=== PATIENT | male | born 1960 | race Two or more races ===

== ENCOUNTER 2020-12-11 10:00 | Inpatient (IN) | payer OTHER, SELFPAY ==
[2020-12-11] VITALS (7 sets, daily range): BP systolic 109–153; BP diastolic 61–98; PULSE 96–130; RESP 13–22; TEMP 37.1–38.3; O2SAT 95–98; BMI 22.9
--- NOTE | ~2020-12-11 | XR_ITS ---
EXAMINATION: XR CHEST CLINICAL INFORMATION: Fever, high risk aspiration. COMPARISON: 01/18/2018 portable chest. TECHNIQUE: 2 views of the chest were obtained. FINDINGS: The lungs are clear. No pleural effusions. The heart and mediastinal structures are unremarkable. XR/XR chest 2V IMPRESSION: No acute cardiopulmonary process.
--- NOTE | ~2020-12-11 | US_ITS ---
EXAMINATION: US RETROPERITONEAL LIMITED (RENAL ONLY) CLINICAL INFORMATION: Renal stone. COMPARISON: Most recent CT abdomen/pelvis dated 01/02/2019. TECHNIQUE: Ultrasound images of the right and left kidney were obtained. FINDINGS: RIGHT KIDNEY: 11.4 x 5.6 x 3.8 cm (SAG x AP x TRV). The kidney is normal in size, contour, and echogenicity. Renal cortical thickness is normal. No focal parenchymal lesion. Multiple right-sided renal stones measuring up to 1.3 cm within the midpole. No hydronephrosis. LEFT KIDNEY: 10.8 x 4.8 x 4.8 cm (SAG x AP x TRV). The kidney is normal in size, contour, and echogenicity. Renal cortical thickness is normal. No focal parenchymal lesion. Echogenic foci, likely representing stones measuring up to 0.3 cm within the lower pole. No hydronephrosis. US/US renal BI IMPRESSION: Bilateral renal stones measuring up to 1.3 cm on the right and 0.3 cm on the left. No hydronephrosis.
--- NOTE | ~2020-12-11 | CT_ITS ---
EXAMINATION: CT chest wo con. CLINICAL INFORMATION: Cough fever COMPARISON: Prior CT 12/22/2016 TECHNIQUE: Multidetector volumetric CT imaging of the chest was done. Axial MIP volume rendering provided. Sagittal and coronal reformatted images were obtained. This CT examination was performed using dose optimization techniques as appropriate, variously including the following: *Automated exposure control *Adjustment of mA and/or kV according to patient size (this includes techniques or standardized protocols for targeted exams where dose is matched to indication/reason for exam; i.e. extremities or head) *Use of iterative reconstruction technique CONTRAST: Noncontrasted study. DLP: 360 mGy-cm FINDINGS: LEAF BLENDER: LINES/TUBES: Fine Grader reviewed, no lines. LUNGS: Lung parenchyma: No evidence of significant interstitial disease. Lung nodules/masses: There are no significant lung nodules. AIRWAYS: Trachea and bronchi are normal. PLEURA: No pleural effusion or pneumothorax. MEDIASTINUM AND AIDE: No mediastinal, hilar or axillary lymphadenopathy. No mediastinal mass. VESSELS: HEART AND PERICARDIUM: Thoracic aorta is normal in size. Heart is normal in size. No pericardial effusion. Pulmonary arteries are normal in size. LOWER NECK, AXILLA: The visualized thyroid gland is unremarkable. No axillary mass or adenopathy. VISUALIZED ABDOMEN: There are bilateral kidney stones, there is IVC filter in place, otherwise unremarkable. CHEST WALL AND BONES: No chest wall mass. The visualized bony thorax is within normal limits. CT/CT chest wo con IMPRESSION: Study limited by motion artifact. 1. No CT evidence of pulmonary infiltrate pneumonia. Lungs are clear. 2. No adenopathy. 3. There are bilateral kidney stones, right IVC filter in place.
--- NOTE | 2020-12-11 10:20 | ECG_ITS ---
Test Reason : FEVER Blood Pressure : / mmHG Vent. Rate : 114 BPM Atrial Rate : 114 BPM P-R Int : 124 ms QRS Dur : 076 ms QT Int : 312 ms P-R-T Axes : 054 036 035 degrees QTc Int : 430 ms Sinus tachycardia Otherwise normal ECG When compared with ECG of 18-JAN-2018 18:36, Nonspecific T wave abnormality, improved in Inferior leads Referred By: Marynan Jenkins Electronically Signed By:RAINE JANSEN
--- NOTE | 2020-12-11 10:25 | ED.GENADULT ---
HPI - General Adult General Chief complaint: Fever Stated complaint: hyperglycemia, nausea/vomiting Time Seen by Provider: 12/11/20 10:15 Source: family (patients sister ) Mode of arrival: EMS Limitations: physical limitation (patient non verbal at baseline. ) History of Present Illness HPI narrative: History obtained from patients siter due to patient being nonverbal at baseline. Per patient's sister he has been having fevers, chills, cough, nausea/vomiting and high sugars at home X3 days. Fevers have been as high as 102 degrees F, last night. He was given Tylenol for his fever, which brought the temperature down. Family also reports he has been having a cough that is productive of white sputum, however they state he has not been short of breath. He has been vomiting just bile, periodically throughout the day. They report sugars at home have been anywhere between 300, to high (meter unable to give quantitative value). He has been eating and drinking per usual. Past medical history significant for hypertension, asthma and HIV. Patient is taking Trumeq. Onset (ago): day(s) (3) Related Data Home Medications Medication Instructions Recorded Confirmed abacavir 600 mg-dolutegravir 50 1 tab PO DAILY 12/11/20 12/11/20 mg-lamivudine 300 mg tablet (Triumeq) insulin degludec 100 unit/mL (3 24 unit SUBCUT DAILY 12/11/20 12/11/20 mL) subcutaneous pen (Tresiba FlexTouch U-100 insulin) insulin lispro 100 unit/mL 0 sliding scale dose SUBCUT TID 12/11/20 12/11/20 subcutaneous pen (Humalog KwikPen (U-100) Insulin) losartan 100 mg tablet 1 tab PO DAILY 12/11/20 12/11/20 Allergies Allergy/AdvReac Type Severity Reaction Status Date / Time aspirin [Aspirin] Allergy Unknown HIVES, Unverified 11/26/19 15:16 ITCHING ibuprofen [From Motrin] Allergy Unknown UNKNOWN Unverified 11/26/19 15:16 Sulfa (Sulfonamide Allergy Unknown HIVES Unverified 11/26/19 15:16 Antibiotics) [SULFA (SULFONAMIDE ANTIBIOTICS)] Aspirin Allergy Unknown Uncoded 08/07/11 00:00 Seafood Allergy Unknown RASH, Uncoded 11/26/19 15:16 ITCHING, HIVES Sulfa Allergy Unknown Uncoded 08/07/11 00:00 Review of Systems Review of Systems: Yes all other systems are reviewed and are negative Constitutional: Constitutional: Reports no additional constitutional complaints, Denies body ache(s), Reports chills, Reports fever(s), Denies headache(s), Reports malaise and Denies weakness Eyes: Eyes: Reports no additional eye complaints and Denies change in vision ENT: Reports system reviewed and no additional complaints, except as documented, Denies dizziness, Denies headache(s), Denies nasal congestion, Denies nasal discharge and Denies neck pain Cardiovascular: Cardiovascular: Reports no additional cardiovascular complaints, Denies chest pain, Denies leg edema and Denies dyspnea Respiratory: Respiratory: Reports no additional respiratory complaints, Reports cough and Denies dyspnea Gastrointestinal: Gastrointestinal: Reports no additional gastrointestinal complaints, Denies abdominal pain, Denies diarrhea, Reports nausea and Reports vomiting Genitourinary: Genitourinary: Denies urinary incontinence Musculoskeletal: Musculoskeletal: Reports no additional musculoskeletal complaints, Denies back pain, Denies arthralgias, Denies joint swelling, Denies neck pain, Denies numbness and Denies tingling Integumentary/Breasts: Skin/Breast: Reports system reviewed and no additional complaints, except as docu and Denies rash Neurologic: Reports system reviewed and no additional complaints, except as documented, Denies dizziness, Denies headache(s), Denies numbness, Denies tingling and Denies weakness PMFSH Past Medical History Medical History (Updated 12/11/20 @ 14:48 by Nena Knight NP) Brain injury Diabetes mellitus Hepatitis C HIV (human immunodeficiency virus infection) Hypertension Renal calculi Family History Family History (Updated 12/11/20 @ 14:48 by Nena Knight NP) Other Diabetes mellitus Social History Social History (Updated 12/11/20 @ 14:49 by Nena Knight NP) Household Members: Caregiver Household Members Other:: Lives with mother Advance Directives: Yes Advance Directives Information Provided: No Advance Directives on File: No Physical Exam Vital Signs: Vital Signs: Last Vital Signs Temp 99.3 F 12/11/20 12:29 Pulse 104 H 12/11/20 14:01 Resp 22 H 12/11/20 14:01 BP 136/98 H 12/11/20 13:10 Pulse Ox 98 12/11/20 14:01 Body Mass Index 22.9 Const: General: cooperative, healthy appearing, comfortable and no acute distress Orientation/consciousness: oriented to person and oriented to place Limitations: no limitations HENMT: Head: Yes normal to inspection Ears: hearing grossly normal bilaterally General nose exam: Normal external nose present Face and sinus: Yes normal facial exam Mouth: Normal oral and palatal mucosa present Throat: Yes posterior oropharynx normal Eyes: General: appearance normal, both eyes and all related structures Pupils: Equal, round and reactive pupils present Neck: Neck: Yes normal visual inspection Chest: Chest palpation & inspection: normal inspection of the chest Resp: Effort & Inspection: normal respiratory effort Auscultation: clear to auscultation bilaterally Cardio: Rate: regular rate Rhythm: regular rhythm Peripheral pulses: Peripheral pulses 2+ throughout GI: Inspection: Yes normal to inspection Palpation (GI): Soft to palpation and nontender Auscultation: normal bowel sounds Back/Spine/Pelvis: Thoracic/Lumbar Spine: thoracic and lumbar spine normal to inspection Skin: General skin exam: no rashes or lesions noted Neuro: General: oriented to person, oriented to place, No moves all extremities (right sided deficit at baseline ), No no focal motor deficits (Patient has baseline right sided weakness/deficit from previous stroke), normal sensation to monofilament and other (Patient alert and awake, nonverbal at baseline) Cranial nerves: Yes Equal, round and reactive pupils present Cognition (Neuro): normal cognition Speech: Other speech findings present (Neuro) (patient nonverbal at baseline ) Gait exam (Neuro): gait abnormal Motor exam (neuro): strength not 5/5 throughout (baseline generalized weakness with right sided deficit. ) Extrem: General: Yes normal to inspection Course Course Course Narrative: 1020- Fever and hyperglycemia unkown source at this time antibiotics (ceftriaxone 1g IV) will be ordered and given and infection protocol will be followed. 60-year-old nonverbal male pmhx of asthma, HTN, and HIV on Trumeq brought in by EMS from home. Sister provided history who states he has been having fevers,chills, cough, nausea/vomiting, and high sugars at home X3 days. T max 102F last night was given Tylenol. Sugars have been anywhere between 300-high at home despite med compliance with Humalog and Tresiba. He is in good spirits per family and eating and drinking well. 1109- Leukocytosis with an elevated lactic acid is noted. Glucose of 472. VBG shows no acidosis. Acetone is negative. Potassium is normal. At this time another liter of fluids has been ordered and 5 units of regular insulin have been orderd. 1200- chest xray shows no consolidations and no signs of pna . However still concerned about PNA (PCP vs aspiration) due to patient symptoms (fever, cough, immunocompromised state )a CT non contrast of the chest will be ordered to further evaluate 1323- lactic acid 2.8 (first) second 1.7 1514- CT of the chest does not show any evidence of pneumonia. He will be admitted to the hospital for urinary tract infection, sepsis, and for glycemic control. Reevaluation(s) Reevaluation #1: Discussed with Dr. Tomlin who will be admitting patient to the medical service. Time: 15:20 Medical Decision Making MDM Narrative Medical decision making narrative: Based off patient history and physical exam findings will look for source of patients high temperature. A urine, basic labs, acetone, VBG, EKG, trop, cultures and lactic will be ordered. Will rule out DKA and try to identify source. Fluids will be given and empiric rocephen will be started at this time. +UTI . CXR/CT chest no evidence of PNA No CONTRERAS, neck stiffness or meningeal signs. No AP (soft/nontender) to suggest underlying abdominal pathology. Lab Data Result diagrams: 12/11/20 10:36 12/11/20 10:36 Labs: Lab Results 12/11/20 12/11/20 12/11/20 Range/Units 10:36 10:36 10:36 WBC 18.5 H (4.8-10.8) X10*3/uL RBC 4.41 L (4.60-5.80) X10*6/uL Hgb 14.9 (14.0-18.0) g/dl Hct 42.6 (42-52) % MCV 96.6 (80-98) fL MCH 33.8 H (27.0-33.0) pg MCHC 35.0 (31.0-36.0) g/dl RDW 11.9 (11.0-16.0) % Plt Count 140 L (160-400) X10*3/uL MPV 12.8 H (9.4-12.4) fL Immature Gran % (Auto) 0.9 H (0.0-0.4) % Neut % (Auto) 86.2 H (45-73) % Lymph % (Auto) 3.5 L (20-40) % [place] % (Auto) 9.2 (2-11) % Eos % (Auto) 0.0 (0-4) % Baso % (Auto) 0.2 (0-2) % Lymph # (Auto) 0.6 L (1.2-4.9) X10*3/uL [place] # (Auto) 1.7 H (0.1-1.2) X10*3/uL Eos # (Auto) 0.0 (0.0-0.4) X10*3/uL Baso # (Auto) 0.0 (0.0-0.2) X10*3/uL Abs Immat Gran (auto) 0.17 H (0.00-0.03) X10*3/uL Absolute Neuts (auto) 15.9 H (2.0-8.3) X10*3/uL Absolute Nucleated RBC 0.000 (0.0-0.012) X10*3/uL Nucleated RBC % (auto) 0.0 (0.0-0.2) /100WBC Smear Tech's Comments VERIFIED VBG pH (7.32-7.43) VBG pCO2 mmHg VBG pO2 mmHg VBG HCO3 (22-26) mmol/L VBG O2 Saturation % VBG Base Excess mmol/L Sodium 139 (135-145) mmol/L Potassium 4.0 (3.3-5.1) mmol/L Chloride 102 (96-108) mmol/L Carbon Dioxide 21 L (22-29) mmol/L Anion Gap 20 (12-20) BUN 18 H (9-16) mg/dL Creatinine 1.30 (0.5-1.4) mg/dL Estim Creat Clear Calc TNP Estimated GFR 56 POC Glucose (60-115) mg/dL Random Glucose 472 H* (60-115) mg/dL Lactic Acid 2.8 H* (0.5-2.0) mmol/L Lactic Acid Fup @ 2Hr (0.5-2.0) mmol/L Calcium 9.7 (8.4-10.2) mg/dL Magnesium 1.6 (1.6-2.6) mg/dL Total Bilirubin 0.9 (0.0-1.0) mg/dL Direct Bilirubin 0.3 (0.0-0.5) mg/dL AST 30 (5-37) U/L ALT 12 (0-40) U/L Alkaline Phosphatase 116 (39-117) U/L Lactate Dehydrogenase 270 (118-273) U/L Troponin I High Sens (<3.5-35.0) ng/L Total Protein 7.8 (6.5-8.0) g/dL Albumin 3.9 (3.5-5.0) g/dL Lipase 4 L (8-78) U/L Urine Color Urine Appearance Urine pH (5.0-8.0) Ur Specific [place] (1.005-1.025) Urine Protein (NEG-TRACE) MG/DL Urine Glucose (UA) (NEG) MG/DL Urine Ketones (NEG) MG/DL Urine Blood (NEG) Urine Nitrite (NEG) Ur Leukocyte Esterase (NEG) Urine RBC (0) /HPF Urine WBC (0-4) /HPF Ur Squamous Epith Cells /LPF Urine Bacteria /LPF Acetone, Qual (Negative) COVID-19 (ASHVIN) (Negative) COVID-19 Clin Com 12/11/20 12/11/20 12/11/20 Range/Units 10:36 10:36 10:36 WBC (4.8-10.8) X10*3/uL RBC (4.60-5.80) X10*6/uL Hgb (14.0-18.0) g/dl Hct (42-52) % MCV (80-98) fL MCH (27.0-33.0) pg MCHC (31.0-36.0) g/dl RDW (11.0-16.0) % Plt Count (160-400) X10*3/uL MPV (9.4-12.4) fL Immature Gran % (Auto) (0.0-0.4) % Neut % (Auto) (45-73) % Lymph % (Auto) (20-40) % [place] % (Auto) (2-11) % Eos % (Auto) (0-4) % Baso % (Auto) (0-2) % Lymph # (Auto) (1.2-4.9) X10*3/uL [place] # (Auto) (0.1-1.2) X10*3/uL Eos # (Auto) (0.0-0.4) X10*3/uL Baso # (Auto) (0.0-0.2) X10*3/uL Abs Immat Gran (auto) (0.00-0.03) X10*3/uL Absolute Neuts (auto) (2.0-8.3) X10*3/uL Absolute Nucleated RBC (0.0-0.012) X10*3/uL Nucleated RBC % (auto) (0.0-0.2) /100WBC Smear Tech's Comments VBG pH (7.32-7.43) VBG pCO2 mmHg VBG pO2 mmHg VBG HCO3 (22-26) mmol/L VBG O2 Saturation % VBG Base Excess mmol/L Sodium (135-145) mmol/L Potassium (3.3-5.1) mmol/L Chloride (96-108) mmol/L Carbon Dioxide (22-29) mmol/L Anion Gap (12-20) BUN (9-16) mg/dL Creatinine (0.5-1.4) mg/dL Estim Creat Clear Calc Estimated GFR POC Glucose (60-115) mg/dL Random Glucose (60-115) mg/dL Lactic Acid (0.5-2.0) mmol/L Lactic Acid Fup @ 2Hr (0.5-2.0) mmol/L Calcium (8.4-10.2) mg/dL Magnesium (1.6-2.6) mg/dL Total Bilirubin (0.0-1.0) mg/dL Direct Bilirubin (0.0-0.5) mg/dL AST (5-37) U/L ALT (0-40) U/L Alkaline Phosphatase (39-117) U/L Lactate Dehydrogenase (118-273) U/L Troponin I High Sens 16.3 (<3.5-35.0) ng/L Total Protein (6.5-8.0) g/dL Albumin (3.5-5.0) g/dL Lipase (8-78) U/L Urine Color Urine Appearance Urine pH (5.0-8.0) Ur Specific [place] (1.005-1.025) Urine Protein (NEG-TRACE) MG/DL Urine Glucose (UA) (NEG) MG/DL Urine Ketones (NEG) MG/DL Urine Blood (NEG) Urine Nitrite (NEG) Ur Leukocyte Esterase (NEG) Urine RBC (0) /HPF Urine WBC (0-4) /HPF Ur Squamous Epith Cells /LPF Urine Bacteria /LPF Acetone, Qual Negative (Negative) COVID-19 (ASHVIN) Negative (Negative) COVID-19 Clin Com See Note 12/11/20 12/11/20 12/11/20 Range/Units 10:43 10:47 11:01 WBC (4.8-10.8) X10*3/uL RBC (4.60-5.80) X10*6/uL Hgb (14.0-18.0) g/dl Hct (42-52) % MCV (80-98) fL MCH (27.0-33.0) pg MCHC (31.0-36.0) g/dl RDW (11.0-16.0) % Plt Count (160-400) X10*3/uL MPV (9.4-12.4) fL Immature Gran % (Auto) (0.0-0.4) % Neut % (Auto) (45-73) % Lymph % (Auto) (20-40) % [place] % (Auto) (2-11) % Eos % (Auto) (0-4) % Baso % (Auto) (0-2) % Lymph # (Auto) (1.2-4.9) X10*3/uL [place] # (Auto) (0.1-1.2) X10*3/uL Eos # (Auto) (0.0-0.4) X10*3/uL Baso # (Auto) (0.0-0.2) X10*3/uL Abs Immat Gran (auto) (0.00-0.03) X10*3/uL Absolute Neuts (auto) (2.0-8.3) X10*3/uL Absolute Nucleated RBC (0.0-0.012) X10*3/uL Nucleated RBC % (auto) (0.0-0.2) /100WBC Smear Tech's Comments VBG pH 7.40 (7.32-7.43) VBG pCO2 37 mmHg VBG pO2 60 mmHg VBG HCO3 23 (22-26) mmol/L VBG O2 Saturation 88.0 % VBG Base Excess -0.4 mmol/L Sodium (135-145) mmol/L Potassium (3.3-5.1) mmol/L Chloride (96-108) mmol/L Carbon Dioxide (22-29) mmol/L Anion Gap (12-20) BUN (9-16) mg/dL Creatinine (0.5-1.4) mg/dL Estim Creat Clear Calc Estimated GFR POC Glucose 416 H* (60-115) mg/dL Random Glucose (60-115) mg/dL Lactic Acid (0.5-2.0) mmol/L Lactic Acid Fup @ 2Hr (0.5-2.0) mmol/L Calcium (8.4-10.2) mg/dL Magnesium (1.6-2.6) mg/dL Total Bilirubin (0.0-1.0) mg/dL Direct Bilirubin (0.0-0.5) mg/dL AST (5-37) U/L ALT (0-40) U/L Alkaline Phosphatase (39-117) U/L Lactate Dehydrogenase (118-273) U/L Troponin I High Sens (<3.5-35.0) ng/L Total Protein (6.5-8.0) g/dL Albumin (3.5-5.0) g/dL Lipase (8-78) U/L Urine Color YELLOW Urine Appearance CLOUDY Urine pH 5.5 (5.0-8.0) Ur Specific [place] 1.020 (1.005-1.025) Urine Protein 2+ H (NEG-TRACE) MG/DL Urine Glucose (UA) >=1000 H (NEG) MG/DL Urine Ketones 15 (NEG) MG/DL Urine Blood 3+ H (NEG) Urine Nitrite POS H (NEG) Ur Leukocyte Esterase NEG (NEG) Urine RBC 15-29 H (0) /HPF Urine WBC 50-75 H (0-4) /HPF Ur Squamous Epith Cells 1+ /LPF Urine Bacteria 1+ /LPF Acetone, Qual (Negative) COVID-19 (ASHVIN) (Negative) COVID-19 Clin Com 12/11/20 12/11/20 Range/Units 12:30 12:46 WBC (4.8-10.8) X10*3/uL RBC (4.60-5.80) X10*6/uL Hgb (14.0-18.0) g/dl Hct (42-52) % MCV (80-98) fL MCH (27.0-33.0) pg MCHC (31.0-36.0) g/dl RDW (11.0-16.0) % Plt Count (160-400) X10*3/uL MPV (9.4-12.4) fL Immature Gran % (Auto) (0.0-0.4) % Neut % (Auto) (45-73) % Lymph % (Auto) (20-40) % [place] % (Auto) (2-11) % Eos % (Auto) (0-4) % Baso % (Auto) (0-2) % Lymph # (Auto) (1.2-4.9) X10*3/uL [place] # (Auto) (0.1-1.2) X10*3/uL Eos # (Auto) (0.0-0.4) X10*3/uL Baso # (Auto) (0.0-0.2) X10*3/uL Abs Immat Gran (auto) (0.00-0.03) X10*3/uL Absolute Neuts (auto) (2.0-8.3) X10*3/uL Absolute Nucleated RBC (0.0-0.012) X10*3/uL Nucleated RBC % (auto) (0.0-0.2) /100WBC Smear Tech's Comments VBG pH (7.32-7.43) VBG pCO2 mmHg VBG pO2 mmHg VBG HCO3 (22-26) mmol/L VBG O2 Saturation % VBG Base Excess mmol/L Sodium (135-145) mmol/L Potassium (3.3-5.1) mmol/L Chloride (96-108) mmol/L Carbon Dioxide (22-29) mmol/L Anion Gap (12-20) BUN (9-16) mg/dL Creatinine (0.5-1.4) mg/dL Estim Creat Clear Calc Estimated GFR POC Glucose 335 H (60-115) mg/dL Random Glucose (60-115) mg/dL Lactic Acid (0.5-2.0) mmol/L Lactic Acid Fup @ 2Hr 1.7 (0.5-2.0) mmol/L Calcium (8.4-10.2) mg/dL Magnesium (1.6-2.6) mg/dL Total Bilirubin (0.0-1.0) mg/dL Direct Bilirubin (0.0-0.5) mg/dL AST (5-37) U/L ALT (0-40) U/L Alkaline Phosphatase (39-117) U/L Lactate Dehydrogenase (118-273) U/L Troponin I High Sens (<3.5-35.0) ng/L Total Protein (6.5-8.0) g/dL Albumin (3.5-5.0) g/dL Lipase (8-78) U/L Urine Color Urine Appearance Urine pH (5.0-8.0) Ur Specific [place] (1.005-1.025) Urine Protein (NEG-TRACE) MG/DL Urine Glucose (UA) (NEG) MG/DL Urine Ketones (NEG) MG/DL Urine Blood (NEG) Urine Nitrite (NEG) Ur Leukocyte Esterase (NEG) Urine RBC (0) /HPF Urine WBC (0-4) /HPF Ur Squamous Epith Cells /LPF Urine Bacteria /LPF Acetone, Qual (Negative) COVID-19 ([facility]VIN) (Negative) COVID-19 Clin Com Imaging Data Chest x-ray: Attestation: I personally reviewed and interpreted this imaging study as follows: Radiologist's impression: FINDINGS: The lungs are clear. No pleural effusions. The heart and mediastinal structures are unremarkable. XR/XR chest 2V IMPRESSION: No acute cardiopulmonary process. CT scan - chest: Attestation: I personally reviewed and interpreted this imaging study as follows: Radiologist's impression: FINDINGS: BACK TUFTER: LINES/TUBES: Corporate Associate Attorney reviewed, no lines. LUNGS: Lung parenchyma: No evidence of significant interstitial disease. Lung nodules/masses: There are no significant lung nodules. AIRWAYS: Trachea and bronchi are normal. PLEURA: No pleural effusion or pneumothorax. MEDIASTINUM AND AIDE: No mediastinal, hilar or axillary lymphadenopathy. ? No mediastinal mass. VESSELS: HEART AND PERICARDIUM: Thoracic aorta is normal in size. Heart is normal in size.? No pericardial effusion. Pulmonary arteries are normal in size. LOWER NECK, AXILLA:? The visualized thyroid gland is unremarkable. No axillary mass or adenopathy. VISUALIZED ABDOMEN: There are bilateral kidney stones, there is IVC filter in place, otherwise unremarkable. CHEST WALL AND BONES: No chest wall mass. The visualized bony thorax is within normal limits. CT/CT chest wo con IMPRESSION: Study limited by motion artifact. ? 1. No CT evidence of pulmonary infiltrate pneumonia. Lungs are clear. 2. No adenopathy. 3. There are bilateral kidney stones, right IVC filter in place. ECG Data Attestation: I personally reviewed and interpreted this ECG as follows: Prior ECG tracings: available for review Interpretation: Ventricular rate 114, OR interval normal, QRS normal QT/QTC normal. EKG shows sinus tachycardia. No ST elevations, no T-wave inversions. No acute ischemia No acute changes when compared to EKG from 01/18/2018. Discharge Plan Discharge Clinical Impression: Elevated lactic acid level, Hyperglycemia UTI (urinary tract infection) Qualifiers: Urinary tract infection type: site unspecified Hematuria presence: without hematuria Qualified Code(s): N39.0 - Urinary tract infection, site not specified Leukocytosis Qualifiers: Leukocytosis type: unspecified Qualified Code(s): D72.829 - Elevated white blood cell count, unspecified Patient Disposition: Admitted As Inpatient
[2020-12-11 10:43] LABS: Basophils Percent Auto 0.2 % (0-2); Hematocrit 42.6 % (42-52); Hemoglobin 14.9 g/dl (14.0-18.0); Imm Gran Abs Auto 0.17 X10*3/uL (0.00-0.03); Imm Gran Pct Auto 0.9 % (0.0-0.4); Lymphocytes Absolute Auto 0.6 X10*3/uL (1.2-4.9); Lymphocytes Percent Auto 3.5 % (20-40); MANUAL DIFF FLAG SCAN; Mean Corpuscular Hemoglobin 33.8 pg (27.0-33.0); Mean Corpuscular Volume 96.6 fL (80-98); Mean Platelet Volume 12.8 fL (9.4-12.4); Monocytes Absolute Auto 1.7 X10*3/uL (0.1-1.2); Monocytes Percent Auto 9.2 % (2-11); Neutrophils Absolute Auto 15.9 X10*3/uL (2.0-8.3); Neutrophils Percent Auto 86.2 % (45-73); Platelet Count 140 X10*3/uL (160-400); Red Blood Count 4.41 X10*6/uL (4.60-5.80); Red Cell Distribution Width 11.9 % (11.0-16.0); SCAN SMEAR FLAG 1; White Blood Count 18.5 X10*3/uL (4.8-10.8)
[2020-12-11 10:49] LABS: VBG Base Excess -0.4 mmol/L; VBG HCO3 23 mmol/L (22-26); VBG pCO2 37 mmHg; VBG pO2 60 mmHg
[2020-12-11 10:51] LABS: Acetone, serum QL Negative (Negative)
[2020-12-11 10:51] LABS: Venous Blood Gas Refer to POC result
[2020-12-11] MEDS: Acetaminophen Supp 650 MG SUPP.RECT PR (10:55)
[2020-12-11] MEDS: cefTRIAXone sodium 1 GM in 0.9 % Sodium Chloride 50 ML IV (10:55)
[2020-12-11] MEDS: 0.9 % Sodium Chloride 1,000 ML 999 ML IV ×2 (10:55→11:34)
[2020-12-11 10:59] LABS: Lactic Acid 2.8 mmol/L (0.5-2.0)
[2020-12-11 11:02] LABS: Alanine Aminotransferase 12 U/L (0-40); Albumin Level 3.9 g/dL (3.5-5.0); Alkaline Phosphatase 116 U/L (39-117); Anion Gap 20 (12-20); Aspartate Amino Transferase 30 U/L (5-37); Bilirubin Direct 0.3 mg/dL (0.0-0.5); Bilirubin Total 0.9 mg/dL (0.0-1.0); Blood Urea Nitrogen 18 mg/dL (9-16); Calcium 9.7 mg/dL (8.4-10.2); Carbon Dioxide 21 mmol/L (22-29); Chloride 102 mmol/L (96-108); Estimated Glomerular Filt Rate 56; Glucose Random 472 mg/dL (60-115); Lipase 4 U/L (8-78); Magnesium 1.6 mg/dL (1.6-2.6); Sodium 139 mmol/L (135-145); Total Protein 7.8 g/dL (6.5-8.0)
[2020-12-11 11:03] LABS: Troponin-I High Sensitivity 16.3 ng/L (<3.5-35.0)
[2020-12-11 11:06] LABS: SLIDE REVIEW VERIFIED
[2020-12-11 11:06] LABS: Glucose, Whole Blood 416 mg/dL (60-115)
[2020-12-11 11:07] LABS: Appearance Urine CLOUDY; Color Urine YELLOW; Glucose Urine UA >=1000 MG/DL (NEG); Leukocyte Esterase Urine NEG (NEG); Nitrite Urine POS (NEG); PH 5.5 (5.0-8.0); UACC Culture Trigger YES; Urine Blood 3+ (NEG); Urine Ketones 15 MG/DL (NEG); Urine Protein 2+ MG/DL (NEG-TRACE)
[2020-12-11 11:16] LABS: Bacteria Urine 1+ /LPF; Squamous Epithelial Cell Urine 1+ /LPF; WBC Urine 50-75 /HPF (0-4)
[2020-12-11 11:20] LABS: COVID-19 Test Negative (Negative)
[2020-12-11] MEDS: Insulin Regular, Human 100 UNIT/ML 3 ML VIAL IVPUSH (11:30)
[2020-12-11 12:35] LABS: Glucose, Whole Blood 335 mg/dL (60-115)
[2020-12-11 12:39] LABS: Reflex Lactate? Lactic Acid Added
[2020-12-11 13:13] LABS: ~Lactic Acid-LAB USE ONLY 1.7 mmol/L (0.5-2.0)
--- NOTE | 2020-12-11 14:13 | PM.IMHP ---
History of Present Illness Date of Service: 12/11/20 <Nena Knight NP - Last Filed: 12/11/20 15:02> Attending physician on admission: Pedro Luis Tomlin <Nena Knight NP - Last Filed: 12/11/20 15:02> Chief Complaint: Fever <Nena Knight NP - Last Filed: 12/11/20 15:02> 60 year old man presenting to the ED with fever, urinary frequency, dysuria, chills, elevated blood sugars. He has a hx of TBI and is mostly dependant on his caretakers, due to this his sister was present and gave the history. Because he is mostly nonverbal He was noted to have fever, tachycardia, tachypnea, lactic acidosis, leukocytosis. Chest CT did not show any consolidation or effusion. UA was positive. . In the ED, He was given Rocephin, IV insulin and a liter of fluid. He will be admitted for severe sepsis secondary to UTI. <Nena Knight NP - Last Filed: 12/11/20 15:02> 60 year old man presenting to the ED with fever, urinary frequency, dysuria, chills, elevated blood sugars. He has a hx of TBI and is mostly dependant on his caretakers, due to this his sister was present and gave the history. Because he is mostly nonverbal He was noted to have fever, tachycardia, tachypnea, lactic acidosis, leukocytosis. Chest CT did not show any consolidation or effusion. UA was positive. . In the ED, He was given Rocephin, IV insulin and a liter of fluid. He will be admitted for severe sepsis secondary to UTI. <Pedro Luis Tomlin MD - Last Filed: 12/11/20 16:54> Review of Systems Review of Systems: difficult to assess as patient is nonverbal He was able to respond by shaking his head He denied chest pain, shortness of breath, nausea, vomiting He has had frequency and dysuria <Nena Knight NP - Last Filed: 12/11/20 15:02> REPLACED BY [facility] Medical History: Medical History (Updated 12/11/20 @ 14:48 by Nena Knight NP) Brain injury Diabetes mellitus Hepatitis C HIV (human immunodeficiency virus infection) Hypertension Renal calculi <Nena Knight NP - Last Filed: 12/11/20 15:02> Family History: Family History (Updated 12/11/20 @ 14:48 by Nena Knight NP) Other Diabetes mellitus <Nena Knight NP - Last Filed: 12/11/20 15:02> Pertinent family history: . <Nena Knight NP - Last Filed: 12/11/20 15:02> Social History: Social History (Updated 12/11/20 @ 14:49 by Nena Knight NP) Household Members: Caregiver Household Members Other:: Lives with mother Advance Directives: Yes Advance Directives Information Provided: No Advance Directives on File: No <Nena Knihgt NP - Last Filed: 12/11/20 15:02> Meds Allergies/Adverse reactions: Allergies Allergy/AdvReac Type Severity Reaction Status Date / Time aspirin [Aspirin] Allergy Unknown HIVES, Unverified 11/26/19 15:16 ITCHING ibuprofen [From Motrin] Allergy Unknown UNKNOWN Unverified 11/26/19 15:16 Sulfa (Sulfonamide Allergy Unknown HIVES Unverified 11/26/19 15:16 Antibiotics) [SULFA (SULFONAMIDE ANTIBIOTICS)] Aspirin Allergy Unknown Uncoded 08/07/11 00:00 Seafood Allergy Unknown RASH, Uncoded 11/26/19 15:16 ITCHING, HIVES Sulfa Allergy Unknown Uncoded 08/07/11 00:00 <Nena Knight NP - Last Filed: 12/11/20 15:02> Active Medications: Current Medications Pharmacy Consult (Consult Rx Perform Med Rec) 1 each MISCELLANE ONCE PRN PRN Reason: Consult order <Nena Knight NP - Last Filed: 12/11/20 15:02> Home medications: Home Medications Medication Instructions Recorded Confirmed Last Taken Type abacavir 600 mg-dolutegravir 50 1 tab PO DAILY 12/11/20 12/11/20 12/10/20 History mg-lamivudine 300 mg tablet (Triumeq) insulin degludec 100 unit/mL (3 24 unit SUBCUT DAILY 12/11/20 12/11/20 12/10/20 History mL) subcutaneous pen (Tresiba FlexTouch U-100 insulin) insulin lispro 100 unit/mL 0 sliding scale dose SUBCUT TID 12/11/20 12/11/20 Unknown History subcutaneous pen (Humalog KwikPen (U-100) Insulin) losartan 100 mg tablet 1 tab PO DAILY 12/11/20 12/11/20 12/10/20 History <Nena Knight NP - Last Filed: 12/11/20 15:02> Physical Exam Vital Signs and Narrative: Vital Signs: Last Vital Signs Temp 99.3 F 12/11/20 12:29 Pulse 104 H 12/11/20 14:01 Resp 22 H 12/11/20 14:01 BP 136/98 H 12/11/20 13:10 Pulse Ox 98 12/11/20 14:01 Body Mass Index 22.9 <Nena Knight NP - Last Filed: 12/11/20 15:02> Appearing in no acute distress head is normocephalic atraumatic eyes pupils are PERRLA sclera is anicteric mouth throat mucous membranes are intact and moist neck is supple no lymphadenopathy, no JVD noted lung sounds are clear to auscultation heart regular rate rhythm, clear S1, S2 positive bowel sounds, abdomen is soft, nontender neuro patient is alert, mostly non verbal <Nena Knight NP - Last Filed: 12/11/20 15:02> Results Labs CBC and Chem 7: : 12/11/20 10:36 12/11/20 10:36 <Nena Knight NP - Last Filed: 12/11/20 15:02> Labs: Laboratory Results - last 24 hr 12/11/20 12/11/20 12/11/20 10:36 10:36 10:36 MCV 96.6 MCH 33.8 H MCHC 35.0 RDW 11.9 Plt Count 140 L MPV 12.8 H Immature Gran % (Auto) 0.9 H Neut % (Auto) 86.2 H Lymph % (Auto) 3.5 L Stephens % (Auto) 9.2 Eos % (Auto) 0.0 Baso % (Auto) 0.2 Lymph # (Auto) 0.6 L Stephens # (Auto) 1.7 H Eos # (Auto) 0.0 Baso # (Auto) 0.0 Abs Immat Gran (auto) 0.17 H Absolute Neuts (auto) 15.9 H Absolute Nucleated RBC 0.000 Nucleated RBC % (auto) 0.0 Smear Tech's Comments VERIFIED VBG pH VBG pCO2 VBG pO2 VBG HCO3 VBG O2 Saturation VBG Base Excess Anion Gap 20 Estim Creat Clear Calc TNP Estimated GFR 56 POC Glucose Random Glucose 472 H* Lactic Acid 2.8 H* Lactic Acid Fup @ 2Hr Calcium 9.7 Magnesium 1.6 Total Bilirubin 0.9 Direct Bilirubin 0.3 AST 30 ALT 12 Alkaline Phosphatase 116 Troponin I High Sens Total Protein 7.8 Albumin 3.9 Lipase 4 L Urine Color Urine Appearance Urine pH Ur Specific [place] Urine Protein Urine Glucose (UA) Urine Ketones Urine Blood Urine Nitrite Ur Leukocyte Esterase Urine RBC Urine WBC Ur Squamous Epith Cells Urine Bacteria Acetone, Qual COVID-19 ([facility]IN) COVID-19 Clin Com 12/11/20 12/11/20 12/11/20 10:36 10:36 10:36 MCV MCH MCHC RDW Plt Count MPV Immature Gran % (Auto) Neut % (Auto) Lymph % (Auto) [place] % (Auto) Eos % (Auto) Baso % (Auto) Lymph # (Auto) [place] # (Auto) Eos # (Auto) Baso # (Auto) Abs Immat Gran (auto) Absolute Neuts (auto) Absolute Nucleated RBC Nucleated RBC % (auto) Smear Tech's Comments VBG pH VBG pCO2 VBG pO2 VBG HCO3 VBG O2 Saturation VBG Base Excess Anion Gap Estim Creat Clear Calc Estimated GFR POC Glucose Random Glucose Lactic Acid Lactic Acid Fup @ 2Hr Calcium Magnesium Total Bilirubin Direct Bilirubin AST ALT Alkaline Phosphatase Troponin I High Sens 16.3 Total Protein Albumin Lipase Urine Color Urine Appearance Urine pH Ur Specific [place] Urine Protein Urine Glucose (UA) Urine Ketones Urine Blood Urine Nitrite Ur Leukocyte Esterase Urine RBC Urine WBC Ur Squamous Epith Cells Urine Bacteria Acetone, Qual Negative COVID-19 ([facility]IN) Negative COVID-19 Clin Com See Note 12/11/20 12/11/20 12/11/20 10:43 10:47 11:01 MCV MCH MCHC RDW Plt Count MPV Immature Gran % (Auto) Neut % (Auto) Lymph % (Auto) [place] % (Auto) Eos % (Auto) Baso % (Auto) Lymph # (Auto) [place] # (Auto) Eos # (Auto) Baso # (Auto) Abs Immat Gran (auto) Absolute Neuts (auto) Absolute Nucleated RBC Nucleated RBC % (auto) Smear Tech's Comments VBG pH 7.40 VBG pCO2 37 VBG pO2 60 VBG HCO3 23 VBG O2 Saturation 88.0 VBG Base Excess -0.4 Anion Gap Estim Creat Clear Calc Estimated GFR POC Glucose 416 H* Random Glucose Lactic Acid Lactic Acid Fup @ 2Hr Calcium Magnesium Total Bilirubin Direct Bilirubin AST ALT Alkaline Phosphatase Troponin I High Sens Total Protein Albumin Lipase Urine Color YELLOW Urine Appearance CLOUDY Urine pH 5.5 Ur Specific [place] 1.020 Urine Protein 2+ H Urine Glucose (UA) >=1000 H Urine Ketones 15 Urine Blood 3+ H Urine Nitrite POS H Ur Leukocyte Esterase NEG Urine RBC 15-29 H Urine WBC 50-75 H Ur Squamous Epith Cells 1+ Urine Bacteria 1+ Acetone, Qual COVID-19 ([facility]) COVID-19 Clin Com 12/11/20 12/11/20 12:30 12:46 MCV MCH MCHC RDW Plt Count MPV Immature Gran % (Auto) Neut % (Auto) Lymph % (Auto) Stephens % (Auto) Eos % (Auto) Baso % (Auto) Lymph # (Auto) [place] # (Auto) Eos # (Auto) Baso # (Auto) Abs Immat Gran (auto) Absolute Neuts (auto) Absolute Nucleated RBC Nucleated RBC % (auto) Smear Tech's Comments VBG pH VBG pCO2 VBG pO2 VBG HCO3 VBG O2 Saturation VBG Base Excess Anion Gap Estim Creat Clear Calc Estimated GFR POC Glucose 335 H Random Glucose Lactic Acid Lactic Acid Fup @ 2Hr 1.7 Calcium Magnesium Total Bilirubin Direct Bilirubin AST ALT Alkaline Phosphatase Troponin I High Sens Total Protein Albumin Lipase Urine Color Urine Appearance Urine pH Ur Specific [place] Urine Protein Urine Glucose (UA) Urine Ketones Urine Blood Urine Nitrite Ur Leukocyte Esterase Urine RBC Urine WBC Ur Squamous Epith Cells Urine Bacteria Acetone, Qual COVID-19 ([facility]) COVID-19 Clin Com <Nena Knight NP - Last Filed: 12/11/20 15:02> Imaging Radiologist's Impressions: Impressions Chest X-Ray 12/11/20 10:20 IMPRESSION: No acute cardiopulmonary process. Chest CT 12/11/20 12:09 IMPRESSION: Study limited by motion artifact. 1. No CT evidence of pulmonary infiltrate pneumonia. Lungs are clear. 2. No adenopathy. 3. There are bilateral kidney stones, right IVC filter in place. <Nena Knight NP - Last Filed: 12/11/20 15:02> Assessment and Plan (1) Severe sepsis: Status: Acute <Nena Knight NP - Last Filed: 12/11/20 15:02> (2) UTI (urinary tract infection): Status: Acute <Nena Knight NP - Last Filed: 12/11/20 15:02> 60 year old man admitted with sepsis secondary to UTI. He has a hx of TBI and was unable to engage in the interview, inofrmation was obained through his medical record and family. Severe sepsis secondary to UTI Leukocytosis, fever, tachycardia, lactic acidosis Treat with IV rocephin follow cultures hx of renal calculi will obtain renal u/s Diabetes. uncontrolled treat with sliding scale, ADA diet check A1C HIV On Triumeq last cd4 count 10/28 740 ([facility]), viral load 12 neg ([facility]) Hypertension. stable BP continue losartan DVT prophylaxis with heparin Attending Dr. Tomlin <Nena Knight NP - Last Filed: 12/11/20 15:02> 60 year old man admitted with sepsis secondary to UTI. He has a hx of TBI and was unable to engage in the interview, inofrmation was obained through his medical record and family. Severe sepsis secondary to UTI Leukocytosis, fever, tachycardia, lactic acidosis Treat with IV rocephin follow cultures hx of renal calculi will obtain renal u/s Diabetes. uncontrolled treat with sliding scale, ADA diet check A1C HIV On Triumeq last cd4 count 10/28 740 ([facility]), viral load 02/27 neg ([facility]) Hypertension. stable BP continue losartan DVT prophylaxis with heparin Attending Dr. Tomlin Addendum to history and physical by mid-level provider Jesenia Knight NP I interviewed and examined the patient. I discussed their presentation and management with the mid-level provider. I reviewed the history and physical and agree with the documentation, with the following additions and corrections: 60yo M with TBI, well controlled HIV on Triumeq [CD4 740 10/29/19, pVL undetectable 02/28/20], DM2 presenting with fever, tachycardia, tachypnea, leukocytosis, lactic acidosis, pyuria. On exam in NAD, disoriented, impaired insight, lungs clear, CV RRR, abd soft Plan admit to [facility] for severe sepsis due to likely UTI, treat with IV ceftriaxone and follow UCX. Renal US to t/o hydronephrosis/stone/abscess. <Pedro Luis Tomlin MD - Last Filed: 12/11/20 16:54> Quality Stroke Does the patient have a stroke diagnosis?: No <Nena Knight NP - Last Filed: 12/11/20 15:02> VTE Prior VTE?: No <Nena Knight NP - Last Filed: 12/11/20 15:02> VTE Risk Level:: Medical - moderate - high <Nena Knight NP - Last Filed: 12/11/20 15:02> VTE Device Contraindication: Treatment Not Indicated <Nena Knight NP - Last Filed: 12/11/20 15:02> VTE Drug Contraindication: N/A - Med Ordered <Nena Knight NP - Last Filed: 12/11/20 15:02>
[2020-12-11 15:25] LABS: Lactate Dehydrogenase 270 U/L (118-273)
[2020-12-11 17:26] LABS: Glucose, Whole Blood 308 mg/dL (60-115)
[2020-12-11] MEDS: Insulin Lispro 100 UNIT/ML 3 ML VIAL SUBCUT ×2 (17:30→23:22)
[2020-12-11] MEDS: Acetaminophen 325 MG TABLET 650 MG PO (17:30)
[2020-12-11] MEDS: Heparin Sodium,Porcine 5,000 UNIT/ML VIAL 5000 UNIT SUBCUT (17:30)
[2020-12-11] MEDS: 0.9 % Sodium Chloride Flush 3 ML SYRINGE IVFLUSH (18:41)
[2020-12-11 22:08] LABS: Glucose, Whole Blood 314 mg/dL (60-115)
[2020-12-12 03:39] LABS: Estimated Average Glucose 203 mg/dL; Hemoglobin A1c % 8.7 %
[2020-12-12 06:54] LABS: Basophils Percent Auto 0.2 % (0-2); Eosinophils Percent Auto 0.3 % (0-4); Hematocrit 40.6 % (42-52); Hemoglobin 13.9 g/dl (14.0-18.0); Imm Gran Abs Auto 0.08 X10*3/uL (0.00-0.03); Imm Gran Pct Auto 0.5 % (0.0-0.4); Lymphocytes Absolute Auto 1.1 X10*3/uL (1.2-4.9); Lymphocytes Percent Auto 7.6 % (20-40); MANUAL DIFF FLAG SCAN; Mean Corpuscular HGB Conc 34.2 g/dl (31.0-36.0); Mean Corpuscular Hemoglobin 33.7 pg (27.0-33.0); Mean Corpuscular Volume 98.5 fL (80-98); Mean Platelet Volume 12.5 fL (9.4-12.4); Monocytes Absolute Auto 1.8 X10*3/uL (0.1-1.2); Monocytes Percent Auto 12.3 % (2-11); Neutrophils Absolute Auto 11.7 X10*3/uL (2.0-8.3); Neutrophils Percent Auto 79.1 % (45-73); Platelet Count 122 X10*3/uL (160-400); Red Blood Count 4.12 X10*6/uL (4.60-5.80); Red Cell Distribution Width 12.2 % (11.0-16.0); SCAN SMEAR FLAG 1; White Blood Count 14.8 X10*3/uL (4.8-10.8)
[2020-12-12 07:28] LABS: SLIDE REVIEW VERIFIED
[2020-12-12 07:31] VITALS: BP 150/93; PULSE 100; RESP 17; TEMP 37.2; O2SAT 94
[2020-12-12 07:57] LABS: Glucose, Whole Blood 315 mg/dL (60-115)
[2020-12-12] MEDS: Insulin Lispro 100 UNIT/ML 3 ML VIAL SUBCUT ×4 (08:03→20:22)
[2020-12-12] MEDS: Heparin Sodium,Porcine 5,000 UNIT/ML VIAL 5000 UNIT SUBCUT ×2 (08:04→18:05)
[2020-12-12 09:50] VITALS: BP 144/90; PULSE 104; RESP 18; TEMP 36.4; O2SAT 96
[2020-12-12] MEDS: cefTRIAXone sodium 1 GM in 0.9 % Sodium Chloride 50 ML IV (10:40)
[2020-12-12] MEDS: 0.9 % Sodium Chloride Flush 3 ML SYRINGE IVFLUSH ×3 (10:40→23:21)
[2020-12-12 10:42] VITALS: BP 144/90; PULSE 104
[2020-12-12] MEDS: Losartan Potassium 50 MG TABLET 100 MG PO (10:42)
[2020-12-12] MEDS: Insulin Glargine,Hum.rec.anlog 100 UNIT/ML 10 ML VIAL 19 UNIT SUBCUT (10:42)
[2020-12-12 10:57] LABS: Glucose, Whole Blood 343 mg/dL (60-115)
--- NOTE | 2020-12-12 11:07 | P.PNIM_ITS ---
Progress Note: A&P (1) Severe sepsis: Status: Acute (2) UTI (urinary tract infection): Status: Acute (3) Tachycardia: Status: Acute Assessment and Plan: 60 year old man admitted with sepsis secondary to UTI. He has a hx of TBI and was unable to engage in the interview, inofrmation was obained through his medical record and family. Severe sepsis secondary to UTI. Initially presenting with Leukocytosis, fever, tachycardia, lactic acidosis Treat with IV rocephin follow cultures renal u/s showing Bilateral renal stones measuring up to 1.3 cm on the right and 0.3 cm on the left. No hydronephrosis. Tachycardia. Likely secondary to infection Will add IV fluids Diabetes. uncontrolled treat with sliding scale, ADA diet A1C 8.7 HIV On Triumeq last cd4 count 10/28 740 ([facility] [place] [place]), viral load 02/27 neg ([facility] [place] [place]) Hypertension. stable BP continue losartan DISPO likely home tomorrow after 48hr cx DVT prophylaxis with heparin Attending Dr. Mcgregor Subjective Subjective Date of Service: 12/12/20 Review of Systems Follow up severe sepsis, UTI nonverbal unable to obtain ROS Physical Exam Vital Signs: Vital Signs: Last Vital Signs Temp 97.6 F 12/12/20 09:50 Pulse 104 H 12/12/20 10:42 Resp 18 12/12/20 09:50 BP 144/90 H 12/12/20 10:42 Pulse Ox 96 12/12/20 09:50 Body Mass Index 22.9 Appearing in no acute distress lung sounds are clear to auscultation heart regular rate rhythm, clear S1, S2 positive bowel sounds, abdomen is soft, nontender neuro patient is alert, nonverbal Objective Data Current Medications Acetaminophen (Acetaminophen 325 Mg Tablet) 650 mg PO Q6H PRN PRN Reason: Pain, Mild (Pain Scale 1-3) Last Admin: 12/11/20 17:30 Dose: 650 mg Documented by: Dextrose (Dextrose 50 % 25 Gm/50 Ml Vial) 25 gm IVPUSH Q15M PRN; Protocol PRN Reason: per Hypoglycemia Standing Ord. Glucose (Glucose Gel 15 Gm Gel..Gram.) 15 gm PO Q15M PRN; Protocol PRN Reason: per Hypoglycemia Standing Ord. Heparin Sodium (Porcine) (Heparin Sodium,Porcine 5,000 Unit/Ml Vial) 5,000 unit SUBCUT Q12H ALEJA Last Admin: 12/12/20 08:04 Dose: 5,000 unit Documented by: Ceftriaxone Sodium 1 gm/ (Sodium Chloride) 50 mls @ 100 mls/hr IV Q24H [facility] Last Admin: 12/12/20 10:40 Dose: 100 mls/hr Documented by: Insulin Glargine (Insulin Glargine,Hum.Rec.Anlog 100 Unit/Ml 10 Ml Vial) 19 unit SUBCUT DAILY [facility] Last Admin: 12/12/20 10:42 Dose: 19 unit Documented by: Insulin Human Lispro (Insulin Lispro 100 Unit/Ml 3 Ml Vial) 0 unit SUBCUT QIDACHS [facility]; Protocol Last Admin: 12/12/20 08:03 Dose: 8 unit Documented by: Losartan Potassium (Losartan Potassium 50 Mg Tablet) 100 mg PO DAILY [facility]; Protocol Last Admin: 12/12/20 10:42 Dose: 100 mg Documented by: Non-Formulary Medication ([id number] [Triumeq]) 1 tab PO DAILY [facility] Ondansetron HCl (Ondansetron Hcl 4 Mg/2 Ml Vial) 4 mg IVPUSH Q8H PRN PRN Reason: Nausea and Vomiting Pharmacy Consult (Consult Rx Perform Med Rec) 1 each MISCELLANE ONCE PRN PRN Reason: Consult order Sodium Chloride (0.9 % Sodium Chloride Flush 3 Ml Syringe) 3 ml IVFLUSH QSHIFT [facility] Last Admin: 12/12/20 10:40 Dose: 3 ml Documented by: Labs CBC & Chem 7: 12/12/20 06:17 12/11/20 10:36 Labs: Laboratory Results - last 24 hr 12/11/20 12/11/20 12/11/20 10:36 10:36 10:36 MCV MCH MCHC RDW Plt Count MPV Immature Gran % (Auto) Neut % (Auto) Lymph % (Auto) [place] % (Auto) Eos % (Auto) Baso % (Auto) Lymph # (Auto) [place] # (Auto) Eos # (Auto) Baso # (Auto) Abs Immat Gran (auto) Absolute Neuts (auto) Absolute Nucleated RBC Nucleated RBC % (auto) Smear Tech's Comments POC Glucose Estimat Average Glucose 203 Hemoglobin A1c % 8.7 Lactic Acid Fup @ 2Hr Lactate Dehydrogenase 270 Urine Color Urine Appearance Urine pH Ur Specific [place] Urine Protein Urine Glucose (UA) Urine Ketones Urine Blood Urine Nitrite Ur Leukocyte Esterase Urine RBC Urine WBC Ur Squamous Epith Cells Urine Bacteria COVID-19 ([facility]) Negative COVID-19 Clin Com See Note 12/11/20 12/11/20 12/11/20 10:47 11:01 12:30 MCV MCH MCHC RDW Plt Count MPV Immature Gran % (Auto) Neut % (Auto) Lymph % (Auto) [place] % (Auto) Eos % (Auto) Baso % (Auto) Lymph # (Auto) [place] # (Auto) Eos # (Auto) Baso # (Auto) Abs Immat Gran (auto) Absolute Neuts (auto) Absolute Nucleated RBC Nucleated RBC % (auto) Smear Tech's Comments POC Glucose 416 H* 335 H Estimat Average Glucose Hemoglobin A1c % Lactic Acid Fup @ 2Hr Lactate Dehydrogenase Urine Color YELLOW Urine Appearance CLOUDY Urine pH 5.5 Ur Specific [place] 1.020 Urine Protein 2+ H Urine Glucose (UA) >=1000 H Urine Ketones 15 Urine Blood 3+ H Urine Nitrite POS H Ur Leukocyte Esterase NEG Urine RBC 15-29 H Urine WBC 50-75 H Ur Squamous Epith Cells 1+ Urine Bacteria 1+ COVID-19 ([facility]) COVID-19 Clin Com 12/11/20 12/11/20 12/11/20 12:46 17:23 22:00 MCV MCH MCHC RDW Plt Count MPV Immature Gran % (Auto) Neut % (Auto) Lymph % (Auto) [place] % (Auto) Eos % (Auto) Baso % (Auto) Lymph # (Auto) [place] # (Auto) Eos # (Auto) Baso # (Auto) Abs Immat Gran (auto) Absolute Neuts (auto) Absolute Nucleated RBC Nucleated RBC % (auto) Smear Tech's Comments POC Glucose 308 H 314 H Estimat Average Glucose Hemoglobin A1c % Lactic Acid Fup @ 2Hr 1.7 Lactate Dehydrogenase Urine Color Urine Appearance Urine pH Ur Specific [place] Urine Protein Urine Glucose (UA) Urine Ketones Urine Blood Urine Nitrite Ur Leukocyte Esterase Urine RBC Urine WBC Ur Squamous Epith Cells Urine Bacteria COVID-19 ([facility]) COVID-19 Clin Com 12/12/20 12/12/20 12/12/20 06:17 07:29 10:52 MCV 98.5 H MCH 33.7 H MCHC 34.2 RDW 12.2 Plt Count 122 L MPV 12.5 H Immature Gran % (Auto) 0.5 H Neut % (Auto) 79.1 H Lymph % (Auto) 7.6 L [place] % (Auto) 12.3 H Eos % (Auto) 0.3 Baso % (Auto) 0.2 Lymph # (Auto) 1.1 L [place] # (Auto) 1.8 H Eos # (Auto) 0.0 Baso # (Auto) 0.0 Abs Immat Gran (auto) 0.08 H Absolute Neuts (auto) 11.7 H Absolute Nucleated RBC 0.000 Nucleated RBC % (auto) 0.0 Smear Tech's Comments VERIFIED POC Glucose 315 H 343 H Estimat Average Glucose Hemoglobin A1c % Lactic Acid Fup @ 2Hr Lactate Dehydrogenase Urine Color Urine Appearance Urine pH Ur Specific [place] Urine Protein Urine Glucose (UA) Urine Ketones Urine Blood Urine Nitrite Ur Leukocyte Esterase Urine RBC Urine WBC Ur Squamous Epith Cells Urine Bacteria COVID-19 ([facility]) COVID-19 Clin Com Microbiology Microbiology Results: Microbiology 12/11/20 Unknown Urine clean catch - Urine kramer top Urine Culture - Final Quality Stroke Does the patient have a stroke diagnosis?: No VTE Prior VTE?: No VTE Risk Level:: Medical - moderate - high VTE Device Contraindication: Treatment Not Indicated VTE Drug Contraindication: N/A - Med Ordered
--- NOTE | 2020-12-12 12:00 | MHC.CM.PN ---
Male 60 DX UTI Sepsis Patient is non verbal, PMH TBI. Info was obtain thru phone interview , with his sister Selena. DP resume [facility] services already in place. Selena will provide transportation home. CM will follow to assess for changes needed to the DP.
[2020-12-12 15:22] VITALS: BP 162/90; PULSE 90; RESP 20; TEMP 36.1; O2SAT 96
[2020-12-12 16:23] LABS: Glucose, Whole Blood 229 mg/dL (60-115)
[2020-12-12 19:15] VITALS: BP 130/75; PULSE 91
[2020-12-12 20:09] LABS: Glucose, Whole Blood 173 mg/dL (60-115)
[2020-12-12 23:27] VITALS: BP 138/81; PULSE 93; RESP 18; TEMP 36.5; O2SAT 96
[2020-12-13 07:30] VITALS: BP 142/85; PULSE 85; RESP 18; TEMP 36.6; O2SAT 95
[2020-12-13 07:31] LABS: Glucose, Whole Blood 267 mg/dL (60-115)
[2020-12-13] MEDS: Insulin Lispro 100 UNIT/ML 3 ML VIAL SUBCUT ×2 (08:08→12:25)
--- NOTE | 2020-12-13 09:00 | PM.DS ---
DS: Providers Provider Date of Service: 12/13/20 Date of admission: 12/11/20 14:24 Primary care physician: Cristina Dias MD Attending physician on discharge: Pedro Luis Tomlin Discharging clinician: Nena Knight DS: Diagnosis Discharge Diagnosis (1) Severe sepsis: Status: Acute (2) UTI (urinary tract infection): Status: Acute DS: Summary Hospital Course Hospital Course: 60 year old man presenting to the ED with fever, urinary frequency, dysuria, chills, elevated blood sugars. He has a hx of TBI and is mostly dependant on his caretakers, due to this his sister was present and gave the history. Because he is mostly nonverbal? He was noted to have fever, tachycardia, tachypnea, lactic acidosis,? leukocytosis. Chest CT did not show any consolidation or effusion. UA was positive. . In the ED, He was given Rocephin, IV insulin and a liter of fluid. He will be admitted for severe sepsis secondary to UTI. Severe sepsis secondary to urinary tract infection. Sepsis resolved with antibiotics and IV fluids. He was treated with IV Rocephin. His vital signs have remained stable, his white blood cell count has trended down nicely. His blood sugars are little bit better controlled and will likely higher because of infection patient is mostly nonverbal and discussion was had with his sister. He will be sent home with 6 more days of antibiotics for urinary tract infection and he can follow-up with his primary care provider as needed. Time Spent with Patient Time attestation: Total time spent providing and/or coordinating discharge services: Discharge coordination time: Greater than 30 minutes Quality: Stroke Does the patient have a stroke diagnosis?: No Physical Exam Vital Signs: Vital Signs: Last Vital Signs Temp 97.9 F 12/13/20 07:30 Pulse 85 12/13/20 07:30 Resp 18 12/13/20 07:30 BP 142/85 H 12/13/20 07:30 Pulse Ox 95 12/13/20 07:30 Body Mass Index 22.9 Appearing in no acute distress head is normocephalic atraumatic eyes pupils are PERRLA sclera is anicteric mouth throat mucous membranes are intact and moist neck is supple no lymphadenopathy, no JVD noted lung sounds are clear to auscultation heart regular rate rhythm, clear S1, S2 positive bowel sounds, abdomen is soft, nontender neuro patient is alert, nonverbal DS: Data Data Completed and Pending Labs on day of discharge: Laboratory Results - last 24 hr 12/12/20 12/12/20 12/12/20 10:52 16:13 20:00 POC Glucose 343 H 229 H 173 H 12/13/20 07:14 POC Glucose 267 H Preliminary micro results at discharge 12/11/20 10:40 Blood Culture - Preliminary Blood - Venous No growth after 24 hours. 12/11/20 10:40 Blood Culture - Preliminary Blood - Venous No growth after 24 hours. Discharge Plan Discharge Anticipated Discharge Date/Time: 12/13/20 08:56 Patient Disposition: Home, Self-Care Discharge Diagnosis: Severe sepsis secondary to urinary tract infection Referrals: Cristina Dias MD [Primary Care Provider] - 1 Week Discharge Medications: New cefuroxime axetil 250 mg tablet 250 mg PO BID Qty: 12 RF: 0 Continued losartan 100 mg tablet 1 tab PO DAILY RF: 0 insulin lispro [Humalog KwikPen Insulin] 100 unit/mL insulin pen 0 sliding scale dose subcut TID RF: 0 Tresiba FlexTouch U-100 100 unit/mL (3 mL) insulin pen 24 unit subcut DAILY RF: 0 Triumeq 600-50-300 mg tablet 1 tab PO DAILY RF: 0 Discharge Orders: Discharge Order (Routine); Ordered 12/13/20 Ordered By: Nena Knight Diet: advance to usual diet Activity on Discharge: As tolerated Stand Alone Forms: Patient Portal Discharge page Care Plan Goals: complete resolution of symptoms Health Concerns: severe sepsis secondary to urinary tract infection Plan of Treatment: continue antibiotics as prescribed Assessment: see discharge summary
[2020-12-13 09:22] VITALS: BP 142/83; PULSE 84
[2020-12-13] MEDS: Losartan Potassium 50 MG TABLET 100 MG PO (09:22)
[2020-12-13] MEDS: Insulin Glargine,Hum.rec.anlog 100 UNIT/ML 10 ML VIAL 19 UNIT SUBCUT (09:26)
[2020-12-13] MEDS: 0.9 % Sodium Chloride Flush 3 ML SYRINGE IVFLUSH (09:28)
--- NOTE | 2020-12-13 09:38 | MHC.CM.PN ---
MALE 60 DX SEPSIS UTI He is discharged to home today. Resumption of [employer] services. family will transport to home.
[2020-12-13] MEDS: cefTRIAXone sodium 1 GM in 0.9 % Sodium Chloride 50 ML IV (09:49)
[2020-12-13 11:15] LABS: Glucose, Whole Blood 390 mg/dL (60-115)
[2020-12-13 11:31] VITALS: BP 153/83; PULSE 90; RESP 16; TEMP 36.7; O2SAT 96
[2020-12-13 15:06] VITALS: BP 134/78; PULSE 89; RESP 16; TEMP 36.8; O2SAT 96
== END 2020-12-13 16:09 | disposition home or self-care (01) | DRG 720 ==
LOC: HO.ED 14:22 → HO.EDOVER 14:53 → HO.IMC 12-12 07:00
PROVIDERS: Family Medicine; Nurse Practitioner Family; Admitting Provider Nurse Practitioner Acute Care; Emergency Provider Internal Medicine; PCP Internal Medicine; Visit Provider Nurse Practitioner Acute Care
DX: A41.9 Sepsis, unspecified organism (principal); D72.829 Elevated white blood cell count, unspecified; R65.20 Severe sepsis without septic shock; Z21 Asymptomatic human immunodeficiency virus [HIV] infection status; N39.0 Urinary tract infection, site not specified; Z87.820 Personal history of traumatic brain injury; Z20.822 Contact with and (suspected) exposure to COVID-19; Z88.5 Allergy status to narcotic agent; Z88.6 Allergy status to analgesic agent; Z88.2 Allergy status to sulfonamides; Z79.899 Other long term (current) drug therapy
CPT/HCPCS: 36415; 71046; 71250; 76775; 80048; 80076; 81001; 82009; 82803; 82947; 83036; 83605; 83615; 83690; 83735; 84484; 85025; 87040; 87086; 87635; 93005; 99285; J0696

== ENCOUNTER 2021-01-02 15:15 | Inpatient (IN) | payer OTHER, SELFPAY ==
--- NOTE | ~2021-01-02 | CT_ITS ---
EXAMINATION: CT HEAD WITHOUT CONTRAST (STROKE PROTOCOL) CLINICAL INFORMATION: Stroke protocol. Headache and confusion. Listing to the right. COMPARISON: Previous head CT CT July 2011 TECHNIQUE: Contiguous axial imaging was performed from the skull base to vertex without intravenous administration of contrast. This CT examination was performed using dose optimization techniques as appropriate, variously including the following: *Automated exposure control *Adjustment of mA and/or kV according to patient size (this includes techniques or standardized protocols for targeted exams where dose is matched to indication/reason for exam; i.e. extremities or head) *Use of iterative reconstruction technique DLP: 636mGy-cm FINDINGS: There is no evidence of an extra-axial collection. There is no evidence of intra-axial or extra-axial hemorrhage. The ventricles and extra-axial CSF spaces are prominent suggestive of mild generalized atrophy. There is nonspecific periventricular white matter disease. There are old bilateral basal ganglia and right thalamic lacunar infarcts. There is low-attenuation seen in the right occipital lobe probably representing an infarct. This is new in the interval from 2012 exam. No other infarct is seen. Review of bone windows is normal. Visualized paranasal sinuses, mastoid air cells and middle ears are clear. CT/CT head for stroke IMPRESSION: Mild generalized atrophy and nonspecific periventricular white matter disease. 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 Probable right occipital lobe infarct new in the interval from 2011. This critical result was discussed with Dr. Goddard at 1536hours on 01/02/2021 It was ascertained that the content and urgency of the report was understood at the time of direct communication.
--- NOTE | ~2021-01-02 | XR_ITS ---
EXAMINATION: XR CHEST CLINICAL INFORMATION: Weakness COMPARISON: Previous chest x-rays most recent 12/11/2020 TECHNIQUE: Frontal view of the chest was obtained. FINDINGS: The cardiac and mediastinal contours are stable. The lung volumes are low. The lungs are clear. There is no pleural effusion or pneumothorax. Bony structures are unremarkable. XR/XR chest 1V IMPRESSION: No evidence for acute disease in the chest.
--- NOTE | 2021-01-02 15:22 | ED_ITS ---
HPI - Altered Mental Status General Chief Complaint: Neuro Symptoms/Deficit Stated Complaint: ?stroke Time Seen by Provider: 01/02/21 15:19 Source: EMS and old records reviewed Mode of arrival: EMS Limitations: altered mental status History of Present Illness MD complaint: other (?EMS notes family stated more altered and leaning to the right) Onset (ago): unknown (last known well early this AM picked up from day program at 2am with deficits) Timing confirmed by: family member Severity: mild Consistency of symptoms: unknown Context: other (hx of TBI, nonverbal, baseline R sided weakness) Associated symptoms: denies other symptoms Related Data Home Medications Medication Instructions Recorded Confirmed abacavir 600 mg-dolutegravir 50 1 tab PO DAILY 12/11/20 01/02/21 mg-lamivudine 300 mg tablet (Triumeq) insulin degludec 100 unit/mL (3 24 unit SUBCUT DAILY 12/11/20 01/02/21 mL) subcutaneous pen (Tresiba FlexTouch U-100 insulin) insulin lispro 100 unit/mL 0 sliding scale dose SUBCUT TID 12/11/20 01/02/21 subcutaneous pen (Humalog KwikPen (U-100) Insulin) losartan 100 mg tablet 100 mg PO DAILY 12/11/20 01/02/21 acetaminophen 325 mg tablet 650 mg PO Q6H PRN 01/02/21 01/02/21 Allergies Allergy/AdvReac Type Severity Reaction Status Date / Time aspirin [Aspirin] Allergy Unknown HIVES, Unverified 11/26/19 15:16 ITCHING ibuprofen [From Motrin] Allergy Unknown UNKNOWN Unverified 11/26/19 15:16 Sulfa (Sulfonamide Allergy Unknown HIVES Unverified 11/26/19 15:16 Antibiotics) [SULFA (SULFONAMIDE ANTIBIOTICS)] Aspirin Allergy Unknown Uncoded 08/07/11 00:00 Seafood Allergy Unknown RASH, Uncoded 11/26/19 15:16 ITCHING, HIVES Sulfa Allergy Unknown Uncoded 08/07/11 00:00 Review of Systems Review of Systems: ROS unable to be obtained due to cognitive impairment PMFSH Past Medical History Attestation statement: The following information was validated with the patient. Medical History Brain injury Diabetes mellitus Hepatitis C HIV (human immunodeficiency virus infection) Hypertension Renal calculi Family History Family History (Updated 12/11/20 @ 14:48 by Nena Knight NP) Other Diabetes mellitus Social History Social History Household Members: Unknown / Unable to assess Household Members Other:: Lives with mother Housing: Unknown / Unable to assess Unable to assess alcohol history related to: Unknown Alcohol intake: never Patient Tobacco Use Status: Tobacco use Unknown Smoked in Last 30 Days: No Use of substances other than those prescribed or required for medical reasons: No Advance Directives: No Advance Directives Information Provided: Yes service: No Current occupational status: disabled Physical Exam Vital Signs: Vital Signs: Last Vital Signs Temp 99.3 F 01/02/21 17:35 Pulse 97 01/02/21 17:35 Resp 18 01/02/21 17:35 BP 111/83 01/02/21 17:35 Pulse Ox 97 01/02/21 17:35 Body Mass Index 25.9 Appearance: Alert. Follows commands, smiles No acute distress. Eyes: Pupils equal, round and reactive to light. ENT: Pharynx normal. Neck: Normal inspection. Neck supple. CVS: Normal heart rate and rhythm. Pulses normal. Respiratory: No respiratory distress. Breath sounds normal. Abdomen: Soft and nontender. Skin: Skin warm and dry. Normal skin color. Normal skin turgor. Extremities: No lower extremity edema. contracted RUE Neuro: nonverbal follows all commands, smiles, tracks with eyes, R sided weakness (baseline per last notes 2017) no new deficits noted NIH Stroke Scale Internal: Initial- Upon Arrival Level of Consciousness: Alert Level of Consciousness Questions: Answers neither question correctly (nonverbal) Level of Consciousness Commands: Performs both tasks correctly Best Gaze: Normal Visual: No visual loss Facial Palsy: Normal Motor Arm (Right): Some effort against gravity Motor Arm (Left): No drift Motor Leg (Right): Some effort against gravity Motor Leg (Left): No drift Limb Ataxia: Absent Sensory: Normal Best Language: Mute, global aphasia Dysarthia: Severe dysarthria (nonverbal ) Extinction and Inattention: No abnormality Score: 11 Course Course Course Narrative: NIH score limited due to patient's chronic conditions call from Radiology 337pm ? R occipital infarct - new from 2011 plan to admit for further workup at this time given UTI and fevers, appears at his baseline now neurologically MDM - Altered Mental Status MDM Narrative Medical decision making narrative: 60 yo male with hx of TBI nonverbal R sided weakness, UTI, HIV hep C, DM, HTN reportedly per EMS picked up at 2pm today from day program - was dropped off sometime early this AM and was normal family called 911 due to patient appearing more confused and leaning to the right. His exam to me appears at his baseline from his most recent visit - CT head for stroke ordered though since his last known well is not clear and his deficits do not appear new he is not a candidate for tPa. Labs, CXR, UA ordered. Dispo per results and findings. Lab Data Result diagrams: 01/02/21 15:51 01/02/21 15:51 Labs: Lab Results 01/02/21 01/02/21 01/02/21 Range/Units 15:51 15:51 15:51 WBC 11.1 H (4.8-10.8) X10*3/uL RBC 4.27 L (4.60-5.80) X10*6/uL Hgb 14.3 (14.0-18.0) g/dl Hct 41.3 L (42-52) % MCV 96.7 (80-98) fL MCH 33.5 H (27.0-33.0) pg MCHC 34.6 (31.0-36.0) g/dl RDW 12.0 (11.0-16.0) % Plt Count 194 D (160-400) X10*3/uL MPV 12.3 (9.4-12.4) fL Immature Gran % (Auto) 0.3 (0.0-0.4) % Neut % (Auto) 80.4 H (45-73) % Lymph % (Auto) 8.8 L (20-40) % Mineral % (Auto) 9.7 (2-11) % Eos % (Auto) 0.5 (0-4) % Baso % (Auto) 0.3 (0-2) % Lymph # (Auto) 1.0 L (1.2-4.9) X10*3/uL Mineral # (Auto) 1.1 (0.1-1.2) X10*3/uL Eos # (Auto) 0.1 (0.0-0.4) X10*3/uL Baso # (Auto) 0.0 (0.0-0.2) X10*3/uL Abs Immat Gran (auto) 0.03 (0.00-0.03) X10*3/uL Absolute Neuts (auto) 8.9 H (2.0-8.3) X10*3/uL Absolute Nucleated RBC 0.000 (0.0-0.012) X10*3/uL Nucleated RBC % (auto) 0.0 (0.0-0.2) /100WBC PT 12.4 (9.9-13.0) SEC INR 1.1 (0.9-1.1) APTT 32.0 (24.1-38.0) SEC Sodium 135 (135-145) mmol/L Potassium 4.0 (3.3-5.1) mmol/L Chloride 99 (96-108) mmol/L Carbon Dioxide 28 (22-29) mmol/L Anion Gap 12 (12-20) BUN 12 (9-16) mg/dL Creatinine 1.13 (0.5-1.4) mg/dL Estim Creat Clear Calc 64.9 Estimated GFR > 60 Random Glucose 372 H* (60-115) mg/dL Lactic Acid (0.5-2.0) mmol/L Calcium 9.4 (8.4-10.2) mg/dL Magnesium 1.5 L (1.6-2.6) mg/dL Total Bilirubin 0.9 (0.0-1.0) mg/dL Direct Bilirubin 0.3 (0.0-0.5) mg/dL AST 14 D (5-37) U/L ALT 9 (0-40) U/L Alkaline Phosphatase 110 (39-117) U/L Troponin I High Sens (<3.5-35.0) ng/L Total Protein 7.4 (6.5-8.0) g/dL Albumin 3.7 (3.5-5.0) g/dL Lipase 28 (8-78) U/L Urine Color Urine Appearance Urine pH (5.0-8.0) Ur Specific [place] (1.005-1.025) Urine Protein (NEG-TRACE) MG/DL Urine Glucose (UA) (NEG) MG/DL Urine Ketones (NEG) MG/DL Urine Blood (NEG) Urine Nitrite (NEG) Ur Leukocyte Esterase (NEG) Urine RBC (0) /HPF Urine WBC (0-4) /HPF Ur Squamous Epith Cells /LPF Urine Bacteria /LPF COVID-19 ([facility]) (Negative) COVID-19 Clin Com 01/02/21 01/02/21 01/02/21 Range/Units 15:51 15:51 15:51 WBC (4.8-10.8) X10*3/uL RBC (4.60-5.80) X10*6/uL Hgb (14.0-18.0) g/dl Hct (42-52) % MCV (80-98) fL MCH (27.0-33.0) pg MCHC (31.0-36.0) g/dl RDW (11.0-16.0) % Plt Count (160-400) X10*3/uL MPV (9.4-12.4) fL Immature Gran % (Auto) (0.0-0.4) % Neut % (Auto) (45-73) % Lymph % (Auto) (20-40) % Mineral % (Auto) (2-11) % Eos % (Auto) (0-4) % Baso % (Auto) (0-2) % Lymph # (Auto) (1.2-4.9) X10*3/uL Mineral # (Auto) (0.1-1.2) X10*3/uL Eos # (Auto) (0.0-0.4) X10*3/uL Baso # (Auto) (0.0-0.2) X10*3/uL Abs Immat Gran (auto) (0.00-0.03) X10*3/uL Absolute Neuts (auto) (2.0-8.3) X10*3/uL Absolute Nucleated RBC (0.0-0.012) X10*3/uL Nucleated RBC % (auto) (0.0-0.2) /100WBC PT (9.9-13.0) SEC INR (0.9-1.1) APTT (24.1-38.0) SEC Sodium (135-145) mmol/L Potassium (3.3-5.1) mmol/L Chloride (96-108) mmol/L Carbon Dioxide (22-29) mmol/L Anion Gap (12-20) BUN (9-16) mg/dL Creatinine (0.5-1.4) mg/dL Estim Creat Clear Calc Estimated GFR Random Glucose (60-115) mg/dL Lactic Acid 2.1 H* (0.5-2.0) mmol/L Calcium (8.4-10.2) mg/dL Magnesium (1.6-2.6) mg/dL Total Bilirubin (0.0-1.0) mg/dL Direct Bilirubin (0.0-0.5) mg/dL AST (5-37) U/L ALT (0-40) U/L Alkaline Phosphatase (39-117) U/L Troponin I High Sens 7.3 D (<3.5-35.0) ng/L Total Protein (6.5-8.0) g/dL Albumin (3.5-5.0) g/dL Lipase (8-78) U/L Urine Color Urine Appearance Urine pH (5.0-8.0) Ur Specific [place] (1.005-1.025) Urine Protein (NEG-TRACE) MG/DL Urine Glucose (UA) (NEG) MG/DL Urine Ketones (NEG) MG/DL Urine Blood (NEG) Urine Nitrite (NEG) Ur Leukocyte Esterase (NEG) Urine RBC (0) /HPF Urine WBC (0-4) /HPF Ur Squamous Epith Cells /LPF Urine Bacteria /LPF COVID-19 ([facility]) Negative (Negative) COVID-19 Clin Com See Note 01/02/21 Range/Units 16:33 WBC (4.8-10.8) X10*3/uL RBC (4.60-5.80) X10*6/uL Hgb (14.0-18.0) g/dl Hct (42-52) % MCV (80-98) fL MCH (27.0-33.0) pg MCHC (31.0-36.0) g/dl RDW (11.0-16.0) % Plt Count (160-400) X10*3/uL MPV (9.4-12.4) fL Immature Gran % (Auto) (0.0-0.4) % Neut % (Auto) (45-73) % Lymph % (Auto) (20-40) % Mineral % (Auto) (2-11) % Eos % (Auto) (0-4) % Baso % (Auto) (0-2) % Lymph # (Auto) (1.2-4.9) X10*3/uL Mineral # (Auto) (0.1-1.2) X10*3/uL Eos # (Auto) (0.0-0.4) X10*3/uL Baso # (Auto) (0.0-0.2) X10*3/uL Abs Immat Gran (auto) (0.00-0.03) X10*3/uL Absolute Neuts (auto) (2.0-8.3) X10*3/uL Absolute Nucleated RBC (0.0-0.012) X10*3/uL Nucleated RBC % (auto) (0.0-0.2) /100WBC PT (9.9-13.0) SEC INR (0.9-1.1) APTT (24.1-38.0) SEC Sodium (135-145) mmol/L Potassium (3.3-5.1) mmol/L Chloride (96-108) mmol/L Carbon Dioxide (22-29) mmol/L Anion Gap (12-20) BUN (9-16) mg/dL Creatinine (0.5-1.4) mg/dL Estim Creat Clear Calc Estimated GFR Random Glucose (60-115) mg/dL Lactic Acid (0.5-2.0) mmol/L Calcium (8.4-10.2) mg/dL Magnesium (1.6-2.6) mg/dL Total Bilirubin (0.0-1.0) mg/dL Direct Bilirubin (0.0-0.5) mg/dL AST (5-37) U/L ALT (0-40) U/L Alkaline Phosphatase (39-117) U/L Troponin I High Sens (<3.5-35.0) ng/L Total Protein (6.5-8.0) g/dL Albumin (3.5-5.0) g/dL Lipase (8-78) U/L Urine Color YELLOW Urine Appearance CLOUDY Urine pH 5.5 (5.0-8.0) Ur Specific [place] 1.025 (1.005-1.025) Urine Protein 3+ H (NEG-TRACE) MG/DL Urine Glucose (UA) >=1000 H (NEG) MG/DL Urine Ketones 5 (NEG) MG/DL Urine Blood 3+ H (NEG) Urine Nitrite POS H (NEG) Ur Leukocyte Esterase 1+ H (NEG) Urine RBC 15-29 H (0) /HPF Urine WBC 1-4 (0-4) /HPF Ur Squamous Epith Cells 1+ /LPF Urine Bacteria 2+ /LPF COVID-19 ([facility]) (Negative) COVID-19 Clin Com ECG Data ECG #1: Attestation: I personally reviewed and interpreted this ECG as follows: ECG interpretation date: 01/02/21 ECG interpretation time: 18:18 Interpretation: Rate: 94 Rhythm: NSR [place]: normal Normal P waves. Normal FAIZA. Normal QRS complex. ST T wave : normal no DEBBIE qTC: normal prior studies: no acute ischemia The study has been interpreted contemporaneously by me. . Discharge Plan Discharge Clinical Impression: Acidosis, lactic, Acute UTI, Hypomagnesemia Leukocytosis Qualifiers: Leukocytosis type: unspecified Qualified Code(s): D72.829 - Elevated white blood cell count, unspecified Fever Qualifiers: Fever type: unspecified Qualified Code(s): R50.9 - Fever, unspecified Patient Disposition: Admitted As Inpatient
[2021-01-02 15:24] VITALS: BP 151/108; O2SAT 96
--- NOTE | 2021-01-02 15:31 | ECG_ITS ---
Test Reason : CHEST PAIN Blood Pressure : / mmHG Vent. Rate : 094 BPM Atrial Rate : 094 BPM P-R Int : 148 ms QRS Dur : 082 ms QT Int : 326 ms P-R-T Axes : 058 041 034 degrees QTc Int : 407 ms Normal sinus rhythm Normal ECG Heart rate has decreased Referred By: Diane Goddard Electronically Signed By:JUANI JEROME MD
[2021-01-02 15:33] VITALS: BP 157/93; PULSE 117; RESP 30; TEMP 37.9; O2SAT 95; BMI 25.9
[2021-01-02 15:58] LABS: MANUAL DIFF FLAG NO
[2021-01-02 16:02] LABS: Basophils Percent Auto 0.3 % (0-2); Eosinophils Absolute Auto 0.1 X10*3/uL (0.0-0.4); Eosinophils Percent Auto 0.5 % (0-4); Hematocrit 41.3 % (42-52); Hemoglobin 14.3 g/dl (14.0-18.0); Imm Gran Abs Auto 0.03 X10*3/uL (0.00-0.03); Imm Gran Pct Auto 0.3 % (0.0-0.4); Lymphocytes Percent Auto 8.8 % (20-40); Mean Corpuscular HGB Conc 34.6 g/dl (31.0-36.0); Mean Corpuscular Hemoglobin 33.5 pg (27.0-33.0); Mean Corpuscular Volume 96.7 fL (80-98); Mean Platelet Volume 12.3 fL (9.4-12.4); Monocytes Absolute Auto 1.1 X10*3/uL (0.1-1.2); Monocytes Percent Auto 9.7 % (2-11); Neutrophils Absolute Auto 8.9 X10*3/uL (2.0-8.3); Neutrophils Percent Auto 80.4 % (45-73); Platelet Count 194 X10*3/uL (160-400); Red Blood Count 4.27 X10*6/uL (4.60-5.80); White Blood Count 11.1 X10*3/uL (4.8-10.8)
[2021-01-02 16:09] LABS: INTERNATIONAL NORM RATIO 1.1 (0.9-1.1); Prothrombin Time 12.4 SEC (9.9-13.0)
[2021-01-02 16:17] LABS: Lactic Acid 2.1 mmol/L (0.5-2.0)
[2021-01-02] MEDS: 0.9 % Sodium Chloride 500 ML IV (16:17)
[2021-01-02] MEDS: Acetaminophen Oral Liquid 650 MG/20.3 ML SOLUTION PO (16:17)
[2021-01-02 16:18] LABS: COVID-19 Test Negative (Negative); IDNOW Serial# 9DD0AD1C
[2021-01-02] MEDS: cefTRIAXone sodium 1 GM in 0.9 % Sodium Chloride 50 ML IV (16:19)
[2021-01-02 16:22] LABS: Troponin-I High Sensitivity 7.3 ng/L (<3.5-35.0)
[2021-01-02 16:25] LABS: Alanine Aminotransferase 9 U/L (0-40); Albumin Level 3.7 g/dL (3.5-5.0); Alkaline Phosphatase 110 U/L (39-117); Anion Gap 12 (12-20); Aspartate Amino Transferase 14 U/L (5-37); Bilirubin Direct 0.3 mg/dL (0.0-0.5); Bilirubin Total 0.9 mg/dL (0.0-1.0); Blood Urea Nitrogen 12 mg/dL (9-16); Calcium 9.4 mg/dL (8.4-10.2); Carbon Dioxide 28 mmol/L (22-29); Chloride 99 mmol/L (96-108); Creatinine Clr Calc Pharmacy 64.9; Estimated Glomerular Filt Rate > 60; Glucose Random 372 mg/dL (60-115); Lipase 28 U/L (8-78); Magnesium 1.5 mg/dL (1.6-2.6); Sodium 135 mmol/L (135-145); Total Protein 7.4 g/dL (6.5-8.0)
[2021-01-02 16:43] LABS: Appearance Urine CLOUDY; Color Urine YELLOW; Glucose Urine UA >=1000 MG/DL (NEG); Leukocyte Esterase Urine 1+ (NEG); Nitrite Urine POS (NEG); PH 5.5 (5.0-8.0); Specific Gravity - Urine 1.025 (1.005-1.025); UACC Culture Trigger YES; Urine Blood 3+ (NEG); Urine Ketones 5 MG/DL (NEG); Urine Protein 3+ MG/DL (NEG-TRACE)
[2021-01-02 16:48] LABS: Bacteria Urine 2+ /LPF; Squamous Epithelial Cell Urine 1+ /LPF
--- NOTE | 2021-01-02 17:00 | PHA.MEDREC ---
Pharmacy Consult ? Medication Reconciliation Pharmacy has completed the medication reconciliation. There are no remarkable issues. Verify medication with patient's sister who is the legal guardian. Rebecca Dunaway, [employer]
--- NOTE | 2021-01-02 17:32 | PM.IMHP ---
History of Present Illness Date of Service: 01/02/21 <Nena Knight NP - Last Filed: 01/02/21 17:41> Attending physician on admission: Fan Arenas <Nena Knight NP - Last Filed: 01/02/21 17:41> Chief Complaint: Altered mental status <Nena Knight NP - Last Filed: 01/02/21 17:41> 60 old male mostly nonverbal brought to the ER due to altered mental status and leaning towards the right. Apparently he had went to his day program and at 02:00 he was noted to the deficits. He is mostly nonverbal therefore unable to obtain any accurate history from him. Head CT did showed new infarction since 2011 but patient seems to be at baseline as he was recently discharged on 12/13/2020. Urinalysis did appear to be positive again, his last discharge he was treated for urinary tract infection. He was noted to have tachycardia, tachypnea and lactic acidosis as well as hyperglycemia. His back was 1.5 and was repleted in the ER. He was given a dose of Rocephin, 500 mL of IV fluids and Tylenol. He will be admitted for further management and treatment of recurrent urinary tract infection. <Nena Knight NP - Last Filed: 01/02/21 17:41> Review of Systems Review of Systems: Yes Unobtainable due to mental status <Nena Knight NP - Last Filed: 01/02/21 17:41> [facility] Medical History: Medical History Brain injury Diabetes mellitus Hepatitis C HIV (human immunodeficiency virus infection) Hypertension Renal calculi <Nena Knight NP - Last Filed: 01/02/21 17:41> Family History: Family History (Updated 12/11/20 @ 14:48 by Nena Knight NP) Other Diabetes mellitus <Nena Knight NP - Last Filed: 01/02/21 17:41> Pertinent family history: . <Nena Knight NP - Last Filed: 01/02/21 17:41> Social History: Social History Household Members: Family Household Members Other:: Lives with mother Housing: Apartment Do you presently have visiting nurse or other home services: No Unable to assess alcohol history related to: Unknown Alcohol intake: never Patient Tobacco Use Status: Never used Tobacco Advance Directives Date on File: 01/03/21 service: No Current occupational status: disabled <Nena Knight NP - Last Filed: 01/02/21 17:41> Meds Allergies/Adverse reactions: Allergies Allergy/AdvReac Type Severity Reaction Status Date / Time aspirin [Aspirin] Allergy Unknown HIVES, Verified 01/02/21 19:12 ITCHING ibuprofen [From Motrin] Allergy Unknown UNKNOWN Verified 01/02/21 19:12 Sulfa (Sulfonamide Allergy Unknown HIVES Verified 01/02/21 19:12 Antibiotics) [SULFA (SULFONAMIDE ANTIBIOTICS)] Aspirin Allergy Unknown Rash Uncoded 01/02/21 19:12 Seafood Allergy Unknown RASH, Uncoded 11/26/19 15:16 ITCHING, HIVES Sulfa Allergy Unknown Rash Uncoded 01/02/21 19:12 <Nena Knight NP - Last Filed: 01/02/21 17:41> Active Medications: Current Medications Acetaminophen (Acetaminophen 325 Mg Tablet) 650 mg PO Q6H PRN PRN Reason: Pain, Mild (Pain Scale 1-3) Magnesium Sulfate (Magnesium Sulfate/H2o) 2 gm in 50 mls @ 25 mls/hr IV ONCE ONE Stop: 01/02/21 18:29 Losartan Potassium (Losartan Potassium 50 Mg Tablet) 100 mg PO DAILY [facility]LEJA; Protocol Non-Formulary Medication (Mwvtzvad-Ahndsncqhmyp-Fsnwtak [Triumeq]) 1 tab PO DAILY [facility]JA Non-Formulary Medication (Insulin Degludec [Tresiba Flextouch U-100]) 24 unit SUBCUT DAILY [facility] Ondansetron HCl (Ondansetron Hcl 4 Mg/2 Ml Vial) 4 mg IVPUSH Q8H PRN PRN Reason: Nausea and Vomiting Pharmacy Consult (Consult Rx Perform Med Rec) 1 each MISCELLANE ONCE PRN PRN Reason: Consult order Sodium Chloride (0.9 % Sodium Chloride Flush 3 Ml Syringe) 3 ml IVFLUSH QSHIFT ALEJA <Nena Knight NP - Last Filed: 01/02/21 17:41> Home medications: Home Medications Medication Instructions Recorded Confirmed Last Taken Type abacavir 600 mg-dolutegravir 50 1 tab PO DAILY 12/11/20 01/02/21 01/02/21 History mg-lamivudine 300 mg tablet (Triumeq) insulin degludec 100 unit/mL (3 24 unit SUBCUT DAILY 12/11/20 01/02/21 01/02/21 History mL) subcutaneous pen (Tresiba FlexTouch U-100 insulin) insulin lispro 100 unit/mL 0 sliding scale dose SUBCUT TID 12/11/20 01/02/21 01/02/21 History subcutaneous pen (Humalog KwikPen (U-100) Insulin) losartan 100 mg tablet 100 mg PO DAILY 12/11/20 01/02/21 01/02/21 History acetaminophen 325 mg tablet 650 mg PO Q6H PRN 01/02/21 01/02/21 Unknown History <Nena Knight NP - Last Filed: 01/02/21 17:41> Physical Exam Vital Signs and Narrative: Vital Signs: Last Vital Signs Temp 100.3 F 01/02/21 15:33 Pulse 117 H 01/02/21 15:33 Resp 30 H 01/02/21 15:33 BP 157/93 H 01/02/21 15:33 Pulse Ox 95 01/02/21 15:33 Body Mass Index 25.9 <Nena Knight NP - Last Filed: 01/02/21 17:41> Appearing in no acute distress head is normocephalic atraumatic eyes pupils are PERRLA sclera is anicteric mouth throat mucous membranes are intact and moist neck is supple no lymphadenopathy, no JVD noted lung sounds are clear to auscultation heart regular rate rhythm, clear S1, S2 positive bowel sounds, abdomen is soft, nontender neuro patient nonverbal <Nena Knight NP - Last Filed: 01/02/21 17:41> Results Labs CBC and Chem 7: : 01/05/21 05:12 01/05/21 05:12 <Nena Knight NP - Last Filed: 01/02/21 17:41> Labs: Laboratory Results - last 24 hr 01/02/21 01/02/21 01/02/21 15:51 15:51 15:51 MCV 96.7 MCH 33.5 H MCHC 34.6 RDW 12.0 Plt Count 194 D MPV 12.3 Immature Gran % (Auto) 0.3 Neut % (Auto) 80.4 H Lymph % (Auto) 8.8 L [place] % (Auto) 9.7 Eos % (Auto) 0.5 Baso % (Auto) 0.3 Lymph # (Auto) 1.0 L [place] # (Auto) 1.1 Eos # (Auto) 0.1 Baso # (Auto) 0.0 Abs Immat Gran (auto) 0.03 Absolute Neuts (auto) 8.9 H Absolute Nucleated RBC 0.000 Nucleated RBC % (auto) 0.0 PT 12.4 INR 1.1 APTT 32.0 Anion Gap 12 Estim Creat Clear Calc 64.9 Estimated GFR > 60 Random Glucose 372 H* Lactic Acid Calcium 9.4 Magnesium 1.5 L Total Bilirubin 0.9 Direct Bilirubin 0.3 AST 14 D ALT 9 Alkaline Phosphatase 110 Troponin I High Sens Total Protein 7.4 Albumin 3.7 Lipase 28 Urine Color Urine Appearance Urine pH Ur Specific [place] Urine Protein Urine Glucose (UA) Urine Ketones Urine Blood Urine Nitrite Ur Leukocyte Esterase Urine RBC Urine WBC Ur Squamous Epith Cells Urine Bacteria COVID-19 ([facility]) COVID-19 Clin Com 01/02/21 01/02/21 01/02/21 15:51 15:51 15:51 MCV MCH MCHC RDW Plt Count MPV Immature Gran % (Auto) Neut % (Auto) Lymph % (Auto) [place] % (Auto) Eos % (Auto) Baso % (Auto) Lymph # (Auto) [place] # (Auto) Eos # (Auto) Baso # (Auto) Abs Immat Gran (auto) Absolute Neuts (auto) Absolute Nucleated RBC Nucleated RBC % (auto) PT INR APTT Anion Gap Estim Creat Clear Calc Estimated GFR Random Glucose Lactic Acid 2.1 H* Calcium Magnesium Total Bilirubin Direct Bilirubin AST ALT Alkaline Phosphatase Troponin I High Sens 7.3 D Total Protein Albumin Lipase Urine Color Urine Appearance Urine pH Ur Specific [place] Urine Protein Urine Glucose (UA) Urine Ketones Urine Blood Urine Nitrite Ur Leukocyte Esterase Urine RBC Urine WBC Ur Squamous Epith Cells Urine Bacteria COVID-19 ([facility]IN) Negative COVID-19 [employer] Com See Note 01/02/21 16:33 MCV MCH MCHC RDW Plt Count MPV Immature Gran % (Auto) Neut % (Auto) Lymph % (Auto) [place] % (Auto) Eos % (Auto) Baso % (Auto) Lymph # (Auto) [place] # (Auto) Eos # (Auto) Baso # (Auto) Abs Immat Gran (auto) Absolute Neuts (auto) Absolute Nucleated RBC Nucleated RBC % (auto) PT INR APTT Anion Gap Estim Creat Clear Calc Estimated GFR Random Glucose Lactic Acid Calcium Magnesium Total Bilirubin Direct Bilirubin AST ALT Alkaline Phosphatase Troponin I High Sens Total Protein Albumin Lipase Urine Color YELLOW Urine Appearance CLOUDY Urine pH 5.5 Ur Specific [place] 1.025 Urine Protein 3+ H Urine Glucose (UA) >=1000 H Urine Ketones 5 Urine Blood 3+ H Urine Nitrite POS H Ur Leukocyte Esterase 1+ H Urine RBC 15-29 H Urine WBC 1-4 Ur Squamous Epith Cells 1+ Urine Bacteria 2+ COVID-19 ([facility]) COVID-19 Clin Com <Nena Knight NP - Last Filed: 01/02/21 17:41> Imaging Radiologist's Impressions: Impressions Head CT 01/02/21 15:19 IMPRESSION: Mild generalized atrophy and nonspecific periventricular white matter disease. 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 Probable right occipital lobe infarct new in the interval from 2011. This critical result was discussed with Dr. Goddard at 1536hours on 01/02/2021 It was ascertained that the content and urgency of the report was understood at the time of direct communication. <Nena Knight NP - Last Filed: 01/02/21 17:41> Assessment and Plan (1) Severe sepsis: Status: Resolved <Nena Knight NP - Last Filed: 01/02/21 17:41> (2) Acute UTI: Status: Acute <Nena Knight NP - Last Filed: 01/02/21 17:41> (3) Hypomagnesemia: Status: Resolved <Nena Knight NP - Last Filed: 01/02/21 17:41> (4) Diabetes mellitus: Status: Acute <Nena Knight NP - Last Filed: 01/02/21 17:41> 60-year-old man admitted with severe sepsis secondary to UTI. Seems to be at baseline neurologically. Severe sepsis. Tachycardia, tachypnea, lactic acidosis Follow cultures, continue antibiotics Urinary tract infection. Recurrent infection Start Zosyn, follow urine cultures Consider urology consultation Hypomagnesemia Repleted in the ER Trend Diabetes mellitus with hyperglycemia Sliding scale, ADA diet Hypertension Continue losartan HIV Continue Triumeq DVT prophylaxis heparin Attending Dr. Arenas Full code <Nena Knight NP - Last Filed: 01/02/21 17:41> 60-year-old man admitted with severe sepsis secondary to UTI. Seems to be at baseline neurologically. Severe sepsis. Tachycardia, tachypnea, lactic acidosis Follow cultures, continue antibiotics Urinary tract infection. Recurrent infection Start Zosyn, follow urine cultures Consider urology consultation Hypomagnesemia Repleted in the ER Trend Diabetes mellitus with hyperglycemia Sliding scale, ADA diet Hypertension Continue losartan HIV Continue Triumeq DVT prophylaxis heparin Attending Dr. Arenas Full code I personally examined pt and reviewed chart. I agree with history and physical and plan of care as outlined by Ms. Eugene FLOYD <Fan Arenas, DO - Last Filed: 02/21/21 12:48> Quality Stroke Does the patient have a stroke diagnosis?: No <Nena Knight NP - Last Filed: 01/02/21 17:41> VTE Prior VTE?: No <Nena Knight NP - Last Filed: 01/02/21 17:41> VTE Risk Level:: Medical - moderate - high <Nena Knight NP - Last Filed: 01/02/21 17:41> VTE Device Contraindication: Treatment Not Indicated <Nena Knight NP - Last Filed: 01/02/21 17:41> VTE Drug Contraindication: N/A - Med Ordered <Nena Knight NP - Last Filed: 01/02/21 17:41>
[2021-01-02 17:35] VITALS: BP 111/83; PULSE 97; RESP 18; TEMP 37.4; O2SAT 97
[2021-01-02] MEDS: Magnesium Sulfate/H2O 2 GM/50 ML PIGGYBACK IV (17:38)
[2021-01-02 17:56] LABS: Reflex Lactate? Lactic Acid Added
[2021-01-02 18:22] LABS: ~Lactic Acid-LAB USE ONLY 1.1 mmol/L (0.5-2.0)
[2021-01-02] MEDS: Piperacillin Sodium/Tazobactam 3.375 GM in 0.9 % Sodium Chloride 50 ML IV ×2 (18:30→22:57)
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
[2021-01-02 22:53] LABS: Glucose, Whole Blood 381 mg/dL (60-115)
[2021-01-02] MEDS: Insulin Lispro 100 UNIT/ML 3 ML VIAL SUBCUT (22:56)
[2021-01-03] VITALS: BP 157/90; PULSE 94; RESP 16; TEMP 36.2; O2SAT 98
[2021-01-03] MEDS: 0.9 % Sodium Chloride Flush 3 ML SYRINGE IVFLUSH ×4 (00:08→20:22)
[2021-01-03 03:33] VITALS: BP 137/80; PULSE 88; RESP 17; TEMP 36.1; O2SAT 97
[2021-01-03] MEDS: Piperacillin Sodium/Tazobactam 3.375 GM in 0.9 % Sodium Chloride 50 ML IV ×3 (05:33→17:27)
[2021-01-03 06:27] LABS: MANUAL DIFF FLAG NO
[2021-01-03 06:55] LABS: Basophils Percent Auto 0.3 % (0-2); Eosinophils Absolute Auto 0.2 X10*3/uL (0.0-0.4); Hematocrit 41.9 % (42-52); Hemoglobin 14.1 g/dl (14.0-18.0); Imm Gran Abs Auto 0.03 X10*3/uL (0.00-0.03); Imm Gran Pct Auto 0.3 % (0.0-0.4); Lymphocytes Absolute Auto 1.4 X10*3/uL (1.2-4.9); Mean Corpuscular HGB Conc 33.7 g/dl (31.0-36.0); Mean Corpuscular Hemoglobin 32.9 pg (27.0-33.0); Mean Corpuscular Volume 97.7 fL (80-98); Mean Platelet Volume 12.4 fL (9.4-12.4); Monocytes Absolute Auto 1.3 X10*3/uL (0.1-1.2); Monocytes Percent Auto 12.9 % (2-11); Neutrophils Absolute Auto 6.9 X10*3/uL (2.0-8.3); Neutrophils Percent Auto 70.5 % (45-73); Platelet Count 160 X10*3/uL (160-400); Red Blood Count 4.29 X10*6/uL (4.60-5.80); Red Cell Distribution Width 11.9 % (11.0-16.0); White Blood Count 9.7 X10*3/uL (4.8-10.8)
[2021-01-03 07:03] LABS: Anion Gap 16 (12-20); Blood Urea Nitrogen 9 mg/dL (9-16); Calcium 8.8 mg/dL (8.4-10.2); Carbon Dioxide 24 mmol/L (22-29); Chloride 102 mmol/L (96-108); Creatinine Clr Calc Pharmacy 90.6; Estimated Glomerular Filt Rate > 60; Glucose Random 172 mg/dL (60-115); Potassium 4.1 mmol/L (3.3-5.1); Sodium 138 mmol/L (135-145)
[2021-01-03 07:07] LABS: Magnesium 1.9 mg/dL (1.6-2.6)
[2021-01-03 07:13] VITALS: BP 143/83; PULSE 95; RESP 16; TEMP 36.6; O2SAT 95
[2021-01-03 07:37] LABS: Glucose, Whole Blood 219 mg/dL (60-115)
[2021-01-03] MEDS: Insulin Glargine,Hum.rec.anlog 100 UNIT/ML 10 ML VIAL 17 UNIT SUBCUT (08:22)
[2021-01-03] MEDS: Insulin Lispro 100 UNIT/ML 3 ML VIAL SUBCUT ×4 (08:22→20:21)
[2021-01-03] MEDS: Losartan Potassium 50 MG TABLET 100 MG PO (08:23)
[2021-01-03] MEDS: lamiVUDine 150 MG TABLET 300 MG PO (08:23)
[2021-01-03] MEDS: Dolutegravir Sodium 50 MG TABLET PO (08:23)
--- NOTE | 2021-01-03 10:48 | PM.IMPN ---
Progress Note: A&P (1) Acute UTI: Status: Acute (2) Severe sepsis: Status: Acute (3) Hypomagnesemia: Status: Acute Assessment and Plan: 60-year-old man admitted with severe sepsis secondary to UTI.? Seems to be at baseline neurologically. Urinary tract infection.? Recurrent infection Start Zosyn, follow urine cultures Consider urology consultation Severe sepsis.?Resolved. Tachycardia, tachypnea, lactic acidosis Follow cultures, continue antibiotics Hypomagnesemia. Resolved Repleted in the ER Trend Diabetes mellitus with hyperglycemia Sliding scale, ADA diet Hypertension Continue losartan HIV Continue Triumeq DVT prophylaxis heparin Attending Dr. Mcgregor Full code Subjective Subjective Date of Service: 01/03/21 Review of Systems Follow up severe sepsis, UTI non verbal Physical Exam Vital Signs: Vital Signs: Last Vital Signs Temp 98 F 01/03/21 07:13 Pulse 95 01/03/21 07:13 Resp 16 01/03/21 07:13 BP 143/83 H 01/03/21 07:13 Pulse Ox 95 01/03/21 07:13 Body Mass Index 25.9 Appearing in no acute distress lung sounds are clear to auscultation heart regular rate rhythm, clear S1, S2 positive bowel sounds, abdomen is soft, nontender neuro patient is alert, mostly non verbal Objective Data Current Medications Abacavir Sulfate (Abacavir Sulfate 300 Mg Tablet) 600 mg PO DAILY [facility] Acetaminophen (Acetaminophen 325 Mg Tablet) 650 mg PO Q6H PRN PRN Reason: Pain, Mild (Pain Scale 1-3) Dextrose (Dextrose 50 % 25 Gm/50 Ml Vial) 25 gm IVPUSH Q15M PRN; Protocol PRN Reason: per Hypoglycemia Standing Ord. Dolutegravir Sodium (Dolutegravir Sodium 50 Mg Tablet) 50 mg PO DAILY [facility] Last Admin: 01/03/21 08:23 Dose: 50 mg Documented by: Glucose (Glucose Gel 15 Gm Gel..Gram.) 15 gm PO Q15M PRN; Protocol PRN Reason: per Hypoglycemia Standing Ord. Piperacillin Sod/Tazobactam (Sod 3.375 gm/ Sodium Chloride) 50 mls @ 100 mls/hr IV Q6H [facility] Last Infusion: 01/03/21 06:07 Dose: Infused Documented by: Insulin Glargine (Insulin Glargine,Hum.Rec.Anlog 100 Unit/Ml 10 Ml Vial) 17 unit SUBCUT DAILY [facility] Last Admin: 01/03/21 08:22 Dose: 17 unit Documented by: Insulin Human Lispro (Insulin Lispro 100 Unit/Ml 3 Ml Vial) 0 unit SUBCUT QIDACHS [facility]; Protocol Last Admin: 01/03/21 08:22 Dose: 4 unit Documented by: Lamivudine (Lamivudine 150 Mg Tablet) 300 mg PO DAILY [facility] Last Admin: 01/03/21 08:23 Dose: 300 mg Documented by: Losartan Potassium (Losartan Potassium 50 Mg Tablet) 100 mg PO DAILY [facility]; Protocol Last Admin: 01/03/21 08:23 Dose: 100 mg Documented by: Ondansetron HCl (Ondansetron Hcl 4 Mg/2 Ml Vial) 4 mg IVPUSH Q8H PRN PRN Reason: Nausea and Vomiting Pharmacy Consult (Consult Rx Perform Med Rec) 1 each MISCELLANE ONCE PRN PRN Reason: Consult order Sodium Chloride (0.9 % Sodium Chloride Flush 3 Ml Syringe) 3 ml IVFLUSH QSHIFT [facility] Last Admin: 01/03/21 08:23 Dose: 3 ml Documented by: Labs CBC & Chem 7: 01/03/21 05:45 01/03/21 05:45 Labs: Laboratory Results - last 24 hr 01/02/21 01/02/21 01/02/21 15:51 15:51 15:51 MCV 96.7 MCH 33.5 H MCHC 34.6 RDW 12.0 Plt Count 194 D MPV 12.3 Immature Gran % (Auto) 0.3 Neut % (Auto) 80.4 H Lymph % (Auto) 8.8 L [place] % (Auto) 9.7 Eos % (Auto) 0.5 Baso % (Auto) 0.3 Lymph # (Auto) 1.0 L [place] # (Auto) 1.1 Eos # (Auto) 0.1 Baso # (Auto) 0.0 Abs Immat Gran (auto) 0.03 Absolute Neuts (auto) 8.9 H Absolute Nucleated RBC 0.000 Nucleated RBC % (auto) 0.0 PT 12.4 INR 1.1 APTT 32.0 Anion Gap 12 Estim Creat Clear Calc 64.9 Estimated GFR > 60 POC Glucose Random Glucose 372 H* Lactic Acid Lactic Acid Fup @ 2Hr Calcium 9.4 Magnesium 1.5 L Total Bilirubin 0.9 Direct Bilirubin 0.3 AST 14 D ALT 9 Alkaline Phosphatase 110 Troponin I High Sens Total Protein 7.4 Albumin 3.7 Lipase 28 Urine Color Urine Appearance Urine pH Ur Specific [place] Urine Protein Urine Glucose (UA) Urine Ketones Urine Blood Urine Nitrite Ur Leukocyte Esterase Urine RBC Urine WBC Ur Squamous Epith Cells Urine Bacteria COVID-19 ([facility]) COVID-19 Clin Com 01/02/21 01/02/21 01/02/21 15:51 15:51 15:51 MCV MCH MCHC RDW Plt Count MPV Immature Gran % (Auto) Neut % (Auto) Lymph % (Auto) [place] % (Auto) Eos % (Auto) Baso % (Auto) Lymph # (Auto) [place] # (Auto) Eos # (Auto) Baso # (Auto) Abs Immat Gran (auto) Absolute Neuts (auto) Absolute Nucleated RBC Nucleated RBC % (auto) PT INR APTT Anion Gap Estim Creat Clear Calc Estimated GFR POC Glucose Random Glucose Lactic Acid 2.1 H* Lactic Acid Fup @ 2Hr Calcium Magnesium Total Bilirubin Direct Bilirubin AST ALT Alkaline Phosphatase Troponin I High Sens 7.3 D Total Protein Albumin Lipase Urine Color Urine Appearance Urine pH Ur Specific [place] Urine Protein Urine Glucose (UA) Urine Ketones Urine Blood Urine Nitrite Ur Leukocyte Esterase Urine RBC Urine WBC Ur Squamous Epith Cells Urine Bacteria COVID-19 ([facility]) Negative COVID-19 Clin Com See Note 01/02/21 01/02/21 01/02/21 16:33 18:04 22:49 MCV MCH MCHC RDW Plt Count MPV Immature Gran % (Auto) Neut % (Auto) Lymph % (Auto) [place] % (Auto) Eos % (Auto) Baso % (Auto) Lymph # (Auto) [place] # (Auto) Eos # (Auto) Baso # (Auto) Abs Immat Gran (auto) Absolute Neuts (auto) Absolute Nucleated RBC Nucleated RBC % (auto) PT INR APTT Anion Gap Estim Creat Clear Calc Estimated GFR POC Glucose 381 H* Random Glucose Lactic Acid Lactic Acid Fup @ 2Hr 1.1 Calcium Magnesium Total Bilirubin Direct Bilirubin AST ALT Alkaline Phosphatase Troponin I High Sens Total Protein Albumin Lipase Urine Color YELLOW Urine Appearance CLOUDY Urine pH 5.5 Ur Specific [place] 1.025 Urine Protein 3+ H Urine Glucose (UA) >=1000 H Urine Ketones 5 Urine Blood 3+ H Urine Nitrite POS H Ur Leukocyte Esterase 1+ H Urine RBC 15-29 H Urine WBC 1-4 Ur Squamous Epith Cells 1+ Urine Bacteria 2+ COVID-19 ([facility]) COVID-19 Clin Com 01/03/21 01/03/21 01/03/21 05:45 05:45 05:45 MCV 97.7 MCH 32.9 MCHC 33.7 RDW 11.9 Plt Count 160 MPV 12.4 Immature Gran % (Auto) 0.3 Neut % (Auto) 70.5 Lymph % (Auto) 14.0 L [place] % (Auto) 12.9 H Eos % (Auto) 2.0 Baso % (Auto) 0.3 Lymph # (Auto) 1.4 [place] # (Auto) 1.3 H Eos # (Auto) 0.2 Baso # (Auto) 0.0 Abs Immat Gran (auto) 0.03 Absolute Neuts (auto) 6.9 Absolute Nucleated RBC 0.000 Nucleated RBC % (auto) 0.0 PT INR APTT Anion Gap 16 Estim Creat Clear Calc 90.6 Estimated GFR > 60 POC Glucose Random Glucose 172 H D Lactic Acid Lactic Acid Fup @ 2Hr Calcium 8.8 D Magnesium 1.9 Total Bilirubin Direct Bilirubin AST ALT Alkaline Phosphatase Troponin I High Sens Total Protein Albumin Lipase Urine Color Urine Appearance Urine pH Ur Specific [place] Urine Protein Urine Glucose (UA) Urine Ketones Urine Blood Urine Nitrite Ur Leukocyte Esterase Urine RBC Urine WBC Ur Squamous Epith Cells Urine Bacteria COVID-19 ([facility]) COVID-19 SigFig Com 01/03/21 07:12 MCV MCH MCHC RDW Plt Count MPV Immature Gran % (Auto) Neut % (Auto) Lymph % (Auto) [place] % (Auto) Eos % (Auto) Baso % (Auto) Lymph # (Auto) [place] # (Auto) Eos # (Auto) Baso # (Auto) Abs Immat Gran (auto) Absolute Neuts (auto) Absolute Nucleated RBC Nucleated RBC % (auto) PT INR APTT Anion Gap Estim Creat Clear Calc Estimated GFR POC Glucose 219 H Random Glucose Lactic Acid Lactic Acid Fup @ 2Hr Calcium Magnesium Total Bilirubin Direct Bilirubin AST ALT Alkaline Phosphatase Troponin I High Sens Total Protein Albumin Lipase Urine Color Urine Appearance Urine pH Ur Specific [place] Urine Protein Urine Glucose (UA) Urine Ketones Urine Blood Urine Nitrite Ur Leukocyte Esterase Urine RBC Urine WBC Ur Squamous Epith Cells Urine Bacteria COVID-19 ([facility]) COVID-19 Clin Com Quality Stroke Does the patient have a stroke diagnosis?: No VTE Prior VTE?: No VTE Risk Level:: Medical - moderate - high VTE Device Contraindication: Treatment Not Indicated VTE Drug Contraindication: N/A - Med Ordered
[2021-01-03 11:17] VITALS: BP 129/73; PULSE 90; RESP 18; TEMP 36.6; O2SAT 98
[2021-01-03 11:45] LABS: Glucose, Whole Blood 338 mg/dL (60-115)
[2021-01-03 15:37] VITALS: BP 128/73; PULSE 94; RESP 17; TEMP 36.3; O2SAT 96
[2021-01-03 16:16] LABS: Glucose, Whole Blood 446 mg/dL (60-115)
[2021-01-03 18:20] LABS: Glucose, Whole Blood 370 mg/dL (60-115)
[2021-01-03 19:32] VITALS: BP 133/73; PULSE 97; RESP 17; TEMP 36.2; O2SAT 95
[2021-01-03 20:12] LABS: Glucose, Whole Blood 358 mg/dL (60-115)
[2021-01-04] VITALS (7 sets, daily range): BP systolic 122–147; BP diastolic 71–86; PULSE 80–90; RESP 16–18; TEMP 36.1–36.3; O2SAT 95–98
[2021-01-04] MEDS: Piperacillin Sodium/Tazobactam 3.375 GM in 0.9 % Sodium Chloride 50 ML IV ×4 (00:09→17:20)
[2021-01-04 07:24] LABS: Glucose, Whole Blood 257 mg/dL (60-115)
[2021-01-04] MEDS: Insulin Lispro 100 UNIT/ML 3 ML VIAL SUBCUT ×4 (07:41→20:59)
[2021-01-04] MEDS: Insulin Glargine,Hum.rec.anlog 100 UNIT/ML 10 ML VIAL 17 UNIT SUBCUT (07:41)
[2021-01-04] MEDS: lamiVUDine 150 MG TABLET 300 MG PO (07:42)
[2021-01-04] MEDS: Dolutegravir Sodium 50 MG TABLET PO (07:43)
[2021-01-04] MEDS: Losartan Potassium 50 MG TABLET 100 MG PO (07:43)
[2021-01-04] MEDS: 0.9 % Sodium Chloride Flush 3 ML SYRINGE IVFLUSH ×2 (07:44→17:20)
--- NOTE | 2021-01-04 08:46 | P.PNIM_ITS ---
Progress Note: A&P (1) Sepsis due to gram-negative UTI: Status: Acute <Nena Knight NP - Last Filed: 01/04/21 11:22> (2) Diabetes mellitus: Status: Acute <Nena Knight NP - Last Filed: 01/04/21 11:22> Assessment and Plan: 60-year-old man admitted with severe sepsis secondary to UTI.? Seems to be at baseline neurologically. GNR Urinary tract infection.? Continue Zosyn, follow urine cultures for final species Severe sepsis.?Resolved.? Tachycardia, tachypnea, lactic acidosis Follow cultures, continue antibiotics Hypomagnesemia. Resolved Repleted in the ER Trend Diabetes mellitus with hyperglycemia Sliding scale, ADA diet add mealtime insulin Hypertension Continue losartan HIV Continue Triumeq DVT prophylaxis heparin Attending Dr. Mcgregor Full code <Nena Knight NP - Last Filed: 01/04/21 11:22> 60-year-old man admitted with severe sepsis secondary to UTI.? Seems to be at baseline neurologically. GNR Urinary tract infection.? Continue Zosyn, follow urine cultures for final species Severe sepsis.?Resolved.? Tachycardia, tachypnea, lactic acidosis Follow cultures, continue antibiotics Hypomagnesemia. Resolved Repleted in the ER Trend Diabetes mellitus with hyperglycemia Sliding scale, ADA diet add mealtime insulin Hypertension Continue losartan HIV Continue Triumeq DVT prophylaxis heparin Attending Dr. Mcgregor Full code Attending Attestation: DOS: 01/04/2021 Patient seen and examined. Case discussed with the mid-level provider. Agree with the assessment and plan as documented above. <Hector Mcgregor MD - Last Filed: 01/05/21 16:07> Subjective Subjective Date of Service: 01/04/21 <Nena Knight NP - Last Filed: 01/04/21 11:22> 01/05/21 <Hector Mcgregor MD - Last Filed: 01/05/21 16:07> Review of Systems Follow up UTI Non verbal <Nena Knight NP - Last Filed: 01/04/21 11:22> Physical Exam Vital Signs: Vital Signs: Last Vital Signs Temp 97.2 F 01/04/21 07:44 Pulse 84 01/04/21 07:44 Resp 18 01/04/21 07:44 BP 147/86 H 01/04/21 07:44 Pulse Ox 96 01/04/21 07:44 Body Mass Index 25.9 <Nena Knight NP - Last Filed: 01/04/21 11:22> Appearing in no acute distress lung sounds are clear to auscultation heart regular rate rhythm, clear S1, S2 positive bowel sounds, abdomen is soft, nontender neuro patient is alert , nonverbal <Nena Knight NP - Last Filed: 11:22> Objective Data Current Medications Abacavir Sulfate (Abacavir Sulfate 300 Mg Tablet) 600 mg PO DAILY [facility] Last Admin: 01/04/21 07:42 Dose: 600 mg Documented by: Acetaminophen (Acetaminophen 325 Mg Tablet) 650 mg PO Q6H PRN PRN Reason: Pain, Mild (Pain Scale 1-3) Dextrose (Dextrose 50 % 25 Gm/50 Ml Vial) 25 gm IVPUSH Q15M PRN; Protocol PRN Reason: per Hypoglycemia Standing Ord. Dolutegravir Sodium (Dolutegravir Sodium 50 Mg Tablet) 50 mg PO DAILY [facility] Last Admin: 01/04/21 07:43 Dose: 50 mg Documented by: Glucose (Glucose Gel 15 Gm Gel..Gram.) 15 gm PO Q15M PRN; Protocol PRN Reason: per Hypoglycemia Standing Ord. Piperacillin Sod/Tazobactam (Sod 3.375 gm/ Sodium Chloride) 50 mls @ 100 mls/hr IV Q6H [facility] Last Infusion: 01/04/21 06:02 Dose: Infused Documented by: Insulin Glargine (Insulin Glargine,Hum.Rec.Anlog 100 Unit/Ml 10 Ml Vial) 17 unit SUBCUT DAILY [facility] Last Admin: 01/04/21 07:41 Dose: 17 unit Documented by: Insulin Human Lispro (Insulin Lispro 100 Unit/Ml 3 Ml Vial) 0 unit SUBCUT QIDACHS [facility]; Protocol Last Admin: 01/04/21 07:41 Dose: 6 unit Documented by: Lamivudine (Lamivudine 150 Mg Tablet) 300 mg PO DAILY [facility] Last Admin: 01/04/21 07:42 Dose: 300 mg Documented by: Losartan Potassium (Losartan Potassium 50 Mg Tablet) 100 mg PO DAILY [facility]; Protocol Last Admin: 01/04/21 07:43 Dose: 100 mg Documented by: Ondansetron HCl (Ondansetron Hcl 4 Mg/2 Ml Vial) 4 mg IVPUSH Q8H PRN PRN Reason: Nausea and Vomiting Pharmacy Consult (Consult Rx Perform Med Rec) 1 each MISCELLANE ONCE PRN PRN Reason: Consult order Sodium Chloride (0.9 % Sodium Chloride Flush 3 Ml Syringe) 3 ml IVFLUSH QSHIFT [facility] Last Admin: 01/04/21 07:44 Dose: 3 ml Documented by: <Nena Knight NP - Last Filed: 01/04/21 11:22> Labs CBC & Chem 7: : 01/05/21 05:12 01/05/21 05:12 <Nena Knight NP - Last Filed: 01/04/21 11:22> Labs: Laboratory Results - last 24 hr 01/03/21 01/03/21 01/03/21 11:14 16:09 18:14 POC Glucose 338 H 446 H* 370 H* 01/03/21 01/04/21 20:05 07:08 POC Glucose 358 H* 257 H <Nena Knight NP - Last Filed: 01/04/21 11:22> Microbiology Microbiology Results: Microbiology 01/02/21 16:13 Blood - Venous Blood Culture - Preliminary No growth after 24 hours. 01/02/21 16:13 Blood - Venous Blood Culture - Preliminary No growth after 24 hours. 01/02/21 16:45 Urine clean catch - Urine kramer top Urine Culture - Preliminary Gram negative cm <Nena Knight NP - Last Filed: 01/04/21 11:22> Quality Stroke Does the patient have a stroke diagnosis?: No <Nena Knight NP - Last Filed: 01/04/21 11:22> VTE Prior VTE?: No <Nena Knight NP - Last Filed: 01/04/21 11:22> VTE Risk Level:: Medical - moderate - high <Nena Knight NP - Last Filed: 01/04/21 11:22> VTE Device Contraindication: Treatment Not Indicated <Nena Knight NP - Last Filed: 01/04/21 11:22> VTE Drug Contraindication: N/A - Med Ordered <Nena Knight NP - Last Filed: 01/04/21 11:22>
--- NOTE | 2021-01-04 11:13 | MHC.PIE ---
P BLOOD SUGAR 577 I TIGERTEXTED AJAY SINGH, WILL RECHECK BLOOD SUGAR AT 11:20 E AWAITING RESPONSE
[2021-01-04 11:36] LABS: Glucose, Whole Blood 577 mg/dL (60-115)
[2021-01-04 11:36] LABS: Glucose, Whole Blood 541 mg/dL (60-115)
--- NOTE | 2021-01-04 15:56 | MHC.CM.PN ---
PER MULTIDISCIPLINARY ROUNDS ANTIC PT WILL D/C TOMORROW 01/05/21, PLAN REMAINS HOME W/FAMILY AND [facility] HRS/GLO, FAMILY HAS W/C VAN AND WILL TRANSPORT PT.
[2021-01-04 16:20] LABS: Glucose, Whole Blood 274 mg/dL (60-115)
[2021-01-04 20:34] LABS: Glucose, Whole Blood 237 mg/dL (60-115)
[2021-01-05] MEDS: Piperacillin Sodium/Tazobactam 3.375 GM in 0.9 % Sodium Chloride 50 ML IV ×3 (00:27→12:28)
[2021-01-05] MEDS: 0.9 % Sodium Chloride Flush 3 ML SYRINGE IVFLUSH ×2 (00:27→08:12)
[2021-01-05 03:46] VITALS: BP 137/79; PULSE 82; RESP 18; TEMP 36.3; O2SAT 98
[2021-01-05 05:23] LABS: Hemoglobin 14.3 g/dl (14.0-18.0); Mean Corpuscular Hemoglobin 33.4 pg (27.0-33.0); Mean Corpuscular Volume 98.1 fL (80-98); Platelet Count 182 X10*3/uL (160-400); Red Blood Count 4.28 X10*6/uL (4.60-5.80); White Blood Count 7.9 X10*3/uL (4.8-10.8)
[2021-01-05 05:41] LABS: Anion Gap 12 (12-20); Blood Urea Nitrogen 10 mg/dL (9-16); Carbon Dioxide 32 mmol/L (22-29); Chloride 100 mmol/L (96-108); Creatinine Clr Calc Pharmacy 79.8; Estimated Glomerular Filt Rate > 60; Glucose Random 248 mg/dL (60-115); Potassium 4.5 mmol/L (3.3-5.1); Sodium 139 mmol/L (135-145)
[2021-01-05 07:13] VITALS: BP 144/88; PULSE 82; RESP 18; TEMP 36.4; O2SAT 97
[2021-01-05 07:49] LABS: Glucose, Whole Blood 290 mg/dL (60-115)
[2021-01-05] MEDS: Insulin Glargine,Hum.rec.anlog 100 UNIT/ML 10 ML VIAL 17 UNIT SUBCUT (08:10)
[2021-01-05] MEDS: Insulin Lispro 100 UNIT/ML 3 ML VIAL SUBCUT ×2 (08:11→12:29)
[2021-01-05] MEDS: lamiVUDine 150 MG TABLET 300 MG PO (08:12)
[2021-01-05] MEDS: Losartan Potassium 50 MG TABLET 100 MG PO (08:12)
[2021-01-05] MEDS: Dolutegravir Sodium 50 MG TABLET PO (08:13)
--- NOTE | 2021-01-05 10:35 | PM.DS ---
DS: Providers Provider Date of Service: 01/05/21 <PANDA Best - Last Filed: 01/05/21 10:47> Date of admission: 01/02/21 17:28 <PANDA Best - Last Filed: 01/05/21 10:47> Date of discharge: 01/05/21 <PANDA Best - Last Filed: 01/05/21 10:47> Primary care physician: Cristina Dias MD <PANDA Best - Last Filed: 01/05/21 10:47> Attending physician on discharge: Hector Mcgregor <PANDA Best - Last Filed: 01/05/21 10:47> Discharging clinician: Meena Barnett <PANDA Best - Last Filed: 01/05/21 10:47> DS: Diagnosis Discharge Diagnosis (1) Sepsis due to gram-negative UTI: Status: Acute <PANDA Best - Last Filed: 01/05/21 10:47> (2) Diabetes mellitus: Status: Acute <PANDA Best - Last Filed: 01/05/21 10:47> DS: Summary Hospital Course Hospital Course: From H&P on day of admission 60 old male mostly nonverbal brought to the ER due to altered mental status and leaning towards the right.? Apparently he had went to his day program and at 02:00 he was noted to the deficits.? He is mostly nonverbal therefore unable to obtain any accurate history from him.? 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 Urinalysis did appear to be positive again, his last discharge he was treated for urinary tract infection.? He was noted to have tachycardia, tachypnea and lactic acidosis as well as hyperglycemia.? His back was 1.5 and was repleted in the ER.? He was given a dose of Rocephin, 500 mL of IV fluids and Tylenol.? He will be admitted for further management and treatment of recurrent urinary tract infection. Patient was admitted to the hospital for sepsis secondary to UTI. He was started on IV antibiotics. His tachycardia and tachypnea improved. Urine culture grew pansensitive E coli. Patient appears to be back at his baseline mental status and is now stable for discharge home. Blood cultures have remained negative times 48 hours. He will be discharged home to complete 7 days of oral antibiotics. His magnesium levels were noted to be low, this was replaced and levels improved. Attending Attestation: Date of service is: 01/05/2021 Patient seen and examined on the day of discharge. Case has been discussed with the mid-level provider. I agree with the discharge summary and plan as documented above by the mid-level provider. <PANDA Best - Last Filed: 01/05/21 10:47> Time Spent with Patient Time attestation: Total time spent providing and/or coordinating discharge services: <PANDA Best Last Filed: 01/05/21 10:47> Discharge coordination time: Greater than 30 minutes <PANDA Best Last Filed: 01/05/21 10:47> Quality: Stroke Does the patient have a stroke diagnosis?: No <PANDA Best Last Filed: 01/05/21 10:47> Physical Exam Vital Signs: Vital Signs: Last Vital Signs Temp 97.6 F 01/05/21 07:13 Pulse 82 01/05/21 07:13 Resp 18 01/05/21 07:13 BP 144/88 H 01/05/21 07:13 Pulse Ox 97 01/05/21 07:13 Body Mass Index 25.9 <PANDA Best Last Filed: 01/05/21 10:47> Const: Nutritional Appearance: well nourished <PANDA Best Last Filed: 01/05/21 10:47> HENMT: Head: Yes normocephalic and Yes atraumatic <PANDA Best Last Filed: 01/05/21 10:47> Eyes: Sclerae: sclerae normal <PANDA Best Last Filed: 01/05/21 10:47> Resp: Effort & Inspection: normal respiratory effort and no respiratory distress <PANDA Best Last Filed: 01/05/21 10:47> Cardio: Rate: regular rate <PANDA Best Last Filed: 01/05/21 10:47> Rhythm: regular rhythm <PANDA Best Last Filed: 01/05/21 10:47> GI: Palpation (GI): Soft to palpation and nontender <PANDA Best - Last Filed: 01/05/21 10:47> Neuro: Cranial nerves: Yes CN's II-XII intact bilaterally and Yes Bilaterally intact EOM present <PANDA Best - Last Filed: 01/05/21 10:47> DS: Data Data Completed and Pending Labs on day of discharge: Laboratory Results - last 24 hr 01/04/21 01/04/21 01/04/21 11:06 11:30 16:15 WBC RBC Hgb Hct MCV MCH MCHC RDW Plt Count MPV Absolute Nucleated RBC Nucleated RBC % (auto) Sodium Potassium Chloride Carbon Dioxide Anion Gap BUN Creatinine Estim Creat Clear Calc Estimated GFR POC Glucose 577 H* 541 H* 274 H Random Glucose Calcium 01/04/21 01/05/21 01/05/21 20:30 05:12 05:12 WBC 7.9 RBC 4.28 L Hgb 14.3 Hct 42.0 MCV 98.1 H MCH 33.4 H MCHC 34.0 RDW 12.0 Plt Count 182 MPV 12.0 Absolute Nucleated RBC 0.000 Nucleated RBC % (auto) 0.0 Sodium 139 Potassium 4.5 Chloride 100 Carbon Dioxide 32 H Anion Gap 12 BUN 10 Creatinine 0.92 Estim Creat Clear Calc 79.8 Estimated GFR > 60 POC Glucose 237 H Random Glucose 248 H D Calcium 9.0 01/05/21 07:12 WBC RBC Hgb Hct MCV MCH MCHC RDW Plt Count MPV Absolute Nucleated RBC Nucleated RBC % (auto) Sodium Potassium Chloride Carbon Dioxide Anion Gap BUN Creatinine Estim Creat Clear Calc Estimated GFR POC Glucose 290 H Random Glucose Calcium Preliminary micro results at discharge 01/02/21 16:13 Blood Culture - Preliminary Blood - Venous No growth after 48 hours. 01/02/21 16:13 Blood Culture - Preliminary Blood - Venous No growth after 48 hours. <PANDA Best Last Filed: 01/05/21 10:47> Discharge Plan Discharge Patient Disposition: Home, Self-Care <PANDA Best Last Filed: 01/05/21 10:47> Discharge Diagnosis: Sepsis secondary to UTI <PANDA Best - Last Filed: 01/05/21 10:47> Sepsis secondary to UTI <Hector Mcgregor MD - Last Filed: 01/05/21 16:18> Referrals: Cristina Dias MD [Primary Care Provider] - 1 Week <PANDA Best - Last Filed: 01/05/21 10:47> Discharge Medications: New cefuroxime axetil 500 mg tablet 500 mg PO Q12H 7 Days Qty: 14 RF: 0 Continued losartan 100 mg tablet 100 mg PO DAILY RF: 0 insulin lispro [Humalog KwikPen Insulin] 100 unit/mL insulin pen 0 sliding scale dose subcut TID RF: 0 Tresiba FlexTouch U-100 100 unit/mL (3 mL) insulin pen 24 unit subcut DAILY RF: 0 Triumeq 600-50-300 mg tablet 1 tab PO DAILY RF: 0 acetaminophen 325 mg Tablet 650 mg PO Q6H PRN (Reason: Pain) RF: 0 <PANDA Best - Last Filed: 01/05/21 10:47> Discharge Orders: Discharge Order (Routine); Ordered 01/05/21 Ordered By: Meena Barnett <PANDA Best - Last Filed: 01/05/21 10:47> Activity on Discharge: As tolerated <PANDA Best - Last Filed: 01/05/21 10:47> As tolerated <Hector Mcgregor MD - Last Filed: 01/05/21 16:18> Stand Alone Forms: Patient Portal Discharge page <PANDA Best - Last Filed: 01/05/21 10:47> Care Plan Goals: stay healthy and out of the hospital <PANDA Best Last Filed: 01/05/21 10:47> Health Concerns: UTI low magnesium <PANDA Best - Last Filed: 01/05/21 10:47> Plan of Treatment: UTI - complete course of antibiotics <PANDA Best Last Filed: 01/05/21 10:47> Assessment: 60 year old male admitted with sepsis secondary to UTI now stable for discharge <PANDA Best - Last Filed: 01/05/21 10:47>
--- NOTE | 2021-01-05 11:37 | MHC.CM.PN ---
CM CONTACTED PT'S HCP/GUARDIAN YOLANDA AT 11:35AM TO FIND OUT WHAT PHARMACY PT USES AND ARRANGE A TIME FOR HER TO PICK PT UP, YOLANDA REPORTS SHE IS CURRENTLY AT WORK AND WILL BE HERRE BY 5PM W/PT'S W/C AND W/C VAN TO TRANSPORT PT HOME. D/C PLAN: HOME W/FAMILY AND [employer], FAMILY FOR TRANSPORT
[2021-01-05 11:58] VITALS: BP 145/86; PULSE 83; RESP 18; TEMP 36.3; O2SAT 95
[2021-01-05 11:58] LABS: Glucose, Whole Blood 258 mg/dL (60-115)
[2021-01-05 16:00] VITALS: BP 146/83; PULSE 80; RESP 18; TEMP 36.3; O2SAT 95
[2021-01-05 16:47] LABS: Glucose, Whole Blood 278 mg/dL (60-115)
== END 2021-01-05 17:48 | disposition home or self-care (01) | DRG 720 ==
LOC: HO.ED 17:16 → HO.EDOVER 17:58 → HO.S3 22:25
PROVIDERS: Admitting Provider Nurse Practitioner Acute Care; Emergency Provider Emergency Medicine; PCP Internal Medicine; Visit Provider Physician Assistant Medical
DX: A41.9 Sepsis, unspecified organism (principal); E11.65 Type 2 diabetes mellitus with hyperglycemia; E83.42 Hypomagnesemia; R65.20 Severe sepsis without septic shock; D72.829 Elevated white blood cell count, unspecified; Z21 Asymptomatic human immunodeficiency virus [HIV] infection status; N39.0 Urinary tract infection, site not specified; B96.20 Unspecified Escherichia coli [E. coli] as the cause of diseases classified elsewhere; Z87.440 Personal history of urinary (tract) infections; Z20.822 Contact with and (suspected) exposure to COVID-19; Z88.2 Allergy status to sulfonamides; Z88.6 Allergy status to analgesic agent; Z23 Encounter for immunization; Z79.4 Long term (current) use of insulin; Z79.899 Other long term (current) drug therapy
CPT/HCPCS: 36415; 70450; 71045; 80048; 80076; 81001; 82947; 83605; 83690; 83735; 84484; 85025; 85027; 85610; 85730; 87040; 87086; 87088; 87186; 87635; 90686; 93005; 96361; 96365; 96375; 99285; J0696; J2543; J3475

== ENCOUNTER 2023-09-11 17:23 | Inpatient (IN) | payer OTHER, SELFPAY ==
--- NOTE | ~2023-09-11 | CT_ITS ---
EXAMINATION: CT HEAD WITHOUT CONTRAST CT CERVICAL SPINE WITHOUT CONTRAST CLINICAL INFORMATION: Altered mental status. Head strike. COMPARISON: CT head from 01/02/2021. TECHNIQUE: Contiguous axial imaging was performed from the skull base to vertex without intravenous administration of contrast. Contiguous axial imaging was performed from the upper chest through the skull base without intravenous administration of contrast. Coronal and sagittal reformats were obtained at the acquisition workstation. This CT examination was performed using dose optimization techniques as appropriate, variously including the following: *Automated exposure control. *Adjustment of mA and/or kV according to patient size (this includes techniques or standardized protocols for targeted exams where dose is matched to indication/reason for exam; i.e. extremities or head). *Use of iterative reconstruction technique. DLP: 997 mGy-cm FINDINGS: Head: There are chronic regions of encephalomalacia within the left frontal lobe, lateral left temporal lobe, and right occipital lobe with associated volume loss. Chronic lacunar infarcts of the left blackburn radiata/lentiform nucleus and marycruz. No additional loss of kramer-white matter differentiation. No evidence of acute intracranial hemorrhage. Scattered and partially confluent hypoattenuation in the periventricular and deep white matter are consistent with moderate microangiopathy. Proportional prominence of the ventricles and sulcal spaces without evidence of obstructive hydrocephalus. No abnormal mass effect or midline shift. No extra-axial fluid collections. Calcific atherosclerotic disease of the intracranial internal carotid and vertebral arteries. No hyperdense vessel sign. Small subgaleal hematoma along the right posterior skull, measuring up to 0.3 cm in depth. No associated acute osseous abnormalities. Mild mucosal thickening of the paranasal sinuses. Mild leftward nasal septal deviation. The mastoid air cells and middle ear cavities are clear. Cervical Spine: The atlantooccipital and atlantoaxial articulations remain well aligned. Moderate degenerative arthropathy of the atlantodental articulation. Mild right convex curvature of the cervical spine. Straightening of the normal cervical lordosis. Otherwise, there is anatomic alignment of the vertebral bodies and posterior elements. No evidence of acute fracture or subluxation. The vertebral body heights are maintained. Moderate degenerative disc disease from C3-C7. Facet and uncovertebral joint arthropathy leads to osseous encroachment on the neural foramina from C3-C6. There is no prevertebral soft tissue swelling. The thyroid gland is atrophic/absent. The remaining cervical soft tissues are within normal limits. The lung apices demonstrate no abnormalities. CT/CT cervical spine wo IV con IMPRESSION: 1. No evidence of acute intracranial hemorrhage or edematous territorial infarction. Chronic regions of encephalomalacia within the left frontal lobe, lateral left temporal lobe, and right occipital lobe. Chronic lacunar infarcts of the left blackburn radiata/lentiform nucleus and marycruz. Moderate underlying microangiopathy and generalized cerebral volume loss. 2. No evidence of acute fracture or traumatic subluxation of the cervical spine. Moderate multilevel degenerative spondyloarthropathy of the cervical spine. 3. Small right posterior scalp hematoma. No associated osseous abnormalities.
--- NOTE | ~2023-09-11 | XR_ITS ---
EXAMINATION: XR CHEST CLINICAL INFORMATION: Altered mental status COMPARISON: 01/02/2021 TECHNIQUE: Frontal view of the chest was obtained. FINDINGS: No significant abnormality is noted involving the heart, lungs, mediastinum, bony thorax or soft tissues. XR/XR chest 1V IMPRESSION: Unremarkable examination.
--- NOTE | ~2023-09-11 | CT_ITS ---
EXAMINATION: CT ABDOMEN AND PELVIS WITH CONTRAST CLINICAL INFORMATION: Epigastric pain COMPARISON: February kidneys 12/11/2020, CT abdomen pelvis 01/02/2019 TECHNIQUE: Multidetector volumetric images were obtained from the superior aspect of the liver through the pubic symphysis following administration 85 mL of Omnipaque 350 intravenous contrast. Sagittal and coronal reformatted images were obtained on the technologist's workstation. Oral contrast: No This CT examination was performed using dose optimization techniques as appropriate, variously including the following: *Automated exposure control *Adjustment of mA and/or kV according to patient size (this includes techniques or standardized protocols for targeted exams where dose is matched to indication/reason for exam; i.e. extremities or head) *Use of iterative reconstruction technique DLP: 835 mGy-cm FINDINGS: LUNG BASES: The visualized lung bases are unremarkable. LIVER, GALLBLADDER, AND BILIARY TREE: The liver is normal in size, shape, and attenuation. No focal hepatic lesion or biliary ductal dilatation is present. The gallbladder is unremarkable with no evidence of radiopaque gallstones, gallbladder wall thickening, or obvious pericholecystic inflammatory changes. PANCREAS: Unremarkable. SPLEEN: Unremarkable. ADRENAL GLANDS: Unremarkable. KIDNEYS AND URETERS: The kidneys are normal in size, shape, and attenuation. There is bilateral nephrolithiasis with the largest stone on the left measuring 6 mm with a few other punctate calcifications and the largest stone on the right measuring 7 mm. No hydronephrosis, hydroureter, or ureteral calculi seen. No perinephric stranding. BLADDER: Unremarkable. GASTROINTESTINAL TRACT: The small and large bowel are unremarkable. The appendix is not seen but there is no evidence of appendicitis evidence of appendicitis. ABDOMINAL WALL: No significant hernia is appreciated. Tiny right inguinal hernia seen containing only fat. LYMPH NODES: Normal. VASCULAR: Calcific atherosclerotic changes are present in the aorta and iliofemoral vessels. There is no evidence of an abdominal aortic aneurysm. A TrapEase nonretrievable IVC filter is present. PELVIC VISCERA: There is mild BPH. Seminal vesicles appear normal. OSSEOUS STRUCTURES: Unremarkable. CT/CT abdomen pelvis w IV con IMPRESSION: 1. A cause for the patient's epigastric pain has not been found. 2. Incidental note made of bilateral nonobstructing renal calculi, mild BPH and IVC filter. Fleischner guidelines were followed.
[2023-09-11 17:34] VITALS: BP 159/80; BP 167/98; PULSE 130; PULSE 131; RESP 18; TEMP 36.6; O2SAT 95; BMI 25.8
[2023-09-11 17:38] LABS: Glucose, Whole Blood 102 mg/dL (60-115)
--- NOTE | 2023-09-11 17:41 | ED_ITS ---
HPI - Altered Mental Status General Chief Complaint: General Medical Stated Complaint: TBI, AMS, minor fall, BGL 59, now 92 Time Seen by Provider: 09/11/23 17:40 Source: patient and RN notes reviewed Mode of arrival: ambulatory Limitations: no limitations History of Present Illness ED Provider: Gaby Fischer PA-C HPI narrative: This is a 63-year-old male, with a history of anoxic brain injury with chronic right-sided hemiparesis, nonverbal, and diabetes, who presents emergency department accompanied by healthcare proxy with concerns for unwitnessed fall which occurred this afternoon. Sister reports that patient was found, leaning forward in his wheelchair with his head against the fence, but was responsive. They state that he was not acting his normal self at that time, family reported he seemed disoriented. They are unable to report how long this lasted for however state that he is at his baseline now. They state that his point of care was 75, and he did not eat lunch and the family gave insulin not realizing that this was a low sugar for him. On arrival, point of care was 59, he was given oral glucose. Point of care was 59. They state that his mentation is at baseline on arrival to the ED. He follows commands and is nonverbal and this is chronic for him. They also state that he has right-sided weakness which is also chronic. Patient reports that he is feeling well, no current complaints. MD complaint: altered mental status (Resolved) Onset (ago): hour(s) Timing confirmed by: family member Severity: mild Consistency of symptoms: waxing and waning Associated symptoms: denies other symptoms Related Data Home Medications ?Medication ?Instructions ?Recorded ?Confirmed abacavir 600 mg-dolutegravir 50 1 tab PO DAILY 12/11/20 01/02/21 mg-lamivudine 300 mg tablet (Triumeq) insulin degludec 100 unit/mL (3 24 unit subcut DAILY 12/11/20 01/02/21 mL) subcutaneous pen (Tresiba FlexTouch U-100 insulin) insulin lispro 100 unit/mL 0 sliding scale dose subcut TID 12/11/20 01/02/21 subcutaneous pen (Humalog KwikPen (U-100) Insulin) losartan 100 mg tablet 100 mg PO DAILY 12/11/20 01/02/21 acetaminophen 325 mg tablet 650 mg PO Q6H PRN Pain 01/02/21 01/02/21 Previous Rx's ?Medication ?Instructions ?Recorded cefuroxime axetil 500 mg tablet 500 mg PO Q12H 7 days #14 tabs 01/05/21 Allergies Allergy/AdvReac Type Severity Reaction Status Date / Time aspirin [Aspirin] Allergy Unknown HIVES, Verified 09/11/23 17:35 ITCHING ibuprofen [From Motrin] Allergy Unknown UNKNOWN Verified 09/11/23 17:35 Sulfa (Sulfonamide Allergy Unknown HIVES Verified 09/11/23 17:35 Antibiotics) [SULFA (SULFONAMIDE ANTIBIOTICS)] Aspirin Allergy Unknown Rash Uncoded 09/11/23 17:35 Seafood Allergy Unknown RASH, Uncoded 09/11/23 17:35 ITCHING, HIVES Sulfa Allergy Unknown Rash Uncoded 09/11/23 17:35 Review of Systems 2 Review of Systems: Yes all other systems are reviewed and are negative Constitutional: Constitutional: Reports as per [facility] Past Medical History Medical History Renal calculi Hypertension Diabetes mellitus Brain injury Hepatitis C HIV (human immunodeficiency virus infection) Family History Family History Other Diabetes mellitus Social History Social History Household Members: Family Household Members Other:: Lives with mother Housing: Apartment Do you presently have visiting nurse or other home services: No Unable to assess alcohol history related to: Unable to respond Alcohol intake: never Patient Tobacco Use Status: Never used Tobacco Smoked in Last 30 Days: No Use of substances other than those prescribed or required for medical reasons: No Have you been hit, kicked, punched, or otherwise hurt by someone within the past year? If so, by whom?: No Do you feel safe in your current relationship?: No Current Relationship Is there a partner from a previous relationship who is making you feel unsafe now?: No Advance Directives: Yes Advance Directives on File: Yes Advance Directives Date on File: 01/03/21 Do you have a plan to hurt others: No Plan Recently lost weight without trying: No Nutrition Risks: Dental problems Poor oral hygiene: No service: No Current occupational status: disabled Physical Exam ED Vital Signs: Vital Signs - 24 hr 09/11/23 17:34 09/11/23 19:20 09/11/23 20:31 Temperature 97.9 F 98.8 F 98.1 F Pulse Rate 131 H 99 102 H Respiratory Rate 18 24 H 23 H Blood Pressure 167/98 H 152/94 H 139/77 Pulse Oximetry 95 95 95 Oxygen Delivery Method Room Air Room Air Room Air 09/11/23 22:22 Temperature 98.4 F Pulse Rate 95 Respiratory Rate 25 H Blood Pressure 118/77 Pulse Oximetry 96 Oxygen Delivery Method Room Air BMI result Body Mass Index 25.8 Const Other: Nonverbal General: cooperative, comfortable and no acute distress Orientation/consciousness: oriented to person Limitations: no limitations HENMT Head: Yes normal to inspection, Yes normocephalic and Yes atraumatic Ears: hearing grossly normal bilaterally General nose exam: Normal external nose present Face and sinus: Yes normal facial exam Mouth: Normal oral and palatal mucosa present, oropharynx normal and moist mucous membranes Throat: Yes posterior oropharynx normal Eyes General: appearance normal, both eyes and all related structures Eyelids: Yes eyelids normal Conjunctivae: conjunctivae normal Sclerae: sclerae normal Pupils: Equal, round and reactive pupils present EOM: EOMs intact bilaterally Neck Neck: Yes normal visual inspection, Yes full ROM and Yes no lymphadenopathy Lymphatic: no lymphadenopathy noted Chest Chest palpation & inspection: normal inspection of the chest Resp Effort & Inspection: normal respiratory effort and able to speak in complete sentences Auscultation: clear to auscultation bilaterally, no crackles, no rales, no rhonchi and no wheezes Cardio Rate: regular rate Rhythm: regular rhythm Heart sounds: S1 normal heart sound present and S2 normal heart sound present GI Other: Abdomen is soft Tenderness palpation in the epigastrium Inspection: Yes normal to inspection Skin Other: Superficial abrasion noted to the posterior scalp, with mild hematoma noted. General skin exam: no rashes or lesions noted Trauma: no lacerations or abrasions Wounds: no wounds Neuro Other: Contractures noted to the right upper and left lower extremity. Otherwise moving all extremities. General: oriented to person and moves all extremities Cranial nerves: Yes Equal, round and reactive pupils present Extrem General: Yes normal to inspection Right upper extremity: normal to inspection Left upper extremity: normal to inspection Right lower extremity: normal to inspection Left lower extremity: normal to inspection Course Reevaluation(s) Reevaluation #1: Patient is borderline tachycardic at 103 however afebrile. He does not appear to be toxic appearing however he is nonverbal, given the symptoms as well as positive UTI, will obtain cultures, lactic. Will also hydrate with fluids. Time: 21:15 Reevaluation #2: Lactic normal. Creatinine around his baseline. Point of care 169, repeat troponin with positive delta change to 44.5. He is nonverbal. He appears to be comfortable, vital signs stable. Will obtain repeat EKG. Time: 22:34 Reevaluation #3: Repeat EKG, normal sinus rhythm at a ventricular rate of 93 beats per minute, QT QTC 330/410. Given UTI with bumped troponins, will admit to medicine. Upon my reassessment he is now complaining of some epigastric pain given this, will administer GI cocktail. Also add of CT abdomen with IV contrast, hospitalist team will follow. Discussed with Dr. Steven, who recommends cardiology input however bumped troponins likely demand. Time: 22:51 Additional Reevaluation(s): Spoke to Dr. Ventura who reports nothing to do in regards to the elevated troponin at this time. Will admit to medicine Medications Administered Generic Name Dose Route Start Last Admin Trade Name Freq PRN Reason Stop Dose Admin Sodium Chloride 3 ml 09/12/23 00:00 09/12/23 00:48 0.9 % Sodium Chloride Flush 3 Ml Syringe IVFLUSH Not Given QSHIFT ALEJA Discontinued Medications Generic Name Dose Route Start Last Admin Trade Name Freq PRN Reason Stop Dose Admin Al Hydroxide/Mg Hydroxide 30 ml 09/11/23 23:06 09/11/23 23:32 Magnesium Hydrox/Alum Hydrox 30 Ml Oral.Susp PO 09/11/23 23:07 30 ml ONCE ONE Administration Ceftriaxone Sodium 1 gm/ 50 mls @ 100 mls/hr 09/11/23 21:09 09/11/23 22:38 Sodium Chloride IV 09/11/23 21:38 Infused ONCE ONE Infusion Sodium Chloride 1,000 mls @ 999 mls/hr 09/12/23 00:45 09/12/23 02:10 Ns IV 09/12/23 01:45 Infused .Q1H1M ALEJA Infusion Iohexol 85 ml 09/12/23 00:10 09/12/23 00:11 Iohexol 350 Mg/Ml 100 Ml Infus..Btl IV 09/12/23 00:11 85 ml ONCE ONE Administration Lidocaine HCl 15 ml 09/11/23 23:06 09/11/23 23:32 Lidocaine Hcl Viscous 2 % 15 Ml Solution MUCOUS MEM 09/11/23 23:07 15 ml ONCE ONE Administration Medical Decision Making Medical Decision Making [facility] Narrative: This is a 63-year-old male, with a history of anoxic brain injury with chronic right-sided hemiparesis, nonverbal, who presents emergency department accompanied by healthcare proxy with concerns for unwitnessed fall which occurred this afternoon. On arrival, patient alert. He is nonverbal at baseline. Family reports that he is at his baseline. He does have a superficial abrasion noted to the top of his head. He is able to shake his head yes and no. Denies any current pain. Given unwitnessed fall, will obtain CT head, neck, chest x-ray, labs, UA. Differential diagnoses include ICH, SDH, ACS, electrolyte derangement. Differential Diagnosis Differential Diagnoses: The differential diagnosis associated with the presentation includes See above Admission/Observation Consideration of admission/observation: Escalation of care including admission/observation considered Consult Healthcare Provider Management of the patient was discussed with: Hospitalist and [employer] Plate Grainer Dr. Ventura Lab Data [facility] Lab Attestation statement: I reviewed the patient's lab results. Patient with slight leukocytosis at 15.3 with left shift, creatinine slightly elevated from his baseline at around 0.9. BUN elevated at 18. Lactic acid 1.4, 1st troponin 17.4, repeat 44.5. Urine appears to be grossly infected positive nitrites, blood. 09/11/23 18:28 09/11/23 18:28 Labs: Lab Results 09/11/23 09/11/23 09/11/23 Range/Units 17:35 18:28 19:23 WBC 15.3 H (4.8-10.8) X10*3/uL RBC 4.62 (4.60-5.80) X10*6/uL Hgb 15.6 (14.0-18.0) g/dl Hct 44.6 (42.0-52.0) % MCV 96.5 (80.0-98.0) fL MCH 33.8 H (27.0-33.0) pg MCHC 35.0 (31.0-36.0) g/dl RDW 12.2 (11.0-16.0) % Plt Count 176 (160-400) X10*3/uL MPV 11.9 (9.4-12.4) fL Immature Gran % (Auto) 0.3 (0.0-0.4) % Neut % (Auto) 83.6 H (45-73) % Lymph % (Auto) 7.5 L (20-40) % [place] % (Auto) 7.6 (2-11) % Eos % (Auto) 0.6 (0-4) % Baso % (Auto) 0.4 (0-2) % Lymph # (Auto) 1.2 (1.2-4.9) X10*3/uL [place] # (Auto) 1.2 (0.1-1.2) X10*3/uL Eos # (Auto) 0.1 (0.0-0.4) X10*3/uL Baso # (Auto) 0.1 (0.0-0.2) X10*3/uL Abs Immat Gran (auto) 0.05 H (0.00-0.03) X10*3/uL Absolute Neuts (auto) 12.8 H (2.0-8.3) x10*3/uL Absolute Nucleated RBC 0.000 (0.0-0.012) X10*3/uL Nucleated RBC % (auto) 0.0 (0.0-0.2) /100WBC PT 11.7 (11.1-13.3) SEC INR 1.0 (0.9-1.1) APTT 28.2 (26.0-36.8) SEC Sodium 141 (135-145) mmol/L Potassium 3.7 (3.3-5.1) mmol/L Chloride 106 (96-108) mmol/L Carbon Dioxide 29 (22-29) mmol/L Anion Gap 10 L (12-20) BUN 18 H (9-16) mg/dL Creatinine 1.07 (0.5-1.4) mg/dL Estim Creat Clear Calc 66.0 Estimated GFR > 60 POC Glucose 102 61 (60-115) mg/dL Random Glucose 85 (60-115) mg/dL Lactic Acid (0.5-2.0) mmol/L Calcium 9.8 D (8.4-10.2) mg/dL Magnesium 1.7 (1.6-2.6) mg/dL Total Bilirubin 0.4 (0.0-1.0) mg/dL Direct Bilirubin 0.2 (0.0-0.5) mg/dL AST 26 (5-37) U/L ALT 11 (0-40) U/L Alkaline Phosphatase 97 (39-117) U/L Troponin I High Sens 17.5 (<3.5-35.0) ng/L Total Protein 8.0 (6.5-8.0) g/dL Albumin 4.0 (3.5-5.0) g/dL Lipase 11 (8-78) U/L Urine Color Urine Appearance Urine pH (5.0-9.0) Ur Specific [place] (1.005-1.025) Urine Protein (Neg-Trace) mg/dL Urine Glucose (UA) (Negative) mg/dL Urine Ketones (Negative) mg/dL Urine Blood (Negative) Urine Nitrite (Negative) Ur Leukocyte Esterase (Negative) Urine RBC (0-2) /HPF Urine WBC (0-5) /HPF Ur Squamous Epith Cells (0-2) /HPF Urine Bacteria (None Seen) Hyaline Casts (0-2) /LPF Ethyl Alcohol < 10 mg/dL Influenza Type A (PCR) NEGATIVE (Negative) Influenza Type B (PCR) NEGATIVE (Negative) RSV RNA Qual (PCR) NEGATIVE (Negative) SARS-CoV-2 RNA (RT-PCR) NEGATIVE (Negative) 09/11/23 09/11/23 09/11/23 Range/Units 19:28 20:33 21:29 WBC (4.8-10.8) X10*3/uL RBC (4.60-5.80) X10*6/uL Hgb (14.0-18.0) g/dl Hct (42.0-52.0) % MCV (80.0-98.0) fL MCH (27.0-33.0) pg MCHC (31.0-36.0) g/dl RDW (11.0-16.0) % Plt Count (160-400) X10*3/uL MPV (9.4-12.4) fL Immature Gran % (Auto) (0.0-0.4) % Neut % (Auto) (45-73) % Lymph % (Auto) (20-40) % [place] % (Auto) (2-11) % Eos % (Auto) (0-4) % Baso % (Auto) (0-2) % Lymph # (Auto) (1.2-4.9) X10*3/uL [place] # (Auto) (0.1-1.2) X10*3/uL Eos # (Auto) (0.0-0.4) X10*3/uL Baso # (Auto) (0.0-0.2) X10*3/uL Abs Immat Gran (auto) (0.00-0.03) X10*3/uL Absolute Neuts (auto) (2.0-8.3) x10*3/uL Absolute Nucleated RBC (0.0-0.012) X10*3/uL Nucleated RBC % (auto) (0.0-0.2) /100WBC PT (11.1-13.3) SEC INR (0.9-1.1) APTT (26.0-36.8) SEC Sodium (135-145) mmol/L Potassium (3.3-5.1) mmol/L Chloride (96-108) mmol/L Carbon Dioxide (22-29) mmol/L Anion Gap (12-20) BUN (9-16) mg/dL Creatinine (0.5-1.4) mg/dL Estim Creat Clear Calc Estimated GFR POC Glucose 169 H (60-115) mg/dL Random Glucose (60-115) mg/dL Lactic Acid 1.4 (0.5-2.0) mmol/L Calcium (8.4-10.2) mg/dL Magnesium (1.6-2.6) mg/dL Total Bilirubin (0.0-1.0) mg/dL Direct Bilirubin (0.0-0.5) mg/dL AST (5-37) U/L ALT (0-40) U/L Alkaline Phosphatase (39-117) U/L Troponin I High Sens 44.5 H D (<3.5-35.0) ng/L Total Protein (6.5-8.0) g/dL Albumin (3.5-5.0) g/dL Lipase (8-78) U/L Urine Color Yellow Urine Appearance Clear Urine pH 5.5 (5.0-9.0) Ur Specific [place] 1.025 (1.005-1.025) Urine Protein 300 (3+) H (Neg-Trace) mg/dL Urine Glucose (UA) Negative (Negative) mg/dL Urine Ketones Trace (Negative) mg/dL Urine Blood Large (3+) H (Negative) Urine Nitrite Positive H (Negative) Ur Leukocyte Esterase Moderate (2+) H (Negative) Urine RBC >20 H (0-2) /HPF Urine WBC >50 H (0-5) /HPF Ur Squamous Epith Cells 3-5 (0-2) /HPF Urine Bacteria 1+ (None Seen) Hyaline Casts 0-2 (0-2) /LPF Ethyl Alcohol mg/dL Influenza Type A (PCR) (Negative) Influenza Type B (PCR) (Negative) RSV RNA Qual (PCR) (Negative) SARS-CoV-2 RNA (RT-PCR) (Negative) Radiology Impression Discussion of test interpretation with radiology: I have reviewed the radiologist's reading. Radiologist Impression: EXAMINATION: XR CHEST CLINICAL INFORMATION: Altered mental status COMPARISON: 01/02/2021 TECHNIQUE: Frontal view of the chest was obtained. FINDINGS: No significant abnormality is noted involving the heart, lungs, mediastinum, bony thorax or soft tissues. XR/XR chest 1V IMPRESSION: Unremarkable examination. Dictated By: Mitchell Jurado MD CT/CT head/brain wo IV con IMPRESSION: 1. No evidence of acute intracranial hemorrhage or edematous territorial infarction. Chronic regions of encephalomalacia within the left frontal lobe, lateral left temporal lobe, and right occipital lobe. Chronic lacunar infarcts of the left blackburn radiata/lentiform nucleus and marycruz. Moderate underlying microangiopathy and generalized cerebral volume loss. 2. No evidence of acute fracture or traumatic subluxation of the cervical spine. Moderate multilevel degenerative spondyloarthropathy of the cervical spine. 3. Small right posterior scalp hematoma. No associated osseous abnormalities. Dictated By: Agustin Fitzgerald DO Independent Historian Clinical information obtained from an independent historian. History obtained from or confirmed by: Other (Healthcare proxy) Chronic Conditions Patient?s care impacted by: Diabetes Discharge Plan Discharge Clinical Impression: Elevated troponin, Acute UTI Patient Disposition: Admitted As Inpatient Interventions: Admission Worksheet (ED) Last Done: 09/12/23 01:21 Discharge Date/Time: 09/12/23 02:23
--- NOTE | 2023-09-11 17:42 | ECG_ITS ---
Test Reason : DIZZINESS Blood Pressure : / mmHG Vent. Rate : 109 BPM Atrial Rate : 109 BPM P-R Int : 140 ms QRS Dur : 086 ms QT Int : 318 ms P-R-T Axes : 056 025 034 degrees QTc Int : 428 ms Sinus tachycardia Otherwise normal ECG When compared with ECG of 02-JAN-2021 18:14, No significant change was found Referred By: Gaby Fischer Electronically Signed By:SHANTA DALE
[2023-09-11 18:36] LABS: MANUAL DIFF FLAG NO
[2023-09-11 18:38] LABS: Basophils Absolute Auto 0.1 X10*3/uL (0.0-0.2); Basophils Percent Auto 0.4 % (0-2); Eosinophils Absolute Auto 0.1 X10*3/uL (0.0-0.4); Eosinophils Percent Auto 0.6 % (0-4); Hematocrit 44.6 % (42.0-52.0); Hemoglobin 15.6 g/dl (14.0-18.0); Imm Gran Abs Auto 0.05 X10*3/uL (0.00-0.03); Imm Gran Pct Auto 0.3 % (0.0-0.4); Lymphocytes Absolute Auto 1.2 X10*3/uL (1.2-4.9); Lymphocytes Percent Auto 7.5 % (20-40); Mean Corpuscular Hemoglobin 33.8 pg (27.0-33.0); Mean Corpuscular Volume 96.5 fL (80.0-98.0); Mean Platelet Volume 11.9 fL (9.4-12.4); Monocytes Absolute Auto 1.2 X10*3/uL (0.1-1.2); Monocytes Percent Auto 7.6 % (2-11); Neutrophils Absolute Auto 12.8 x10*3/uL (2.0-8.3); Neutrophils Percent Auto 83.6 % (45-73); Platelet Count 176 X10*3/uL (160-400); Red Blood Count 4.62 X10*6/uL (4.60-5.80); Red Cell Distribution Width 12.2 % (11.0-16.0); White Blood Count 15.3 X10*3/uL (4.8-10.8)
[2023-09-11 18:45] LABS: Prothrombin Time 11.7 SEC (11.1-13.3)
[2023-09-11 18:48] LABS: Partial Thromboplastin Time 28.2 SEC (26.0-36.8)
[2023-09-11 18:59] LABS: Troponin-I High Sensitivity 17.5 ng/L (<3.5-35.0)
[2023-09-11 19:00] LABS: Alanine Aminotransferase 11 U/L (0-40); Alkaline Phosphatase 97 U/L (39-117); Anion Gap 10 (12-20); Aspartate Amino Transferase 26 U/L (5-37); Bilirubin Direct 0.2 mg/dL (0.0-0.5); Bilirubin Total 0.4 mg/dL (0.0-1.0); Blood Urea Nitrogen 18 mg/dL (9-16); Calcium 9.8 mg/dL (8.4-10.2); Carbon Dioxide 29 mmol/L (22-29); Chloride 106 mmol/L (96-108); Estimated Glomerular Filt Rate > 60; Ethanol < 10 mg/dL; Glucose Random 85 mg/dL (60-115); Lipase 11 U/L (8-78); Magnesium 1.7 mg/dL (1.6-2.6); Potassium 3.7 mmol/L (3.3-5.1); Sodium 141 mmol/L (135-145)
[2023-09-11 19:20] VITALS: BP 152/94; PULSE 99; RESP 24; TEMP 37.1; O2SAT 95
[2023-09-11 19:27] LABS: Glucose, Whole Blood 61 mg/dL (60-115)
[2023-09-11 19:51] LABS: Appearance Urine Clear; Color Urine Yellow; Glucose Urine UA Negative (Negative); Leukocyte Esterase Urine Moderate (2+) (Negative); Nitrite Urine Positive (Negative); PH 5.5 (5.0-9.0); Specific Gravity - Urine 1.025 (1.005-1.025); UMIC TRIGGER UACC YES; Urine Blood Large (3+) (Negative); Urine Ketones Trace mg/dL (Negative); Urine Protein 300 (3+) mg/dL (Neg-Trace)
--- NOTE | 2023-09-11 19:51 | PC.NURSE ---
Assumed care of pt. Pt long starkser, no acute distress at this time. Glucose obtained and pt found to be mildly hypoglycemic, MD Fischer notified. Pt provided with PO juice and PB sandwich.
[2023-09-11 19:52] LABS: Influenza A PCR NEGATIVE (Negative); Influenza B PCR NEGATIVE (Negative); Resp Syncy Virus RNA Qual PCR NEGATIVE (Negative); SARS COV2 PCR INHOUSE NEGATIVE (Negative)
[2023-09-11 19:58] LABS: Bacteria Urine 1+ (None Seen); Hyaline Casts Urine 0-2 /LPF (0-2); RBC Urine >20 /HPF (0-2); UACC Culture Trigger YES; WBC Urine >50 /HPF (0-5)
[2023-09-11 20:31] VITALS: BP 139/77; PULSE 102; RESP 23; TEMP 36.7; O2SAT 95
[2023-09-11 20:37] LABS: Glucose, Whole Blood 169 mg/dL (60-115)
[2023-09-11] MEDS: cefTRIAXone sodium 1 GM in 0.9 % Sodium Chloride 50 ML IV (21:43)
[2023-09-11 21:48] LABS: Lactic Acid 1.4 mmol/L (0.5-2.0)
[2023-09-11 22:00] LABS: Troponin-I High Sensitivity 44.5 ng/L (<3.5-35.0)
[2023-09-11 22:22] VITALS: BP 118/77; PULSE 95; RESP 25; TEMP 36.9; O2SAT 96
--- NOTE | 2023-09-11 22:34 | ECG_ITS ---
Test Reason : AMS Blood Pressure : / mmHG Vent. Rate : 093 BPM Atrial Rate : 093 BPM P-R Int : 140 ms QRS Dur : 084 ms QT Int : 330 ms P-R-T Axes : 060 030 022 degrees QTc Int : 410 ms Normal sinus rhythm Normal ECG When compared with ECG of 11-SEP-2023 17:53, No significant change was found Referred By: Gaby Fischer Electronically Signed By:SHANTA DALE
--- NOTE | 2023-09-11 23:30 | P.HPHOSP_ITS ---
History of Present Illness Date of Service: 09/12/23 Chief Complaint: AMS This is a 63-year-old male with pertinent history of anoxic brain injury with right-sided hemiparesis, nonverbal and nonambulatory at baseline, hypertension, insulin-dependent diabetes mellitus, HIV who was brought to the emergency department for evaluation of altered mentation. Patient is nonverbal at baseline and history obtained with the help of patient's sister was also healthcare proxy at bedside. As per the sister, patient was found near trash can using his electric wheelchair on the day of presentation. This never happens. Patient was found confused and altered as per the family. The sister stated that she thought that patient was hypoglycemic as he usually gets confused finish blood sugar falls. His POC was 75 at that time. Patient follows commands and responds by nodding his head. He denies pain at the time of my evaluation. Unable to obtain review of systems Review of Systems 2 Review of Systems: Yes Unobtainable due to mental condition [facility] Medical History Renal calculi Hypertension Diabetes mellitus Brain injury Hepatitis C HIV (human immunodeficiency virus infection) Family History Other Diabetes mellitus Social History Household Members: Family Household Members Other:: Lives with mother Housing: Apartment Do you presently have visiting nurse or other home services: No Unable to assess alcohol history related to: Unable to respond Alcohol intake: never Patient Tobacco Use Status: Never used Tobacco Smoked in Last 30 Days: No Use of substances other than those prescribed or required for medical reasons: No Have you been hit, kicked, punched, or otherwise hurt by someone within the past year? If so, by whom?: No Do you feel safe in your current relationship?: No Current Relationship Is there a partner from a previous relationship who is making you feel unsafe now?: No Advance Directives: Yes Advance Directives on File: Yes Advance Directives Date on File: 01/03/21 Do you have a plan to hurt others: No Plan Recently lost weight without trying: No Nutrition Risks: Dental problems Poor oral hygiene: No service: No Current occupational status: disabled Meds Allergies Allergy/AdvReac Type Severity Reaction Status Date / Time aspirin [Aspirin] Allergy Unknown HIVES, Verified 09/11/23 17:35 ITCHING ibuprofen [From Motrin] Allergy Unknown UNKNOWN Verified 09/11/23 17:35 Sulfa (Sulfonamide Allergy Unknown HIVES Verified 09/11/23 17:35 Antibiotics) [SULFA (SULFONAMIDE ANTIBIOTICS)] Aspirin Allergy Unknown Rash Uncoded 09/11/23 17:35 Seafood Allergy Unknown RASH, Uncoded 09/11/23 17:35 ITCHING, HIVES Sulfa Allergy Unknown Rash Uncoded 09/11/23 17:35 Home Medications ?Medication ?Instructions ?Recorded ?Confirmed ?Last Taken ?Type abacavir 600 mg-dolutegravir 50 1 tab PO DAILY 12/11/20 01/02/21 01/02/21 History mg-lamivudine 300 mg tablet (Triumeq) insulin degludec 100 unit/mL (3 24 unit subcut DAILY 12/11/20 01/02/21 01/02/21 History mL) subcutaneous pen (Tresiba FlexTouch U-100 insulin) insulin lispro 100 unit/mL 0 sliding scale dose subcut TID 12/11/20 01/02/21 01/02/21 History subcutaneous pen (Humalog KwikPen (U-100) Insulin) losartan 100 mg tablet 100 mg PO DAILY 12/11/20 01/02/21 01/02/21 History acetaminophen 325 mg tablet 650 mg PO Q6H PRN Pain 01/02/21 01/02/21 Unknown History Physical Exam 2 Vital Signs and Narrative: Vital Signs: Last Vital Signs Temp 98.4 F 09/11/23 22:22 Pulse 95 09/11/23 22:22 Resp 25 H 09/11/23 22:22 BP 118/77 09/11/23 22:22 Pulse Ox 96 09/11/23 22:22 O2 Del Method Room Air 09/11/23 22:22 BMI result Body Mass Index 25.8 Middle-aged male lying in bed in no distress Neck supple, no JVD Regular rate and rhythm, S1-S2 heard Regular breath sounds bilaterally, no wheezing or crackles appreciated Abdomen soft nontender, no guarding, no rigidity Patient is awake, alert and nods head appropriately in response to questions, unable to assess orientation, right hemiparesis present, left lower and upper extremity strength equal, nonverbal and nonambulatory at baseline Psych: Normal mood No pedal edema Results Labs 09/11/23 18:28 09/11/23 18:28 Labs: Laboratory Results - last 24 hr 09/11/23 09/11/23 09/11/23 17:35 18:28 19:23 MCV 96.5 MCH 33.8 H MCHC 35.0 RDW 12.2 Plt Count 176 MPV 11.9 Immature Gran % (Auto) 0.3 Neut % (Auto) 83.6 H Lymph % (Auto) 7.5 L [place] % (Auto) 7.6 Eos % (Auto) 0.6 Baso % (Auto) 0.4 Lymph # (Auto) 1.2 [place] # (Auto) 1.2 Eos # (Auto) 0.1 Baso # (Auto) 0.1 Abs Immat Gran (auto) 0.05 H Absolute Neuts (auto) 12.8 H Absolute Nucleated RBC 0.000 Nucleated RBC % (auto) 0.0 PT 11.7 INR 1.0 APTT 28.2 Anion Gap 10 L Estim Creat Clear Calc 66.0 Estimated GFR > 60 POC Glucose 102 61 Random Glucose 85 Lactic Acid Calcium 9.8 D Magnesium 1.7 Total Bilirubin 0.4 Direct Bilirubin 0.2 AST 26 ALT 11 Alkaline Phosphatase 97 Troponin I High Sens 17.5 Total Protein 8.0 Albumin 4.0 Lipase 11 Urine Color Urine Appearance Urine pH Ur Specific Butler Urine Protein Urine Glucose (UA) Urine Ketones Urine Blood Urine Nitrite Ur Leukocyte Esterase Urine RBC Urine WBC Ur Squamous Epith Cells Urine Bacteria Hyaline Casts Ethyl Alcohol < 10 Influenza Type A (PCR) NEGATIVE Influenza Type B (PCR) NEGATIVE RSV RNA Qual (PCR) NEGATIVE SARS-CoV-2 RNA (RT-PCR) NEGATIVE 09/11/23 09/11/23 09/11/23 19:28 20:33 21:29 MCV MCH MCHC RDW Plt Count MPV Immature Gran % (Auto) Neut % (Auto) Lymph % (Auto) [place] % (Auto) Eos % (Auto) Baso % (Auto) Lymph # (Auto) [place] # (Auto) Eos # (Auto) Baso # (Auto) Abs Immat Gran (auto) Absolute Neuts (auto) Absolute Nucleated RBC Nucleated RBC % (auto) PT INR APTT Anion Gap Estim Creat Clear Calc Estimated GFR POC Glucose 169 H Random Glucose Lactic Acid 1.4 Calcium Magnesium Total Bilirubin Direct Bilirubin AST ALT Alkaline Phosphatase Troponin I High Sens 44.5 H D Total Protein Albumin Lipase Urine Color Yellow Urine Appearance Clear Urine pH 5.5 Ur Specific Butler 1.025 Urine Protein 300 (3+) H Urine Glucose (UA) Negative Urine Ketones Trace Urine Blood Large (3+) H Urine Nitrite Positive H Ur Leukocyte Esterase Moderate (2+) H Urine RBC >20 H Urine WBC >50 H Ur Squamous Epith Cells 3-5 Urine Bacteria 1+ Hyaline Casts 0-2 Ethyl Alcohol Influenza Type A (PCR) Influenza Type B (PCR) RSV RNA Qual (PCR) SARS-CoV-2 RNA (RT-PCR) Imaging Radiologist's Impressions: Impressions Cervical Spine CT 09/11/23 18:11 IMPRESSION: 1. No evidence of acute intracranial hemorrhage or edematous territorial infarction. Chronic regions of encephalomalacia within the left frontal lobe, lateral left temporal lobe, and right occipital lobe. Chronic lacunar infarcts of the left blackburn radiata/lentiform nucleus and marycruz. Moderate underlying microangiopathy and generalized cerebral volume loss. 2. No evidence of acute fracture or traumatic subluxation of the cervical spine. Moderate multilevel degenerative spondyloarthropathy of the cervical spine. 3. Small right posterior scalp hematoma. No associated osseous abnormalities. Head CT 09/11/23 18:11 IMPRESSION: 1. No evidence of acute intracranial hemorrhage or edematous territorial infarction. Chronic regions of encephalomalacia within the left frontal lobe, lateral left temporal lobe, and right occipital lobe. Chronic lacunar infarcts of the left blackburn radiata/lentiform nucleus and marycruz. Moderate underlying microangiopathy and generalized cerebral volume loss. 2. No evidence of acute fracture or traumatic subluxation of the cervical spine. Moderate multilevel degenerative spondyloarthropathy of the cervical spine. 3. Small right posterior scalp hematoma. No associated osseous abnormalities. Chest X-Ray 09/11/23 21:20 IMPRESSION: Unremarkable examination. Assessment and Plan (1) UTI (urinary tract infection): Qualifiers: Hematuria presence: without hematuria Urinary tract infection type: s ite unspecified Qualified Code(s): N39.0 - Urinary tract infection, site not specified Status: Acute (2) Elevated troponin: Status: Acute (3) Acute metabolic encephalopathy: Status: Acute (4) Sepsis: Status: Acute Plan This is a 63-year-old male with pertinent history of anoxic brain injury with right-sided hemiparesis, nonverbal and nonambulatory at baseline, hypertension, insulin-dependent diabetes mellitus, HIV who was brought to the emergency department for evaluation of altered mentation. #. Sepsis due to acute UTI: Resuscitated with IV crystalloids. Initiating empiric IV Rocephin. Lactic acid and blood culture obtained #. Acute metabolic encephalopathy in the setting of above #. Elevated troponin, likely type 2 in the setting of increased demand #. Insulin-dependent diabetes mellitus: Initiating Accu-Cheks with sliding scale insulin #. HIV: On Triumeq #. Hypertension: On losartan Med rec pending DVT prophylaxis: Lovenox DNR/DNI. Discussed with healthcare proxy at bedside Admit as inpatient and will require two night minimum hospital stay for IV antibiotics (as above), which is not possible in a lesser acute setting. Quality Stroke Does the patient have a stroke diagnosis?: No VTE Prior VTE?: No VTE Risk Level:: Medical - moderate - high VTE Device Contraindication: Treatment Not Indicated VTE Drug Contraindication: N/A - Med Ordered
[2023-09-11] MEDS: Magnesium Hydrox/Alum Hydrox 30 ML ORAL.SUSP PO (23:32)
[2023-09-11] MEDS: Lidocaine HCl Viscous 2 % 15 ML SOLUTION MUCOUS MEM (23:32)
--- OUTSIDE RECORDS SUMMARY | 2023-09-11 23:36 | XMS_ITS | Continuity of Care Document ---
Author Organization [facility] Address [address] [place] [id number] Care Team Providers Care Diamond Finishing Supervisor Name Role Phone Larissa SANTOS, Cristina Primary Care Physician Encounter [facility] Date(s): 02/12/20 - 03/18/20 [facility] [address] [place] [id number] Attending Physician: Angeline Patino MD Admitting Physician: Angeline Patino MD Referring Physician: Cristina Dias MD Allergies, Adverse Reactions, Alerts Substance Reaction Severity Status amoxicillin rash Active aspirin Allergy to penicilli n Allergy to seafood Active Motrin hives, rash Active sulfa drugs Active Immunizations Given and Recorded Vaccine Date Status Refusal Reason Meningococcal Conjugate Vaccine 1 03/09/20 Given influenza virus vaccine, inactivated 03/09/20 Give n influenza virus vaccine, inactivated 01/04/19 Give n influenza virus vaccine, inactivated 2 01/09/18 Gi joon influenza virus vaccine, inactivated 01/06/17 Give n influenza virus vaccine, inactivated 01/10/16 Give n pneumococcal 23-valent vaccine 10/26/19 Given pneumococcal 23-valent vaccine 12/06/08 Given Fluzone (oldterm) 3 12/28/13 Given Boostrix (Tdap) (oldterm) 08/12/13 Given Prevnar (oldterm) 12/10/12 Given Fluarix (oldterm) 12/10/12 Given FluLaval (oldterm) 12/13/10 Given FluLaval (oldterm) 12/01/08 Given 1Result Comment: First dose 2Admin Note: Per pt and provider note 3Admin Note: primary care Medications Admelog SoloStar 100 units/mL injectable solution See Instructions, T2DM E11.9 Subcutaneous Infusion given 3x daily before meals max daily dose 42 units, # 15 mL, 5 Refills, Maintenance, 10/30/19 15:31:00 EDT, [facility] #[id number], 170, cm, 10/26/19 16:39:00 EDT, Height, 77.2, kg, 01/03/19 15:... Start Date: 10/30/19 Status: Ordered FREE STYLE YUNIOR 2 SENSORS FREE STYLE YUNIOR 2 SENSORS, See Instructions, # 2 each, Refills 3, Tot. Refills 3, Maintenance, E 10.9, 02/22/20 15:36:00 EST, Supply, 170, cm, 10/26/19 16:39:00 EDT, Height, 77.2, kg, 01/03/19 15:11:00 EDT, Dry Weight Start Date: 02/22/20 Status: Ordered FREESTYLE YUNIOR 2 MONITOR FREESTYLE YNUIOR 2 MONITOR, See Instructions, # 1 each, Refills 0, Tot. Refills 0, Maintenance, E 10.9, 02/22/20 15:26:00 EST, Supply, 170, cm, 10/26/19 16:39:00 EDT, Height, 77.2, kg, 01/03/19 15:11:00 EDT, Dry Weight Start Date: 02/22/20 Status: Ordered Freestyle Lite Test Strips See Instructions, # 120 each, Refills 11, Tot. Refills 11, Maintenance, Use to check blood glucose levels up to 4 times a day, E11.9, 10/21/19 13:07:00 EDT, Compound, 170, cm, 05/14/19 14:06:00 EST, Height, 77.2, kg, 01/03/19 15:11:00 EDT, Dry Weight Start Date: 10/21/19 Status: Ordered Glucagon Emergency Kit for Low Blood Sugar 1 mg injection = 1 mg, Intramuscular, Once, for emergency , IM injection, # 1 each, 1 Refills, Soft Stop, 06/22/2012:49:00 EDT, [facility] #[id number], 170, cm, 05/14/19 14:06:00 EST, Height, 77.2, kg, 01/03/19 15:11:00 EDT, Dry Weight Start Date: 06/23/19 Status: Ordered Humalog Kwik Pen 100 units/mL subcutaneous injection See Instructions, TIS with meals sliding scale as - 5 units for BGM of 70 , increase by 2 units foreach 30 mg/dl increase in bgm, # 30 mL, 0 Refills, Maintenance, 01/08/19 14:39:33 EDT Start Date: 01/08/19 Status: Ordered Loratadine By Mouth, Daily, Refills 0, Maintenance, 01/03/19 15:02:47 EDT Start Date: 01/03/19 Status: Ordered Losartan = 75 mg, By Mouth, Daily, 0 Refills, Maintenance, 01/03/19 15:04:09 EDT Start Date: 01/03/19 Status: Ordered Pen [place], 31 G x 5 mm BD Ultra Fine III See Instructions, # 120 each, Refills 6, Tot. Refills 6, Maintenance, for use 4 x daily as directedwith humalog and tresiba insulin pen E11.65, 01/14/19 13:33:00 EST, Compound Start Date: 01/14/19 Status: Ordered Tresiba FlexTouch 100 units/mL subcutaneous solution = 24 units, Subcutaneous Infusion, Daily, E11.9, # 15 mL, 6 Refills, Maintenance, 05/08/19 14:39:00EST, [facility] #[id number], 170, cm, 01/07/19 23:33:00 EDT, Height, 77.2, kg, 01/03/19 15:11:00 EDT, Dry Weight Start Date: 05/08/19 Stop Date: 12/04/19 Status: Ordered Triumeq oral tablet 1 tablet, By Mouth, Daily, # 30 tablet, 11 Refills, Maintenance, 02/16/20 12:37:00 EST, Tablet, [facility] #[id number], 1 tablet By Mouth Daily,x30 days, 170, cm, 10/26/19 16:39:00 EDT, Height, 77.2, kg, 01/03/19 15:11:00 EDT, Dry Weight Start Date: 02/16/20 Stop Date: 02/10/21 Status: Ordered Problem List Condition Effective Dates Status Health Status Inform ant AIDS(Confirmed) Active Anoxic brain damage(Confirmed) Active APHONIA(Confirmed) Active Diabetes mellitus type 1(Confirmed) 03/1999 Active Hemiplegia(Confirmed) Active Hepatitis C(Confirmed) Active Hypertension(Confirmed) Active Social History Social History Type Response Smoking Status Never smoker; Tobacc o user in household: No entered on: 01/11/14 Sex
--- OUTSIDE RECORDS SUMMARY | 2023-09-11 23:36 | XMS_ITS | Continuity of Care Document ---
Author Organization [facility] Address [address] [place] [address]- Care Team Providers Care Locket Maker Name Role Phone Not on Staff, PCP Primary Care Physician Unavail able Encounter [facility] Date(s): 12/26/22 - 01/25/23 [facility] [address] [place] [id number] Allergies, Adverse Reactions, Alerts Substance Reaction Severity Status amoxicillin rash Active aspirin Allergy to penicilli n Allergy to seafood Active Motrin hives, rash Active sulfa drugs Active Immunizations Given and Recorded Vaccine Date Status Refusal Reason influenza virus vaccine, inactivated 03/02/22 Give n influenza virus vaccine, inactivated 12/16/20 Give n influenza virus vaccine, inactivated 03/09/20 Give n influenza virus vaccine, inactivated 01/04/19 Give n influenza virus vaccine, inactivated 1 01/09/18 Gi joon influenza virus vaccine, inactivated 01/06/17 Give n influenza virus vaccine, inactivated 01/10/16 Give n SARS-CoV-2 (COVID-19) Ad26 vaccine 08/09/20 Record ed Meningococcal Conjugate Vaccine 2 05/04/20 Given Meningococcal Conjugate Vaccine 3 03/09/20 Given pneumococcal 23-valent vaccine 10/26/19 Given pneumococcal 23-valent vaccine 12/06/08 Given pneumococcal 23-valent vaccine 03/11/05 Recorded tetanus/diphtheria/pertussis, acel(Tdap) 10/05/14 Recorded Fluzone (oldterm) 4 12/28/13 Given Boostrix (Tdap) (oldterm) 08/12/13 Given Prevnar (oldterm) 12/10/12 Given Fluarix (oldterm) 12/10/12 Given FluLaval (oldterm) 12/13/10 Given FluLaval (oldterm) 12/01/08 Given tetanus-diphtheria toxoids (Td) 09/02/96 Recorded 1Admin Note: Per pt and provider note 2Result Comment: Menveo #2 3Result Comment: First dose 4Admin Note: primary care Medications Baqsimi Two Pack 3 mg nasal powder = 3 mg, Naris, Right, Once, may repeat in 15 minutes. please use for low blood sugar emergency, # 2each, 3 Refills, Soft Stop, 05/24/20 15:43:00 EDT, [facility]/pharmacy #[id number], Partial fill upon patient request if the prescription is for a schedule II opioi... Start Date: 05/24/20 Status: Ordered FREE STYLE YUNIOR 2 SENSORS FREE STYLE YUNIOR 2 SENSORS, See Instructions, # 2 each, Refills 11, Tot. Refills 11, Maintenance, E10.9, 02/23/22 16:57:00 EST, Supply, 170, cm, 11/24/21 13:04:00 EDT, Height Start Date: 02/23/22 Status: Ordered FREESTYLE YUNIOR 2 MONITOR FREESTYLE YUNIOR 2 MONITOR, See Instructions, # 1 each, Refills 0, Tot. Refills 0, Maintenance, E 10.9, 06/25/22 11:46:00 EDT, Supply, 170, cm, 03/02/22 13:45:00 EST, Height Start Date: 06/25/22 Status: Ordered FREESTYLE YUNIOR 2 SENSOR FREESTYLE YUNIOR 2 SENSOR, See Instructions, # 2 kit, 2 Refills, Maintenance, APPLY DIRECTED, 170, cm, 10/26/19 16:39:00 EDT, Height, 77.2, kg, 01/03/19 15:11:00 EDT, Dry Weight Start Date: 08/23/20 Status: Ordered Freestyle Lite Test Strips See Instructions, # 120 each, Refills 11, Tot. Refills 11, Maintenance, Use to check blood glucose levels up to 4 times a day, E11.9, 02/15/22 11:10:00 EST, Compound, 170, cm, 11/24/21 13:04:00 EDT, Height Start Date: 02/15/22 Status: Ordered Glucagon Emergency Kit for Low Blood Sugar 1 mg injection = 1 mg, Intramuscular, Once, for emergency , IM injection, # 1 each, 1 Refills, Soft Stop, 06/22/2012:49:00 EDT, [facility] #[id number], 170, cm, 05/14/19 14:06:00 EST, Height, 77.2, kg, 01/03/19 15:11:00 EDT, Dry Weight Start Date: 06/23/19 Status: Ordered Insulin Lispro KwikPen 100 units/mL injectable solution See Instructions, e10.9 use following sliding scale, max daily dose is 54 units lispro per insurance preference, # 30 mL, 1 Refills, Maintenance, 12/31/22 8:51:00 EDT, [facility]/pharmacy #[id number], Partial fill upon patient request if the prescription is for... Start Date: 12/31/22 Status: Ordered Loratadine By Mouth, Daily, Refills 0, Maintenance, 01/03/19 15:02:47 EDT Start Date: 01/03/19 Status: Ordered Losartan = 75 mg, By Mouth, Daily, 0 Refills, Maintenance, 01/03/19 15:04:09 EDT Start Date: 01/03/19 Status: Ordered Pen Secor, 31 G x 5 mm BD Ultra Fine III See Instructions, # 120 each, Refills 6, Tot. Refills 6, Maintenance, for use 4 x daily as directedwith humalog and tresiba insulin pen E11.65, 01/14/19 13:33:00 EST, Compound Start Date: 01/14/19 Status: Ordered Tresiba FlexTouch 100 units/mL subcutaneous solution See Instructions, take up to 24 units daily e 10.9, # 30 mL, 11 Refills, Maintenance, 11/24/21 17:40:00 EDT, [facility] #[id number], 170, cm, 11/24/21 13:04:00 EDT, Height Start Date: 11/24/21 Status: Ordered Tresiba FlexTouch 100 units/mL subcutaneous solution = 20 units, Subcutaneous Injection, Daily, DX: E10.9, # 15 mL, 11 Refills, Maintenance, 07/02/22 15:02:00 EDT, [facility]/pharmacy #[id number], 170, cm, 07/07/21 10:57:00 EDT, Height Start Date: 07/02/22 Stop Date: 06/27/23 Status: Ordered Triumeq oral tablet 1 tablet, By Mouth, Daily, # 30 tablet, 2 Refills, Maintenance, 12/26/22 8:58:00 EDT, [id number], 30, TAKE 1 TABLET BY MOUTH EVERY DAY, 170, cm, 09/21/22 13:37:00 EDT, Height Start Date: 12/26/22 Status: Ordered Vitamin D3 2000 intl units oral capsule 1 capsule, By Mouth, Daily, # 30 capsule, 11 Refills, Maintenance, 12/26/22 8:58:00 EDT, [id number], 170, cm, 09/21/22 13:37:00 EDT, Height Start Date: 12/26/22 Status: Ordered Problem List Condition Confirmation Course Effective Dates Status Health St atus Informant AIDS Confirmed Active Anoxic brain damage Confirmed Active APHONIA Confirmed Active Diabetes mellitus type 1 Confirmed 03/1999 Active Hemiplegia Confirmed Active Hepatitis C Confirmed Active Hypertension Confirmed Active Social History Social History Type Response Smoking Status Never smoker; Tobacc o user in household: No entered on: 01/11/14 Sex Patient Care team information Care Team Personnel Name: Abida SANDS, Yevgeniy Giordano Position: [facility] RN Member Role: Primary Care Nurse Name: Not on Staff, PCP Position: [facility] Physician (General Medicine) Member Role: PCP Care Team Related Persons Name: YOLANDA GIBBS Address: [address] [place] [address] Name: ELIZABETH GIBBS Address: [address] [place] [address]
--- OUTSIDE RECORDS SUMMARY | 2023-09-11 23:36 | XMS_ITS | Continuity of Care Document ---
Author Organization [facility] Infectious Disease Address [address] [place] [address]- Care Team Providers Care Internist Name Role Phone Cristina Dias MD Primary Care Physician [facility]counter [facility] Date(s): 08/18/21 - 09/17/21 [facility] Infectious Disease [address] [place] [id number] Attending Physician: Admtr, Ar8 Allergies, Adverse Reactions, Alerts Substance Reaction Severity Status amoxicillin rash Active aspirin Allergy to penicilli n Allergy to seafood Active Motrin hives, rash Active sulfa drugs Active Immunizations Given and Recorded Vaccine Date Status Refusal Reason influenza virus vaccine, inactivated 12/16/20 Give n [...] 3 Refills, Soft Stop, 05/24/20 15:43:00 EDT, [facility]/pharmacy #[id number], Partial fill upon patient request if the prescription is for a schedule II opioi... Start Date: 05/24/20 Status: Ordered FREE STYLE YUNIOR 2 SENSORS FREE STYLE YUNIOR 2 SENSORS, See Instructions, # 2 each, Refills 11, Tot. Refills 11, Maintenance, E10.9, 01/26/21 8:09:00 EST, Supply, 170, cm, 12/16/20 16:28:00 EDT, Height Start Date: 01/26/21 Status: Ordered FREESTYLE YUNIOR 2 MONITOR FREESTYLE YUNIOR 2 MONITOR, See Instructions, # 1 each, Refills 0, Tot. Refills 0, Maintenance, E 10.9, 02/22/20 15:26:00 EST, Supply, 170, cm, 10/26/19 16:39:00 EDT, Height, 77.2, kg, 01/03/19 15:11:00 EDT, Dry Weight Start Date: 02/22/20 Status: Ordered FREESTYLE YUNIOR 2 SENSOR FREESTYLE [...] up to 4 times a day, E11.9, 01/11/21 11:07:00 EDT, Compound, 170, cm, 12/16/20 16:28:00 EDT, Height Start Date: 01/11/21 Status: Ordered Glucagon Emergency Kit for Low Blood Sugar 1 mg injection = 1 mg, Intramuscular, Once, for emergency , IM injection, # 1 each, 1 Refills, Soft Stop, 06/22/2012:49:00 EDT, [facility] #[id number], 170, cm, 05/14/19 14:06:00 EST, Height, 77.2, kg, 01/03/19 15:11:00 EDT, Dry Weight Start Date: 06/23/19 Status: Ordered Humalog Kwik Pen 100 units/mL subcutaneous injection See Instructions, Please follow sliding scale, max daily dose: 42 units, # 30 mL, 6 Refills, Maintenance, 07/20/20 11:46:00 EDT, [facility]/pharmacy #[id number], 170, cm, 10/26/19 16:39:00 EDT, Height, 77.2, kg, 01/03/19 15:11:00 EDT, Dry Weight Start Date: 07/20/20 Status: Ordered Loratadine By Mouth, Daily, Refills 0, Maintenance, 01/03/19 15:02:47 EDT Start Date: 01/03/19 Status: Ordered Losartan = 75 mg, By Mouth, Daily, 0 Refills, Maintenance, 01/03/19 15:04:09 EDT Start Date: 01/03/19 Status: Ordered Pen [place], 31 G x 5 mm BD Ultra Fine III See Instructions, # 120 each, Refills 6, Tot. Refills 6, Maintenance, for use 4 x daily as directedwith humalog and tresiba insulin pen E11.65, 01/14/19 13:33:00 EST, Compound Start Date: 01/14/19 Status: Ordered Tresiba FlexTouch 100 units/mL subcutaneous solution = 20 units, Subcutaneous Infusion, Daily, for 30 days, DX: E10.9, # 15 mL, 11 Refills, Hard Stop 07/02/22 15:02:00 EDT, 07/07/21 15:02:00 EDT, [facility]/pharmacy #[id number], 170, cm, 07/07/21 10:57:00 EDT, Height Start Date: 07/07/21 Stop Date: 07/02/22 Status: Ordered Tresiba FlexTouch 100 units/mL subcutaneous solution = 20 units, Subcutaneous Injection, Daily, DX: E10.9, # 15 mL, 11 Refills, Maintenance, 07/02/22 15:02:00 EDT, [id number], 170, cm, 07/07/21 10:57:00 EDT, Height Start Date: 07/02/22 Stop Date: 06/27/23 Status: Ordered Triumeq oral tablet 1 tablet, By Mouth, Daily, # 30 tablet, 11 Refills, Maintenance, 02/20/21 9:00:00 EST, Tablet, [id number], 1 tablet By Mouth Daily,x30 days, 170, cm, 02/10/21 10:05:00 EST, Height Start Date: 02/20/21 Stop Date: 02/15/22 Status: Ordered Vitamin D3 2000 intl units oral capsule 1 capsule = 50 mcg, By Mouth, Daily, # 90 capsule, 3 Refills, Maintenance, 08/19/21 7:07:00 EDT, Capsule, [id number], Partial fill upon patient request if the prescription is for a schedule II opioid drug., 170, cm, 08/18/21 13:05:00 EDT, Height Start Date: 08/19/21 Stop Date: 08/14/22 Status: Ordered Problem List Condition Effective Dates Status Health Status Inform ant AIDS(Confirmed) Active Anoxic brain damage(Confirmed) Active APHONIA(Confirmed) Active Diabetes mellitus type 1(Confirmed) 03/1999 Active Hemiplegia(Confirmed) Active Hepatitis C(Confirmed) Active Hypertension(Confirmed) Active Social History Social History Type Response Smoking Status Never smoker; Tobacc o user in household: No entered on: 01/11/14 Sex
--- OUTSIDE RECORDS SUMMARY | 2023-09-11 23:36 | XMS_ITS | Continuity of Care Document ---
Author Organization [facility] Endocrinolo gy and Diabetes Address [address] [place] [address]- Care Team Providers Care Front Desk Manager Name Role Phone Larissa SANTOS, Cristina Primary Care Physician [place] [facility] 07/[place]/22 [facility]ocr[facility]ology and Diabetes [address] [place] [phone]- Allergies, Adverse Reactions, Alerts Substance Reaction Severity Status amoxicillin rash Active aspirin Allergy to penicilli n Allergy to seafood Active sulfa drugs Active Motrin hives, rash Active Immunizations Given and Recorded Vaccine Date [...] 3 Refills, Soft Stop, 05/24/20 15:43:00 EDT, [facility]/pharmacy #[id number], Partial fill upon patient request if the [...] each, 1 Refills, Soft Stop, 06/22/2012:49:00 EDT, [facility] #[id number], 170, cm, 05/14/19 14:06:00 EST, Height, 77.2, kg, 01/03/19 15:11:00 EDT, Dry Weight Start Date: 06/23/19 Status: Ordered Humalog Kwik Pen 100 units/mL subcutaneous injection See Instructions, Please follow sliding scale, max daily dose: 48 units DX E10.9, # 30 mL, 6 Refills, Maintenance, 09/28/21 10:03:00 EDT, [id number], 170, cm, 08/18/21 13:05:00 EDT, Height Start Date: 09/28/21 Status: Ordered Loratadine By Mouth, Daily, Refills 0, Maintenance, 01/03/19 15:02:47 EDT Start Date: 01/03/19 Status: Ordered Losartan = 75 mg, By Mouth, Daily, 0 Refills, Maintenance, 01/03/19 15:04:09 EDT Start Date: 01/03/19 Status: Ordered Pen [place], 31 G x 5 mm BD Ultra [...] Daily, # 30 tablet, 2 Refills, Maintenance, 07/23/22 12:48:00 EDT, [facility], 30, TAKE 1 TABLET BY MOUTH EVERY DAY, 170, cm, 03/02/22 13:45:00 EST, Height Start Date: 07/23/22 Status: Ordered Vitamin D3 2000 intl units oral capsule 1 capsule = 50 mcg, By Mouth, Daily, # 90 capsule, 3 Refills, Maintenance, 08/19/21 7:07:00 EDT, Capsule, [facility]/pharmacy #[id number], Partial fill upon patient request if the prescription is for a schedule II opioid drug., 170, cm, 08/18/21 13:05:00 EDT, Height Start Date: 08/19/21 Stop Date: 08/14/22 Status: Ordered Problem List Condition Confirmation Course [...] Personnel Name: Abida SANDS, Yevgeniy Giordano Position: [facility] RN Member Role: Primary Care Nurse Name: Cristina Dias MD Position: [facility] Primary Care Physician Member Role: PCP Address: Address: [address] [place] [address]- Care Team Related Persons Name: YOLANDA GIBBS Address: [address] [place] [address] Name: ELIZABETH GIBBS Address: home [address] [place] [address]
--- OUTSIDE RECORDS SUMMARY | 2023-09-11 23:36 | XMS_ITS | Continuity of Care Document ---
Author Organization [facility] Infectious Disease Address [address] [place] [address]- Care Team Providers Care Embossing Machine Tender Name Role Phone Not on Staff, PCP Primary Care Physician Unavail able [facility]counter [facility] Date(s): 03/27/23 - 04/26/23 [facility] Infectious Disease [address] [place] [id number] Allergies, Adverse Reactions, Alerts Substance Reaction [...] 3 Refills, Soft Stop, 05/24/20 15:43:00 EDT, [facility]/pharmacy #[id number], Partial fill upon patient request if the [...] each, 1 Refills, Soft Stop, 06/22/2012:49:00 EDT, [facility] #[id number], 170, cm, 05/14/19 14:06:00 EST, Height, 77.2, kg, 01/03/19 15:11:00 EDT, Dry Weight Start Date: 06/23/19 Status: Ordered Insulin Lispro KwikPen 100 units/mL injectable solution See Instructions, USE FOLLOWING SLIDING SCALE, MAX DAILY DOSE IS 54 UNITS LISPRO PER INSURANCE PREFERENCE, # 30 Unknown, 1 Refills, Maintenance, 02/04/23 12:31:00 EST, [facility], 170, cm, 09/21/22 13:37:00 EDT, Height Start Date: 02/04/23 Status: Ordered Loratadine By Mouth, Daily, Refills 0, Maintenance, 01/03/19 15:02:47 EDT Start Date: 01/03/19 Status: Ordered Losartan = 75 mg, By Mouth, Daily, 0 Refills, Maintenance, 01/03/19 15:04:09 EDT Start Date: 01/03/19 Status: Ordered Pen [place], 31 G x 5 mm BD Ultra [...] tablet, By Mouth, Daily, # 30 tablet, 5 Refills, Maintenance, 03/27/23 10:57:00 EST, [id number], 1 tablet By Mouth Daily,x30 days, 170, cm, 09/21/22 13:37:00 EDT, Height Start Date: 03/27/23 Stop Date: 09/23/23 Status: Ordered Vitamin D3 2000 intl units oral capsule 1 capsule, By Mouth, Daily, # 30 capsule, 11 Refills, Maintenance, 12/26/22 8:58:00 EDT, [facility], 170, cm, 09/21/22 13:37:00 EDT, Height Start [...] Personnel Name: Abida SANDS, Yevgeniy Giordano Position: [facility] RN Member Role: Primary Care Nurse Name: Not on Staff, PCP Position: [facility] Physician (General Medicine) Member Role: PCP Care Team Related Persons Name: YOLANDA GIBBS Address: home [address] [place] [address] Name: ELIZABETH GIBBS Address: home [address] [place] [address]
--- OUTSIDE RECORDS SUMMARY | 2023-09-11 23:36 | XMS_ITS | Continuity of Care Document ---
Author Organization [facility] Endocrinolo gy and Diabetes Address [address] [place] [address]- Care Team Providers Care Gun Tester Name Role Phone Not on Staff, PCP Primary Care Physician Unavail able [facility]counter [facility] Date(s): 12/28/22 - 01/27/23 [facility] Endocrinology and Diabetes [address] [place] [id number] Allergies, Adverse Reactions, Alerts Substance Reaction [...] Refills, Soft Stop, 05/24/20 15:43:00 EDT, [facility]/pharmacy #[id number], Partial fill upon patient request if the [...] each, 1 Refills, Soft Stop, 06/22/2012:49:00 EDT, [email or web address] #[id number], 170, cm, 05/14/19 14:06:00 EST, Height, 77.2, kg, 01/03/19 15:11:00 EDT, Dry Weight Start Date: 06/23/19 Status: Ordered Insulin Lispro KwikPen 100 units/mL injectable solution See Instructions, e10.9 use following sliding scale, max daily dose is 54 units lispro per insurance preference, # 30 mL, 1 Refills, Maintenance, 12/31/22 8:51:00 EDT, [facility]/pharmacy #[id number], Partial fill upon patient request if the prescription is for... Start Date: 12/31/22 Status: Ordered Loratadine By Mouth, Daily, Refills 0, Maintenance, 01/03/19 15:02:47 EDT Start Date: 01/03/19 Status: Ordered Losartan = 75 mg, By Mouth, Daily, 0 Refills, Maintenance, 01/03/19 15:04:09 EDT Start Date: 01/03/19 Status: Ordered Pen [place], 31 G x 5 mm BD Ultra [...] Refills, Maintenance, 12/26/22 8:58:00 EDT, [facility], 30, TAKE 1 TABLET BY MOUTH EVERY DAY, 170, cm, 09/21/22 13:37:00 EDT, Height Start Date: 12/26/22 Status: Ordered Vitamin D3 2000 intl units oral capsule 1 capsule, By Mouth, Daily, # 30 capsule, 11 Refills, Maintenance, 12/26/22 8:58:00 EDT, [facility], 170, cm, 09/21/22 13:37:00 EDT, Height Start [...] Personnel Name: Abida SANDS, Yevgeniy Giordano Position: [facility] RN Member Role: Primary Care Nurse Name: Not on Staff, PCP Position: [facility] Physician (General Medicine) Member Role: PCP Care Team Related Persons Name: YOLANDA GIBBS Address: [address] [place] [address] Name: ELIZABETH GIBBS Address: [address] [place] [address]
--- OUTSIDE RECORDS SUMMARY | 2023-09-11 23:36 | XMS_ITS | Continuity of Care Document ---
Author Organization [facility] Endocrinolo gy and Diabetes Address [address] [place] [address]- Care Team Providers Care Scientific Technical Writer Name Role Phone Cristina Dias MD Primary Care Physician Encounter [facility] Date(s): 04/04/21 - 05/04/21 [facility] Endocrinology and Diabetes [address] [place] [phone]- Allergies, Adverse Reactions, Alerts Substance Reaction Severity [...] 10/26/19 Given pneumococcal 23-valent vaccine 12/06/08 Given tetanus/diphtheria/pertussis, acel(Tdap) 10/05/14 Recorded Fluzone (oldterm) 4 12/28/13 Given Boostrix (Tdap) (oldterm) 08/12/13 Given Prevnar (oldterm) 12/10/12 Given Fluarix (oldterm) 12/10/12 Given FluLaval (oldterm) 12/13/10 Given FluLaval (oldterm) 12/01/08 Given 1Admin Note: Per pt and provider note 2Result Comment: Pattio #2 3Result Comment: First dose 4Admin Note: primary care Medications Baqsimi Two Pack 3 mg nasal powder = 3 mg, Naris, Right, Once, may repeat in 15 minutes. please use for low blood sugar emergency, # 2each, 3 Refills, Soft Stop, 05/24/20 15:43:00 EDT, [facility]/pharmacy #[id number], Partial fill upon patient request if the [...] each, 1 Refills, Soft Stop, 06/22/2012:49:00 EDT, [facility] #[id number], 170, cm, 05/14/19 14:06:00 EST, Height, 77.2, kg, 01/03/19 15:11:00 EDT, Dry Weight Start Date: 06/23/19 Status: Ordered Humalog Kwik Pen 100 units/mL subcutaneous injection See Instructions, Please follow sliding scale, max daily dose: 42 units, # 30 mL, 6 Refills, Maintenance, 07/20/20 11:46:00 EDT, [facility]/pharmacy #[id number], 170, cm, 10/26/19 16:39:00 EDT, Height, 77.2, kg, 01/03/19 15:11:00 EDT, Dry Weight Start Date: 07/20/20 Status: Ordered Loratadine By Mouth, Daily, Refills 0, Maintenance, 01/03/19 15:02:47 EDT Start Date: 01/03/19 Status: Ordered Losartan = 75 mg, By Mouth, Daily, 0 Refills, Maintenance, 01/03/19 15:04:09 EDT Start Date: 01/03/19 Status: Ordered Pen [place], 31 G x 5 mm BD Ultra Fine III See Instructions, # 120 each, Refills 6, Tot. Refills 6, Maintenance, for use 4 x daily as directedwith humalog and tresiba insulin pen E11.65, 01/14/19 13:33:00 EST, Compound Start Date: 01/14/19 Status: Ordered Tresiba FlexTouch 100 units/mL subcutaneous solution = 24 units, Subcutaneous Infusion, Daily, DX: E10.9, # 15 mL, 11 Refills, Maintenance, 02/10/21 11:26:00 EST, [id number], 170, cm, 02/10/21 10:05:00 EST, Height Start Date: 02/10/21 Stop Date: 02/05/22 Status: Ordered Triumeq oral tablet 1 tablet, By Mouth, Daily, # 30 tablet, 11 Refills, Maintenance, 02/20/21 9:00:00 EST, Tablet, [id number], 1 tablet By Mouth Daily,x30 days, 170, cm, 02/10/21 10:05:00 EST, Height Start Date: 02/20/21 Stop Date: 02/15/22 Status: Ordered Problem List Condition Effective Dates Status Health Status Inform ant AIDS(Confirmed) Active Anoxic brain damage(Confirmed) Active APHONIA(Confirmed) Active Diabetes mellitus type 1(Confirmed) 03/1999 Active Hemiplegia(Confirmed) Active Hepatitis C(Confirmed) Active Hypertension(Confirmed) Active Social History Social History Type Response Smoking Status Never smoker; Tobacc o user in household: No entered on: 01/11/14 Sex
--- OUTSIDE RECORDS SUMMARY | 2023-09-11 23:36 | XMS_ITS | Continuity of Care Document ---
Author Organization [facility] Infectious Disease Address [address] [place] [id number]- Care Team Providers Care Site Controller Name Role Phone Cristina Dias MD Primary Care Physician [facility] Date(s): 09/21/22 - 10/21/22 [facility] Disease [address] [place] [id number] Attending Physician: Admtr, Ar8 Allergies, Adverse Reactions, [...] 3 Refills, Soft Stop, 05/24/20 15:43:00 EDT, [facility]/pharmacy #[id number], Partial fill upon patient request if the [...] each, 1 Refills, Soft Stop, 06/22/2012:49:00 EDT, [facility] #[id number], 170, cm, 05/14/19 14:06:00 EST, Height, 77.2, [...] EDT Start Date: 01/03/19 Status: Ordered Pen [place], 31 G x 5 mm BD Ultra [...] Refills, Maintenance, 07/23/22 12:48:00 EDT, [facility], 30, TAKE 1 TABLET BY MOUTH EVERY DAY, 170, cm, 03/02/22 13:45:00 EST, Height Start Date: 07/23/22 Status: Ordered Vitamin D3 2000 intl units oral capsule 1 capsule = 50 mcg, By Mouth, Daily, # 90 capsule, 3 Refills, Maintenance, 08/19/21 7:07:00 EDT, Capsule, [facility]/pharmacy #[id number], Partial fill upon patient request [...] in household: No entered on: 01/11/14 Sex Consult note * Anahy Poole MD: PERFORM Event Display: Consultation Note Authored Date: [id number] I am writing to appeal the decision to deny Mr. Yolanda Martin + Ribavirin for the treatmentof Hep C genotype 1a. 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 Based on the IDSA/AASLD guidelines which I use in my practice this patient meets critieria for treatment (Class 1, level B recommendation). I have attached a part fo the guidelines for your perusal. When and in Whom to Initiate HCV Therapy Table 1. Settings of Liver-Related Complications and Extrahepatic Disease in Which HCV Treatment is Most Likely to Provide the Most Immediate and Impactful Benefits Highest Priority for Treatment Owing to Highest Risk for Severe Complications Advanced fibrosis (Metavir F3) or compensated cirrhosis (Metavir F4) Rating: Class I, Level A Organ transplant Rating: Class I, Level B Type 2 or 3 essential mixed cryoglobulinemia with end-organ manifestations (eg, vasculitis) Rating: Class I, Level B Proteinuria, nephrotic syndrome, or membranoproliferative glomerulonephritis Rating: Class IIa, Level B High Priority for Treatment Owing to High Risk for Complications Fibrosis (Metavir F2) Rating: Class I, level B HIV-1 coinfection Rating: Class I, Level B Hepatitis B virus (HBV) coinfection Rating: Class IIa, Level C Other coexistent liver disease (eg, [KEATING]) Rating: Class IIa, Level C Debilitating fatigue Rating: Class IIa, Level B Type 2 Diabetes mellitus (insulin resistant) Rating: Class IIa, Level B Porphyria cutanea tarda Rating: Class IIb, Level C I hope you reconsider you decision after reviewing the full document available at [email or web address] Warm regards Anahy Poole MD Infectious Disease Physician Patient Care team information Care Team Personnel Name: Yevgeniy Tai RN Position: [facility] RN Member Role: Primary Care Nurse Name: Cristina Dias MD Position: [facility] Physician - Primary Care Member Role: PCP Address: Address: [address] [place] [id number] Care Team Related Persons Name: YOLANDA GIBBS Address: [address] [place] [address] Name: ELIZABETH GIBBS Address: [address] [place] [address]
--- OUTSIDE RECORDS SUMMARY | 2023-09-11 23:36 | XMS_ITS | Continuity of Care Document ---
Author Organization [facility] Endocrinolo gy and Diabetes Address [address] [place] [address]- Care Team Providers Care Retail Marketing Coordinator Name Role Phone Larissa SANTOS, Jess-Kelechi Primary Care Physician Encounter [facility] [place] Date(s): 10/21/19 - 11/20/19 [facility] Endocrinology and Diabetes [address] [place] [address] [facility] Allergies, Adverse Reactions, Alerts Substance Reaction Severity Status amoxicillin rash Active aspirin Allergy to penicilli n Allergy to seafood Active sulfa drugs Active Motrin hives, rash Active Immunizations Given and Recorded Vaccine Date Status Refusal Reason pneumococcal 23-valent vaccine 10/26/19 Given pneumococcal 23-valent vaccine 12/06/08 Given influenza virus vaccine, inactivated 01/04/19 Give n influenza virus vaccine, inactivated 1 01/09/18 Gi joon influenza virus vaccine, inactivated 01/06/17 Give n influenza virus vaccine, inactivated 01/10/16 Give n Fluzone (oldterm) 2 12/28/13 Given Boostrix (Tdap) (oldterm) 08/12/13 Given Prevnar (oldterm) 12/10/12 Given Fluarix (oldterm) 12/10/12 Given FluLaval (oldterm) 12/13/10 Given FluLaval (oldterm) 12/01/08 Given 1Admin Note: Per pt and provider note 2Admin Note: primary care Medications Admelog SoloStar 100 units/mL injectable solution See Instructions, T2DM E11.9 Subcutaneous Infusion given 3x daily before meals max daily dose 42 units, # 15 mL, 5 Refills, Maintenance, 10/30/19 15:31:00 EDT, [facility] #[id number], 170, cm, 10/26/19 16:39:00 EDT, Height, 77.2, kg, 01/03/19 15:... Start Date: 10/30/19 Status: Ordered Freestyle Lite Test Strips See [...] each, 1 Refills, Soft Stop, 06/22/2012:49:00 EDT, [facility] #[id number], 170, cm, 05/14/19 14:06:00 EST, Height, 77.2, [...] EDT Start Date: 01/03/19 Status: Ordered Pen [place], 31 G x 5 mm BD Ultra Fine III See Instructions, # 120 each, Refills 6, Tot. Refills 6, Maintenance, for use 4 x daily as directedwith humalog and tresiba insulin pen E11.65, 01/14/19 13:33:00 EST, Compound Start Date: 01/14/19 Status: Ordered Tresiba FlexTouch 100 units/mL subcutaneous solution = 24 units, Subcutaneous Infusion, Daily, E11.9, # 15 mL, 6 Refills, Maintenance, 05/08/19 14:39:00EST, [facility] #[id number], 170, cm, 01/07/19 23:33:00 EDT, Height, 77.2, kg, 01/03/19 15:11:00 EDT, Dry Weight Start Date: 05/08/19 Stop Date: 12/04/19 Status: Ordered Triumeq oral tablet 1 tablet, By Mouth, Daily, # 30 tablet, 11 Refills, Maintenance, 02/24/19 15:50:00 EST, Tablet, [facility] #38440, 1 tablet By Mouth Daily, 170, cm, 01/07/19 23:33:47 EDT, Height, 77.2, kg,01/03/19 15:11:58 EDT, Dry Weight Start Date: 02/24/19 Status: Ordered Problem List Condition Effective Dates Status Health Status Inform ant AIDS(Confirmed) Active Anoxic brain damage(Confirmed) Active APHONIA(Confirmed) Active Diabetes mellitus type 1(Confirmed) 03/1999 Active Hemiplegia(Confirmed) Active Hepatitis C(Confirmed) Active Hypertension(Confirmed) Active Social History Social History Type Response Smoking Status Never smoker; Tobacc o user in household: No entered on: 01/11/14 Sex
--- OUTSIDE RECORDS SUMMARY | 2023-09-11 23:36 | XMS_ITS | Continuity of Care Document ---
Author Organization [facility] Address [address] [place] [address]- Care Team Providers Care Zanjero Name Role Phone Cristina Dias MD Primary Care Physician [facility]counter [facility] Date(s): 12/16/20 - 01/15/21 [facility] [address] [place] [address] Attending Physician: Admtr, Ar8 Allergies, Adverse [...] Per pt and provider note 2Result Comment: Sarah #2 3Result Comment: First dose 4Admin Note: primary care Medications Baqsimi Two Pack 3 mg nasal powder = 3 mg, Naris, Right, Once, may repeat in 15 minutes. please use for low blood sugar emergency, # 2each, 3 Refills, Soft Stop, 05/24/20 15:43:00 EDT, [facility]/pharmacy #[id number], Partial fill upon patient request if the prescription is for a schedule II opioi... Start Date: 05/24/20 Status: Ordered FREE STYLE YUNIOR 2 SENSORS FREE STYLE YUNIOR 2 SENSORS, See Instructions, # 2 each, Refills 11, Tot. Refills 11, Maintenance, E10.9, 12/01/20 10:58:00 EDT, Supply, 170, cm, 10/26/19 16:39:00 EDT, Height, 77.2, kg, 01/03/19 15:11:00 EDT, Dry Weight Start Date: 12/01/20 Status: Ordered FREESTYLE YUNIOR 2 MONITOR FREESTYLE [...] each, 1 Refills, Soft Stop, 06/22/2012:49:00 EDT, [facility] #[id number], 170, cm, 05/14/19 14:06:00 EST, Height, 77.2, kg, 01/03/19 15:11:00 EDT, Dry Weight Start Date: 06/23/19 Status: Ordered Humalog Kwik Pen 100 units/mL subcutaneous injection See Instructions, Please follow sliding scale, max daily dose: 42 units, # 30 mL, 6 Refills, Maintenance, 07/20/20 11:46:00 EDT, [facility]/pharmacy #[id number], 170, cm, 10/26/19 16:39:00 EDT, Height, 77.2, kg, 01/03/19 15:11:00 EDT, Dry Weight Start Date: 07/20/20 Status: Ordered Loratadine By Mouth, Daily, Refills 0, Maintenance, 01/03/19 15:02:47 EDT Start Date: 01/03/19 Status: Ordered Losartan = 75 mg, By Mouth, Daily, 0 Refills, Maintenance, 01/03/19 15:04:09 EDT Start Date: 01/03/19 Status: Ordered Pen [place], 31 G x 5 mm BD Ultra Fine III See Instructions, # 120 each, Refills 6, Tot. Refills 6, Maintenance, for use 4 x daily as directedwith humalog and tresiba insulin pen E11.65, 01/14/19 13:33:00 EST, Compound Start Date: 01/14/19 Status: Ordered Tresiba FlexTouch 100 units/mL subcutaneous solution = 20 units, Subcutaneous Infusion, Daily, DX: E10.9, # 12 mL, 6 Refills, Maintenance, 03/22/20 12:08:00 EST, [id number], 170, cm, 10/26/19 16:39:00 EDT, Height, 77.2, kg, 01/03/19 15:11:00 EDT, Dry Weight Start Date: 03/22/20 Stop Date: 10/18/20 Status: Ordered Triumeq oral tablet 1 tablet, By Mouth, Daily, # 30 tablet, 11 Refills, Maintenance, 02/16/20 12:37:00 EST, Tablet, [facility] #[id number], 1 tablet By Mouth Daily,x30 days, 170, [...]
--- OUTSIDE RECORDS SUMMARY | 2023-09-11 23:36 | XMS_ITS | Continuity of Care Document ---
Author Organization [facility] Infect[facility] Disease Address [address] [place] [address]- Care Team Providers Care Stock Controller Name Role Phone Cristina Dias MD Primary Care Physician Encounter [facility] [place] Date(s): 05/04/20 - 06/03/20 [facility] [address] [place] [id number] Attending Physician: Admtr, Ramo Allergies, Adverse Reactions, Alerts Substance Reaction Severity Status amoxicillin rash Active aspirin Allergy to penicilli n Allergy to seafood Active Motrin hives, rash Active sulfa drugs Active Immunizations Given and Recorded Vaccine Date Status Refusal Reason Meningococcal Conjugate Vaccine 1 05/04/20 Given Meningococcal Conjugate Vaccine 2 03/09/20 Given influenza virus vaccine, inactivated 03/09/20 Give n influenza virus vaccine, inactivated 01/04/19 Give n influenza virus vaccine, inactivated 3 01/09/18 Gi joon influenza virus vaccine, inactivated 01/06/17 Give n influenza virus vaccine, inactivated 01/10/16 Give n pneumococcal 23-valent vaccine 10/26/19 Given pneumococcal 23-valent vaccine 12/06/08 Given Fluzone (oldterm) 4 12/28/13 Given Boostrix (Tdap) (oldterm) 08/12/13 Given Prevnar (oldterm) 12/10/12 Given Fluarix (oldterm) 12/10/12 Given FluLaval (oldterm) 12/13/10 Given FluLaval (oldterm) 12/01/08 Given 1Result Comment: Menveo #2 2Result Comment: First dose 3Admin Note: Per pt and provider note 4Admin Note: primary care Medications Admelog SoloStar 100 units/mL injectable solution See Instructions, T2DM E11.9 Subcutaneous Infusion given 3x daily before meals max daily dose 42 units, # 15 mL, 6 Refills, Maintenance, 05/24/20 15:42:00 EDT, [facility]/pharmacy #[id number], 170, cm, 10/26/19 16:39:00 EDT, Height, 77.2, kg, 01/03/19 15:11:00 EDT... Start Date: 05/24/20 Status: Ordered Baqsimi Two Pack 3 mg nasal powder = 3 mg, Naris, Right, Once, may repeat in 15 minutes. please use for low blood sugar emergency, # 2each, 3 Refills, Soft Stop, 05/24/20 15:43:00 EDT, [facility]/pharmacy #[id number], Partial fill upon patient request if [...] each, 1 Refills, Soft Stop, 06/22/2012:49:00 EDT, [facility] #[id number], 170, cm, 05/14/19 14:06:00 EST, Height, 77.2, [...] EDT Start Date: 01/03/19 Status: Ordered Pen [place], 31 G x 5 mm BD Ultra [...] mL, 6 Refills, Maintenance, 03/22/20 12:08:00 EST, [facility]/pharmacy #[id number], 170, cm, 10/26/19 16:39:00 EDT, Height, 77.2, kg, 01/03/19 15:11:00 EDT, Dry Weight Start Date: 03/22/20 Stop Date: 10/18/20 Status: Ordered Triumeq oral tablet 1 tablet, By Mouth, Daily, # 30 tablet, 11 Refills, Maintenance, 02/16/20 12:37:00 EST, Tablet, [facility] #[id number], 1 tablet By Mouth Daily,x30 days, 170, [...]
--- OUTSIDE RECORDS SUMMARY | 2023-09-11 23:36 | XMS_ITS | Continuity of Care Document ---
Author Organization [facility] Address [address] [place] [address]- Care Team Providers Care Hotel Housekeeper Name Role Phone Not on Staff, PCP Primary Care Physician Unavail able Encounter [facility] Date(s): 04/08/23 - 05/08/23 [facility] [address] [place] [address]- Attending Physician: Ramo Hernandez Admitting Physician: AdmtrRamo Referring Physician: [id number] Allergies, Adverse Reactions, Alerts Substance Reaction Severity [...] 3 Refills, Soft Stop, 05/24/20 15:43:00 EDT, [facility]/pharmacy #[id number], Partial fill upon patient request [...] each, 1 Refills, Soft Stop, 06/22/2012:49:00 EDT, [facility] #[id number], 170, cm, 05/14/19 14:06:00 EST, Height, 77.2, kg, 01/03/19 15:11:00 EDT, Dry Weight Start Date: 06/23/19 Status: Ordered Insulin [place]pro KwikPen 100 units/mL injectable solution See Instructions, USE FOLLOWING SLIDING SCALE, MAX DAILY DOSE IS 54 UNITS LISPRO PER INSURANCE PREFERENCE, # 30 Unknown, 1 Refills, Maintenance, 02/04/23 12:31:00 EST, [id number], 170, cm, 09/21/22 13:37:00 EDT, Height Start Date: 02/04/23 Status: Ordered Loratadine By Mouth, Daily, Refills 0, Maintenance, 01/03/19 15:02:47 EDT Start Date: 01/03/19 Status: Ordered Losartan = 75 mg, By Mouth, Daily, 0 Refills, Maintenance, 01/03/19 15:04:09 EDT Start Date: 01/03/19 Status: Ordered Pen [place], 31 G x 5 mm BD Ultra [...] Refills, Maintenance, 12/26/22 8:58:00 EDT, [id number], 170, cm, 09/21/22 13:37:00 EDT, Height Start [...] Personnel Name: Abida SANDS, Yevgeniy Giordano Position: [facility] RN Member Role: Primary Care Nurse Name: Not on Staff, PCP Position: [facility] Physician (General Medicine) Member Role: PCP Care Team Related Persons Name: YOLANDA GIBBS Address: [address] [place] [address] Name: ELIZABETH GIBBS Address: home [address] [place] [address]
--- OUTSIDE RECORDS SUMMARY | 2023-09-11 23:36 | XMS_ITS | Continuity of Care Document ---
Author Organization [facility] Address [address] [place] [address]- Care Team Providers Care Payroll Accounting Clerk Name Role Phone Cristina Dias MD Primary Care Physician [place] [facility] [place]07[place] - 08/06/21 [facility] Diabetes [address] [place] [id number] Attending Physician: AdmRamo daswon Admitting Physician: Admtr, Ar8 Referring Physician: Admtr, Ar8 Allergies, Adverse Reactions, Alerts [...] Refills, Soft Stop, 05/24/20 15:43:00 EDT, [facility]/pharmacy #[id number], Partial fill upon patient request if the [...] each, 1 Refills, Soft Stop, 06/22/2012:49:00 EDT, [facility] #[id number], 170, cm, 05/14/19 14:06:00 EST, Height, 77.2, kg, 01/03/19 15:11:00 EDT, Dry Weight Start Date: 06/23/19 Status: Ordered Humalog Kwik Pen 100 units/mL subcutaneous injection See Instructions, Please follow sliding scale, max daily dose: 42 units, # 30 mL, 6 Refills, Maintenance, 07/20/20 11:46:00 EDT, [facility]/pharmacy #[id number], 170, cm, 10/26/19 16:39:00 EDT, Height, 77.2, kg, 01/03/19 15:11:00 EDT, Dry Weight Start Date: 07/20/20 Status: Ordered Loratadine By Mouth, Daily, Refills 0, Maintenance, 01/03/19 15:02:47 EDT Start Date: 01/03/19 Status: Ordered Losartan = 75 mg, By Mouth, Daily, 0 Refills, Maintenance, 01/03/19 15:04:09 EDT Start Date: 01/03/19 Status: Ordered Pen [place], 31 G x 5 mm BD Ultra [...] Stop 07/02/22 15:02:00 EDT, 07/07/21 15:02:00 EDT, [id number], 170, cm, 07/07/21 [...] 11 Refills, Maintenance, 02/20/21 9:00:00 EST, Tablet, [facility]/pharmacy #[id number], 1 tablet By Mouth Daily,x30 days, 170, cm, 02/10/21 10:05:00 EST, Height Start Date: 02/20/21 Stop Date: 02/15/22 Status: Ordered Problem List Condition Effective Dates Status Health Status Inform ant AIDS(Confirmed) Active Anoxic brain damage(Confirmed) Active APHONIA(Confirmed) Active Diabetes mellitus type 1(Confirmed) 03/1999 Active Hemiplegia(Confirmed) Active Hepatitis C(Confirmed) Active Hypertension(Confirmed) Active Vital Signs Most recent to oldest [Reference Range]: 1 Height 167.64 cm (04/19/11 1:18 PM) Weight 70.900 kg (04/19/11 1:18 PM) Pulse Rate [55-90 bpm] 80 bpm (04/19/11 1:18 PM) Body Mass Index [18.50-24.99] 25.23 *H* (04/19/11 1:18 PM) Blood Pressure [90-138/55-84 mm Hg] 110/ 82mm Hg (04/19/11 1:18 PM) Blood pressure sites Arm, left (04/19/11 1:18 PM) Weight Obtained Via Patient/family state d (04/19/11 1:18 PM) Social History Social History Type Response Smoking Status Never smoker; Tobacc o user in household: No entered on: 01/11/14 Sex
--- OUTSIDE RECORDS SUMMARY | 2023-09-11 23:36 | XMS_ITS | Continuity of Care Document ---
Author Organization [facility] Address [address] [place] [address]- Care Team Providers Care Skip Pitman Name Role Phone Larissa SANTOS, Jess-Kelechi Primary Care Physician Encounter [facility] [place] Date(s): 08/24/19 - 11/21/19 [facility] Diabetes [address] [place] [address] [facility] Attending Physician: Ana Robles MD Admitting Physician: Ana Robles MD Allergies, Adverse Reactions, Alerts Substance Reaction [...] mL, 5 Refills, Maintenance, 10/30/19 15:31:00 EDT, [facility] #[id number], 170, cm, 10/26/19 16:39:00 EDT, Height, 77.2, [...] each, 1 Refills, Soft Stop, 06/22/2012:49:00 EDT, [facility] #[id number], 170, cm, 05/14/19 14:06:00 EST, Height, 77.2, [...] EDT Start Date: 01/03/19 Status: Ordered Pen [place], 31 G x 5 mm BD Ultra Fine III See Instructions, # 120 each, Refills 6, Tot. Refills 6, Maintenance, for use 4 x daily as directedwith humalog and tresiba insulin pen E11.65, 01/14/19 13:33:00 EST, Compound Start Date: 01/14/19 Status: Ordered Tresiba FlexTouch 100 units/mL subcutaneous solution = 24 units, Subcutaneous Infusion, Daily, E11.9, # 15 mL, 6 Refills, Maintenance, 05/08/19 14:39:00EST, [facility] #[id number], 170, cm, 01/07/19 23:33:00 EDT, Height, 77.2, kg, 01/03/19 15:11:00 EDT, Dry Weight Start Date: 05/08/19 Stop Date: 12/04/19 Status: Ordered Triumeq oral tablet 1 tablet, By Mouth, Daily, # 30 tablet, 11 Refills, Maintenance, 02/24/19 15:50:00 EST, Tablet, [facility] #[id number], 1 tablet By Mouth Daily, 170, cm, [...]
--- OUTSIDE RECORDS SUMMARY | 2023-09-11 23:36 | XMS_ITS | Continuity of Care Document ---
Author Organization [facility] Address [address] [place] [address]- Care Team Providers Care Appointment Scheduler Name Role Phone Cristina Dias MD Primary Care Physician Encounter [facility] Date(s): 03/17/19 - 03/27/19 [facility] [address] [place] [address]- [facility] Attending Physician: Admtr, Ar8 Allergies, Adverse Reactions, Alerts Substance Reaction Severity Status amoxicillin rash Active aspirin Allergy to penicilli n Allergy to seafood Active sulfa drugs Active Motrin hives, rash Active Immunizations Given and Recorded Vaccine Date Status Refusal Reason influenza virus vaccine, inactivated 01/04/19 Give n influenza virus vaccine, inactivated 1 01/09/18 Gi joon influenza virus vaccine, inactivated 01/06/17 Give n influenza virus vaccine, inactivated 01/10/16 Give n Fluzone (oldterm) 2 12/28/13 Given Boostrix (Tdap) (oldterm) 08/12/13 Given Prevnar (oldterm) 12/10/12 Given Fluarix (oldterm) 12/10/12 Given FluLaval (oldterm) 12/13/10 Given FluLaval (oldterm) 12/01/08 Given pneumococcal 23-valent vaccine 12/06/08 Given 1Admin Note: Per pt and provider note 2Admin Note: primary care Medications Admelog SoloStar 100 units/mL injectable solution See Instructions, T2DM E11.9 Subcutaneous Infusion given 3x daily before meals max daily dose 42 units, # 15 mL, 3 Refills, Maintenance, 03/12/19 13:05:00 EST, [facility] #[id number], 170, cm, 01/07/19 23:33:00 EDT, Height, 77.2, kg, 01/03/19 15:... Start Date: 03/12/19 Status: Ordered Humalog Kwik Pen 100 units/mL [...] EDT Start Date: 01/03/19 Status: Ordered Pen [place], 31 G x 5 mm BD Ultra Fine III See Instructions, # 120 each, Refills 6, Tot. Refills 6, Maintenance, for use 4 x daily as directedwith humalog and tresiba insulin pen E11.65, 01/14/19 13:33:00 EST, Compound Start Date: 01/14/19 Status: Ordered Tresiba FlexTouch 100 units/mL subcutaneous solution = 30 units, Subcutaneous Infusion, Daily, # 15 mL, 3 Refills, Maintenance, 01/08/19 14:39:02 EDT Start Date: 01/08/19 Stop Date: 05/08/19 Status: Ordered Triumeq oral tablet 1 tablet, By Mouth, Daily, # 30 tablet, 11 Refills, Maintenance, 02/24/19 15:50:00 EST, Tablet, [facility] #[id number], 1 tablet By Mouth Daily, 170, cm, [...]
--- OUTSIDE RECORDS SUMMARY | 2023-09-11 23:36 | XMS_ITS | Continuity of Care Document ---
Author Organization [facility] Address [address] [place] [address]- Care Team Providers Care Roving Department Supervisor Name Role Phone Cristina Dias MD Primary Care Physician [facility] Date(s): 02/10/21 - 03/12/21 [facility] [address] [place] [id number] Attending Physician: AdmRamo dawson Admitting Physician: Admtr, Ar8 Referring Physician: Admtr, [...] 3 Refills, Soft Stop, 05/24/20 15:43:00 EDT, [facility]/pharmacy #[id number], Partial fill upon patient request if the [...] each, 1 Refills, Soft Stop, 06/22/2012:49:00 EDT, [facility] #[id number], 170, cm, 05/14/19 14:06:00 EST, Height, 77.2, kg, 01/03/19 15:11:00 EDT, Dry Weight Start Date: 06/23/19 Status: Ordered Humalog Kwik Pen 100 units/mL subcutaneous injection See Instructions, Please follow sliding scale, max daily dose: 42 units, # 30 mL, 6 Refills, Maintenance, 07/20/20 11:46:00 EDT, [facility]/pharmacy #[id number], 170, cm, 10/26/19 16:39:00 EDT, Height, 77.2, kg, 01/03/19 15:11:00 EDT, Dry Weight Start Date: 07/20/20 Status: Ordered Loratadine By Mouth, Daily, Refills 0, Maintenance, 01/03/19 15:02:47 EDT Start Date: 01/03/19 Status: Ordered Losartan = 75 mg, By Mouth, Daily, 0 Refills, Maintenance, 01/03/19 15:04:09 EDT Start Date: 01/03/19 Status: Ordered Pen [place], 31 G x 5 mm BD Ultra [...] 11 Refills, Maintenance, 02/20/21 9:00:00 EST, Tablet, [facility]/pharmacy #[id number], 1 tablet By Mouth Daily,x30 days, [...]
--- OUTSIDE RECORDS SUMMARY | 2023-09-11 23:37 | XMS_ITS | Continuity of Care Document ---
Author Organization [facility] Address [address] [place] [address]- Care Team Providers Care Hospitalist Physician Name Role Phone Larissa SANTOS, Cristina Primary Care Physician [place] [facility] [place](s): 06/25/22 - 07/25/22 [facility] Diabetes [address] [place] [address]- Allergies, Adverse Reactions, Alerts Substance Reaction Severity [...] 3 Refills, Soft Stop, 05/24/20 15:43:00 EDT, [facility]/pharmacy #[id number], Partial fill upon patient request if the [...] each, 1 Refills, Soft Stop, 06/22/2012:49:00 EDT, [facility] #[id number], 170, cm, 05/14/19 14:06:00 EST, Height, 77.2, [...] EDT Start Date: 01/03/19 Status: Ordered Pen [place], 31 G x 5 mm BD Ultra [...] Refills, Maintenance, 07/23/22 12:48:00 EDT, [facility], 30, TAKE 1 TABLET BY MOUTH EVERY DAY, 170, cm, 03/02/22 13:45:00 EST, Height Start Date: 07/23/22 Status: Ordered Vitamin D3 2000 intl units oral capsule 1 capsule = 50 mcg, By Mouth, Daily, # 90 capsule, 3 Refills, Maintenance, 08/19/21 7:07:00 EDT, Capsule, [facility]/pharmacy #[id number], Partial fill upon patient [...] Personnel Name: Abida SANDS, Yevgeniy Giordano Position: [facility] RN Member Role: Primary Care Nurse Name: Cristina Dias MD Position: [facility] Primary Care Physician Member Role: PCP Address: Address: [address] [place] [address]- Care Team Related Persons Name: YOLANDA GIBBS Address: [address] [place] [address] Name: ELIZABETH GIBBS Address: home [address] [place] [address]
--- OUTSIDE RECORDS SUMMARY | 2023-09-11 23:37 | XMS_ITS | Continuity of Care Document ---
Author Organization [facility] Address [address] [place] [address]- Care Team Providers Care Grinding Machine Tender Name Role Phone Cristina Dias MD Primary Care Physician Encounter [facility] Date(s): 05/27/19 - 09/24/19 [facility] [address] [place] [address]- [facility] Attending Physician: Ana Robles MD Admitting Physician: Ana Robles MD Referring Physician: Cristina Dias MD Allergies, [...] daily dose 42 units, # 15 mL, 1 Refills, Maintenance, 09/01/19 10:27:00 EDT, [facility] #[id number], 170, cm, 05/14/19 14:06:00 EST, Height, 77.2, kg, 01/03/19 15:... Start Date: 09/01/19 Status: Ordered Freestyle Lite Test Strips See Instructions, # 120 each, Refills 6, Tot. Refills 6, Maintenance, Use to check blood glucose levels up to 4 times a day, E11.9, 05/07/19 16:35:00 EST, [facility], 170, cm, 01/07/19 23:33:00 EDT, Height, 77.2, kg, 01/03/19 15:11:00 EDT, Dry Weight Start Date: 05/07/19 Status: Ordered Glucagon Emergency Kit for Low Blood Sugar 1 mg injection = 1 mg, Intramuscular, Once, for emergency , IM injection, # 1 each, 1 Refills, Soft Stop, 06/22/2012:49:00 EDT, [facility] #[id number], 170, cm, 05/14/19 14:06:00 EST, Height, 77.2, [...] EDT Start Date: 01/03/19 Status: Ordered Pen [place], 31 G x 5 mm BD Ultra Fine III See Instructions, # 120 each, Refills 6, Tot. Refills 6, Maintenance, for use 4 x daily as directedwith humalog and tresiba insulin pen E11.65, 01/14/19 13:33:00 EST, Compound Start Date: 01/14/19 Status: Ordered Tresiba FlexTouch 100 units/mL subcutaneous solution = 24 units, Subcutaneous Infusion, Daily, E11.9, # 15 mL, 6 Refills, Maintenance, 05/08/19 14:39:00EST, [facility] #31389, 170, cm, 01/07/19 23:33:00 EDT, Height, 77.2, kg, 01/03/19 15:11:00 EDT, Dry Weight Start Date: 05/08/19 Stop Date: 12/04/19 Status: Ordered Triumeq oral tablet 1 tablet, By Mouth, Daily, # 30 tablet, 11 Refills, Maintenance, 02/24/19 15:50:00 EST, Tablet, [facility] #00944, 1 tablet By Mouth Daily, 170, cm, [...]
--- OUTSIDE RECORDS SUMMARY | 2023-09-11 23:37 | XMS_ITS | Continuity of Care Document ---
Author Organization [facility] Address [address] [place] [address]- Care Team Providers Care Tallow Refiner Name Role Phone Jess Dias MD-Kelechi Primary Care Physician En[place] [facility] [place] Date(s): 10/07/19 - 12/04/19 [facility] [address] [place] [address]- [facility] Attending Physician: Richi Vera MD Admitting Physician: Richi Vera MD Allergies, Adverse Reactions, Alerts Substance Reaction [...] mL, 5 Refills, Maintenance, 10/30/19 15:31:00 EDT, [facility] #[id number], 170, cm, 10/26/19 16:39:00 EDT, Height, 77.2, [...] each, 1 Refills, Soft Stop, 06/22/2012:49:00 EDT, [facility] #02691, 170, cm, 05/14/19 14:06:00 EST, Height, 77.2, [...] EDT Start Date: 01/03/19 Status: Ordered Pen [place], 31 G x 5 mm BD Ultra Fine III See Instructions, # 120 each, Refills 6, Tot. Refills 6, Maintenance, for use 4 x daily as directedwith humalog and tresiba insulin pen E11.65, 01/14/19 13:33:00 EST, Compound Start Date: 01/14/19 Status: Ordered Tresiba FlexTouch 100 units/mL subcutaneous solution = 24 units, Subcutaneous Infusion, Daily, E11.9, # 15 mL, 6 Refills, Maintenance, 05/08/19 14:39:00EST, [facility] #01006, 170, cm, 01/07/19 23:33:00 EDT, Height, 77.2, kg, 01/03/19 15:11:00 EDT, Dry Weight Start Date: 05/08/19 Stop Date: 12/04/19 Status: Ordered Triumeq oral tablet 1 tablet, By Mouth, Daily, # 30 tablet, 11 Refills, Maintenance, 02/24/19 15:50:00 EST, Tablet, [facility] #22857, 1 tablet By Mouth Daily, 170, cm, [...]
--- OUTSIDE RECORDS SUMMARY | 2023-09-11 23:37 | XMS_ITS | Continuity of Care Document ---
Author Organization [facility] Address [address] [place] [address]- Care Team Providers Care Resizer Operator Name Role Phone Larissa SANTOS, Cristina Primary Care Physician [place] [facility] [place](s): 02/17/20 - 04/08/20 [facility] [address] [place] [id number] Attending Physician: Not on Staff, Attending MD Referring Physician: Cristina Dias MD Allergies, [...] mL, 5 Refills, Maintenance, 10/30/19 15:31:00 EDT, [facility] #81308, 170, cm, 10/26/19 16:39:00 EDT, Height, 77.2, [...] each, 1 Refills, Soft Stop, 06/22/2012:49:00 EDT, [facility] #88311, 170, cm, 05/14/19 14:06:00 EST, Height, 77.2, [...] EDT Start Date: 01/03/19 Status: Ordered Pen [place], 31 G x 5 mm BD Ultra Fine III See Instructions, # 120 each, Refills 6, Tot. Refills 6, Maintenance, for use 4 x daily as directedwith humalog and tresiba insulin pen E11.65, 01/14/19 13:33:00 EST, Compound Start Date: 01/14/19 Status: Ordered Tresiba FlexTouch 100 units/mL subcutaneous solution = 24 units, Subcutaneous Infusion, Daily, DX: E10.9, # 15 mL, 6 Refills, Maintenance, 03/22/20 12:08:00 EST, [facility]/pharmacy #[id number], 170, cm, 10/26/19 16:39:00 EDT, Height, 77.2, kg, 01/03/19 15:11:00 EDT, Dry Weight Start Date: 03/22/20 Stop Date: 10/18/20 Status: Ordered Triumeq oral tablet 1 tablet, By Mouth, Daily, # 30 tablet, 11 Refills, Maintenance, 02/16/20 12:37:00 EST, Tablet, [facility] #41588, 1 tablet By Mouth Daily,x30 days, 170, [...]
--- OUTSIDE RECORDS SUMMARY | 2023-09-11 23:37 | XMS_ITS | Continuity of Care Document ---
Author Organization [facility] Address [address] [place] [address]- Care Team Providers Care Bed Laster Name Role Phone Larissa SANTOS, rCistina Primary Care Physician En[place] [facility] [place](s): 03/21/20 - 04/20/20 [facility] [address] [place] [id number] Allergies, Adverse Reactions, Alerts Substance Reaction Severity [...] mL, 5 Refills, Maintenance, 10/30/19 15:31:00 EDT, [facility] #[id number], 170, cm, 10/26/19 16:39:00 EDT, Height, 77.2, [...] each, 1 Refills, Soft Stop, 06/22/2012:49:00 EDT, [facility] #[id number], 170, cm, 05/14/19 14:06:00 EST, Height, 77.2, [...] EDT Start Date: 01/03/19 Status: Ordered Pen [place], 31 G x 5 mm BD [...] mL, 6 Refills, Maintenance, 03/22/20 12:08:00 EST, [facility]/pharmacy #[id number], 170, cm, 10/26/19 16:39:00 EDT, Height, 77.2, kg, 01/03/19 15:11:00 EDT, Dry Weight Start Date: 03/22/20 Stop Date: 10/18/20 Status: Ordered Triumeq oral tablet 1 tablet, By Mouth, Daily, # 30 tablet, 11 Refills, Maintenance, 02/16/20 12:37:00 EST, Tablet, [email or web address] #[id number], 1 tablet By Mouth Daily,x30 days, 170, [...]
--- OUTSIDE RECORDS SUMMARY | 2023-09-11 23:37 | XMS_ITS | Continuity of Care Document ---
Author Organization [facility] Address [address] [place] [address]- Care Team Providers Care Aerodynamics Professor Name Role Phone Not on Staff, PCP Primary Care Physician Unavail able [facility]counter [facility] Date(s): 12/21/22 - 01/20/23 [facility] [address] [place] [id number] Allergies, Adverse Reactions, Alerts Substance [...] Soft Stop, 05/24/20 15:43:00 EDT, [facility]/pharmacy #[id number], Partial fill upon patient request if the [...] each, 1 Refills, Soft Stop, 06/22/2012:49:00 EDT, [facility] #[id number], 170, cm, 05/14/19 14:06:00 EST, Height, 77.2, kg, 01/03/19 15:11:00 EDT, Dry Weight Start Date: 06/23/19 Status: Ordered Insulin Lispro KwikPen 100 units/mL injectable solution See Instructions, e10.9 use following sliding scale, max daily dose is 54 units lispro per insurance preference, # 30 mL, 1 Refills, Maintenance, 12/31/22 8:51:00 EDT, [facility]/pharmacy #[id number], Partial fill upon patient request if the prescription is for... Start Date: 12/31/22 Status: Ordered Loratadine By Mouth, Daily, Refills 0, Maintenance, 01/03/19 15:02:47 EDT Start Date: 01/03/19 Status: Ordered Losartan = 75 mg, By Mouth, Daily, 0 Refills, Maintenance, 01/03/19 15:04:09 EDT Start Date: 01/03/19 Status: Ordered Pen [place], 31 G x 5 mm BD Ultra [...] Refills, Maintenance, 12/26/22 8:58:00 EDT, [facility], 30, TAKE 1 TABLET BY MOUTH EVERY DAY, 170, cm, 09/21/22 13:37:00 EDT, Height Start Date: 12/26/22 Status: Ordered Vitamin D3 2000 intl units oral capsule 1 capsule, By Mouth, Daily, # 30 capsule, 11 Refills, Maintenance, 12/26/22 8:58:00 EDT, [facility], 170, cm, 09/21/22 13:37:00 EDT, Height Start [...] Nurse Name: Not on Staff, PCP Position: [facility] Physician (General Medicine) Member Role: PCP Care Team Related Persons Name: YOLANDA GIBBS Address: [address] [place] [address] Name: ELIZABETH GIBBS Address: home [address] [place] [address]
--- OUTSIDE RECORDS SUMMARY | 2023-09-11 23:37 | XMS_ITS | Continuity of Care Document ---
Author Organization [facility] Address [address] [place] [phone]- Care Team Providers Care Arch Support Technician Name Role Phone Larissa SANTOS, Cristina Primary Care Physician Encounter [facility] [place] Date(s): 02/15/22 - 03/17/22 [facility] [address] [place] [phone]- Allergies, Adverse Reactions, Alerts Substance Reaction Severity [...] 3 Refills, Soft Stop, 05/24/20 15:43:00 EDT, [facility]/pharmacy #[id number], Partial fill upon patient request if the [...] each, 1 Refills, Soft Stop, 06/22/2012:49:00 EDT, [facility] #[id number], 170, cm, 05/14/19 14:06:00 EST, Height, 77.2, [...] EDT Start Date: 01/03/19 Status: Ordered Pen [place], 31 G x 5 mm BD Ultra [...] Daily, # 30 tablet, 2 Refills, Maintenance, 01/25/22 10:38:00 EST, Tablet, [id number], 1 tablet By Mouth Daily, 170, cm, 11/24/21 13:04:00 EDT, Height Start Date: 01/25/22 Status: Ordered Vitamin D3 2000 intl units [...] Personnel Name: Abida SANDS, Yevgeniy Giordano Position: S RN Member Role: Primary Care Nurse Name: Larissa SANTOS, Cristina Position: [facility] Primary Care Physician Member Role: PCP Address: Address: [address] [place] [address]- Care Team Related Persons Name: YOLANDA GIBBS Address: [address] [place] [address] Name: ELIZABETH GIBBS Address: [address] [place] [address]
--- OUTSIDE RECORDS SUMMARY | 2023-09-11 23:37 | XMS_ITS | Continuity of Care Document ---
Author Organization [facility] Address [address] [place] [address]- Care Team Providers Care Head Filter Tank Tender Helper Name Role Phone Larissa SANTOS, Cristina Primary Care Physician Encounter [facility] [place] [place] Date(s): 08/16/22 - 09/15/22 [facility] [address] [place] [phone]- Allergies, Adverse Reactions, Alerts Substance Reaction Severity [...] Soft Stop, 05/24/20 15:43:00 EDT, [facility]/pharmacy #[id number], Partial fill upon patient request if the [...] each, 1 Refills, Soft Stop, 06/22/2012:49:00 EDT, [facility] #[id number], 170, cm, 05/14/19 14:06:00 EST, Height, 77.2, [...] EDT Start Date: 01/03/19 Status: Ordered Pen [place], 31 G x 5 mm BD Ultra [...] Refills, Maintenance, 07/23/22 12:48:00 EDT, [facility], 30, TAKE 1 TABLET BY MOUTH EVERY DAY, 170, cm, 03/02/22 13:45:00 EST, Height Start Date: 07/23/22 Status: Ordered Vitamin D3 2000 intl units oral capsule 1 capsule = 50 mcg, By Mouth, Daily, # 90 capsule, 3 Refills, Maintenance, 08/19/21 7:07:00 EDT, Capsule, [facility]/pharmacy #[id number], Partial fill upon patient request if [...] Personnel Name: Abida SANDS, Yevgeniy Giordano Position: [facility] RN Member Role: Primary Care Nurse Name: Cristina Dias MD Position: [facility] Physician - Primary Care Member Role: PCP Address: Address: [address] [place] [address]- Care Team Related Persons Name: YOLANDA GIBBS Address: [address] [place] [address] Name: ELIZABETH GIBBS Address: home [address] [place] [address]
--- OUTSIDE RECORDS SUMMARY | 2023-09-11 23:37 | XMS_ITS | Continuity of Care Document ---
Author Organization [facility] Address [address] [place] [address]- Care Team Providers Care Marketing Rep Name Role Phone Larissa SANTOS, Cristina Primary Care Physician [place] [facility] [place](s): 05/24/20 - 06/23/20 [facility] [address] [place] [id number] Attending Physician: AdmRamo dawson Admitting Physician: Admtr, ArSalena Referring Physician: Admtr, Ar8 Allergies, Adverse Reactions, [...] mL, 6 Refills, Maintenance, 05/24/20 15:42:00 EDT, [facility]/pharmacy #[id number], 170, cm, 10/26/19 16:39:00 EDT, Height, 77.2, kg, 01/03/19 15:11:00 EDT... Start Date: 05/24/20 Status: Ordered Baqsimi Two Pack 3 mg nasal powder = 3 mg, Naris, Right, Once, may repeat in 15 minutes. please use for low blood sugar emergency, # 2each, 3 Refills, Soft Stop, 05/24/20 15:43:00 EDT, [facility]/pharmacy #[id number], Partial fill upon patient request [...] 01/03/19 15:11:00 EDT, Dry Weight Start Date: 8/12/20 Status: Ordered Glucagon Emergency Kit for Low Blood Sugar 1 mg injection = 1 mg, Intramuscular, Once, for emergency , IM injection, # 1 each, 1 Refills, Soft Stop, 06/22/2012:49:00 EDT, [facility] #[id number], 170, cm, 05/14/19 14:06:00 EST, Height, 77.2, [...] EDT Start Date: 01/03/19 Status: Ordered Pen [place], 31 G x 5 mm BD Ultra [...] mL, 6 Refills, Maintenance, 03/22/20 12:08:00 EST, [facility]/pharmacy #[id number], 170, cm, 10/26/19 16:39:00 EDT, Height, 77.2, kg, 01/03/19 15:11:00 EDT, Dry Weight Start Date: 03/22/20 Stop Date: 10/18/20 Status: Ordered Triumeq oral tablet 1 tablet, By Mouth, Daily, # 30 tablet, 11 Refills, Maintenance, 02/16/20 12:37:00 EST, Tablet, [facility] #[id number], 1 tablet By Mouth Daily,x30 days, 170, [...]
--- OUTSIDE RECORDS SUMMARY | 2023-09-11 23:37 | XMS_ITS | Continuity of Care Document ---
Author Organization [facility] Address [address] [place] [address]- Care Team Providers Care Core Manager Name Role Phone Cristina Dias MD Primary Care Physician En[place] [facility] [place] Date(s): 07/20/20 - 08/19/20 [facility] [address] [place] [address]- Allergies, Adverse Reactions, Alerts Substance Reaction Severity [...] provider note 4Admin Note: primary care Medications Baqsimi Two Pack 3 mg nasal powder = 3 mg, Naris, Right, Once, may repeat in 15 minutes. please use for low blood sugar emergency, # 2each, 3 Refills, Soft Stop, 05/24/20 15:43:00 EDT, [facility]/pharmacy #[id number], Partial fill upon patient request if the prescription is for a schedule II opioi... Start Date: 05/24/20 Status: Ordered FREE STYLE YUNIOR 2 SENSORS FREE STYLE YUINOR 2 SENSORS, See Instructions, # 2 each, [...] each, 1 Refills, Soft Stop, 06/22/2012:49:00 EDT, [facility] #[id number], 170, cm, 05/14/19 14:06:00 EST, Height, 77.2, kg, 01/03/19 15:11:00 EDT, Dry Weight Start Date: 06/23/19 Status: Ordered Humalog Kwik Pen 100 units/mL subcutaneous injection See Instructions, Please follow sliding scale, max daily dose: 42 units, # 30 mL, 6 Refills, Maintenance, 07/20/20 11:46:00 EDT, [facility]/pharmacy #[id number], 170, cm, 10/26/19 16:39:00 EDT, Height, 77.2, kg, 01/03/19 15:11:00 EDT, Dry Weight Start Date: 07/20/20 Status: Ordered Loratadine By Mouth, Daily, Refills 0, Maintenance, 01/03/19 15:02:47 EDT Start Date: 01/03/19 Status: Ordered Losartan = 75 mg, By Mouth, Daily, 0 Refills, Maintenance, 01/03/19 15:04:09 EDT Start Date: 01/03/19 Status: Ordered Pen [place], 31 G x 5 mm BD Ultra [...] mL, 6 Refills, Maintenance, 03/22/20 12:08:00 EST, [facility]/pharmacy #[id number], 170, cm, 10/26/19 16:39:00 EDT, Height, 77.2, kg, 01/03/19 15:11:00 EDT, Dry Weight Start Date: 03/22/20 Stop Date: 10/18/20 Status: Ordered Triumeq oral tablet 1 tablet, By Mouth, Daily, # 30 tablet, 11 Refills, Maintenance, 02/16/20 12:37:00 EST, Tablet, [facility] #13546, 1 tablet By Mouth Daily,x30 days, 170, [...]
--- OUTSIDE RECORDS SUMMARY | 2023-09-11 23:37 | XMS_ITS | Continuity of Care Document ---
Author Organization [facility] Address [address] [place] [address]- Care Team Providers Care Thermostat Repairer Name Role Phone Larissa SANTOS, Cristina Primary Care Physician [place] [facility] [place](s): 11/24/21 - 12/24/21 [facility] [address] [place] [id number] Attending Physician: AdmtrRamo Admitting Physician: Admtr, Ar8 Referring Physician: Admtr, [...] 3 Refills, Soft Stop, 05/24/20 15:43:00 EDT, [facility]/pharmacy #[id number], Partial fill upon patient request if the [...] each, 1 Refills, Soft Stop, 06/22/2012:49:00 EDT, [facility] #[id number], 170, cm, 05/14/19 14:06:00 EST, Height, 77.2, [...] EDT Start Date: 01/03/19 Status: Ordered Pen [place], 31 G x 5 mm BD Ultra [...] Hepatitis C Confirmed Active Hypertension Confirmed Active Vital Signs Most recent to oldest [...] on: 01/11/14 Sex Patient Care team information Personnel Name: Larissa SANTOS, Cristina Address: Address: [address] [place] [address]- [place]
--- OUTSIDE RECORDS SUMMARY | 2023-09-11 23:37 | XMS_ITS | Continuity of Care Document ---
Author Organization [facility] Infect[facility] Disease Address [address] [place] [address]- Care Team Providers Care Software Development Advisor Name Role Phone Jess Dias MD-Kelechi Primary Care Physician [place] [facility] [place] 10/26/19 - 11/25/19 [facility] [address] [place] [address] [facility] Attending Physician: Admtr, Ar8 Allergies, Adverse Reactions, [...] mL, 5 Refills, Maintenance, 10/30/19 15:31:00 EDT, [facility] #[id number], 170, cm, 10/26/19 16:39:00 EDT, Height, 77.2, [...] each, 1 Refills, Soft Stop, 06/22/2012:49:00 EDT, [facility] #[id number], 170, cm, 05/14/19 14:06:00 EST, Height, 77.2, [...] EDT Start Date: 01/03/19 Status: Ordered Pen [place], 31 G x 5 mm BD Ultra Fine III See Instructions, # 120 each, Refills 6, Tot. Refills 6, Maintenance, for use 4 x daily as directedwith humalog and tresiba insulin pen E11.65, 01/14/19 13:33:00 EST, Compound Start Date: 01/14/19 Status: Ordered Tresiba FlexTouch 100 units/mL subcutaneous solution = 24 units, Subcutaneous Infusion, Daily, E11.9, # 15 mL, 6 Refills, Maintenance, 05/08/19 14:39:00EST, [facility] #[id number], 170, cm, 01/07/19 23:33:00 EDT, Height, 77.2, kg, 01/03/19 15:11:00 EDT, Dry Weight Start Date: 05/08/19 Stop Date: 12/04/19 Status: Ordered Triumeq oral tablet 1 tablet, By Mouth, Daily, # 30 tablet, 11 Refills, Maintenance, 02/24/19 15:50:00 EST, Tablet, [facility] #[id number], 1 tablet By Mouth Daily, 170, cm, [...]
--- OUTSIDE RECORDS SUMMARY | 2023-09-11 23:37 | XMS_ITS | Continuity of Care Document ---
Author Organization [facility] Infect[facility] Disease Address [address] [place] [address]- Care Team Providers Care Teaching Music Lessons Name Role Phone Cristina Dais MD Primary Care Physician Encounter [facility] Date(s): 03/02/22 - 04/01/22 [facility] Disease [address] [place] [id number] Attending Physician: Admtr, Ar8 Allergies, Adverse Reactions, [...] 3 Refills, Soft Stop, 05/24/20 15:43:00 EDT, [facility]/pharmacy #[id number], Partial fill upon patient request if the [...] each, 1 Refills, Soft Stop, 06/22/2012:49:00 EDT, [facility] #65733, 170, cm, 05/14/19 14:06:00 EST, Height, 77.2, [...] EDT Start Date: 01/03/19 Status: Ordered Pen [place], 31 G x 5 mm BD Ultra [...] Personnel Name: Abida SANDS, Yevgeniy Giordano Position: [facility] RN Member Role: Primary Care Nurse Name: Larissa SANTOS, Cristina Position: [facility] Primary Care Physician Member Role: PCP Address: Address: [address] [place] [address]- Care Team Related Persons Name: YOLANDA GIBBS Address: [address] [place] [address] Name: ELIZABETH GIBBS Address: home [address] [place] [address]
--- OUTSIDE RECORDS SUMMARY | 2023-09-11 23:37 | XMS_ITS | Continuity of Care Document ---
Author Organization [facility] Address [address] [place] [address]- Care Team Providers Care Community Center Worker Name Role Phone Not on Staff, PCP Primary Care Physician Unavail able Encounter [facility] Date(s): 02/19/23 - 05/08/23 [facility] [address] [place] [id number] Attending Physician: Alisa Tatum MD Allergies, Adverse Reactions, Alerts Substance Reaction [...] Soft Stop, 05/24/20 15:43:00 EDT, [facility]/pharmacy #[id number], Partial fill upon patient request if the [...] each, 1 Refills, Soft Stop, 06/22/2012:49:00 EDT, [facility] #15257, 170, cm, 05/14/19 14:06:00 EST, Height, 77.2, kg, 01/03/19 15:11:00 EDT, Dry Weight Start Date: 06/23/19 Status: Ordered Insulin Lispro KwikPen 100 units/mL injectable solution See Instructions, USE FOLLOWING SLIDING SCALE, MAX DAILY DOSE IS 54 UNITS LISPRO PER INSURANCE PREFERENCE, # 30 Unknown, 1 Refills, Maintenance, 02/04/23 12:31:00 EST, [facility], 170, cm, 09/21/22 13:37:00 EDT, Height Start Date: 02/04/23 Status: Ordered Loratadine By Mouth, Daily, Refills 0, Maintenance, 01/03/19 15:02:47 EDT Start Date: 01/03/19 Status: Ordered Losartan = 75 mg, By Mouth, Daily, 0 Refills, Maintenance, 01/03/19 15:04:09 EDT Start Date: 01/03/19 Status: Ordered Pen [place], 31 G x 5 mm BD Ultra [...] tablet, 5 Refills, Maintenance, 03/27/23 10:57:00 EST, [facility]/pharmacy#[id number], 1 tablet By Mouth Daily,x30 days, 170, cm, 09/21/22 13:37:00 EDT, Height Start Date: 03/27/23 Stop Date: 09/23/23 Status: Ordered Vitamin D3 2000 intl units oral capsule 1 capsule, By Mouth, Daily, # 30 capsule, 11 Refills, Maintenance, 12/26/22 8:58:00 EDT, [facility], 170, cm, 09/21/22 13:37:00 EDT, Height Start [...] team information Care Team Personnel Name: Abida RN, Yevgeniy Giordano Position: [facility] RN Member Role: Primary Care Nurse Name: Not on Staff, PCP Position: [facility] Physician (General Medicine) Member Role: PCP Care Team Related Persons Name: YOLANDA GIBBS Address: [address] [place] [address] Name: ELIZABETH GIBBS Address: [address] [place] [address]
--- OUTSIDE RECORDS SUMMARY | 2023-09-11 23:37 | XMS_ITS | Continuity of Care Document ---
Author Organization [facility] Address [address] [place] [address]- Care Team Providers Care Strike Operations Officer Name Role Phone Not on Staff, PCP Primary Care Physician Unavail able [facility]counter [facility] Date(s): 12/31/22 - 01/30/23 [facility] [address] [place] [id number] Allergies, Adverse Reactions, Alerts Substance [...] 3 Refills, Soft Stop, 05/24/20 15:43:00 EDT, [facility]/pharmacy #[id number], Partial fill upon patient request if the [...] each, 1 Refills, Soft Stop, 06/22/2012:49:00 EDT, [facility] #59833, 170, cm, 05/14/19 14:06:00 EST, Height, 77.2, kg, 01/03/19 15:11:00 EDT, Dry Weight Start Date: 06/23/19 Status: Ordered Insulin Lispro KwikPen 100 units/mL injectable solution See Instructions, e10.9 use following sliding scale, max daily dose is 54 units lispro per insurance preference, # 30 mL, 1 Refills, Maintenance, 12/31/22 8:51:00 EDT, [facility]/pharmacy #[id number], Partial fill upon patient request if the prescription is for... Start Date: 12/31/22 Status: Ordered Loratadine By Mouth, Daily, Refills 0, Maintenance, 01/03/19 15:02:47 EDT Start Date: 01/03/19 Status: Ordered Losartan = 75 mg, By Mouth, Daily, 0 Refills, Maintenance, 01/03/19 15:04:09 EDT Start Date: 01/03/19 Status: Ordered Pen [place], 31 G x 5 mm BD Ultra [...] Refills, Maintenance, 12/26/22 8:58:00 EDT, [facility], 30, TAKE 1 TABLET BY MOUTH EVERY DAY, 170, cm, 09/21/22 13:37:00 EDT, Height Start Date: 12/26/22 Status: Ordered Vitamin D3 2000 intl units oral capsule 1 capsule, By Mouth, Daily, # 30 capsule, 11 Refills, Maintenance, 12/26/22 8:58:00 EDT, [facility], 170, cm, 09/21/22 13:37:00 EDT, Height Start [...] Personnel Name: Abida SANDS, Yevgeniy Giordano Position: [facility] RN Member Role: Primary Care Nurse Name: Not on Staff, PCP Position: [facility] Physician (General Medicine) Member Role: PCP Care Team Related Persons Name: YOLANDA GIBBS Address: [address] [place] [address] Name: ELIZABETH GIBBS Address: [address] [place] [address]
--- OUTSIDE RECORDS SUMMARY | 2023-09-11 23:37 | XMS_ITS | Continuity of Care Document ---
Author Organization [facility] Address [address] [place] [address]- Care Team Providers Care President + Publisher Name Role Phone Not on Staff, PCP Primary Care Physician Unavail able Encounter [facility] Date(s): 12/21/22 - 01/20/23 [facility] [address] [place] [id number] Allergies, Adverse Reactions, Alerts Substance Reaction [...] 3 Refills, Soft Stop, 05/24/20 15:43:00 EDT, [facility]/pharmacy #[id number], Partial fill upon patient request if the [...] each, 1 Refills, Soft Stop, 06/22/2012:49:00 EDT, [facility] #31567, 170, cm, 05/14/19 14:06:00 EST, Height, 77.2, kg, 01/03/19 15:11:00 EDT, Dry Weight Start Date: 06/23/19 Status: Ordered Insulin Lispro KwikPen 100 units/mL injectable solution See Instructions, e10.9 use following sliding scale, max daily dose is 54 units lispro per insurance preference, # 30 mL, 1 Refills, Maintenance, 12/31/22 8:51:00 EDT, [facility]/pharmacy #[id number], Partial fill upon patient request if the prescription is for... Start Date: 12/31/22 Status: Ordered Loratadine By Mouth, Daily, Refills 0, Maintenance, 01/03/19 15:02:47 EDT Start Date: 01/03/19 Status: Ordered Losartan = 75 mg, By Mouth, Daily, 0 Refills, Maintenance, 01/03/19 15:04:09 EDT Start Date: 01/03/19 Status: Ordered Pen [place], 31 G x 5 mm BD Ultra [...] Refills, Maintenance, 12/26/22 8:58:00 EDT, [facility], 30, TAKE 1 TABLET BY MOUTH EVERY DAY, 170, cm, 09/21/22 13:37:00 EDT, Height Start Date: 12/26/22 Status: Ordered Vitamin D3 2000 intl units oral capsule 1 capsule, By Mouth, Daily, # 30 capsule, 11 Refills, Maintenance, 12/26/22 8:58:00 EDT, [facility], 170, cm, 09/21/22 13:37:00 EDT, Height Start [...] Personnel Name: Abida SANDS, Yevgeniy Giordano Position: [facility] RN Member Role: Primary Care Nurse Name: Not on Staff, PCP Position: [facility] Physician (General Medicine) Member Role: PCP Care Team Related Persons Name: YOLANDA GIBBS Address: [address] [place] [address] Name: ELIZABETH GIBBS Address: [address] [place] [address]
[2023-09-12] MEDS: iohexoL 350 MG/ML 100 ML INFUS..BTL 85 ML IV (00:11)
[2023-09-12] MEDS: 0.9 % Sodium Chloride 1,000 ML 999 ML IV (00:48)
[2023-09-12 02:32] VITALS: BMI 25.4
[2023-09-12 02:33] VITALS: BP 139/81; PULSE 80; RESP 16; TEMP 36.1; O2SAT 92
[2023-09-12] MEDS: Acetaminophen 325 MG TABLET 650 MG PO (02:54)
--- NOTE | 2023-09-12 03:09 | HO.SKINPHOTO ---
Location:coccyx Category:pressure Stage:2? Length: Width: Depth: cm Pt admitted at approx 0230 on 09/11, skin as above. Wound consult ordered. notified of skin impairment
[2023-09-12 07:42] LABS: Glucose, Whole Blood 216 mg/dL (60-115)
[2023-09-12 07:44] VITALS: BP 145/81; PULSE 67; RESP 18; TEMP 36.4; O2SAT 98
[2023-09-12] MEDS: Insulin Lispro 100 UNIT/ML 3 ML VIAL SUBCUT ×4 (08:40→16:26)
[2023-09-12] MEDS: Enoxaparin Sodium 40 MG/0.4 ML SYRINGE SUBCUT (08:40)
[2023-09-12] MEDS: 0.9 % Sodium Chloride Flush 3 ML SYRINGE IVFLUSH ×3 (08:41→20:53)
[2023-09-12 09:21] LABS: MANUAL DIFF FLAG NO
[2023-09-12 09:32] LABS: Basophils Absolute Auto 0.1 X10*3/uL (0.0-0.2); Basophils Percent Auto 0.8 % (0-2); Eosinophils Absolute Auto 0.2 X10*3/uL (0.0-0.4); Eosinophils Percent Auto 2.2 % (0-4); Hematocrit 43.6 % (42.0-52.0); Hemoglobin 15.4 g/dl (14.0-18.0); Imm Gran Abs Auto 0.03 X10*3/uL (0.00-0.03); Imm Gran Pct Auto 0.3 % (0.0-0.4); Lymphocytes Absolute Auto 2.1 X10*3/uL (1.2-4.9); Lymphocytes Percent Auto 24.2 % (20-40); Mean Corpuscular HGB Conc 35.3 g/dl (31.0-36.0); Mean Corpuscular Volume 96.2 fL (80.0-98.0); Mean Platelet Volume 12.1 fL (9.4-12.4); Monocytes Absolute Auto 0.7 X10*3/uL (0.1-1.2); Neutrophils Absolute Auto 5.6 x10*3/uL (2.0-8.3); Neutrophils Percent Auto 64.5 % (45-73); Platelet Count 139 X10*3/uL (160-400); Red Blood Count 4.53 X10*6/uL (4.60-5.80); Red Cell Distribution Width 12.1 % (11.0-16.0); White Blood Count 8.7 X10*3/uL (4.8-10.8)
[2023-09-12 09:50] LABS: Anion Gap 11 (12-20); Blood Urea Nitrogen 12 mg/dL (9-16); Chloride 108 mmol/L (96-108); Creatinine Clr Calc Pharmacy 79.4; Estimated Glomerular Filt Rate > 60; Glucose Random 303 mg/dL (60-115); Potassium 4.1 mmol/L (3.3-5.1); Sodium 136 mmol/L (135-145)
[2023-09-12 10:00] LABS: Calcium 8.8 mg/dL (8.4-10.2); Carbon Dioxide 20 mmol/L (22-29)
--- NOTE | 2023-09-12 10:18 | PHA.MEDREC ---
Pharmacy Consult ? Medication Reconciliation Pharmacy has completed the medication reconciliation, spoke to pt's sister/guardian at bedside, she confirmed all of the meds, stated he is no longer on cefuroxime and is using 21 units of Tresiba daily.
--- NOTE | 2023-09-12 10:35 | P.PNIM_ITS ---
Subjective Subjective Date of Service: 09/12/23 Interval History: no complaints Physical Exam 2 Vital Signs: Vital Signs: Last Vital Signs Temp 97.6 F 09/12/23 07:44 Pulse 67 09/12/23 07:44 Resp 18 09/12/23 07:44 BP 145/81 H 09/12/23 07:44 Pulse Ox 98 09/12/23 07:44 O2 Del Method Room Air 09/12/23 07:44 BMI result Body Mass Index 25.4 Const: Nutritional Appearance: well nourished HEENT: Head: Yes normocephalic and Yes atraumatic Eyes: Sclerae: sclerae normal Resp: Effort & Inspection: normal respiratory effort and no respiratory distress Cardio: Rate: regular rate Rhythm: regular rhythm GI: Palpation (GI): Soft to palpation and nontender Neuro: Cranial nerves: Yes CN's II-XII intact bilaterally and Yes Bilaterally intact EOM present Objective Data Active Medications Acetaminophen (Acetaminophen 325 Mg Tablet) 650 mg PO Q6H PRN PRN Reason: Pain, Mild (Pain Scale 1-3), fever or headache Last Admin: 09/12/23 02:54 Dose: 650 mg Documented By: DARREN Calcium Carbonate (Calcium Carbonate 750 Mg Tab.Chew) 750 mg PO Q4H PRN PRN Reason: Heartburn Enoxaparin Sodium (Enoxaparin Sodium 40 Mg/0.4 Ml Syringe) 40 mg SUBCUT Q24H [facility] Last Admin: 09/12/23 08:40 Dose: 40 mg Documented By: AGATHA Fluticasone Propionate (Fluticasone Propionate Nasal 16 Gm [place]) 2 spray NOSTRIL-B DAILY [facility] Glucose (Glucose Gel 15 Gm Gel..Gram.) 15 gm PO Q15M PRN; Protocol PRN Reason: per Hypoglycemia Standing Ord. Ceftriaxone Sodium 1 gm/ (Sodium Chloride) 50 mls @ 100 mls/hr IV Q24H [facility] Dextrose (D10) 250 mls @ 750 mls/hr IV Q15M PRN; Protocol PRN Reason: per Hypoglycemia Standing Ord. Insulin Human Lispro (Insulin Lispro 100 Unit/Ml 3 Ml Vial) 0 unit SUBCUT QIDACHS [facility]; Protocol Last Admin: 09/12/23 08:40 Dose: 4 unit Documented By: AGATHA Loratadine (Loratadine 10 Mg Tablet) 10 mg PO DAILY [facility] Losartan Potassium (Losartan Potassium 50 Mg Tablet) 100 mg PO DAILY [facility]; Protocol Magnesium Hydroxide (Milk Of Magnesia 30 Ml Oral.Susp) 30 ml PO DAILY PRN PRN Reason: Constipation Melatonin (Melatonin 3 Mg Tablet) 6 mg PO BEDTIME PRN PRN Reason: Insomnia Non-Formulary Medication (Ffctscep-Yqwsnbzkbnsu-Tlkytok [Triumeq]) 1 tab PO DAILY [facility] Ondansetron HCl (Ondansetron Hcl 4 Mg/2 Ml Vial) 4 mg IVPUSH Q8H PRN PRN Reason: Nausea and Vomiting Sodium Chloride (0.9 % Sodium Chloride Flush 3 Ml Syringe) 3 ml IVFLUSH QSHIFT [facility] Last Admin: 09/12/23 08:41 Dose: 3 ml Documented By: AGATHA Vitamin D (Cholecalciferol (Vitamin D3) 25 Mcg Tablet) 50 mcg PO DAILY [facility] Labs 09/12/23 09:08 09/12/23 09:08 Labs: Laboratory Results - last 24 hr 09/11/23 09/11/23 09/11/23 17:35 18:28 19:23 MCV 96.5 MCH 33.8 H MCHC 35.0 RDW 12.2 Plt Count 176 MPV 11.9 Immature Gran % (Auto) 0.3 Neut % (Auto) 83.6 H Lymph % (Auto) 7.5 L [place] % (Auto) 7.6 Eos % (Auto) 0.6 Baso % (Auto) 0.4 Lymph # (Auto) 1.2 [place] # (Auto) 1.2 Eos # (Auto) 0.1 Baso # (Auto) 0.1 Abs Immat Gran (auto) 0.05 H Absolute Neuts (auto) 12.8 H Absolute Nucleated RBC 0.000 Nucleated RBC % (auto) 0.0 PT 11.7 INR 1.0 APTT 28.2 Anion Gap 10 L Estim Creat Clear Calc 66.0 Estimated GFR > 60 POC Glucose 102 61 Random Glucose 85 Lactic Acid Calcium 9.8 D Magnesium 1.7 Total Bilirubin 0.4 Direct Bilirubin 0.2 AST 26 ALT 11 Alkaline Phosphatase 97 Troponin I High Sens 17.5 Total Protein 8.0 Albumin 4.0 Lipase 11 Urine Color Urine Appearance Urine pH Ur Specific [place] Urine Protein Urine Glucose (UA) Urine Ketones Urine Blood Urine Nitrite Ur Leukocyte Esterase Urine RBC Urine WBC Ur Squamous Epith Cells Urine Bacteria Hyaline Casts Ethyl Alcohol < 10 Influenza Type A (PCR) NEGATIVE Influenza Type B (PCR) NEGATIVE RSV RNA Qual (PCR) NEGATIVE SARS-CoV-2 RNA (RT-PCR) NEGATIVE 09/11/23 09/11/23 09/11/23 19:28 20:33 21:29 MCV MCH MCHC RDW Plt Count MPV Immature Gran % (Auto) Neut % (Auto) Lymph % (Auto) [place] % (Auto) Eos % (Auto) Baso % (Auto) Lymph # (Auto) [place] # (Auto) Eos # (Auto) Baso # (Auto) Abs Immat Gran (auto) Absolute Neuts (auto) Absolute Nucleated RBC Nucleated RBC % (auto) PT INR APTT Anion Gap Estim Creat Clear Calc Estimated GFR POC Glucose 169 H Random Glucose Lactic Acid 1.4 Calcium Magnesium Total Bilirubin Direct Bilirubin AST ALT Alkaline Phosphatase Troponin I High Sens 44.5 H D Total Protein Albumin Lipase Urine Color Yellow Urine Appearance Clear Urine pH 5.5 Ur Specific [place] 1.025 Urine Protein 300 (3+) H Urine Glucose (UA) Negative Urine Ketones Trace Urine Blood Large (3+) H Urine Nitrite Positive H Ur Leukocyte Esterase Moderate (2+) H Urine RBC >20 H Urine WBC >50 H Ur Squamous Epith Cells 3-5 Urine Bacteria 1+ Hyaline Casts 0-2 Ethyl Alcohol Influenza Type A (PCR) Influenza Type B (PCR) RSV RNA Qual (PCR) SARS-CoV-2 RNA (RT-PCR) 09/12/23 09/12/23 07:36 09:08 MCV 96.2 MCH 34.0 H MCHC 35.3 RDW 12.1 Plt Count 139 L MPV 12.1 Immature Gran % (Auto) 0.3 Neut % (Auto) 64.5 Lymph % (Auto) 24.2 [place] % (Auto) 8.0 Eos % (Auto) 2.2 Baso % (Auto) 0.8 Lymph # (Auto) 2.1 [place] # (Auto) 0.7 Eos # (Auto) 0.2 Baso # (Auto) 0.1 Abs Immat Gran (auto) 0.03 Absolute Neuts (auto) 5.6 Absolute Nucleated RBC 0.000 Nucleated RBC % (auto) 0.0 PT INR APTT Anion Gap 11 L Estim Creat Clear Calc 79.4 Estimated GFR > 60 POC Glucose 216 H Random Glucose 303 H Lactic Acid Calcium 8.8 D Magnesium Total Bilirubin Direct Bilirubin AST ALT Alkaline Phosphatase Troponin I High Sens Total Protein Albumin Lipase Urine Color Urine Appearance Urine pH Ur Specific [place] Urine Protein Urine Glucose (UA) Urine Ketones Urine Blood Urine Nitrite Ur Leukocyte Esterase Urine RBC Urine WBC Ur Squamous Epith Cells Urine Bacteria Hyaline Casts Ethyl Alcohol Influenza Type A (PCR) Influenza Type B (PCR) RSV RNA Qual (PCR) SARS-CoV-2 RNA (RT-PCR) Microbiology Microbiology Results: Microbiology 09/11/23 19:28 Urine Culture - Preliminary Urine clean catch - Clean Catch Midstream Culture too young to evaluate. Assessment and Plan (1) Acute metabolic encephalopathy: Status: Acute Plan 63M PMH anoxic brain injury, right hemiparesis, aphasia, htn, hiv, dm, presented with ams Acute metabolic encephalopathy likely due to diabetes with hypoglycemia Continue insulin sliding scale and monitor, appears to be back to baseline Urinary tract infection Sepsis ruled out, continue empiric ceftriaxone and follow up cultures HIV Continue anti-retroviral therapy Mildly elevated troponin, likely due to mild rhabdo versus demand ischemia, doubt ACS Hypertension Losartan DVT prophylaxis with Lovenox DNR/DNI reason for continued hospitalization: Awaiting cultures Quality Stroke Does the patient have a stroke diagnosis?: No VTE Prior VTE?: No VTE Risk Level:: Medical - moderate - high VTE Device Contraindication: Treatment Not Indicated VTE Drug Contraindication: N/A - Med Ordered
[2023-09-12 11:24] LABS: Glucose, Whole Blood 443 mg/dL (60-115)
[2023-09-12] MEDS: Dolutegravir Sodium 50 MG TABLET PO (12:06)
[2023-09-12] MEDS: lamiVUDine 150 MG TABLET 300 MG PO (12:06)
[2023-09-12] MEDS: Insulin Glargine,Hum.rec.anlog 100 UNIT/ML 10 ML VIAL 25 UNIT SUBCUT (12:07)
--- NOTE | 2023-09-12 15:29 | MHC.CM.PN ---
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 YOLANDA VERIFIES PT'S PCP IS DR. PRINGLE AT [facility] IN [place], HCP/GUARDIANSHIP ON FILE.
[2023-09-12 15:31] VITALS: BP 150/84; PULSE 76; RESP 18; TEMP 36.1; O2SAT 96
[2023-09-12 16:17] LABS: Glucose, Whole Blood 287 mg/dL (60-115)
[2023-09-12 20:02] VITALS: BP 161/79; PULSE 76; RESP 18; TEMP 36.4; O2SAT 98
[2023-09-12] MEDS: cefTRIAXone sodium 1 GM in 0.9 % Sodium Chloride 50 ML IV (20:49)
[2023-09-12] MEDS: Melatonin 3 MG TABLET 6 MG PO (20:51)
[2023-09-12 21:21] LABS: Glucose, Whole Blood 111 mg/dL (60-115)
[2023-09-12 23:29] VITALS: BP 155/85; PULSE 77; RESP 18; TEMP 37.1; O2SAT 99
[2023-09-13 07:04] LABS: Glucose, Whole Blood 273 mg/dL (60-115)
[2023-09-13 07:32] VITALS: BP 142/82; PULSE 69; RESP 20; TEMP 36.2; O2SAT 96
[2023-09-13] MEDS: Insulin Lispro 100 UNIT/ML 3 ML VIAL SUBCUT ×4 (08:09→21:57)
[2023-09-13] MEDS: lamiVUDine 150 MG TABLET 300 MG PO (08:12)
[2023-09-13] MEDS: 0.9 % Sodium Chloride Flush 3 ML SYRINGE IVFLUSH ×2 (08:12→16:55)
[2023-09-13] MEDS: Cholecalciferol (Vitamin D3) 25 MCG TABLET 50 MCG PO (08:13)
[2023-09-13] MEDS: Losartan Potassium 50 MG TABLET 100 MG PO (08:14)
[2023-09-13] MEDS: Loratadine 10 MG TABLET PO (08:15)
[2023-09-13] MEDS: Dolutegravir Sodium 50 MG TABLET PO (08:15)
[2023-09-13] MEDS: Fluticasone Propionate Nasal 16 GM SPRAY 2 SPRAY NOSTRIL-B (08:16)
[2023-09-13] MEDS: Enoxaparin Sodium 40 MG/0.4 ML SYRINGE SUBCUT (08:16)
[2023-09-13 08:43] LABS: Hematocrit 42.3 % (42.0-52.0); Hemoglobin 14.9 g/dl (14.0-18.0); Mean Corpuscular HGB Conc 35.2 g/dl (31.0-36.0); Mean Corpuscular Volume 96.6 fL (80.0-98.0); Mean Platelet Volume 12.4 fL (9.4-12.4); Platelet Count 150 X10*3/uL (160-400); Red Blood Count 4.38 X10*6/uL (4.60-5.80); Red Cell Distribution Width 12.2 % (11.0-16.0); White Blood Count 8.6 X10*3/uL (4.8-10.8)
[2023-09-13 09:12] LABS: Anion Gap 12 (12-20); Blood Urea Nitrogen 12 mg/dL (9-16); Calcium 9.2 mg/dL (8.4-10.2); Carbon Dioxide 28 mmol/L (22-29); Chloride 104 mmol/L (96-108); Creatinine Clr Calc Pharmacy 80.3; Estimated Glomerular Filt Rate > 60; Glucose Fasting 292 mg/dL (60-99); Potassium 4.3 mmol/L (3.3-5.1); Sodium 140 mmol/L (135-145)
--- NOTE | 2023-09-13 10:36 | HO.PM.IMPN ---
Subjective Subjective Date of Service: 09/13/23 Interval History: no complaints Physical Exam Vital Signs: Vital Signs: Last Vital Signs Temp 97.2 F 09/13/23 07:32 Pulse 69 09/13/23 07:32 Resp 20 09/13/23 07:32 BP 142/82 H 09/13/23 07:32 Pulse Ox 96 09/13/23 07:32 O2 Del Method Room Air 09/13/23 07:32 BMI result Body Mass Index 25.4 Const: Nutritional Appearance: well nourished HEENT: Head: Yes normocephalic and Yes atraumatic Eyes: Sclerae: sclerae normal Resp: Effort & Inspection: normal respiratory effort and no respiratory distress Cardio: Rate: regular rate Rhythm: regular rhythm GI: Palpation (GI): Soft to palpation and nontender Neuro: Cranial nerves: Yes CN's II-XII intact bilaterally and Yes Bilaterally intact EOM present Objective Data Active Medications Abacavir Sulfate (Abacavir Sulfate 300 Mg Tablet) 600 mg PO DAILY [facility] Last Admin: 09/13/23 08:15 Dose: 600 mg Documented By: DENISHA Acetaminophen (Acetaminophen 325 Mg Tablet) 650 mg PO Q6H PRN PRN Reason: Pain, Mild (Pain Scale 1-3), fever or headache Last Admin: 09/12/23 02:54 Dose: 650 mg Documented By: DARREN Calcium Carbonate (Calcium Carbonate 750 Mg Tab.Chew) 750 mg PO Q4H PRN PRN Reason: Heartburn Dolutegravir Sodium (Dolutegravir Sodium 50 Mg Tablet) 50 mg PO DAILY [facility] Last Admin: 09/13/23 08:15 Dose: 50 mg Documented By: DENISHA Enoxaparin Sodium (Enoxaparin Sodium 40 Mg/0.4 Ml Syringe) 40 mg SUBCUT Q24H [facility] Last Admin: 09/13/23 08:16 Dose: 40 mg Documented By: DENISHA Fluticasone Propionate (Fluticasone Propionate Nasal 16 Gm [place]) 2 spray NOSTRIL-B DAILY [facility] Last Admin: 09/13/23 08:16 Dose: 2 spray Documented By: DENISHA Glucose (Glucose Gel 15 Gm Gel..Gram.) 15 gm PO Q15M PRN; Protocol PRN Reason: per Hypoglycemia Standing Ord. Ceftriaxone Sodium 1 gm/ (Sodium Chloride) 50 mls @ 100 mls/hr IV Q24H [facility] Last Infusion: 09/12/23 22:38 Dose: Infused Documented By: MIKI Dextrose (D10) 250 mls @ 750 mls/hr IV Q15M PRN; Protocol PRN Reason: per Hypoglycemia Standing Ord. Insulin Glargine (Insulin Glargine,Hum.Rec.Anlog 100 Unit/Ml 10 Ml Vial) 15 unit SUBCUT DAILY [facility] Insulin Human Lispro (Insulin Lispro 100 Unit/Ml 3 Ml Vial) 0 unit SUBCUT QIDACHS [facility]; Protocol Last Admin: 09/13/23 08:09 Dose: 6 unit Documented By: DENISHA Lamivudine (Lamivudine 150 Mg Tablet) 300 mg PO DAILY [facility] Last Admin: 09/13/23 08:12 Dose: 300 mg Documented By: DENISHA Loratadine (Loratadine 10 Mg Tablet) 10 mg PO DAILY [facility] Last Admin: 09/13/23 08:15 Dose: 10 mg Documented By: DENISHA Losartan Potassium (Losartan Potassium 50 Mg Tablet) 100 mg PO DAILY [facility]; Protocol Last Admin: 09/13/23 08:14 Dose: 100 mg Documented By: DENISHA Magnesium Hydroxide (Milk Of Magnesia 30 Ml Oral.Susp) 30 ml PO DAILY PRN PRN Reason: Constipation Melatonin (Melatonin 3 Mg Tablet) 6 mg PO BEDTIME PRN PRN Reason: Insomnia Last Admin: 09/12/23 20:51 Dose: 6 mg Documented By: MIKI Ondansetron HCl (Ondansetron Hcl 4 Mg/2 Ml Vial) 4 mg IVPUSH Q8H PRN PRN Reason: Nausea and Vomiting Sodium Chloride (0.9 % Sodium Chloride Flush 3 Ml Syringe) 3 ml IVFLUSH QSHIFT [facility] Last Admin: 09/13/23 08:12 Dose: 3 ml Documented By: DENISHA Vitamin D (Cholecalciferol (Vitamin D3) 25 Mcg Tablet) 50 mcg PO DAILY [facility] Last Admin: 09/13/23 08:13 Dose: 50 mcg Documented By: DENISHA Labs 09/13/23 08:08 09/13/23 08:08 Labs: Laboratory Results - last 24 hr 09/12/23 09/12/23 09/12/23 11:17 16:07 20:49 MCV MCH MCHC RDW Plt Count MPV Absolute Nucleated RBC Nucleated RBC % (auto) Anion Gap Estim Creat Clear Calc Estimated GFR POC Glucose 443 H* 287 H 111 Fasting Glucose Calcium 09/13/23 09/13/23 06:55 08:08 MCV 96.6 MCH 34.0 H MCHC 35.2 RDW 12.2 Plt Count 150 L MPV 12.4 Absolute Nucleated RBC 0.000 Nucleated RBC % (auto) 0.0 Anion Gap 12 Estim Creat Clear Calc 80.3 Estimated GFR > 60 POC Glucose 273 H Fasting Glucose 292 H Calcium 9.2 Microbiology Microbiology Results: Microbiology 09/11/23 19:28 Urine Culture - Final Urine clean catch - Clean Catch Midstream 09/11/23 21:29 Blood Culture - Preliminary Blood - Venous No growth after 24 hours. 09/11/23 21:29 Blood Culture - Preliminary Blood - Venous No growth after 24 hours. 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
[2023-09-13 10:54] LABS: Glucose, Whole Blood 380 mg/dL (60-115)
[2023-09-13] MEDS: Insulin Glargine,Hum.rec.anlog 100 UNIT/ML 10 ML VIAL 15 UNIT SUBCUT (11:14)
--- NOTE | 2023-09-13 12:04 | MHC.SL.SWA ---
Speech Pathologist Impression: Risk of Aspiration Due to: Neurological Condition Dysphasia Diet Status: Liquid Consistency and Strategies for Safe Swallow: Liquid Intake Recommendation: Thin Liquid Intake Strategies: Small Sips Solid Food Consistency: Dietary Recommendations: Grnd/Mech Altered (NDD2), THIN liquids, pills crushed or whole in puree Additional Modifications to Solid Foods: Patient requires 1-1 feeding, but with support at times appears able to do some independent eating. Provide small bites and sips, alternate liquids an solids. Straws are OK with liquids. Oral Medication Intake: Crushed with Puree Please contact the pharmacy regarding appropriate crushable or liquid drug formulations that are available whenever modified delivery is recommended. Compensatory Strategies and Precautions to be Taken for Safe Swallow: Sitting Upright (90 deg) Liquids from Cup Liquids from Straw Small Bites and Sips Alternate Liquids/Solids Avoid Specific Foods Supervision While Eating and Drinking for Safe Swallow: Total Assistance (1:1) Foods to Avoid: Avoid mixed consistencies (cereal, soups with solids), tough difficult to chew solids, dry, crunchy textures, too large pieces of food. Swallowing Recommended Treatments: Compens. Strategy Educat. Recommendation for Speech: Inpatient Speech Therapy Comment: Patient presents with mild to moderate oral phase dysphagia secondary to edentulous state, reduced coordination of lingual movement (tongue pumping) to propel bolus. Recommend DOWNGRADE diet to Ground/Mechanical, continue on THIN liquids, pills crushed or whole in puree. Avoid mixed consistencies. Patient requires 1-1 feeding, can do some independent feeding with direct support, but appears accustomed to being fed. PILL COATER adjusted diet in chart, MD/RD notified of recommendations by secure text, RN in person. PILL COATER will follow for toleration of diet, re-assessment as appropriate. Frequency/Duration: Date Range for Service Req: Timeline to reassess: Bpm Solution Architect Clinican/Clinical Fellow: No Supervisory Statement: I have reviewed and agree with the student/clinical fellow's documentation: N/A Speech Language Pathologist: Kim Santiago M.A., CCC-PILL COATER
[2023-09-13 14:55] VITALS: BMI 25.4
--- NOTE | 2023-09-13 15:15 | MHC.CLN ---
NUTRITION CONSULT FOR PRESSURE INJURY. DIET=REGULAR, GROUND WITH THIN LIQUIDS. 1:1 FEEDING ASSIST. STAGE II PRESSURE INJURY TO COCCYX. ADDING ENSURE MAX BID TO PROMOTE WOUND HEALING. SUPPLEMENT PROVIDES 300 KCALS, 60 G PROTEIN. POC GLUCOSE ELEVATED. CONTINUE TO MONITOR. FOLLOW FOR INTAKE AND WOUND HEALING. SEE CLINICAL NUTRITION ASSESSMENT 09/13/23.
[2023-09-13 15:53] VITALS: BP 138/82; PULSE 74; RESP 18; TEMP 36.1; O2SAT 99
[2023-09-13 16:15] LABS: Glucose, Whole Blood 272 mg/dL (60-115)
[2023-09-13 19:34] VITALS: BP 156/84; PULSE 82; RESP 18; TEMP 37.2; O2SAT 95
[2023-09-13 20:26] LABS: Glucose, Whole Blood 234 mg/dL (60-115)
[2023-09-13] MEDS: cefTRIAXone sodium 1 GM in 0.9 % Sodium Chloride 50 ML IV (21:51)
[2023-09-13 23:34] VITALS: BP 143/90; PULSE 83; RESP 18; TEMP 36.9; O2SAT 93
[2023-09-14] MEDS: Acetaminophen 325 MG TABLET 650 MG PO (04:48)
[2023-09-14 06:52] LABS: Hematocrit 44.2 % (42.0-52.0); Hemoglobin 15.7 g/dl (14.0-18.0); Mean Corpuscular HGB Conc 35.5 g/dl (31.0-36.0); Mean Corpuscular Volume 95.7 fL (80.0-98.0); Mean Platelet Volume 12.4 fL (9.4-12.4); Platelet Count 141 X10*3/uL (160-400); Red Blood Count 4.62 X10*6/uL (4.60-5.80); Red Cell Distribution Width 12.1 % (11.0-16.0); White Blood Count 8.7 X10*3/uL (4.8-10.8)
[2023-09-14 06:55] LABS: Anion Gap 14 (12-20); Blood Urea Nitrogen 16 mg/dL (9-16); Calcium 9.1 mg/dL (8.4-10.2); Carbon Dioxide 24 mmol/L (22-29); Chloride 104 mmol/L (96-108); Creatinine Clr Calc Pharmacy 76.8; Estimated Glomerular Filt Rate > 60; Glucose Fasting 275 mg/dL (60-99); Potassium 4.4 mmol/L (3.3-5.1); Sodium 138 mmol/L (135-145)
[2023-09-14 07:42] LABS: Glucose, Whole Blood 293 mg/dL (60-115)
[2023-09-14 07:57] VITALS: BP 132/89; PULSE 97; RESP 17; TEMP 36.4; O2SAT 97
[2023-09-14] MEDS: Insulin Glargine,Hum.rec.anlog 100 UNIT/ML 10 ML VIAL 15 UNIT SUBCUT (09:40)
[2023-09-14] MEDS: Insulin Lispro 100 UNIT/ML 3 ML VIAL SUBCUT ×5 (09:40→23:13)
[2023-09-14] MEDS: 0.9 % Sodium Chloride Flush 3 ML SYRINGE IVFLUSH ×3 (09:41→23:16)
[2023-09-14] MEDS: Enoxaparin Sodium 40 MG/0.4 ML SYRINGE SUBCUT (09:41)
[2023-09-14] MEDS: lamiVUDine 150 MG TABLET 300 MG PO (09:42)
[2023-09-14 09:43] VITALS: BP 169/84
[2023-09-14] MEDS: Dolutegravir Sodium 50 MG TABLET PO (09:43)
[2023-09-14] MEDS: Loratadine 10 MG TABLET PO (09:43)
[2023-09-14] MEDS: Cholecalciferol (Vitamin D3) 25 MCG TABLET 50 MCG PO (09:43)
[2023-09-14] MEDS: Losartan Potassium 50 MG TABLET 100 MG PO (09:43)
[2023-09-14] MEDS: Milk of Magnesia 30 ML ORAL.SUSP PO (09:52)
--- NOTE | 2023-09-14 11:08 | P.PNIM_ITS ---
Subjective Subjective Date of Service: 09/14/23 Interval History: episodes of narrow complex tachycardia into 150s Physical Exam 2 Vital Signs: Vital Signs: Last Vital Signs Temp 97.5 F 09/14/23 07:57 Pulse 97 09/14/23 07:57 Resp 17 09/14/23 07:57 BP 169/84 H 09/14/23 09:43 Pulse Ox 97 09/14/23 07:57 O2 Del Method Room Air 09/14/23 07:57 BMI result Body Mass Index 25.4 Const: Nutritional Appearance: well nourished HEENT: Head: Yes normocephalic and Yes atraumatic Eyes: Sclerae: sclerae normal Resp: Effort & Inspection: normal respiratory effort and no respiratory distress Cardio: Rate: regular rate Rhythm: regular rhythm GI: Palpation (GI): Soft to palpation and nontender Neuro: Cranial nerves: Yes CN's II-XII intact bilaterally and Yes Bilaterally intact EOM present Objective Data Active Medications Abacavir Sulfate (Abacavir Sulfate 300 Mg Tablet) 600 mg PO DAILY [facility] Last Admin: 09/14/23 09:43 Dose: 600 mg Documented By: DAIN Acetaminophen (Acetaminophen 325 Mg Tablet) 650 mg PO Q6H PRN PRN Reason: Pain, Mild (Pain Scale 1-3), fever or headache Last Admin: 09/14/23 04:48 Dose: 650 mg Documented By: ANDERSON Calcium Carbonate (Calcium Carbonate 750 Mg Tab.Chew) 750 mg PO Q4H PRN PRN Reason: Heartburn Dolutegravir Sodium (Dolutegravir Sodium 50 Mg Tablet) 50 mg PO DAILY [facility] Last Admin: 09/14/23 09:43 Dose: 50 mg Documented By: DAIN Enoxaparin Sodium (Enoxaparin Sodium 40 Mg/0.4 Ml Syringe) 40 mg SUBCUT Q24H [facility] Last Admin: 09/14/23 09:41 Dose: 40 mg Documented By: DAIN Fluticasone Propionate (Fluticasone Propionate Nasal 16 Gm [place]) 2 spray NOSTRIL-B DAILY [facility] Last Admin: 09/14/23 10:05 Dose: Not Given Documented By: DAIN Non-Admin Reason: Med Not Available Glucose (Glucose Gel 15 Gm Gel..Gram.) 15 gm PO Q15M PRN; Protocol PRN Reason: per Hypoglycemia Standing Ord. Ceftriaxone Sodium 1 gm/ (Sodium Chloride) 50 mls @ 100 mls/hr IV Q24H [facility] Last Infusion: 09/13/23 22:46 Dose: Infused Documented By: ANDERSON Dextrose (D10) 250 mls @ 750 mls/hr IV Q15M PRN; Protocol PRN Reason: per Hypoglycemia Standing Ord. Insulin Glargine (Insulin Glargine,Hum.Rec.Anlog 100 Unit/Ml 10 Ml Vial) 15 unit SUBCUT DAILY [facility] Last Admin: 09/14/23 09:40 Dose: 15 unit Documented By: DAIN Insulin Human Lispro (Insulin Lispro 100 Unit/Ml 3 Ml Vial) 0 unit SUBCUT QIDACHS [facility]; Protocol Last Admin: 09/14/23 09:40 Dose: 6 unit Documented By: DAIN Lamivudine (Lamivudine 150 Mg Tablet) 300 mg PO DAILY [facility] Last Admin: 09/14/23 09:42 Dose: 300 mg Documented By: DAIN Loratadine (Loratadine 10 Mg Tablet) 10 mg PO DAILY [facility] Last Admin: 09/14/23 09:43 Dose: 10 mg Documented By: DAIN Losartan Potassium (Losartan Potassium 50 Mg Tablet) 100 mg PO DAILY [facility]; Protocol Last Admin: 09/14/23 09:43 Dose: 100 mg Documented By: DAIN Magnesium Hydroxide (Milk Of Magnesia 30 Ml Oral.Susp) 30 ml PO DAILY PRN PRN Reason: Constipation Last Admin: 09/14/23 09:52 Dose: 30 ml Documented By: DAIN Melatonin (Melatonin 3 Mg Tablet) 6 mg PO BEDTIME PRN PRN Reason: Insomnia Last Admin: 09/12/23 20:51 Dose: 6 mg Documented By: MIKI Metoprolol Tartrate (Metoprolol Tartrate 25 Mg Tablet) 25 mg PO QID [facility]; Protocol Ondansetron HCl (Ondansetron Hcl 4 Mg/2 Ml Vial) 4 mg IVPUSH Q8H PRN PRN Reason: Nausea and Vomiting Sodium Chloride (0.9 % Sodium Chloride Flush 3 Ml Syringe) 3 ml IVFLUSH QSHIFT [facility] Last Admin: 09/14/23 09:41 Dose: 3 ml Documented By: HO.BERGERB Vitamin D (Cholecalciferol (Vitamin D3) 25 Mcg Tablet) 50 mcg PO DAILY [facility] Last Admin: 09/14/23 09:43 Dose: 50 mcg Documented By: DAIN Labs 09/14/23 06:19 09/14/23 06:19 Labs: Laboratory Results - last 24 hr 09/13/23 09/13/23 09/14/23 16:09 20:23 06:19 MCV 95.7 MCH 34.0 H MCHC 35.5 RDW 12.1 Plt Count 141 L MPV 12.4 Absolute Nucleated RBC 0.000 Nucleated RBC % (auto) 0.0 Anion Gap 14 Estim Creat Clear Calc 76.8 Estimated GFR > 60 POC Glucose 272 H 234 H Fasting Glucose 275 H Calcium 9.1 09/14/23 07:39 MCV MCH MCHC RDW Plt Count MPV Absolute Nucleated RBC Nucleated RBC % (auto) Anion Gap Estim Creat Clear Calc Estimated GFR POC Glucose 293 H Fasting Glucose Calcium Microbiology Microbiology Results: Microbiology 09/11/23 21:29 Blood Culture - Preliminary Blood - Venous No growth after 48 hours. 09/11/23 21:29 Blood Culture - Preliminary Blood - Venous No growth after 48 hours. 09/11/23 19:28 Urine Culture - Final Urine clean catch - Clean Catch Midstream Assessment and Plan (1) Acute metabolic encephalopathy: Status: Acute Plan 63M PMH anoxic brain injury, right hemiparesis, aphasia, htn, hiv, dm, presented with ams Acute metabolic encephalopathy likely due to diabetes with hypoglycemia now further complicated by episodes of hyperglycemia restarting long acting insulin, but at reduced dose, continue sliding scale and monitor mental status back to baseline narrow complex paroxysmal tachy short lived episodes, usually on exertion will conitnue to monitor on tele and start lopressor 25mg qid Urinary tract infection Sepsis ruled out, continue empiric ceftriaxone, cultures normal vlad HIV Continue anti-retroviral therapy dysphagia 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
[2023-09-14 11:28] LABS: Glucose, Whole Blood 567 mg/dL (60-115)
[2023-09-14 11:28] LABS: Glucose, Whole Blood > 600 mg/dL (60-115)
[2023-09-14 12:04] LABS: Anion Gap 15 (12-20); Blood Urea Nitrogen 17 mg/dL (9-16); Calcium 9.5 mg/dL (8.4-10.2); Carbon Dioxide 27 mmol/L (22-29); Chloride 99 mmol/L (96-108); Creatinine Clr Calc Pharmacy 61.4; Estimated Glomerular Filt Rate > 60; Glucose Random 539 mg/dL (60-115); Potassium 4.4 mmol/L (3.3-5.1); Sodium 137 mmol/L (135-145)
[2023-09-14 12:09] LABS: Glucose, Whole Blood 406 mg/dL (60-115)
[2023-09-14 12:22] VITALS: BP 145/85; PULSE 94
[2023-09-14] MEDS: Metoprolol Tartrate 25 MG TABLET PO ×3 (12:22→23:15)
[2023-09-14] MEDS: Insulin Lispro 100 UNIT/ML 3 ML VIAL 10 UNIT SUBCUT (12:22)
[2023-09-14 13:24] LABS: Glucose, Whole Blood 315 mg/dL (60-115)
[2023-09-14 15:46] VITALS: BP 114/73; PULSE 77; RESP 16; TEMP 36.3; O2SAT 96
[2023-09-14 16:19] LABS: Glucose, Whole Blood 273 mg/dL (60-115)
[2023-09-14 20:32] LABS: Glucose, Whole Blood 273 mg/dL (60-115)
[2023-09-14] MEDS: cefTRIAXone sodium 1 GM in 0.9 % Sodium Chloride 50 ML IV (23:13)
[2023-09-14 23:14] VITALS: BP 125/69; PULSE 78; RESP 18; TEMP 36.4; O2SAT 94
[2023-09-14 23:15] VITALS: BP 125/69; PULSE 78
[2023-09-15] VITALS (7 sets, daily range): BP systolic 109–125; BP diastolic 65–78; PULSE 64–89; RESP 16–20; TEMP 36.1–37; O2SAT 94–97
[2023-09-15 06:31] LABS: Anion Gap 15 (12-20); Blood Urea Nitrogen 17 mg/dL (9-16); Calcium 9.8 mg/dL (8.4-10.2); Carbon Dioxide 25 mmol/L (22-29); Chloride 102 mmol/L (96-108); Creatinine Clr Calc Pharmacy 74.4; Estimated Glomerular Filt Rate > 60; Glucose Fasting 249 mg/dL (60-99); Magnesium 1.9 mg/dL (1.6-2.6); Potassium 4.6 mmol/L (3.3-5.1); Sodium 137 mmol/L (135-145)
[2023-09-15 07:30] LABS: Glucose, Whole Blood 299 mg/dL (60-115)
[2023-09-15] MEDS: Loratadine 10 MG TABLET PO (07:59)
[2023-09-15] MEDS: Cholecalciferol (Vitamin D3) 25 MCG TABLET 50 MCG PO (07:59)
[2023-09-15] MEDS: Metoprolol Tartrate 25 MG TABLET PO (07:59)
[2023-09-15] MEDS: lamiVUDine 150 MG TABLET 300 MG PO (07:59)
[2023-09-15] MEDS: Dolutegravir Sodium 50 MG TABLET PO (07:59)
[2023-09-15] MEDS: Losartan Potassium 50 MG TABLET 100 MG PO (08:00)
[2023-09-15] MEDS: Insulin Lispro 100 UNIT/ML 3 ML VIAL SUBCUT ×4 (08:00→22:06)
[2023-09-15] MEDS: Insulin Glargine,Hum.rec.anlog 100 UNIT/ML 10 ML VIAL 15 UNIT SUBCUT (08:00)
[2023-09-15] MEDS: Enoxaparin Sodium 40 MG/0.4 ML SYRINGE SUBCUT (08:00)
[2023-09-15] MEDS: Fluticasone Propionate Nasal 16 GM SPRAY 2 SPRAY NOSTRIL-B (08:13)
--- NOTE | 2023-09-15 09:22 | HO.PM.IMPN ---
Subjective Subjective Date of Service: 09/15/23 Interval History: no further tachy episodes Physical Exam Vital Signs: Vital Signs: Last Vital Signs Temp 97.8 F 09/15/23 07:41 Pulse 76 09/15/23 07:59 Resp 20 09/15/23 07:41 BP 123/78 09/15/23 08:00 Pulse Ox 95 09/15/23 07:41 O2 Del Method Room Air 09/15/23 07:41 BMI result Body Mass Index 25.4 Const: Nutritional Appearance: well nourished HEENT: Head: Yes normocephalic and Yes atraumatic Eyes: Sclerae: sclerae normal Resp: Effort & Inspection: normal respiratory effort and no respiratory distress Cardio: Rate: regular rate Rhythm: regular rhythm GI: Palpation (GI): Soft to palpation and nontender Neuro: Cranial nerves: Yes CN's II-XII intact bilaterally and Yes Bilaterally intact EOM present Objective Data Active Medications Abacavir Sulfate (Abacavir Sulfate 300 Mg Tablet) 600 mg PO DAILY [facility] Last Admin: 09/15/23 07:59 Dose: 600 mg Documented By: AGATHA Acetaminophen (Acetaminophen 325 Mg Tablet) 650 mg PO Q6H PRN PRN Reason: Pain, Mild (Pain Scale 1-3), fever or headache Last Admin: 09/14/23 04:48 Dose: 650 mg Documented By: ZURDOLAMCooper Calcium Carbonate (Calcium Carbonate 750 Mg Tab.Chew) 750 mg PO Q4H PRN PRN Reason: Heartburn Dolutegravir Sodium (Dolutegravir Sodium 50 Mg Tablet) 50 mg PO DAILY [facility] Last Admin: 09/15/23 07:59 Dose: 50 mg Documented By: AGATHA Enoxaparin Sodium (Enoxaparin Sodium 40 Mg/0.4 Ml Syringe) 40 mg SUBCUT Q24H [facility] Last Admin: 09/15/23 08:00 Dose: 40 mg Documented By: AGATHA Fluticasone Propionate (Fluticasone Propionate Nasal 16 Gm [place]) 2 spray NOSTRIL-B DAILY [facility] Last Admin: 09/15/23 08:13 Dose: 2 spray Documented By: AGATHA Glucose (Glucose Gel 15 Gm Gel..Gram.) 15 gm PO Q15M PRN; Protocol PRN Reason: per Hypoglycemia Standing Ord. Ceftriaxone Sodium 1 gm/ (Sodium Chloride) 50 mls @ 100 mls/hr IV Q24H [facility] Last Infusion: 09/14/23 23:43 Dose: Infused Documented By: ANDERSON Dextrose (D10) 250 mls @ 750 mls/hr IV Q15M PRN; Protocol PRN Reason: per Hypoglycemia Standing Ord. Insulin Glargine (Insulin Glargine,Hum.Rec.Anlog 100 Unit/Ml 10 Ml Vial) 15 unit SUBCUT DAILY [facility] Last Admin: 09/15/23 08:00 Dose: 15 unit Documented By: AGATHA Insulin Human Lispro (Insulin Lispro 100 Unit/Ml 3 Ml Vial) 0 unit SUBCUT QIDACHS [facility]; Protocol Last Admin: 09/15/23 08:00 Dose: 6 unit Documented By: AGATHA Lamivudine (Lamivudine 150 Mg Tablet) 300 mg PO DAILY [facility] Last Admin: 09/15/23 07:59 Dose: 300 mg Documented By: AGATHA Loratadine (Loratadine 10 Mg Tablet) 10 mg PO DAILY [facility] Last Admin: 09/15/23 07:59 Dose: 10 mg Documented By: AGATHA Losartan Potassium (Losartan Potassium 50 Mg Tablet) 100 mg PO DAILY [facility]; Protocol Last Admin: 09/15/23 08:00 Dose: 100 mg Documented By: AGATHA Magnesium Hydroxide (Milk Of Magnesia 30 Ml Oral.Susp) 30 ml PO DAILY PRN PRN Reason: Constipation Last Admin: 09/14/23 09:52 Dose: 30 ml Documented By: DAIN Melatonin (Melatonin 3 Mg Tablet) 6 mg PO BEDTIME PRN PRN Reason: Insomnia Last Admin: 09/12/23 20:51 Dose: 6 mg Documented By: MIKI Metoprolol Tartrate (Metoprolol Tartrate 25 Mg Tablet) 25 mg PO QID [facility]; Protocol Last Admin: 09/15/23 07:59 Dose: 25 mg Documented By: AGATHA Ondansetron HCl (Ondansetron Hcl 4 Mg/2 Ml Vial) 4 mg IVPUSH Q8H PRN PRN Reason: Nausea and Vomiting Sodium Chloride (0.9 % Sodium Chloride Flush 3 Ml Syringe) 3 ml IVFLUSH QSHIFT [facility] Last Admin: 09/15/23 08:01 Dose: Not Given Documented By: AGATHA Non-Admin Reason: IV Running Vitamin D (Cholecalciferol (Vitamin D3) 25 Mcg Tablet) 50 mcg PO DAILY [facility] Last Admin: 09/15/23 07:59 Dose: 50 mcg Documented By: AGATHA Labs 09/14/23 06:19 09/15/23 06:00 Labs: Laboratory Results - last 24 hr 09/14/23 09/14/23 09/14/23 11:23 11:25 11:36 Anion Gap 15 Estim Creat Clear Calc 61.4 Estimated GFR > 60 POC Glucose > 600 H* 567 H* Random Glucose 539 H* Fasting Glucose Calcium 9.5 Magnesium 09/14/23 09/14/23 09/14/23 12:05 13:20 16:16 Anion Gap Estim Creat Clear Calc Estimated GFR POC Glucose 406 H* 315 H 273 H Random Glucose Fasting Glucose Calcium Magnesium 09/14/23 09/15/23 09/15/23 20:22 06:00 07:26 Anion Gap 15 Estim Creat Clear Calc 74.4 Estimated GFR > 60 POC Glucose 273 H 299 H Random Glucose Fasting Glucose 249 H Calcium 9.8 Magnesium 1.9 Assessment and Plan (1) Acute metabolic encephalopathy: Status: Acute Plan 63M PMH anoxic brain injury, right hemiparesis, aphasia, htn, hiv, dm, presented with ams Acute metabolic encephalopathy likely due to diabetes with hypoglycemia now further complicated by episodes of hyperglycemia restarting long acting insulin, continue sliding scale and monitor mental status back to baseline narrow complex paroxysmal tachy short lived episodes, usually on exertion conitnue to monitor on tele and start lopressor 50mg bid Urinary tract infection Sepsis ruled out, cultures normal vlad, completed rocephin course HIV Continue anti-retroviral therapy dysphagia residential life director eval Mildly elevated troponin, likely due to mild rhabdo versus demand ischemia, doubt ACS Hypertension Losartan DVT prophylaxis with Lovenox DNR/DNI reason for continued hospitalization: monitoring heart rate, sugars Quality Stroke Does the patient have a stroke diagnosis?: No VTE Prior VTE?: No VTE Risk Level:: Medical - moderate - high VTE Device Contraindication: Treatment Not Indicated VTE Drug Contraindication: N/A - Med Ordered
[2023-09-15 11:22] LABS: Glucose, Whole Blood 334 mg/dL (60-115)
[2023-09-15 16:23] LABS: Glucose, Whole Blood 428 mg/dL (60-115)
[2023-09-15] MEDS: 0.9 % Sodium Chloride Flush 3 ML SYRINGE IVFLUSH (16:49)
[2023-09-15] MEDS: Insulin Lispro 100 UNIT/ML 3 ML VIAL 7 UNIT SUBCUT (16:49)
[2023-09-15 20:33] LABS: Glucose, Whole Blood 361 mg/dL (60-115)
[2023-09-15] MEDS: Metoprolol Tartrate 50 MG TABLET PO (22:10)
[2023-09-16] VITALS: BP 127/70; PULSE 73; RESP 17; TEMP 36.4; O2SAT 96
[2023-09-16] MEDS: 0.9 % Sodium Chloride Flush 3 ML SYRINGE IVFLUSH ×2 (00:55→09:00)
[2023-09-16 06:31] LABS: Hematocrit 45.6 % (42.0-52.0); Mean Corpuscular HGB Conc 35.1 g/dl (31.0-36.0); Mean Corpuscular Hemoglobin 34.6 pg (27.0-33.0); Mean Corpuscular Volume 98.5 fL (80.0-98.0); Mean Platelet Volume 12.8 fL (9.4-12.4); Platelet Count 160 X10*3/uL (160-400); Red Blood Count 4.63 X10*6/uL (4.60-5.80); Red Cell Distribution Width 12.1 % (11.0-16.0); White Blood Count 9.9 X10*3/uL (4.8-10.8)
[2023-09-16 06:49] LABS: Anion Gap 14 (12-20); Blood Urea Nitrogen 32 mg/dL (9-16); Calcium 9.6 mg/dL (8.4-10.2); Carbon Dioxide 25 mmol/L (22-29); Chloride 102 mmol/L (96-108); Creatinine Clr Calc Pharmacy 72.1; Estimated Glomerular Filt Rate > 60; Glucose Fasting 190 mg/dL (60-99); Potassium 4.2 mmol/L (3.3-5.1); Sodium 137 mmol/L (135-145)
[2023-09-16 07:59] LABS: Glucose, Whole Blood 244 mg/dL (60-115)
[2023-09-16 08:00] VITALS: BP 133/75; PULSE 74; RESP 16; TEMP 36.1; O2SAT 95
[2023-09-16] MEDS: Metoprolol Tartrate 50 MG TABLET PO (08:59)
[2023-09-16] MEDS: Insulin Lispro 100 UNIT/ML 3 ML VIAL SUBCUT ×3 (08:59→16:06)
[2023-09-16] MEDS: lamiVUDine 150 MG TABLET 300 MG PO (08:59)
[2023-09-16] MEDS: Losartan Potassium 50 MG TABLET 100 MG PO (08:59)
[2023-09-16] MEDS: Loratadine 10 MG TABLET PO (08:59)
[2023-09-16] MEDS: Dolutegravir Sodium 50 MG TABLET PO (08:59)
[2023-09-16] MEDS: Insulin Glargine,Hum.rec.anlog 100 UNIT/ML 10 ML VIAL 25 UNIT SUBCUT (09:00)
[2023-09-16] MEDS: Enoxaparin Sodium 40 MG/0.4 ML SYRINGE SUBCUT (09:00)
[2023-09-16] MEDS: Fluticasone Propionate Nasal 16 GM SPRAY 2 SPRAY NOSTRIL-B (09:01)
[2023-09-16] MEDS: Cholecalciferol (Vitamin D3) 25 MCG TABLET 50 MCG PO (09:03)
--- NOTE | 2023-09-16 09:18 | P.CDIM_ITS ---
PROVIDER RESPONSE TEXT: To clarify, the appropriate diagnosis supported by the clinical indicators: Pressure injury Stage 2 coccyx QUERY TEXT: PHYSICIAN'S DOCUMENTATION REQUEST Date of Query: 09/16/2023 09:07 AM EDT Patient Name: FELIPE GIBBS Admit Date: 09/12/2023 Dear Ronni Pisano, A review of the medical record indicates additional documentation may be needed. Please review below and update the documentation accordingly. Clinical Indicators: Wound care assessment notes 09/14 - Pressure injury Stage 2 coccyx Dry and intact Triad/foam dressing Based on the above, could you please provide further information regarding the ulcer/wound/injury: Pressure injury Stage 2 coccyx Other Other (explain) Clinically unable to determine (explain) Thank you, Camilla Nieto, CCS, CDIS Use of terms such as suspected, likely, concern for, or probable (associated with a specific diagnosi s that is being evaluated, monitored, or treated as if it exists) are acceptable and can be coded in the inpatient se tting, when documented at the time of discharge. Please use your independent medical judgment in providing your response. THIS QUERY IS PART OF THE PERMANENT MEDICAL RECORD
--- NOTE | 2023-09-16 09:57 | PM.DS ---
DS: Providers Provider Date of Service: 09/16/23 Date of admission: 09/11/23 23:29 Primary care physician: Unknown Physician Consults: 09/12/23 09:00 Consult to Wound Care Routine Reason for consultation: ? pressure injury to coccyx/sacral area 09/13/23 00:04 Consult to Wound Care Routine Reason for consultation: STAGE 2/ DTI COCCYX DS: Diagnosis Discharge Diagnosis (1) Acute metabolic encephalopathy: Status: Acute DS: Summary Hospital Course Hospital Course: from initial hpi: 63-year-old male with pertinent history of anoxic brain injury with right-sided hemiparesis, nonverbal and nonambulatory at baseline, hypertension, insulin-dependent diabetes mellitus, HIV who was brought to the emergency department for evaluation of altered mentation. Patient is nonverbal at baseline and history obtained with the help of patient's sister was also healthcare proxy at bedside. As per the sister, patient was found near trash can using his electric wheelchair on the day of presentation. This never happens. Patient was found confused and altered as per the family. The sister stated that she thought that patient was hypoglycemic as he usually gets confused finish blood sugar falls. His POC was 75 at that time. Patient follows commands and responds by nodding his head. He denies pain at the time of my evaluation. Unable to obtain review of systems hospital course: Patient was admitted for acute metabolic encephalopathy likely due to diabetes with hypoglycemia. His hypoglycemia resolved and mental status returned to baseline. Patient then had issues with hyperglycemia, on day of discharge is better controlled and will continue close monitoring as outpatient. Encephalopathy may also being contributed to by urinary tract infection. Patient was treated with short course of ceftriaxone, cultures grew normal vlad. Course further complicated by episodes of narrow complex paroxysmal tachycardia that were short-lived and usually on exertion. He was started on metoprolol 50 mg b.i.d. which significantly decreased frequency of the episodes. For HIV was continued on anti-retroviral therapy. For dysphagia was seen by speech therapy who recommended ndd2 solids and thin liquids. Patient was noted to have mildly elevated troponin this was likely due to mild rhabdomyolysis versus demand ischemia no evidence of ACS. For hypertension was continued on losartan and metoprolol. Patient is feeling better will be discharged home. Time Attestation Discharge Coordination Time (in mins): 37 Quality: Safe Use of Opioids Does Pt have an Active Cancer Diagnosis on the Problem List?: No Quality: Stroke Does the patient have a stroke diagnosis?: No Physical Exam Vital Signs: Vital Signs: Last Vital Signs Temp 97 F 09/16/23 08:00 Pulse 74 09/16/23 08:00 Resp 16 09/16/23 08:00 BP 133/75 09/16/23 08:00 Pulse Ox 95 09/16/23 08:00 O2 Del Method Room Air 09/16/23 08:00 BMI result Body Mass Index 25.4 Const: Nutritional Appearance: well nourished HEENT: Head: Yes normocephalic and Yes atraumatic Eyes: Sclerae: sclerae normal Resp: Effort & Inspection: normal respiratory effort and no respiratory distress Cardio: Rate: regular rate Rhythm: regular rhythm GI: Palpation (GI): Soft to palpation and nontender Neuro: Cranial nerves: Yes CN's II-XII intact bilaterally and Yes Bilaterally intact EOM present DS: Data Data Completed and Pending Labs on day of discharge: Laboratory Results - last 24 hr 09/15/23 09/15/23 09/15/23 11:18 16:17 20:29 WBC RBC Hgb Hct MCV MCH MCHC RDW Plt Count MPV Absolute Nucleated RBC Nucleated RBC % (auto) Sodium Potassium Chloride Carbon Dioxide Anion Gap BUN Creatinine Estim Creat Clear Calc Estimated GFR POC Glucose 334 H 428 H* 361 H* Fasting Glucose Calcium 09/16/23 09/16/23 06:18 07:32 WBC 9.9 RBC 4.63 Hgb 16.0 Hct 45.6 MCV 98.5 H MCH 34.6 H MCHC 35.1 RDW 12.1 Plt Count 160 MPV 12.8 H Absolute Nucleated RBC 0.000 Nucleated RBC % (auto) 0.0 Sodium 137 Potassium 4.2 Chloride 102 Carbon Dioxide 25 Anion Gap 14 BUN 32 H Creatinine 0.98 Estim Creat Clear Calc 72.1 Estimated GFR > 60 POC Glucose 244 H Fasting Glucose 190 H Calcium 9.6 Preliminary micro results at discharge 09/11/23 21:29 Blood Culture - Preliminary Blood - Venous No growth after 48 hours. 09/11/23 21:29 Blood Culture - Preliminary Blood - Venous No growth after 48 hours. Discharge Plan Discharge Anticipated Discharge Date/Time: 09/16/23 09:53 Patient Disposition: Home, Self-Care Discharge Diagnosis: uti, low sugars, ATach Referrals: Physician,Unknown J [Primary Care Provider] - 1 Week Discharge Medications: New metoprolol tartrate 50 mg Tablet 50 mg PO BID Qty: 180 0RF Protocol: Hold for SBP/HR < HOLD for SBP < : 90 HOLD for HR < : 60 Continued losartan 100 mg tablet 100 mg PO DAILY insulin lispro [Humalog KwikPen Insulin] 100 unit/mL insulin pen 0 sliding scale dose subcut TID Rx Instructions: FOLLOW SLIDING SCALE DIRECTED 3 TIMES A DAY, max daily dose 54 units insulin degludec [Tresiba FlexTouch U-100] 100 unit/mL (3 mL) insulin pen 21 unit subcut DAILY Triumeq 600-50-300 mg tablet 1 tab PO DAILY acetaminophen 325 mg Tablet 650 mg PO Q6H PRN (Reason: Pain) fluticasone propionate 50 mcg/actuation spray,suspension 2 spray intranasal DAILY loratadine 10 mg tablet 10 mg PO DAILY cholecalciferol (vitamin D3) 50 mcg (2,000 unit) capsule 50 mcg PO DAILY Discharge Orders: Discharge Order (Routine); Ordered 09/16/23 Ordered By: Ronni Pisano Diet: ndd2 solids, thin liquid Activity on Discharge: As tolerated Stand Alone Forms: Patient Portal Discharge page Print Language: Citizen Of [place] Care Plan Goals: recovery Health Concerns: labile sugars, atrial tach Plan of Treatment: starting metoprolol, monitor sugars Assessment: see above
[2023-09-16 11:13] VITALS: BP 118/75; PULSE 88; RESP 20; TEMP 36.2; O2SAT 94
--- NOTE | 2023-09-16 11:24 | MHC.CLN ---
F/U PO INTAKE 75-100% DIET RX: 2000DM GRD M/S -APPROPRIATE PT RECEIVING ENSURE MAX BID TO PROMOTE WOUND HEALING SUPP PROVIDES 300KCALS, 60G PROTEIN MONITOR PO INTAKE AND ENCOURAGE SUPPLEMENTS
[2023-09-16 11:38] LABS: Glucose, Whole Blood 414 mg/dL (60-115)
--- NOTE | 2023-09-16 12:00 | HO.WOUND ---
Wound Consult: Initial 63yr old?male admitted to [facility] on 09/11/23 - See progress notes and H&P for detailed history.? Wound consult placed for Coccyx wound POA.? Patient agreeable to assessment and photo documentation.? Coccyx Etiology: MASD (Moisture Associated Skin Damage)? Wound Bed: mirrored macerated hyperpigmented tissue - scattered areas of open tissue noted Drainage / Odor: no odor drainage noted - maceration noted in periwound Edges: ?mirrored Gayatri wound: Maceration hyperpigmentation, No Induration, Fluctuance noted Pain: denies Goals of Treatment: ?Triad to protect from moisture and friction Recommendations: 1. Turn and Reposition every 2 hours and as needed for patient comfort.? Use pillows or wedges to support off loading positions. 2. Off Load all bony prominences with use of pillows and heel boots if needed.? Apply Preventative foams where needed. ? 3. Monitor for incontinence and moisture control, use barrier creams when needed for prevention and treatment. 4. Provide adequate and supplemental nutrition.? 5. When applicable maintain blood glucose levels per Providers order. 6. Coccyx - Off Load Pressure - Cleanse with PH balanced bath wipes, Apply Triad to area, pat and dab when soiled do not remove all of triad. Apply after episodes of incontinence and twice daily. Re-consult wound care Nurse for wound deterioration or wound changes
[2023-09-16] MEDS: Insulin Lispro 100 UNIT/ML 3 ML VIAL 10 UNIT SUBCUT (12:47)
--- NOTE | 2023-09-16 15:02 | MHC.CM.PN ---
Pt is medically cleared for discharge home with resumption of previous services, pts sister Selena will transport him home.
[2023-09-16 15:15] VITALS: BP 137/79; PULSE 73; RESP 20; TEMP 36.2; O2SAT 97
[2023-09-16 16:04] LABS: Glucose, Whole Blood 204 mg/dL (60-115)
== END 2023-09-16 16:11 | disposition home or self-care (01) | DRG 380 ==
LOC: HO.ED 23:24 → HO.EDOVER 23:34 → HO.IMC 09-12 01:14
PROVIDERS: Physician Assistant Medical; Admitting Provider Student in an Organized Health Care Education/Training Program; Emergency Provider Emergency Medicine; PCP Internal Medicine; Visit Provider Internal Medicine
DX: E11.649 Type 2 diabetes mellitus with hypoglycemia without coma (principal); L89.152 Pressure ulcer of sacral region, stage 2; G93.41 Metabolic encephalopathy; G93.1 Anoxic brain damage, not elsewhere classified; G81.91 Hemiplegia, unspecified affecting right dominant side; M62.82 Rhabdomyolysis; I47.9 Paroxysmal tachycardia, unspecified; R13.10 Dysphagia, unspecified; E11.65 Type 2 diabetes mellitus with hyperglycemia; Z66 Do not resuscitate; I10 Essential (primary) hypertension; N39.0 Urinary tract infection, site not specified; Z20.822 Contact with and (suspected) exposure to COVID-19; Z21 Asymptomatic human immunodeficiency virus [HIV] infection status; Z79.4 Long term (current) use of insulin; Z79.51 Long term (current) use of inhaled steroids; Z79.899 Other long term (current) drug therapy
CPT/HCPCS: 0241U; 36415; 70450; 71045; 72125; 74177; 80048; 80076; 80307; 81001; 82947; 83605; 83690; 83735; 84484; 85025; 85027; 85610; 85730; 87040; 87086; 92526; 92610; 93005; 99285; J0696; J1650; Q9967

== ENCOUNTER → 2023-09-11 17:42 | Outpatient (BNV) | payer OTHER, SELFPAY | PROVIDERS: Admitting Provider Student in an Organized Health Care Education/Training Program; Emergency Provider Emergency Medicine; Visit Provider Internal Medicine | DX: R42 Dizziness and giddiness (principal); R41.82 Altered mental status, unspecified | CPT/HCPCS: 93010 ==

== ENCOUNTER → 2023-09-11 23:29 | Outpatient (BNV) | payer OTHER, SELFPAY | PROVIDERS: Admitting Provider Student in an Organized Health Care Education/Training Program; Emergency Provider Emergency Medicine; Visit Provider Student in an Organized Health Care Education/Training Program | DX: G93.41 Metabolic encephalopathy (principal) | CPT/HCPCS: 99223; 99232; 99239 ==

== ENCOUNTER → 2024-04-07 14:25 | Outpatient (BNVA) | payer OTHER, SELFPAY | PROVIDERS: PCP Internal Medicine; Visit Provider Internal Medicine | DX: R79.89 Other specified abnormal findings of blood chemistry (principal); R00.0 Tachycardia, unspecified | CPT/HCPCS: 93005; 99212 ==

== ENCOUNTER → 2024-09-17 13:50 | Outpatient (BNV) | payer OTHER, SELFPAY | PROVIDERS: Emergency Provider Emergency Medicine; Visit Provider Radiology Diagnostic Radiology | DX: R07.9 Chest pain, unspecified (principal); N13.2 Hydronephrosis with renal and ureteral calculous obstruction | CPT/HCPCS: 71045; 74176 ==

== ENCOUNTER 2024-09-17 14:10 | Inpatient (IN) | payer OTHER, SELFPAY ==
[2024-09-17] VITALS (24 sets, daily range): BP systolic 85–142; BP diastolic 51–88; PULSE 87–180; RESP 15–33; TEMP 36.1–38.4; O2SAT 92–100; BMI 23.6
--- NOTE | 2024-09-17 | ECG_ITS ---
Test Reason : CP Blood Pressure : */* mmHG Vent. Rate : 137 BPM Atrial Rate : 137 BPM P-R Int : 116 ms QRS Dur : 78 ms QT Int : 278 ms P-R-T Axes : 47 37 34 degrees QTcB Int : 419 ms Sinus tachycardia Otherwise normal ECG When compared with ECG of 11-Sep-2023 22:45, No significant change was found Referred By: Generic ED Physician Electronically Signed By: Sherif Borja
--- NOTE | ~2024-09-17 | CT_ITS ---
CLINICAL HISTORY: renal failure, new,septic CT of the abdomen and pelvis without intravenous contrast. Comparison 09/11/2023. Findings: There is mild elevation of the right hemidiaphragm. Mild motion artifact is present. There is a probable small gallstone. Small right adrenal myelolipoma. There are multiple bilateral renal stones. 11 mm proximal right ureteral stone with moderate to severe hydronephrosis. 11 mm proximal left ureteral stone with moderate to severe hydronephrosis. The spleen and pancreas are unremarkable. No abdominal aortic aneurysm. An IVC filter is in place. No definite diverticulitis is identified. No bowel obstruction. The appendix is not definitely seen. The bladder is nondilated. There is a small amount of fluid in the right pericolic gutter. Impression: Bilateral ureteral stones with moderate to severe hydronephrosis. Probable small gallstone. Mild fluid in the right pericolic gutter. This document has been electronically signed by: Shyam Cardenas MD on 09/17/2024 17:40:18
--- NOTE | ~2024-09-17 | FL_ITS ---
EXAMINATION: FL GUIDANCE ONLY HISTORY: cysto, retro COMPARISON: Correlation is made with a CT of the abdomen without contrast dated 09/17/2024. TECHNIQUE: Fluoroscopy time: 34.8 seconds. Cumulative Dose: 6.56 mGy. Images: 3. FINDINGS: A retrograde study of the left ureter demonstrates a filling defect in the proximal ureter, consistent with the calculus noted on CT. The final film demonstrates the proximal portion of a nephroureteral stent in place. FL/FL guidance in OR IMPRESSION: Fluoroscopy during procedure. Please see procedure report for additional information. Electronically signed by: Rafy Dooley MD 09/18/2024 07:26 AM EDT
--- NOTE | ~2024-09-17 | FL_ITS ---
EXAMINATION: FL GUIDANCE ONLY HISTORY: bilateral ureteral stones COMPARISON: Correlation is made with a CT of the abdomen and pelvis without contrast dated 09/17/2024. TECHNIQUE: Fluoroscopy time: 21.3 seconds. Cumulative Dose: 5.24 mGy. Images: 5. FINDINGS: Images were obtained during placement of bilateral nephroureteral stents. FL/FL guidance in OR IMPRESSION: Fluoroscopy during procedure. Please see procedure report for additional information. Electronically signed by: Rafy Dooley MD 09/23/2024 01:33 PM EDT
--- NOTE | ~2024-09-17 | XR_ITS ---
CLINICAL HISTORY: rhonchi s p operative procedure, ? fluid overload 1 view chest x-ray Comparison: CR/IL/SR - XR CHEST 1V - 09/11/23 21:14 EDT Findings: The lungs are clear. Heart size is normal. No acute fracture. IMPRESSION: 1. No acute findings. This document has been electronically signed by: Etienne Giraldo MD on 09/17/2024 23:31:54
--- NOTE | ~2024-09-17 | XR_ITS ---
EXAMINATION: XR CHEST CLINICAL INFORMATION: cp COMPARISON: 09/11/2023. 12/11/2020. TECHNIQUE: AP view of the chest was obtained. FINDINGS: The cardiac, hilar, and mediastinal contours are normal. There are low lung volumes with mild bronchovascular crowding. Lungs otherwise clear. No pneumothorax or effusion. No focal osseous or soft tissue abnormality. XR/XR chest 1V IMPRESSION: No active pulmonary disease. Electronically signed by: Suleman Crowell MD 09/17/2024 03:17 PM EDT
[2024-09-17 14:54] LABS: Hematocrit 43.2 % (42.0-52.0); Hemoglobin 15.4 g/dl (14.0-18.0); Imm Gran Abs Auto 0.22 X10*3/uL (0.00-0.03); Imm Gran Pct Auto 1.0 % (0.0-0.4); Lymphocytes Absolute Auto 0.5 X10*3/uL (1.2-4.9); MANUAL DIFF FLAG SCAN; Mean Corpuscular HGB Conc 35.6 g/dl (31.0-36.0); Mean Corpuscular Hemoglobin 33.7 pg (27.0-33.0); Mean Corpuscular Volume 94.5 fL (80.0-98.0); NRBC Abs Auto 0.000 X10*3/uL (0.0-0.012); NRBC Pct Auto 0.0 /100WBC (0.0-0.2); Platelet Count 186 X10*3/uL (160-400); Red Blood Count 4.57 X10*6/uL (4.60-5.80); SCAN SMEAR FLAG 1; White Blood Count 22.0 X10*3/uL (4.8-10.8)
[2024-09-17 14:59] LABS: INTERNATIONAL NORM RATIO 1.1 (0.9-1.1); Prothrombin Time 12.8 SEC (10.9-12.4)
[2024-09-17] MEDS: diazePAM 10 MG/2 ML CARTRIDGE 2.5 MG IVPUSH (15:08)
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
[2024-09-17 15:18] LABS: Alanine Aminotransferase 16 U/L (0-40); Albumin Level 3.9 g/dL (3.5-5.0); Alkaline Phosphatase 156 U/L (39-117); Anion Gap 19 (12-20); Aspartate Amino Transferase 30 U/L (5-37); Blood Urea Nitrogen 44 mg/dL (9-16); Calcium 9.3 mg/dL (8.4-10.2); Carbon Dioxide 23 mmol/L (22-29); Chloride 98 mmol/L (96-108); Creatinine Clr Calc Pharmacy 16.6; Estimated Glomerular Filt Rate 14; Potassium 3.9 mmol/L (3.3-5.1); Sodium 136 mmol/L (135-145); Total Protein 8.1 g/dL (6.5-8.0)
[2024-09-17 15:22] LABS: Troponin-I High Sensitivity 28.0 ng/L (<3.5-35.0)
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
[2024-09-17] MEDS: 0.9 % Sodium Chloride 2,109.21 ML 2109.21 ML IV (16:13)
[2024-09-17 16:57] LABS: Appearance Urine Cloudy; Glucose Urine UA 100 mg/dL (Negative); PH 6.0 (5.0-9.0); Specific Gravity - Urine 1.020 (1.005-1.025); UMIC TRIGGER UACC YES
[2024-09-17 17:09] LABS: UACC Culture Trigger YES
[2024-09-17 17:10] LABS: Reflex Lactate? Lactic Acid Added
[2024-09-17 18:10] LABS: ~Lactic Acid-LAB USE ONLY 1.3 mmol/L (0.5-2.0)
--- NOTE | 2024-09-17 18:29 | HO.ANESPROP2 ---
HPI - Anesthesia Eval Consult details Narrative: Bilateral ureters obstruction, urosepsis PMFSH Active Problems Active Problems: All Active Problems Hydronephrosis with urinary obstruction due to ureteral calculus (Acute) Sepsis (Acute) Acute renal failure (Acute) Elevated troponin (Acute) Sepsis due to gram-negative UTI (Acute) Diabetes mellitus (Acute) Hyperglycemia (Acute) Past Medical History Medical History Renal calculi Hypertension Diabetes mellitus Brain injury Hepatitis C HIV (human immunodeficiency virus infection) Family History Family History Mother Diabetes mellitus Family history of problems with anesthesia: Unobtainable Surgical History History of Problems with Anesthesia: Unobtainable Social History Social History Household Members: Family Household Members Other:: Mother and nephew Housing: Apartment Do you presently have visiting nurse or other home services: Yes (3 [employer]) Unable to assess alcohol history related to: Unable to respond Alcohol intake: never Patient Tobacco Use Status: Former Tobacco user Smoked in Last 30 Days: No Patient Interested in Nicotine Replacement: No Use of substances other than those prescribed or required for medical reasons: No Are you DNR?: No Advance Directives: Yes Advance Directives on File: Yes Advance Directives Date on File: 01/03/21 Do you have a plan to hurt others: No Plan Recently lost weight without trying: No Eating poorly because of decreased appetite: No Nutrition Risks: No Nutritional Risk service: No Current occupational status: disabled Meds Allergies Allergy/AdvReac Type Severity Reaction Status Date / Time aspirin (Aspirin) Allergy Unknown HIVES, Verified 09/17/24 14:31 ITCHING ibuprofen (From Motrin) Allergy Unknown UNKNOWN Verified 09/17/24 14:31 Sulfa (Sulfonamide Allergy Unknown HIVES Verified 09/17/24 14:31 Antibiotics) (SULFA (SULFONAMIDE ANTIBIOTICS)) Aspirin Allergy Unknown Rash Uncoded 09/17/24 14:31 Seafood Allergy Unknown RASH, Uncoded 09/17/24 14:31 ITCHING, HIVES Sulfa Allergy Unknown Rash Uncoded 09/17/24 14:31 Home Medications ?Medication ?Instructions ?Recorded ?Confirmed ?Last Taken ?Type abacavir 600 mg-dolutegravir 50 1 tab PO DAILY 12/11/20 09/17/24 09/17/24 History mg-lamivudine 300 mg tablet (Triumeq) insulin degludec 100 unit/mL (3 22 unit subcut DAILY 12/11/20 09/17/24 09/17/24 History mL) subcutaneous pen (Tresiba FlexTouch U-100 insulin) insulin lispro 100 unit/mL 0 sliding scale dose subcut TID 12/11/20 09/17/24 09/17/24 History subcutaneous pen (Humalog KwikPen (U-100) Insulin) losartan 100 mg tablet 100 mg PO DAILY 12/11/20 09/17/24 09/17/24 History cholecalciferol (vitamin D3) 50 50 mcg PO DAILY 09/12/23 09/17/24 09/17/24 History mcg (2,000 unit) capsule loratadine 10 mg tablet 10 mg PO DAILY 09/12/23 09/17/24 09/17/24 History Exam Height,Weight and Vital Signs: Height 5 ft 8 in Weight 70.307 kg Last Vital Signs Temp 98.4 F 09/17/24 17:47 Pulse 104 H 09/17/24 17:47 Resp 28 H 09/17/24 17:47 BP 112/60 09/17/24 17:47 Pulse Ox 95 09/17/24 17:47 O2 Del Method Room Air 09/17/24 17:47 Pertinent Lab Results Pertinent Lab Results: Laboratory Tests 09/17/24 09/17/24 09/17/24 14:46 14:47 15:04 WBC 22.0 H RBC 4.57 L Hgb 15.4 Hct 43.2 MCV 94.5 MCH 33.7 H MCHC 35.6 RDW 12.7 Plt Count 186 MPV 12.2 Immature Gran % (Auto) 1.0 H Neut % (Auto) 92.4 H Lymph % (Auto) 2.1 L Cherry % (Auto) 4.3 Eos % (Auto) 0.0 Baso % (Auto) 0.2 Lymph # (Auto) 0.5 L Cherry # (Auto) 0.9 Eos # (Auto) 0.0 Baso # (Auto) 0.0 Abs Immat Gran (auto) 0.22 H Absolute Neuts (auto) 20.4 H Absolute Nucleated RBC 0.000 Nucleated RBC % (auto) 0.0 Smear Tech's Comments VERIFIED PT 12.8 H INR 1.1 Sodium 136 Potassium 3.9 Chloride 98 Carbon Dioxide 23 Anion Gap 19 BUN 44 H Creatinine 4.34 H* Estim Creat Clear Calc 16.6 Estimated GFR 14 Random Glucose 230 H Lactic Acid 3.5 H* Lactic Acid F/U @ 2Hr Calcium 9.3 Total Bilirubin 1.1 H AST 30 ALT 16 Alkaline Phosphatase 156 H Troponin I High Sens 28.0 Total Protein 8.1 H Albumin 3.9 Beta-Hydroxybutyrate 0.16 Urine Color Urine Appearance Urine pH Ur Specific [place] Urine Protein Urine Glucose (UA) Urine Ketones Urine Blood Urine Nitrite Ur Leukocyte Esterase Urine RBC Urine WBC Urine WBC Clumps Ur Squamous Epith Cells Urine Bacteria Hyaline Casts 09/17/24 09/17/24 16:30 17:45 WBC RBC Hgb Hct MCV MCH MCHC RDW Plt Count MPV Immature Gran % (Auto) Neut % (Auto) Lymph % (Auto) Cherry % (Auto) Eos % (Auto) Baso % (Auto) Lymph # (Auto) Cherry # (Auto) Eos # (Auto) Baso # (Auto) Abs Immat Gran (auto) Absolute Neuts (auto) Absolute Nucleated RBC Nucleated RBC % (auto) Smear Tech's Comments PT INR Sodium Potassium Chloride Carbon Dioxide Anion Gap BUN Creatinine Estim Creat Clear Calc Estimated GFR Random Glucose Lactic Acid Lactic Acid F/U @ 2Hr 1.3 Calcium Total Bilirubin AST ALT Alkaline Phosphatase Troponin I High Sens Total Protein Albumin Beta-Hydroxybutyrate Urine Color BROWN Urine Appearance Cloudy Urine pH 6.0 Ur Specific [place] 1.020 Urine Protein 100 (2+) H Urine Glucose (UA) 100 H Urine Ketones Trace Urine Blood Large (3+) H Urine Nitrite Positive H Ur Leukocyte Esterase Moderate (2+) H Urine RBC >20 H Urine WBC >50 H Urine WBC Clumps Present Ur Squamous Epith Cells 0-2 Urine Bacteria 4+ Hyaline Casts 3-5 Airway Mallampati Class: II TM Dist: >3cm Neck ROM: Full Denture: Upper and Lower Loose/Missing/Broken Teeth: No Heart: RRR, tachy Lungs: CTAB Assessment and Plan Assessment Anesthesia Assessment: Anesthesia Plan Discussed and Chart Reviewed Final Anesthetic Review Family History of Problems with Anesthesia: Unobtainable History of Problems with Anesthesia: Unobtainable NPO: Yes ASA Class: III and Emergency Final Preanesthetic Review: No Changes in Pt Med Stat, Meds/Allgs Chart Reviewed, Consent Obtained/Reviewed and Anes Risks/Benef Reviewed Patient Risk: High Procedure Risk: Low Anesthetic Plan Anesthetic Plan: GA Disposition: Standard PACU
[2024-09-17 18:35] LABS: Resp Syncy Virus RNA Qual PCR NEGATIVE (Negative); SARS COV2 PCR INHOUSE NEGATIVE (Negative)
--- NOTE | 2024-09-17 18:37 | PC.NURSE ---
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 Preparing to transfer to OR.
--- NOTE | 2024-09-17 19:18 | PM.UROCN ---
History of Present Illness Consult details Consult date: 09/17/24 Narrative: CC: Bilateral obstructing stone 64-year-old male Nonverbal at baseline, prior TBI with right-sided hemiplegia Presentation from home with disturbed baseline behavior He has indicated that he has abdominal discomfort Associated nausea and vomiting Laboratories show creatinine 4.3, WBC 22, UA positive nitrites indicative of bladder infection CT imaging - Bilateral ureteral stones with moderate to severe hydronephrosis - 11 mm Findings consistent with urosepsis, acute kidney injury, significant degree of bilateral urinary obstruction Recommendation cystoscopy, bilateral retrogrades, bilateral stent placement for urosepsis Recommend admission to ICU for overnight observation Review of Systems Constitutional: Constitutional: Reports as per HPI and Reports no additional constitutional complaints Cardiovascular: Cardiovascular: Reports as per HPI and Reports no additional cardiovascular complaints Respiratory: Respiratory: Reports as per HPI and Reports no additional respiratory complaints Gastrointestinal: Gastrointestinal: Reports as per HPI and Reports no additional gastrointestinal complaints Genitourinary: Genitourinary: Reports as per HPI Musculoskeletal: Musculoskeletal: Reports no additional musculoskeletal complaints and Reports as per HPI Neurologic: Reports system reviewed and no additional complaints, except as documented and Reports as per HPI [facility] Past Medical History Medical History Renal calculi Hypertension Diabetes mellitus Brain injury Hepatitis C HIV (human immunodeficiency virus infection) Family History Family History Mother Diabetes mellitus Social History Social History Household Members: Family Household Members Other:: Lives with mother Housing: Apartment Do you presently have visiting nurse or other home services: No Unable to assess alcohol history related to: Unable to respond Alcohol intake: never Patient Tobacco Use Status: Never used Tobacco Advance Directives: Yes Advance Directives on File: Yes Advance Directives Date on File: 01/03/21 service: No Current occupational status: disabled Meds Allergies Allergy/AdvReac Type Severity Reaction Status Date / Time aspirin (Aspirin) Allergy Unknown HIVES, Verified 09/17/24 14:31 ITCHING ibuprofen (From Motrin) Allergy Unknown UNKNOWN Verified 09/17/24 14:31 Sulfa (Sulfonamide Allergy Unknown HIVES Verified 09/17/24 14:31 Antibiotics) (SULFA (SULFONAMIDE ANTIBIOTICS)) Aspirin Allergy Unknown Rash Uncoded 09/17/24 14:31 Seafood Allergy Unknown RASH, Uncoded 09/17/24 14:31 ITCHING, HIVES Sulfa Allergy Unknown Rash Uncoded 09/17/24 14:31 Active Medications: Current Medications Fentanyl (Fentanyl Citrate/Pf 100 Mcg/2 Ml Vial) 25 mcg IVPUSH Q5M PRN PRN Reason: Pain, Moderate to Severe (Pain Scale 4-10) Stop: 09/18/24 00:31 Naloxone HCl (Naloxone Hcl 0.4 Mg/Ml Vial) 0.04 mg IVPUSH Q5M PRN PRN Reason: Excessive sedation or RR < 8 Ondansetron HCl (Ondansetron Hcl 4 Mg/2 Ml Vial) 4 mg IVPUSH ONCE PRN PRN Reason: Nausea and Vomiting Stop: 09/18/24 00:32 Home Medications ?Medication ?Instructions ?Recorded ?Confirmed ?Last Taken ?Type abacavir 600 mg-dolutegravir 50 1 tab PO DAILY 12/11/20 04/07/24 09/11/23 History mg-lamivudine 300 mg tablet (Triumeq) insulin degludec 100 unit/mL (3 21 unit subcut DAILY 12/11/20 04/07/24 09/11/23 History mL) subcutaneous pen (Tresiba FlexTouch U-100 insulin) insulin lispro 100 unit/mL 0 sliding scale dose subcut TID 12/11/20 04/07/24 09/11/23 History subcutaneous pen (Humalog KwikPen (U-100) Insulin) losartan 100 mg tablet 100 mg PO DAILY 12/11/20 04/07/24 09/11/23 History acetaminophen 325 mg tablet 650 mg PO Q6H PRN Pain 01/02/21 04/07/24 Unknown History cholecalciferol (vitamin D3) 50 50 mcg PO DAILY 09/12/23 04/07/24 09/11/23 History mcg (2,000 unit) capsule fluticasone propionate 50 2 spray intranasal DAILY 09/12/23 04/07/24 09/11/23 History mcg/actuation nasal spray,suspension loratadine 10 mg tablet 10 mg PO DAILY 09/12/23 04/07/24 09/11/23 History Physical Exam Vital Signs: Vital Signs: Last Vital Signs Temp 98.4 F 09/17/24 17:47 Pulse 104 H 09/17/24 17:47 Resp 28 H 09/17/24 17:47 BP 112/60 09/17/24 17:47 Pulse Ox 95 09/17/24 17:47 O2 Del Method Room Air 09/17/24 17:47 BMI result Body Mass Index 23.6 Const: General: cooperative, healthy appearing, comfortable and no acute distress Orientation/consciousness: patient oriented x3 HEENT: Face and sinus: Yes normal facial exam Mouth: moist mucous membranes Neck: Neck: Yes normal visual inspection, Yes full ROM and Yes trachea midline Chest: Chest palpation & inspection: normal inspection of the chest Resp: Effort & Inspection: normal respiratory effort, able to speak in complete sentences and no respiratory distress GI: Inspection: Yes normal to inspection Back/Spine/Pelvis: Cervical Spine: normal cervical lordosis Thoracic/Lumbar Spine: thoracic and lumbar spine normal to inspection Skin: General skin exam: no rashes or lesions noted Neuro: General: patient oriented x3, tone normal and moves all extremities Extrem: General: Yes normal to inspection and Yes capillary refill normal Results Labs 09/17/24 14:46 09/17/24 14:46 Labs: Abnormal lab results 09/17/24 09/17/24 09/17/24 Range/Units 14:46 14:47 15:04 WBC 22.0 H (4.8-10.8) X10*3/uL RBC 4.57 L (4.60-5.80) X10*6/uL MCH 33.7 H (27.0-33.0) pg Immature Gran % (Auto) 1.0 H (0.0-0.4) % Neut % (Auto) 92.4 H (45-73) % Lymph % (Auto) 2.1 L (20-40) % Lymph # (Auto) 0.5 L (1.2-4.9) X10*3/uL Abs Immat Gran (auto) 0.22 H (0.00-0.03) X10*3/uL Absolute Neuts (auto) 20.4 H (2.0-8.3) x10*3/uL PT 12.8 H (10.9-12.4) SEC BUN 44 H (9-16) mg/dL Creatinine 4.34 H* (0.5-1.4) mg/dL Random Glucose 230 H (60-115) mg/dL Lactic Acid 3.5 H* (0.5-2.0) mmol/L Total Bilirubin 1.1 H (0.0-1.0) mg/dL Alkaline Phosphatase 156 H (39-117) U/L Total Protein 8.1 H (6.5-8.0) g/dL Urine Protein (Neg-Trace) mg/dL Urine Glucose (UA) (Negative) mg/dL Urine Blood (Negative) Urine Nitrite (Negative) Ur Leukocyte Esterase (Negative) Urine RBC (0-2) /HPF Urine WBC (0-5) /HPF 09/17/24 Range/Units 16:30 WBC (4.8-10.8) X10*3/uL RBC (4.60-5.80) X10*6/uL MCH (27.0-33.0) pg Immature Gran % (Auto) (0.0-0.4) % Neut % (Auto) (45-73) % Lymph % (Auto) (20-40) % Lymph # (Auto) (1.2-4.9) X10*3/uL Abs Immat Gran (auto) (0.00-0.03) X10*3/uL Absolute Neuts (auto) (2.0-8.3) x10*3/uL PT (10.9-12.4) SEC BUN (9-16) mg/dL Creatinine (0.5-1.4) mg/dL Random Glucose (60-115) mg/dL Lactic Acid (0.5-2.0) mmol/L Total Bilirubin (0.0-1.0) mg/dL Alkaline Phosphatase (39-117) U/L Total Protein (6.5-8.0) g/dL Urine Protein 100 (2+) H (Neg-Trace) mg/dL Urine Glucose (UA) 100 H (Negative) mg/dL Urine Blood Large (3+) H (Negative) Urine Nitrite Positive H (Negative) Ur Leukocyte Esterase Moderate (2+) H (Negative) Urine RBC >20 H (0-2) /HPF Urine WBC >50 H (0-5) /HPF Short CBC 09/17/24 Range/Units 14:46 WBC 22.0 H (4.8-10.8) X10*3/uL Hgb 15.4 (14.0-18.0) g/dl Hct 43.2 (42.0-52.0) % Plt Count 186 (160-400) X10*3/uL BMP 09/17/24 14:46 Sodium 136 Potassium 3.9 Chloride 98 Carbon Dioxide 23 BUN 44 H Creatinine 4.34 H* Calcium 9.3 Liver Function 09/17/24 Range/Units 14:46 Total Bilirubin 1.1 H (0.0-1.0) mg/dL AST 30 (5-37) U/L ALT 16 (0-40) U/L Alkaline Phosphatase 156 H (39-117) U/L Albumin 3.9 (3.5-5.0) g/dL Urine 09/17/24 Range/Units 16:30 Urine Color BROWN Urine Appearance Cloudy Urine pH 6.0 (5.0-9.0) Ur Specific [place] 1.020 (1.005-1.025) Urine Protein 100 (2+) H (Neg-Trace) mg/dL Urine Glucose (UA) 100 H (Negative) mg/dL All other labs normal. Assessment and Plan (1) Hydronephrosis with urinary obstruction due to ureteral calculus: Status: Acute (2) Acute renal failure: Qualifiers: Acute renal failure type: unspecified Qualified Code(s): N17.9 - Acute kidney failure, unspecified Status: Acute Plan Risks, benefits and alternatives to therapy were discussed. These include but are not limited to infection, bleeding, damage to local organs and tissues, need for further interventions. Anesthetic risks regarding cardiac arrhythmia, blood clots, and potential mortality were discussed. The patient understands the typical recovery time and the outpatient nature of the procedure. After consideration of these risks the patient gives full informed consent and they wish to move ahead with the procedure. - cystoscopy, bilateral retrograde, bilateral stent Procedures Date of Service Date of Service: 09/17/24
--- NOTE | 2024-09-17 20:26 | P.OP_ITS ---
Operative Note Operative Note Date of Service: 09/17/24 Narrative: PreOperative Diagnosis: Bilateral obstructing ureteric stones with urosepsis Post Operative Diagnosis: Bilateral obstructing ureteric stones with urosepsis Procedure: Cystoscopy, bilateral retrograde, right renal aspiration, bilateral stent placement Surgeon: Dr Tank Dave Anesthesia: Sedation Indications for procedure: Bilateral obstructing ureteric stones with urosepsis and KT creatinine 4.3 Procedure: After informed consent was verified the patient was brought to the operating room and placed in a supine position. Anesthesia was administered per protocol. The patient was placed in modified dorsal lithotomy position and prepped and draped in a sterile fashion. A safety pause time-out was performed. Laterality of procedure and antibiotics were confirmed, appropriate imaging was available A 22 [place]orean cystoscope was introduced per urethra. No abnormality was noted of urethra or bladder. Both ureteric orifices were seen in a normal position. The right ureter was cannulated with an open ended catheter and a retrograde examination was performed. Obstructing stone seen in proximal ureter . A Sensor guidewire was placed under fluoroscopy and a good coil was seen within the renal pelvis. Open-ended catheter advanced over the wire. Aspiration per formed of right renal pelvis. Specimen sent for culture. A 7 [place] by 26 cm double J stent was advanced over the wire and up to the level of the renal pelvis under fluoroscopic and direct visualization. The stent was seen with appropriate coil within the renal pelvis and in the bladder after deployment. The left ureter was cannulated with an open ended catheter and a retrograde examination was performed. Obstructing stone seen in proximal ureter . A Sensor guidewire was placed under fluoroscopy and a good coil was seen within the renal pelvis. A 7 [place] by 26 cm double J stent was advanced over the wire and up to the level of the renal pelvis under fluoroscopic and direct visualization. The stent was seen with appropriate coil within the renal pelvis and in the bladder after deployment. A 16 [place]orean Ernandez catheter was placed on completion of the procedure to allow for drainage. The patient tolerated the procedure well and was transferred in a stable condition to the recovery area. Pathology: Renal aspiration for culture Drains: Bilateral stents, Ernandez catheter
--- NOTE | 2024-09-17 20:35 | PHA.MEDREC ---
Addendum entered by Farshad Henry PharmD 09/17/24 20:43: reviewed Original Note: Pharmacy Consult ? Medication Reconciliation Pharmacy has completed the medication reconciliation. Spoke to patients sister Selena to confirm med list. Sister was able to name all of patients medications. Sister states patient is no longer taking Acetaminophen 650 mg, Flonase nasal spray, and Metoprolol Tart 50 mg. Sister confirmed Humalog Kwik pen TID per sliding scale and Tresiba 22 units daily. Patient last had his medications today.
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
[2024-09-17 22:12] LABS: Hematocrit 41.0 % (42.0-52.0); Hemoglobin 14.5 g/dl (14.0-18.0); Imm Gran Abs Auto 0.13 X10*3/uL (0.00-0.03); Imm Gran Pct Auto 0.7 % (0.0-0.4); Lymphocytes Absolute Auto 1.2 X10*3/uL (1.2-4.9); MANUAL DIFF FLAG SCAN; Mean Corpuscular HGB Conc 35.4 g/dl (31.0-36.0); Mean Corpuscular Hemoglobin 33.9 pg (27.0-33.0); Mean Corpuscular Volume 95.8 fL (80.0-98.0); NRBC Abs Auto 0.000 X10*3/uL (0.0-0.012); NRBC Pct Auto 0.0 /100WBC (0.0-0.2); Platelet Count 115 X10*3/uL (160-400); Red Blood Count 4.28 X10*6/uL (4.60-5.80); SCAN SMEAR FLAG 1; White Blood Count 18.5 X10*3/uL (4.8-10.8)
[2024-09-17 22:14] LABS: VBG HCO3 21 mmol/L (22-26); VBG O2 % Saturation 100.0 %
[2024-09-17 22:15] LABS: Venous Blood Gas Refer to POC result
[2024-09-17 22:29] LABS: Anion Gap 15 (12-20); Blood Urea Nitrogen 46 mg/dL (9-16); Calcium 8.5 mg/dL (8.4-10.2); Carbon Dioxide 19 mmol/L (22-29); Chloride 109 mmol/L (96-108); Creatinine Clr Calc Pharmacy 18.7; Estimated Glomerular Filt Rate 16; Potassium 4.4 mmol/L (3.3-5.1); Sodium 139 mmol/L (135-145)
[2024-09-17 22:34] LABS: B Type Natriuretic Peptide 74 pg/mL (<100)
[2024-09-18] VITALS (9 sets, daily range): BP systolic 110–145; BP diastolic 55–95; PULSE 73–88; RESP 16–18; TEMP 36.2–37.1; O2SAT 95–97; BMI 24.1
[2024-09-18] MEDS: Lactated Ringers 1,000 ML 100 ML IVCONT ×2 (00:57→16:11)
[2024-09-18] MEDS: 0.9 % Sodium Chloride Flush 3 ML SYRINGE IVFLUSH ×3 (01:06→21:45)
[2024-09-18 07:33] LABS: MANUAL DIFF FLAG NO
[2024-09-18 07:46] LABS: Hematocrit 35.9 % (42.0-52.0); Hemoglobin 12.2 g/dl (14.0-18.0); Imm Gran Abs Auto 0.07 X10*3/uL (0.00-0.03); Imm Gran Pct Auto 0.6 % (0.0-0.4); Lymphocytes Absolute Auto 1.2 X10*3/uL (1.2-4.9); Mean Corpuscular HGB Conc 34.0 g/dl (31.0-36.0); Mean Corpuscular Hemoglobin 33.2 pg (27.0-33.0); Mean Corpuscular Volume 97.6 fL (80.0-98.0); NRBC Abs Auto 0.000 X10*3/uL (0.0-0.012); NRBC Pct Auto 0.0 /100WBC (0.0-0.2); Platelet Count 121 X10*3/uL (160-400); Red Blood Count 3.68 X10*6/uL (4.60-5.80); White Blood Count 11.6 X10*3/uL (4.8-10.8)
[2024-09-18 07:48] LABS: Magnesium 1.5 mg/dL (1.6-2.6)
[2024-09-18 07:48] LABS: Glucose, Whole Blood 58 mg/dL (60-115)
[2024-09-18 07:52] LABS: Alanine Aminotransferase 7 U/L (0-40); Albumin Level 2.5 g/dL (3.5-5.0); Alkaline Phosphatase 76 U/L (39-117); Anion Gap 13 (12-20); Aspartate Amino Transferase 33 U/L (5-37); Blood Urea Nitrogen 38 mg/dL (9-16); Calcium 7.9 mg/dL (8.4-10.2); Carbon Dioxide 24 mmol/L (22-29); Chloride 109 mmol/L (96-108); Creatinine Clr Calc Pharmacy 34.0; Estimated Glomerular Filt Rate 32; Potassium 3.9 mmol/L (3.3-5.1); Sodium 142 mmol/L (135-145); Total Protein 5.3 g/dL (6.5-8.0)
[2024-09-18 08:13] LABS: Glucose, Whole Blood 180 mg/dL (60-115)
[2024-09-18 08:34] LABS: Glucose, Whole Blood 164 mg/dL (60-115)
--- NOTE | 2024-09-18 08:54 | HO.POSTANES ---
Post Anesthesia Evaluation Post Anesthesia Evaluation Date of Service: 09/18/24 Vital Signs: Vital Signs Temp Pulse Resp BP Pulse Ox O2 Del Method 09/18/24 08:00 97.1 F 18 110/56 L 97 Room Air 09/18/24 06:00 97.9 F 78 16 121/65 97 Room Air 09/18/24 04:00 98.0 F 73 16 110/55 L 97 Room Air 09/18/24 02:00 98.7 F 82 16 113/66 95 Room Air 09/18/24 00:00 98.0 F 83 16 116/71 96 Room Air 09/17/24 21:41 97.0 F 87 16 116/62 96 Room Air 09/17/24 20:55 97.5 F 89 18 121/73 97 Room Air Anesthesia: Monitored Mental Status: Awake Pain Control: Satisfactory Nausea/Vomiting: None Hydration: Adequate Anesthesia-Related Issues: No Anes. Related Issues
--- NOTE | 2024-09-18 09:28 | MHC.CM.PN ---
Pt. is non verbal, assessment info from guardian, Selena Guerrero, his sister. Pt. lives with his mother, he has 30 hours a week [employer] TE[employer] hrs from [facility]. PCP is Dr. Octaviano Sabillon. For DME he has a hospital bed, a manual w/c and electric w/c. Family can transport him home in a w/c van. DCP: home, resume services (or with [facility]). CM to follow for DC needs.
[2024-09-18 09:37] LABS: Glucose, Whole Blood 248 mg/dL (60-115)
[2024-09-18] MEDS: Abacavir/lamiVUDine 600/300 TABLET 1 TAB PO (11:22)
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
[2024-09-18 11:33] LABS: Glucose, Whole Blood 343 mg/dL (60-115)
[2024-09-18] MEDS: Insulin Glargine,Hum.rec.anlog 100 UNIT/ML 10 ML VIAL 8 UNIT SUBCUT (11:55)
[2024-09-18] MEDS: Magnesium Sulfate/H2O 2 GM/50 ML PIGGYBACK IV (11:56)
--- NOTE | 2024-09-18 13:45 | MHC.SL.SWA ---
Speech Pathologist Impression: Risk of Aspiration, Oropharyngeal Dysphagia Dysphasia Diet Status: Downgrade from NDD3 to NDD2, remain on THIN Liquid Consistency and Strategies for Safe Swallow: Liquid Intake Recommendation: Thin Solid Food Consistency: Dietary Recommendations: Grnd/Mech Altered (NDD2) Oral Medication Intake: Crushed with Puree Please contact the pharmacy regarding appropriate crushable or liquid drug formulations that are available whenever modified delivery is recommended. Supervision While Eating and Drinking for Safe Swallow: Direct Supervision (1:1) Recommendation for Speech: Inpatient Speech Therapy Comment: Patient with mild oropharyngeal dysphagia, note edentulous status and hx anoxic brain injury, R-hemiparesis, and HIV. Patient is nonverbal, communicates with gestures and head nod/shake, can follow commands and feed himself, though he will need assistance with tray set up, ensuring items are opened and within reach. Recommend GROUND/MECH ALTERED (NDD2) solids and THIN liquids, pills CRUSHED in PUREE. Frequency/Duration: M-F Date Range for Service Req: Timeline to reassess: Center Director Clinican/Clinical Fellow: No Supervisory Statement: I have reviewed and agree with the student/clinical fellow's documentation: N/A Speech Language Pathologist: Akanksha Freedman M.A., CCC-HEARING AID MECHANIC
--- NOTE | 2024-09-18 15:15 | P.PNUR_ITS ---
Subjective Subjective Date of Service: 09/18/24 Interval history: Postop day 1 bilateral stenting Creatinine has dropped from 4-2.1 Significant improvement in renal function Good urine output Awaiting culture results Physical Exam 2 Vital Signs: Vital Signs: Last Vital Signs Temp 97.3 F 09/18/24 10:00 Pulse 86 09/18/24 10:00 Resp 18 09/18/24 10:00 BP 117/65 09/18/24 10:00 Pulse Ox 95 09/18/24 10:00 O2 Del Method Room Air 09/18/24 10:00 O2 Flow Rate 6 09/17/24 20:40 BMI result Body Mass Index 24.1 Const: General: cooperative, healthy appearing, comfortable and no acute distress Orientation/consciousness: patient oriented x3 HEENT: Face and sinus: Yes normal facial exam Mouth: moist mucous membranes Neck: Neck: Yes normal visual inspection, Yes full ROM and Yes trachea midline Chest: Chest palpation & inspection: normal inspection of the chest Resp: Effort & Inspection: normal respiratory effort, able to speak in complete sentences and no respiratory distress GI: Inspection: Yes normal to inspection Back/Spine/Pelvis: Cervical Spine: normal cervical lordosis Thoracic/Lumbar Spine: thoracic and lumbar spine normal to inspection Skin: General skin exam: no rashes or lesions noted Neuro: General: patient oriented x3, tone normal and moves all extremities Extrem: General: Yes normal to inspection and Yes capillary refill normal Urology Results Labs 09/18/24 07:26 09/18/24 07:26 Labs: Laboratory Results - last 24 hr 09/17/24 09/17/24 09/17/24 14:46 15:04 16:30 WBC RBC Hgb Hct MCV MCH MCHC RDW Plt Count MPV Immature Gran % (Auto) 1.0 H Neut % (Auto) 92.4 H Lymph % (Auto) 2.1 L [place] % (Auto) 4.3 Eos % (Auto) 0.0 Baso % (Auto) 0.2 Lymph # (Auto) 0.5 L [place] # (Auto) 0.9 Eos # (Auto) 0.0 Baso # (Auto) 0.0 Abs Immat Gran (auto) 0.22 H Absolute Neuts (auto) 20.4 H Absolute Nucleated RBC 0.000 Nucleated RBC % (auto) 0.0 Smear Tech's Comments VERIFIED VBG pH VBG pCO2 VBG pO2 VBG HCO3 VBG O2 Saturation VBG Base Excess Sodium 136 Potassium 3.9 Chloride 98 Carbon Dioxide 23 Anion Gap 19 BUN 44 H Creatinine 4.34 H* Estim Creat Clear Calc 16.6 Estimated GFR 14 POC Glucose Random Glucose 230 H Lactic Acid 3.5 H* Lactic Acid F/U @ 2Hr Calcium 9.3 Magnesium Total Bilirubin 1.1 H AST 30 ALT 16 Alkaline Phosphatase 156 H Troponin I High Sens 28.0 B-Natriuretic Peptide Total Protein 8.1 H Albumin 3.9 Urine Color BROWN Urine Appearance Cloudy Urine pH 6.0 Ur Specific [place] 1.020 Urine Protein 100 (2+) H Urine Glucose (UA) 100 H Urine Ketones Trace Urine Blood Large (3+) H Urine Nitrite Positive H Ur Leukocyte Esterase Moderate (2+) H Urine RBC >20 H Urine WBC >50 H Urine WBC Clumps Present Ur Squamous Epith Cells 0-2 Urine Bacteria 4+ Hyaline Casts 3-5 Influenza Type A (PCR) Influenza Type B (PCR) RSV RNA Qual (PCR) SARS-CoV-2 RNA (RT-PCR) 09/17/24 09/17/24 09/17/24 17:45 22:05 22:11 WBC 18.5 H RBC 4.28 L Hgb 14.5 Hct 41.0 L MCV 95.8 MCH 33.9 H MCHC 35.4 RDW 12.8 Plt Count 115 L D MPV 12.8 H Immature Gran % (Auto) 0.7 H Neut % (Auto) 80.9 H Lymph % (Auto) 6.4 L [place] % (Auto) 11.7 H Eos % (Auto) 0.1 Baso % (Auto) 0.2 Lymph # (Auto) 1.2 [place] # (Auto) 2.2 H Eos # (Auto) 0.0 Baso # (Auto) 0.0 Abs Immat Gran (auto) 0.13 H Absolute Neuts (auto) 15.0 H Absolute Nucleated RBC 0.000 Nucleated RBC % (auto) 0.0 Smear Tech's Comments VBG pH 7.43 VBG pCO2 31 VBG pO2 133 VBG HCO3 21 L VBG O2 Saturation 100.0 VBG Base Excess -2.2 Sodium 139 Potassium 4.4 Chloride 109 H Carbon Dioxide 19 L Anion Gap 15 BUN 46 H Creatinine 3.86 H Estim Creat Clear Calc 18.7 Estimated GFR 16 POC Glucose Random Glucose 84 Lactic Acid Lactic Acid F/U @ 2Hr 1.3 Calcium 8.5 D Magnesium Total Bilirubin AST ALT Alkaline Phosphatase Troponin I High Sens B-Natriuretic Peptide 74 Total Protein Albumin Urine Color Urine Appearance Urine pH Ur Specific [place] Urine Protein Urine Glucose (UA) Urine Ketones Urine Blood Urine Nitrite Ur Leukocyte Esterase Urine RBC Urine WBC Urine WBC Clumps Ur Squamous Epith Cells Urine Bacteria Hyaline Casts Influenza Type A (PCR) NEGATIVE Influenza Type B (PCR) NEGATIVE RSV RNA Qual (PCR) NEGATIVE SARS-CoV-2 RNA (RT-PCR) NEGATIVE 09/18/24 09/18/24 09/18/24 07:26 07:40 08:09 WBC 11.6 H RBC 3.68 L Hgb 12.2 L Hct 35.9 L MCV 97.6 MCH 33.2 H MCHC 34.0 RDW 12.7 Plt Count 121 L MPV 12.3 Immature Gran % (Auto) 0.6 H Neut % (Auto) 77.7 H Lymph % (Auto) 10.0 L [place] % (Auto) 10.8 Eos % (Auto) 0.5 Baso % (Auto) 0.4 Lymph # (Auto) 1.2 [place] # (Auto) 1.3 H Eos # (Auto) 0.1 Baso # (Auto) 0.1 Abs Immat Gran (auto) 0.07 H Absolute Neuts (auto) 9.0 H Absolute Nucleated RBC 0.000 Nucleated RBC % (auto) 0.0 Smear Tech's Comments VBG pH VBG pCO2 VBG pO2 VBG HCO3 VBG O2 Saturation VBG Base Excess Sodium 142 Potassium 3.9 Chloride 109 H Carbon Dioxide 24 Anion Gap 13 BUN 38 H Creatinine 2.12 H Estim Creat Clear Calc 34.0 Estimated GFR 32 POC Glucose 58 L* 180 H Random Glucose 52 L* Lactic Acid Lactic Acid F/U @ 2Hr Calcium 7.9 L D Magnesium 1.5 L Total Bilirubin 0.5 AST 33 ALT 7 Alkaline Phosphatase 76 Troponin I High Sens B-Natriuretic Peptide Total Protein 5.3 L Albumin 2.5 L Urine Color Urine Appearance Urine pH Ur Specific [place] Urine Protein Urine Glucose (UA) Urine Ketones Urine Blood Urine Nitrite Ur Leukocyte Esterase Urine RBC Urine WBC Urine WBC Clumps Ur Squamous Epith Cells Urine Bacteria Hyaline Casts Influenza Type A (PCR) Influenza Type B (PCR) RSV RNA Qual (PCR) SARS-CoV-2 RNA (RT-PCR) 09/18/24 09/18/24 09/18/24 08:30 09:33 11:27 WBC RBC Hgb Hct MCV MCH MCHC RDW Plt Count MPV Immature Gran % (Auto) Neut % (Auto) Lymph % (Auto) [place] % (Auto) Eos % (Auto) Baso % (Auto) Lymph # (Auto) [place] # (Auto) Eos # (Auto) Baso # (Auto) Abs Immat Gran (auto) Absolute Neuts (auto) Absolute Nucleated RBC Nucleated RBC % (auto) Smear Tech's Comments VBG pH VBG pCO2 VBG pO2 VBG HCO3 VBG O2 Saturation VBG Base Excess Sodium Potassium Chloride Carbon Dioxide Anion Gap BUN Creatinine Estim Creat Clear Calc Estimated GFR POC Glucose 164 H 248 H 343 H Random Glucose Lactic Acid Lactic Acid F/U @ 2Hr Calcium Magnesium Total Bilirubin AST ALT Alkaline Phosphatase Troponin I High Sens B-Natriuretic Peptide Total Protein Albumin Urine Color Urine Appearance Urine pH Ur Specific [place] Urine Protein Urine Glucose (UA) Urine Ketones Urine Blood Urine Nitrite Ur Leukocyte Esterase Urine RBC Urine WBC Urine WBC Clumps Ur Squamous Epith Cells Urine Bacteria Hyaline Casts Influenza Type A (PCR) Influenza Type B (PCR) RSV RNA Qual (PCR) SARS-CoV-2 RNA (RT-PCR) Progress Note: A&P Assessment and plan (1) Acute renal failure: Status: Acute (2) Hydronephrosis with urinary obstruction due to ureteral calculus: Status: Acute Plan Continue current therapy. Leave Ernandez catheter in place. Time Spent With Patient Time: Total time managing care of this patient today ____ minutes. Progress Note: Quality Stroke Does the patient have a stroke diagnosis?: No Reason for No Anti-thrombotic by Day Two: N/A - Med Ordered
[2024-09-18 15:47] LABS: Glucose, Whole Blood 278 mg/dL (60-115)
[2024-09-18] MEDS: vancomycin HCL 1,000 MG, vancomycin HCL 750 MG in 0.9 % Sodium Chloride 500 ML 267.5 MG IV (16:04)
[2024-09-18 20:38] LABS: Glucose, Whole Blood 178 mg/dL (60-115)
[2024-09-19 03:11] VITALS: BP 148/85; PULSE 87; RESP 18; TEMP 37; O2SAT 96
[2024-09-19] MEDS: Lactated Ringers 1,000 ML 100 ML IVCONT (05:37)
[2024-09-19 06:00] VITALS: BMI 24.2
[2024-09-19 07:24] VITALS: BP 158/93; PULSE 79; RESP 18; TEMP 36.1; O2SAT 96
[2024-09-19 07:47] LABS: Glucose, Whole Blood 172 mg/dL (60-115)
[2024-09-19 08:06] LABS: Hematocrit 38.3 % (42.0-52.0); Hemoglobin 13.6 g/dl (14.0-18.0); Mean Corpuscular HGB Conc 35.5 g/dl (31.0-36.0); Mean Corpuscular Hemoglobin 33.8 pg (27.0-33.0); Mean Corpuscular Volume 95.3 fL (80.0-98.0); NRBC Abs Auto 0.000 X10*3/uL (0.0-0.012); NRBC Pct Auto 0.0 /100WBC (0.0-0.2); Platelet Count 136 X10*3/uL (160-400); Red Blood Count 4.02 X10*6/uL (4.60-5.80); White Blood Count 11.0 X10*3/uL (4.8-10.8)
[2024-09-19 08:25] LABS: Anion Gap 11 (12-20); Blood Urea Nitrogen 18 mg/dL (9-16); Calcium 8.4 mg/dL (8.4-10.2); Carbon Dioxide 26 mmol/L (22-29); Chloride 107 mmol/L (96-108); Creatinine Clr Calc Pharmacy 76.8; Estimated Glomerular Filt Rate > 60; Magnesium 1.3 mg/dL (1.6-2.6); Potassium 3.4 mmol/L (3.3-5.1); Sodium 141 mmol/L (135-145)
[2024-09-19] MEDS: Abacavir/lamiVUDine 600/300 TABLET 1 TAB PO (08:27)
[2024-09-19] MEDS: 0.9 % Sodium Chloride Flush 3 ML SYRINGE IVFLUSH ×3 (08:28→21:42)
[2024-09-19] MEDS: Insulin Glargine,Hum.rec.anlog 100 UNIT/ML 10 ML VIAL 8 UNIT SUBCUT (08:28)
[2024-09-19] MEDS: Magnesium Sulfate/H2O 2 GM/50 ML PIGGYBACK IV (08:43)
[2024-09-19] MEDS: Milk of Magnesia 30 ML ORAL.SUSP PO (09:50)
[2024-09-19 10:51] LABS: Glucose, Whole Blood 326 mg/dL (60-115)
[2024-09-19 11:53] VITALS: BP 159/87; PULSE 79; RESP 16; TEMP 35.9; O2SAT 95
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
--- NOTE | 2024-09-19 14:51 | W.PM.IDCN ---
History of Present Illness Data of Consult Service Date: 09/19/24 Requesting physician: Meena Barnett Primary Care Provider: Erika Sabillon MD HPI Reason for consult: weakness,nausea,vomiting,bacteremia He presents on 09/17 with nausea and vomiting x 2. He has TBI and right hemiplegia and is nonverbal. He has HIV and is on medication. Review of Systems Review of Systems: Yes Unobtainable due to mental condition PMFSH Past Medical History Medical History (Updated 09/19/24 @ 14:54 by Bea Yang MD) HIV (human immunodeficiency virus infection) Renal calculi Hypertension Diabetes mellitus Brain injury Hepatitis C Family History Family History Mother Diabetes mellitus Family history: reviewed and not pertinent Social History Social History Household Members: Family Household Members Other:: Mother and nephew Housing: Apartment Do you presently have visiting nurse or other home services: Yes ([employer]) Unable to assess alcohol history related to: Unable to respond Alcohol intake: never Patient Tobacco Use Status: Former Tobacco user Smoked in Last 30 Days: No Patient Interested in Nicotine Replacement: No Use of substances other than those prescribed or required for medical reasons: No Currently Displaying Signs/Symptoms of Drug Intoxication Withdrawal: No Are you DNR?: No Advance Directives: Yes Advance Directives on File: Yes Advance Directives Date on File: 01/03/21 Do you have a plan to hurt others: No Plan Recently lost weight without trying: No Eating poorly because of decreased appetite: No Nutrition Risks: No Nutritional Risk service: No Current occupational status: disabled Travel History Ebola Risk: Travel/Contact With Anyone From Affected Area/s: No Has Patient Experienced Ebola Symptoms: No Meds Allergies Allergy/AdvReac Type Severity Reaction Status Date / Time aspirin (Aspirin) Allergy Unknown HIVES, Verified 09/17/24 14:31 ITCHING ibuprofen (From Motrin) Allergy Unknown UNKNOWN Verified 09/17/24 14:31 Sulfa (Sulfonamide Allergy Unknown HIVES Verified 09/17/24 14:31 Antibiotics) (SULFA (SULFONAMIDE ANTIBIOTICS)) Aspirin Allergy Unknown Rash Uncoded 09/17/24 14:31 Seafood Allergy Unknown RASH, Uncoded 09/17/24 14:31 ITCHING, HIVES Sulfa Allergy Unknown Rash Uncoded 09/17/24 14:31 Active Medications: Current Medications Abacavir/Lamivudine (Abacavir/Lamivudine 600/300 Tablet) 1 tab PO DAILY [facility] BEDS AT [facility] Last Admin: 09/19/24 08:27 Dose: 1 tab Acetaminophen (Acetaminophen 325 Mg Tablet) 650 mg PO Q6H PRN PRN Reason: Pain, Mild 1-3,fever,headache Last Admin: 09/19/24 08:29 Dose: 650 mg Albuterol/Ipratropium (Albuterol/Iprat 2.5/0.5mg 3 Ml Ampul.Neb) 3 ml INHALE Q4H PRN PRN Reason: Shortness of Breath/Wheezing Calcium Carbonate (Calcium Carbonate 750 Mg Tab.Chew) 750 mg PO Q4H PRN PRN Reason: Heartburn Dextrose (Dextrose 50 % 25 Gm/50 Ml Syringe) 25 gm IVPUSH Q15M PRN; Protocol PRN Reason: per Hypoglycemia Standing Ord. Last Admin: 09/18/24 07:43 Dose: 25 gm Dolutegravir Sodium (Dolutegravir Sodium 50 Mg Tablet) 50 mg PO DAILY [facility] 234 BEDS AT [facility] Last Admin: 09/19/24 08:27 Dose: 50 mg Glucose (Glucose Gel 15 Gm Gel..Gram.) 15 gm PO Q15M PRN; Protocol PRN Reason: per Hypoglycemia Standing Ord. Heparin Sodium (Porcine) (Heparin Sodium,Porcine 5,000 Unit/Ml Vial) 5,000 unit SUBCUT Q12H [facility] 234 BEDS AT [facility] Last Admin: 09/19/24 14:21 Dose: 5,000 unit Vancomycin HCl 1,000 mg/ (Sodium Chloride) 270 mls @ 270 mls/hr IV Q24H [facility] 234 BEDS AT THE [facility] Insulin Glargine (Insulin Glargine,Hum.Rec.Anlog 100 Unit/Ml 10 Ml Vial) 10 unit SUBCUT DAILY [facility]CLUDE 234 BEDS AT THE [facility] Insulin Human Lispro (Insulin Lispro 100 Unit/Ml 3 Ml Vial) 0 unit SUBCUT QIDACHS [facility]CLUDE 234 BEDS AT THE [facility]; Protocol Last Admin: 09/19/24 10:59 Dose: 8 unit Loratadine (Loratadine 10 Mg Tablet) 10 mg PO DAILY [facility]CLUDE 234 BEDS AT [facility] Last Admin: 09/19/24 08:27 Dose: 10 mg Losartan Potassium (Losartan Potassium 50 Mg Tablet) 50 mg PO DAILY [facility]CLUDE 234 BEDS AT THE [facility]; Protocol Magnesium Hydroxide (Milk Of Magnesia 30 Ml Oral.Susp) 30 ml PO DAILY PRN PRN Reason: Constipation Last Admin: 09/19/24 09:50 Dose: 30 ml Melatonin (Melatonin 3 Mg Tablet) 6 mg PO BEDTIME PRN PRN Reason: Insomnia Ondansetron HCl (Ondansetron Hcl 4 Mg/2 Ml Vial) 4 mg IVPUSH Q8H PRN PRN Reason: Nausea and Vomiting Pharmacy Consult (Consult Rx Vancomycin Dosing) 1 each MISCELLANE DAILY PRN PRN Reason: Consult order Polyethylene Glycol (Polyethylene Glycol 3350 17 Gm Powd.Pack) 17 gm PO DAILY PRN PRN Reason: Constipation Senna (Sennosides 8.6 Mg Tablet) 17.2 mg PO BEDTIME [facility]S [facility]CLUDE 234 BEDS AT [facility] Last Admin: 09/18/24 21:45 Dose: 17.2 mg Sodium Chloride (0.9 % Sodium Chloride Flush 3 Ml Syringe) [facility] Admin: 09/19/24 08:28 Dose: 3 ml Vitamin D (Cholecalciferol (Vitamin D3) 25 Mcg Tablet) 50 mcg PO DAILY [facility] 234 BEDS AT [facility] Last Admin: 09/19/24 08:27 Dose: 50 mcg Home Medications ?Medication ?Instructions ?Recorded ?Confirmed ?Last Taken ?Type abacavir 600 mg-dolutegravir 50 1 tab PO DAILY 12/11/20 09/17/24 09/17/24 History mg-lamivudine 300 mg tablet (Triumeq) insulin degludec 100 unit/mL (3 22 unit subcut DAILY 12/11/20 09/17/24 09/17/24 History mL) subcutaneous pen (Tresiba FlexTouch U-100 insulin) insulin lispro 100 unit/mL 0 sliding scale dose subcut TID 12/11/20 09/17/24 09/17/24 History subcutaneous pen (Humalog KwikPen (U-100) Insulin) losartan 100 mg tablet 100 mg PO DAILY 12/11/20 09/17/24 09/17/24 History cholecalciferol (vitamin D3) 50 50 mcg PO DAILY 09/12/23 09/17/24 09/17/24 History mcg (2,000 unit) capsule loratadine 10 mg tablet 10 mg PO DAILY 09/12/23 09/17/24 09/17/24 History Physical Exam Vital Signs: Vital Signs: Last Vital Signs Temp 96.6 F L 09/19/24 11:53 Pulse 79 09/19/24 11:53 Resp 16 09/19/24 11:53 BP 159/87 H 09/19/24 11:53 Pulse Ox 95 09/19/24 11:53 O2 Del Method Room Air 09/19/24 11:53 O2 Flow Rate 6 09/17/24 20:40 BMI result Body Mass Index 24.2 Const: General: cooperative HEENT: Head: Yes normal to inspection Face and sinus: Yes normal facial exam Mouth: Normal oral and palatal mucosa present Teeth and gingiva: dentition normal Eyes: General: appearance normal, both eyes and all related structures Pupils: Equal, round and reactive pupils present Resp: Effort & Inspection: normal respiratory effort Cardio: Rate: regular rate Rhythm: regular rhythm GI: Palpation (GI): Soft to palpation and nontender : General: Yes no CVA tenderness Back/Spine/Pelvis: Back: no CVA tenderness Skin: General skin exam: no rashes or lesions noted Neuro: Other: right hemiplegia,nonverbal,no meningismus General: moves all extremities Cranial nerves: Yes Equal, round and reactive pupils present Extrem: General: Yes normal to inspection Psych: Appearance: grossly normal Results Labs 09/19/24 07:58 09/19/24 07:58 Labs: Short CBC 09/19/24 Range/Units 07:58 WBC 11.0 H (4.8-10.8) X10*3/uL Hgb 13.6 L (14.0-18.0) g/dl Hct 38.3 L (42.0-52.0) % Plt Count 136 L (160-400) X10*3/uL BMP 09/19/24 09/19/24 07:36 07:58 Sodium 141 Potassium 3.4 Chloride 107 Carbon Dioxide 26 BUN 18 H Creatinine Cancelled 0.94 Calcium 8.4 D Microbiology Microbiology Results: Microbiology 09/17/24 15:06 Blood - Venous Blood Culture - Preliminary Gram positive cocci 09/17/24 15:04 Blood - Venous Blood Culture - Preliminary Gram positive cocci 09/17/24 20:15 Urine Other - Kidney Right Urine Culture - Final 09/17/24 17:25 Urine Catheterized - Ernandez Catheter Urine Culture - Final Assessment and Plan (1) Sepsis: Qualifiers: Acute renal failure type: unspecified Sepsis acute organ dysfunction status: with acute organ dysfunction Sepsis type: sepsis due to unspecified organism Severe sepsis acute organ dysfunction type: acute renal failure Severe sepsis shock status: without septic shock Qualified Code(s): A41.9 - Sepsis, unspecified organism; R65.20 - Severe sepsis without septic shock; N17.9 - Acute kidney failure, unspecified Status: Acute (2) Gram-positive bacteremia: Status: Acute (3) Hydronephrosis with urinary obstruction due to ureteral calculus: Status: Acute Plan Continue Triumeq now renal function improved but check lactic acid make sure no lactic acidosis from NRTI. Continue Vancomycin Consider check CT head eval NPH Await blood culture final and if entercoccus make sure echo and Urology follows ?obstruction.
[2024-09-19 15:22] VITALS: BP 137/84; PULSE 70; RESP 16; TEMP 36.1; O2SAT 97
[2024-09-19 16:06] LABS: Glucose, Whole Blood 159 mg/dL (60-115)
[2024-09-19 19:19] VITALS: BP 155/87; PULSE 69; RESP 16; TEMP 36.7; O2SAT 96
[2024-09-19 21:28] LABS: Glucose, Whole Blood 216 mg/dL (60-115)
[2024-09-19 23:28] VITALS: BP 144/86; PULSE 72; RESP 16; TEMP 36.6; O2SAT 99
[2024-09-20] VITALS (7 sets, daily range): BP systolic 129–166; BP diastolic 77–92; PULSE 74–81; RESP 16–18; TEMP 36.1–37.2; O2SAT 94–96; BMI 24.4
[2024-09-20 06:54] LABS: Creatinine Clr Calc Pharmacy 90.2; Estimated Glomerular Filt Rate > 60
[2024-09-20 07:12] LABS: Magnesium 1.4 mg/dL (1.6-2.6)
[2024-09-20 07:27] LABS: Glucose, Whole Blood 238 mg/dL (60-115)
[2024-09-20] MEDS: Abacavir/lamiVUDine 600/300 TABLET 1 TAB PO (07:45)
[2024-09-20] MEDS: 0.9 % Sodium Chloride Flush 3 ML SYRINGE IVFLUSH ×3 (07:45→20:52)
[2024-09-20] MEDS: Insulin Glargine,Hum.rec.anlog 100 UNIT/ML 10 ML VIAL 10 UNIT SUBCUT (07:46)
[2024-09-20] MEDS: Milk of Magnesia 30 ML ORAL.SUSP PO (07:46)
[2024-09-20] MEDS: Magnesium Sulfate/H2O 2 GM/50 ML PIGGYBACK IV (07:47)
[2024-09-20 08:19] LABS: Anion Gap 14 (12-20); Blood Urea Nitrogen 11 mg/dL (9-16); Calcium 8.2 mg/dL (8.4-10.2); Carbon Dioxide 27 mmol/L (22-29); Chloride 105 mmol/L (96-108); Potassium 3.8 mmol/L (3.3-5.1); Sodium 142 mmol/L (135-145)
--- NOTE | 2024-09-20 10:47 | P.PNUR_ITS ---
Subjective Subjective Date of Service: 09/20/24 Interval history: Significant improvement in creatinine Would treat with 2 weeks of antibiotics for pyelonephritis despite definitive microbiology Renal aspiration was not contaminated Plan for outpatient procedure in 3-4 weeks Physical Exam 2 Vital Signs: Vital Signs: Last Vital Signs Temp 97.5 F 09/20/24 07:09 Pulse 80 09/20/24 07:09 Resp 16 09/20/24 07:09 BP 166/92 H 09/20/24 07:46 Pulse Ox 95 09/20/24 07:09 O2 Del Method Room Air 09/20/24 07:09 O2 Flow Rate 6 09/17/24 20:40 BMI result Body Mass Index 24.4 Const: General: cooperative, healthy appearing, comfortable and no acute distress Orientation/consciousness: patient oriented x3 HEENT: Face and sinus: Yes normal facial exam Mouth: moist mucous membranes Neck: Neck: Yes normal visual inspection, Yes full ROM and Yes trachea midline Chest: Chest palpation & inspection: normal inspection of the chest Resp: Effort & Inspection: normal respiratory effort, able to speak in complete sentences and no respiratory distress GI: Inspection: Yes normal to inspection Back/Spine/Pelvis: Cervical Spine: normal cervical lordosis Thoracic/Lumbar Spine: thoracic and lumbar spine normal to inspection Skin: General skin exam: no rashes or lesions noted Neuro: General: patient oriented x3, tone normal and moves all extremities Extrem: General: Yes normal to inspection and Yes capillary refill normal Urology Results Labs 09/19/24 07:58 09/20/24 06:19 Labs: Laboratory Results - last 24 hr 09/19/24 09/19/24 09/19/24 10:46 15:55 21:23 Sodium Potassium Chloride Carbon Dioxide Anion Gap BUN Creatinine Estim Creat Clear Calc Estimated GFR POC Glucose 326 H 159 H 216 H Random Glucose Calcium Magnesium 09/20/24 09/20/24 06:19 07:22 Sodium 142 Potassium 3.8 Chloride 105 Carbon Dioxide 27 Anion Gap 14 BUN 11 Creatinine 0.80 Estim Creat Clear Calc 90.2 Estimated GFR > 60 POC Glucose 238 H Random Glucose 219 H Calcium 8.2 L Magnesium 1.4 L* Progress Note: A&P Assessment and plan (1) Acute renal failure: Status: Acute (2) Hydronephrosis with urinary obstruction due to ureteral calculus: Status: Acute Plan Continued improvement 3-4 week follow-up completion procedure Time Spent With Patient Time: Total time managing care of this patient today ____ minutes. Progress Note: Quality Stroke Does the patient have a stroke diagnosis?: No Reason for No Anti-thrombotic by Day Two: N/A - Med Ordered
[2024-09-20 11:02] LABS: Glucose, Whole Blood 280 mg/dL (60-115)
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
--- NOTE | 2024-09-20 14:21 | HE.PHANOTE ---
RE VANCO DOSING ADJUSTING TO 1000 MG Q12 DUE TO LEVEL ONLY 5.9 AFTER LOAD AND 1 DOSE. RENAL FUNCTION STABLE AFTER IMPROVEMENT YESTERDAY. WILL CONTINUE DAILY MONITORING OF RENAL FUNCTION AND RECHECK LEVEL 09/21 @1400.
[2024-09-20 16:15] LABS: Glucose, Whole Blood 271 mg/dL (60-115)
[2024-09-20 20:09] LABS: Glucose, Whole Blood 178 mg/dL (60-115)
[2024-09-21] VITALS (7 sets, daily range): BP systolic 138–177; BP diastolic 76–88; PULSE 77–92; RESP 16–18; TEMP 36–36.6; O2SAT 95–98; BMI 25.6
[2024-09-21 07:30] LABS: Glucose, Whole Blood 276 mg/dL (60-115)
[2024-09-21 08:05] LABS: Hematocrit 38.6 % (42.0-52.0); Hemoglobin 13.2 g/dl (14.0-18.0); Mean Corpuscular HGB Conc 34.2 g/dl (31.0-36.0); Mean Corpuscular Hemoglobin 33.1 pg (27.0-33.0); Mean Corpuscular Volume 96.7 fL (80.0-98.0); NRBC Abs Auto 0.000 X10*3/uL (0.0-0.012); NRBC Pct Auto 0.0 /100WBC (0.0-0.2); Platelet Count 166 X10*3/uL (160-400); Red Blood Count 3.99 X10*6/uL (4.60-5.80); White Blood Count 7.7 X10*3/uL (4.8-10.8)
[2024-09-21 08:15] LABS: Anion Gap 12 (12-20); Blood Urea Nitrogen 11 mg/dL (9-16); Calcium 8.3 mg/dL (8.4-10.2); Carbon Dioxide 28 mmol/L (22-29); Chloride 104 mmol/L (96-108); Creatinine Clr Calc Pharmacy 93.7; Estimated Glomerular Filt Rate > 60; Magnesium 1.6 mg/dL (1.6-2.6); Potassium 4.5 mmol/L (3.3-5.1); Sodium 139 mmol/L (135-145)
[2024-09-21] MEDS: Insulin Glargine,Hum.rec.anlog 100 UNIT/ML 10 ML VIAL 10 UNIT SUBCUT (09:03)
[2024-09-21] MEDS: 0.9 % Sodium Chloride Flush 3 ML SYRINGE IVFLUSH ×3 (09:04→19:57)
[2024-09-21] MEDS: Abacavir/lamiVUDine 600/300 TABLET 1 TAB PO (09:05)
[2024-09-21 12:11] LABS: Glucose, Whole Blood 337 mg/dL (60-115)
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
--- NOTE | 2024-09-21 13:58 | MHC.CM.PN ---
EMR REVIEWED, PT W/PYLENONEPHRITIS FROM OBSTRUCTING STONE/BACTEREMIA, PER MD PT NOT YET READY FOR DC, CM WILL CONT TO FOLLOW DC NEEDS.
--- NOTE | 2024-09-21 14:52 | HE.PHANOTE ---
VANCO DOSE ADJUSTMENT BASED ON SCR AND TROUGH OF 13.5 DOSE CONTINUED AT 1000 Q 12. NEXT LEVEL AT 09/23 @ 1400
[2024-09-21 15:31] LABS: Glucose, Whole Blood 282 mg/dL (60-115)
--- NOTE | 2024-09-21 16:12 | MHC.SLORD ---
Speech Language Pathology Order Status: Pt not seen for dysphagia tx today, AUDIO VISUAL TECHNICIAN to followup tomorrow.
[2024-09-21] MEDS: Milk of Magnesia 30 ML ORAL.SUSP PO (19:57)
[2024-09-21 21:03] LABS: Glucose, Whole Blood 201 mg/dL (60-115)
[2024-09-22] VITALS (7 sets, daily range): BP systolic 136–173; BP diastolic 69–82; PULSE 70–86; RESP 16–18; TEMP 36.1–37.1; O2SAT 94–98; BMI 24.8
[2024-09-22 07:13] LABS: Glucose, Whole Blood 307 mg/dL (60-115)
[2024-09-22 07:29] LABS: Creatinine Clr Calc Pharmacy 93.7; Estimated Glomerular Filt Rate > 60
[2024-09-22] MEDS: Insulin Glargine,Hum.rec.anlog 100 UNIT/ML 10 ML VIAL 10 UNIT SUBCUT (08:31)
[2024-09-22] MEDS: Abacavir/lamiVUDine 600/300 TABLET 1 TAB PO (08:31)
[2024-09-22] MEDS: 0.9 % Sodium Chloride Flush 3 ML SYRINGE IVFLUSH ×2 (08:31→15:51)
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
[2024-09-22 11:55] LABS: Glucose, Whole Blood 370 mg/dL (60-115)
[2024-09-22 16:24] LABS: Glucose, Whole Blood 223 mg/dL (60-115)
[2024-09-22 20:14] LABS: Glucose, Whole Blood 243 mg/dL (60-115)
[2024-09-22] MEDS: Milk of Magnesia 30 ML ORAL.SUSP PO (21:05)
[2024-09-23] VITALS (12 sets, daily range): BP systolic 107–164; BP diastolic 58–81; PULSE 71–92; RESP 16–20; TEMP 36.1–37; O2SAT 94–98; BMI 25.5
[2024-09-23] MEDS: 0.9 % Sodium Chloride Flush 3 ML SYRINGE IVFLUSH ×4 (00:15→19:34)
[2024-09-23 06:43] LABS: Creatinine Clr Calc Pharmacy 86.9; Estimated Glomerular Filt Rate > 60
[2024-09-23 07:47] LABS: Glucose, Whole Blood 390 mg/dL (60-115)
[2024-09-23] MEDS: Insulin Glargine,Hum.rec.anlog 100 UNIT/ML 10 ML VIAL 10 UNIT SUBCUT (08:24)
--- NOTE | 2024-09-23 09:31 | P.CONAN_ITS ---
Documented by User: Magy Mohr NP 09/23/24 09:37 HPI - Anesthesia Eval Consult details Narrative: 64 yr old male for bilateral Cystoscopy, Ureteroroscopy, Retro, Laser; *pt is nonverbal. DNR/DNI s/p general for b/l cystoscopy, ureteroscopy 09/17/24 [facility] Active Problems Active Problems: All Active Problems HIV (human immunodeficiency virus infection) (Acute) Gram-positive bacteremia (Acute) Hydronephrosis with urinary obstruction due to ureteral calculus (Acute) Sepsis (Acute) Acute renal failure (Acute) Elevated troponin (Acute) Sepsis due to gram-negative UTI (Acute) Diabetes mellitus (Acute) Hyperglycemia (Acute) Past Medical History Medical History HIV (human immunodeficiency virus infection) Renal calculi Hypertension Diabetes mellitus Brain injury Hepatitis C Functional capacity: wheelchair bound Family History Family History Mother Diabetes mellitus Family history of problems with anesthesia: Unobtainable Surgical History History of Problems with Anesthesia: Unobtainable Social History Social History Household Members: Family Household Members Other:: Mother and nephew Housing: Apartment Do you presently have visiting nurse or other home services: Yes ([employer]) Unable to assess alcohol history related to: Unable to respond Alcohol intake: never Patient Tobacco Use Status: Former Tobacco user Smoked in Last 30 Days: No Patient Interested in Nicotine Replacement: No Use of substances other than those prescribed or required for medical reasons: No Currently Displaying Signs/Symptoms of Drug Intoxication Withdrawal: No Are you DNR?: No Advance Directives: Yes Advance Directives on File: Yes Advance Directives Date on File: 01/03/21 Do you have a plan to hurt others: No Plan Recently lost weight without trying: No Eating poorly because of decreased appetite: No Nutrition Risks: No Nutritional Risk service: No Current occupational status: disabled Meds Allergies Allergy/AdvReac Type Severity Reaction Status Date / Time aspirin (Aspirin) Allergy Unknown HIVES, Verified 09/17/24 14:31 ITCHING ibuprofen (From Motrin) Allergy Unknown UNKNOWN Verified 09/17/24 14:31 Sulfa (Sulfonamide Allergy Unknown HIVES Verified 09/17/24 14:31 Antibiotics) (SULFA (SULFONAMIDE ANTIBIOTICS)) Aspirin Allergy Unknown Rash Uncoded 09/17/24 14:31 Seafood Allergy Unknown RASH, Uncoded 09/17/24 14:31 ITCHING, HIVES Sulfa Allergy Unknown Rash Uncoded 09/17/24 14:31 Active Medications: Current Medications Abacavir/Lamivudine (Abacavir/Lamivudine 600/300 Tablet) 1 tab PO DAILY [facility] Last Admin: 09/23/24 08:15 Dose: Not Given Acetaminophen (Acetaminophen 325 Mg Tablet) 650 mg PO Q6H PRN PRN Reason: Pain, Mild 1-3,fever,headache Last Admin: 09/21/24 19:58 Dose: 650 mg Albuterol/Ipratropium (Albuterol/Iprat 2.5/0.5mg 3 Ml Ampul.Neb) 3 ml INHALE Q4H PRN PRN Reason: Shortness of Breath/Wheezing Calcium Carbonate (Calcium Carbonate 750 Mg Tab.Chew) 750 mg PO Q4H PRN PRN Reason: Heartburn Dextrose (Dextrose 50 % 25 Gm/50 Ml Syringe) 25 gm IVPUSH Q15M PRN; Protocol PRN Reason: per Hypoglycemia Standing Ord. Last Admin: 09/18/24 07:43 Dose: 25 gm Dolutegravir Sodium (Dolutegravir Sodium 50 Mg Tablet) 50 mg PO DAILY [facility] Last Admin: 09/23/24 08:15 Dose: Not Given Glucose (Glucose Gel 15 Gm Gel..Gram.) 15 gm PO Q15M PRN; Protocol PRN Reason: per Hypoglycemia Standing Ord. Heparin Sodium (Porcine) (Heparin Sodium,Porcine 5,000 Unit/Ml Vial) 5,000 unit SUBCUT Q12H [facility] Last Admin: 09/23/24 00:14 Dose: 5,000 unit Vancomycin HCl 1,000 mg/ (Sodium Chloride) 270 mls @ 270 mls/hr IV Q12H [facility] Last Infusion: 09/23/24 05:42 Dose: Infused Insulin Glargine (Insulin Glargine,Hum.Rec.Anlog 100 Unit/Ml 10 Ml Vial) 10 unit SUBCUT DAILY [facility] Last Admin: 09/23/24 08:24 Dose: 10 unit Insulin Human Lispro (Insulin Lispro 100 Unit/Ml 3 Ml Vial) 0 unit SUBCUT QIDACHS [facility]; Protocol Last Admin: 09/23/24 08:24 Dose: 10 unit Loratadine (Loratadine 10 Mg Tablet) 10 mg PO DAILY [facility] Last Admin: 09/23/24 08:24 Dose: Not Given Losartan Potassium (Losartan Potassium 50 Mg Tablet) 50 mg PO DAILY [facility]; Protocol Last Admin: 09/23/24 08:24 Dose: Not Given Magnesium Hydroxide (Milk Of Magnesia 30 Ml Oral.Susp) 30 ml PO DAILY PRN PRN Reason: Constipation Last Admin: 09/22/24 21:05 Dose: 30 ml Magnesium Oxide (Magnesium Oxide 400 Mg Tablet) 400 mg PO BIDPC [facility] Last Admin: 09/23/24 08:15 Dose: Not Given Melatonin (Melatonin 3 Mg Tablet) 6 mg PO BEDTIME PRN PRN Reason: Insomnia Last Admin: 09/22/24 21:04 Dose: 6 mg Ondansetron HCl (Ondansetron Hcl 4 Mg/2 Ml Vial) 4 mg IVPUSH Q8H PRN PRN Reason: Nausea and Vomiting Pharmacy Consult (Consult Rx Vancomycin Dosing) 1 each MISCELLANE DAILY PRN PRN Reason: Consult order Polyethylene Glycol (Polyethylene Glycol 3350 17 Gm Powd.Pack) 17 gm PO DAILY PRN PRN Reason: Constipation Last Admin: 09/22/24 09:56 Dose: 17 gm Senna (Sennosides 8.6 Mg Tablet) 17.2 mg PO BEDTIME [facility] Last Admin: 09/22/24 21:05 Dose: 17.2 mg Sodium Chloride (0.9 % Sodium Chloride Flush 3 Ml Syringe) [facility] Last Admin: 09/23/24 08:22 Dose: 3 ml Vitamin D (Cholecalciferol (Vitamin D3) 25 Mcg Tablet) 50 mcg PO DAILY [facility] Last Admin: 09/23/24 08:15 Dose: Not Given Home Medications ?Medication ?Instructions ?Recorded ?Confirmed ?Last Taken ?Type abacavir 600 mg-dolutegravir 50 1 tab PO DAILY 1 09/17/24 09/17/24 History mg-lamivudine 300 mg tablet (Triumeq) insulin degludec 100 unit/mL (3 22 unit subcut DAILY 1 09/17/24 09/17/24 History mL) subcutaneous pen (Tresiba FlexTouch U-100 insulin) insulin lispro 100 unit/mL 0 sliding scale dose subcut TID 12/11/20 09/17/24 09/17/24 History subcutaneous pen (Humalog KwikPen (U-100) Insulin) losartan 100 mg tablet 100 mg PO DAILY 12/11/2001/0209/17/24 History cholecalciferol (vitamin D3) 50 50 mcg PO DAILY 09/17/24 09/17/24 History mcg (2,000 unit) capsule loratadine 10 mg tablet 10 mg PO DAILY 09/12/2309/0809/17/24 History Exam Height,Weight and Vital Signs: Height 5 ft 8 in Weight 76.1 kg Last Vital Signs Temp 97.3 F 09/23/24 08:00 Pulse 92 09/23/24 08:00 Resp 20 09/23/24 08:00 BP 142/68 H 09/23/24 08:00 Pulse Ox 95 09/23/24 08:00 O2 Del Method Room Air 09/23/24 08:00 O2 Flow Rate 6 09/17/24 20:40 Pertinent Lab Results Pertinent Lab Results: Laboratory Tests 09/17/24 09/17/24 09/17/24 14:46 14:47 15:04 WBC 22.0 H RBC 4.57 L Hgb 15.4 Hct 43.2 MCV 94.5 MCH 33.7 H MCHC 35.6 RDW 12.7 Plt Count 186 MPV 12.2 Immature Gran % (Auto) 1.0 H Neut % (Auto) 92.4 H Lymph % (Auto) 2.1 L [place] % (Auto) 4.3 Eos % (Auto) 0.0 Baso % (Auto) 0.2 Lymph # (Auto) 0.5 L [place] # (Auto) 0.9 Eos # (Auto) 0.0 Baso # (Auto) 0.0 Abs Immat Gran (auto) 0.22 H Absolute Neuts (auto) 20.4 H Absolute Nucleated RBC 0.000 Nucleated RBC % (auto) 0.0 Smear Tech's Comments VERIFIED Hold Purple Top PT 12.8 H INR 1.1 VBG pH VBG pCO2 VBG pO2 VBG HCO3 VBG O2 Saturation VBG Base Excess Sodium 136 Potassium 3.9 Chloride 98 Carbon Dioxide 23 Anion Gap 19 BUN 44 H Creatinine 4.34 H* Estim Creat Clear Calc 16.6 Estimated GFR 14 POC Glucose Random Glucose 230 H Lactic Acid 3.5 H* Lactic Acid F/U @ 2Hr Calcium 9.3 Magnesium Total Bilirubin 1.1 H AST 30 ALT 16 Alkaline Phosphatase 156 H Troponin I High Sens 28.0 B-Natriuretic Peptide Total Protein 8.1 H Albumin 3.9 Beta-Hydroxybutyrate 0.16 Urine Color Urine Appearance Urine pH Ur Specific [place] Urine Protein Urine Glucose (UA) Urine Ketones Urine Blood Urine Nitrite Ur Leukocyte Esterase Urine RBC Urine WBC Urine WBC Clumps Ur Squamous Epith Cells Urine Bacteria Hyaline Casts Random Vancomycin Influenza Type A (PCR) Influenza Type B (PCR) RSV RNA Qual (PCR) SARS-CoV-2 RNA (RT-PCR) 09/17/24 09/17/24 09/17/24 16:30 17:45 22:05 WBC 18.5 H RBC 4.28 L Hgb 14.5 Hct 41.0 L MCV 95.8 MCH 33.9 H MCHC 35.4 RDW 12.8 Plt Count 115 L D MPV 12.8 H Immature Gran % (Auto) 0.7 H Neut % (Auto) 80.9 H Lymph % (Auto) 6.4 L [place] % (Auto) 11.7 H Eos % (Auto) 0.1 Baso % (Auto) 0.2 Lymph # (Auto) 1.2 [place] # (Auto) 2.2 H Eos # (Auto) 0.0 Baso # (Auto) 0.0 Abs Immat Gran (auto) 0.13 H Absolute Neuts (auto) 15.0 H Absolute Nucleated RBC 0.000 Nucleated RBC % (auto) 0.0 Smear Tech's Comments Hold Purple Top PT INR VBG pH VBG pCO2 VBG pO2 VBG HCO3 VBG O2 Saturation VBG Base Excess Sodium 139 Potassium 4.4 Chloride 109 H Carbon Dioxide 19 L Anion Gap 15 BUN 46 H Creatinine 3.86 H Estim Creat Clear Calc 18.7 Estimated GFR 16 POC Glucose Random Glucose 84 Lactic Acid Lactic Acid F/U @ 2Hr 1.3 Calcium 8.5 D Magnesium Total Bilirubin AST ALT Alkaline Phosphatase Troponin I High Sens B-Natriuretic Peptide 74 Total Protein Albumin Beta-Hydroxybutyrate Urine Color BROWN Urine Appearance Cloudy Urine pH 6.0 Ur Specific [place] 1.020 Urine Protein 100 (2+) H Urine Glucose (UA) 100 H Urine Ketones Trace Urine Blood Large (3+) H Urine Nitrite Positive H Ur Leukocyte Esterase Moderate (2+) H Urine RBC >20 H Urine WBC >50 H Urine WBC Clumps Present Ur Squamous Epith Cells 0-2 Urine Bacteria 4+ Hyaline Casts 3-5 Random Vancomycin Influenza Type A (PCR) NEGATIVE Influenza Type B (PCR) NEGATIVE RSV RNA Qual (PCR) NEGATIVE SARS-CoV-2 RNA (RT-PCR) NEGATIVE 09/17/24 09/18/24 09/18/24 22:11 07:26 07:40 WBC 11.6 H RBC 3.68 L Hgb 12.2 L Hct 35.9 L MCV 97.6 MCH 33.2 H MCHC 34.0 RDW 12.7 Plt Count 121 L MPV 12.3 Immature Gran % (Auto) 0.6 H Neut % (Auto) 77.7 H Lymph % (Auto) 10.0 L [place] % (Auto) 10.8 Eos % (Auto) 0.5 Baso % (Auto) 0.4 Lymph # (Auto) 1.2 [place] # (Auto) 1.3 H Eos # (Auto) 0.1 Baso # (Auto) 0.1 Abs Immat Gran (auto) 0.07 H Absolute Neuts (auto) 9.0 H Absolute Nucleated RBC 0.000 Nucleated RBC % (auto) 0.0 Smear Tech's Comments Hold Purple Top PT INR VBG pH 7.43 VBG pCO2 31 VBG pO2 133 VBG HCO3 21 L VBG O2 Saturation 100.0 VBG Base Excess -2.2 Sodium 142 Potassium 3.9 Chloride 109 H Carbon Dioxide 24 Anion Gap 13 BUN 38 H Creatinine 2.12 H Estim Creat Clear Calc 34.0 Estimated GFR 32 POC Glucose 58 L* Random Glucose 52 L* Lactic Acid Lactic Acid F/U @ 2Hr Calcium 7.9 L D Magnesium 1.5 L Total Bilirubin 0.5 AST 33 ALT 7 Alkaline Phosphatase 76 Troponin I High Sens B-Natriuretic Peptide Total Protein 5.3 L Albumin 2.5 L Beta-Hydroxybutyrate Urine Color Urine Appearance Urine pH Ur Specific [place] Urine Protein Urine Glucose (UA) Urine Ketones Urine Blood Urine Nitrite Ur Leukocyte Esterase Urine RBC Urine WBC Urine WBC Clumps Ur Squamous Epith Cells Urine Bacteria Hyaline Casts Random Vancomycin Influenza Type A (PCR) Influenza Type B (PCR) RSV RNA Qual (PCR) SARS-CoV-2 RNA (RT-PCR) 09/18/24 09/18/24 09/18/24 08:09 08:30 09:33 WBC RBC Hgb Hct MCV MCH MCHC RDW Plt Count MPV Immature Gran % (Auto) Neut % (Auto) Lymph % (Auto) [place] % (Auto) Eos % (Auto) Baso % (Auto) Lymph # (Auto) [place] # (Auto) Eos # (Auto) Baso # (Auto) Abs Immat Gran (auto) Absolute Neuts (auto) Absolute Nucleated RBC Nucleated RBC % (auto) Smear Tech's Comments Hold Purple Top PT INR VBG pH VBG pCO2 VBG pO2 VBG HCO3 VBG O2 Saturation VBG Base Excess Sodium Potassium Chloride Carbon Dioxide Anion Gap BUN Creatinine Estim Creat Clear Calc Estimated GFR POC Glucose 180 H 164 H 248 H Random Glucose Lactic Acid Lactic Acid F/U @ 2Hr Calcium Magnesium Total Bilirubin AST ALT Alkaline Phosphatase Troponin I High Sens B-Natriuretic Peptide Total Protein Albumin Beta-Hydroxybutyrate Urine Color Urine Appearance Urine pH Ur Specific [place] Urine Protein Urine Glucose (UA) Urine Ketones Urine Blood Urine Nitrite Ur Leukocyte Esterase Urine RBC Urine WBC Urine WBC Clumps Ur Squamous Epith Cells Urine Bacteria Hyaline Casts Random Vancomycin Influenza Type A (PCR) Influenza Type B (PCR) RSV RNA Qual (PCR) SARS-CoV-2 RNA (RT-PCR) 09/18/24 09/18/24 09/18/24 11:27 15:32 20:34 WBC RBC Hgb Hct MCV MCH MCHC RDW Plt Count MPV Immature Gran % (Auto) Neut % (Auto) Lymph % (Auto) [place] % (Auto) Eos % (Auto) Baso % (Auto) Lymph # (Auto) [place] # (Auto) Eos # (Auto) Baso # (Auto) Abs Immat Gran (auto) Absolute Neuts (auto) Absolute Nucleated RBC Nucleated RBC % (auto) Smear Tech's Comments Hold Purple Top PT INR VBG pH VBG pCO2 VBG pO2 VBG HCO3 VBG O2 Saturation VBG Base Excess Sodium Potassium Chloride Carbon Dioxide Anion Gap BUN Creatinine Estim Creat Clear Calc Estimated GFR POC Glucose 343 H 278 H 178 H Random Glucose Lactic Acid Lactic Acid F/U @ 2Hr Calcium Magnesium Total Bilirubin AST ALT Alkaline Phosphatase Troponin I High Sens B-Natriuretic Peptide Total Protein Albumin Beta-Hydroxybutyrate Urine Color Urine Appearance Urine pH Ur Specific [place] Urine Protein Urine Glucose (UA) Urine Ketones Urine Blood Urine Nitrite Ur Leukocyte Esterase Urine RBC Urine WBC Urine WBC Clumps Ur Squamous Epith Cells Urine Bacteria Hyaline Casts Random Vancomycin Influenza Type A (PCR) Influenza Type B (PCR) RSV RNA Qual (PCR) SARS-CoV-2 RNA (RT-PCR) 09/19/24 09/19/24 09/19/24 07:29 07:36 07:58 WBC 11.0 H RBC 4.02 L Hgb 13.6 L Hct 38.3 L MCV 95.3 MCH 33.8 H MCHC 35.5 RDW 12.2 Plt Count 136 L MPV 12.4 Immature Gran % (Auto) Neut % (Auto) Lymph % (Auto) [place] % (Auto) Eos % (Auto) Baso % (Auto) Lymph # (Auto) [place] # (Auto) Eos # (Auto) Baso # (Auto) Abs Immat Gran (auto) Absolute Neuts (auto) Absolute Nucleated RBC 0.000 Nucleated RBC % (auto) 0.0 Smear Tech's Comments Hold Purple Top PT INR VBG pH VBG pCO2 VBG pO2 VBG HCO3 VBG O2 Saturation VBG Base Excess Sodium 141 Potassium 3.4 Chloride 107 Carbon Dioxide 26 Anion Gap 11 L BUN 18 H Creatinine Cancelled 0.94 Estim Creat Clear Calc Cancelled 76.8 Estimated GFR Cancelled > 60 POC Glucose 172 H Random Glucose 187 H Lactic Acid Lactic Acid F/U @ 2Hr Calcium 8.4 D Magnesium 1.3 L* Total Bilirubin AST ALT Alkaline Phosphatase Troponin I High Sens B-Natriuretic Peptide Total Protein Albumin Beta-Hydroxybutyrate Urine Color Urine Appearance Urine pH Ur Specific [place] Urine Protein Urine Glucose (UA) Urine Ketones Urine Blood Urine Nitrite Ur Leukocyte Esterase Urine RBC Urine WBC Urine WBC Clumps Ur Squamous Epith Cells Urine Bacteria Hyaline Casts Random Vancomycin Influenza Type A (PCR) Influenza Type B (PCR) RSV RNA Qual (PCR) SARS-CoV-2 RNA (RT-PCR) 09/19/24 09/19/24 09/19/24 10:46 15:55 21:23 WBC RBC Hgb Hct MCV MCH MCHC RDW Plt Count MPV Immature Gran % (Auto) Neut % (Auto) Lymph % (Auto) [place] % (Auto) Eos % (Auto) Baso % (Auto) Lymph # (Auto) [place] # (Auto) Eos # (Auto) Baso # (Auto) Abs Immat Gran (auto) Absolute Neuts (auto) Absolute Nucleated RBC Nucleated RBC % (auto) Smear Tech's Comments Hold Purple Top PT INR VBG pH VBG pCO2 VBG pO2 VBG HCO3 VBG O2 Saturation VBG Base Excess Sodium Potassium Chloride Carbon Dioxide Anion Gap BUN Creatinine Estim Creat Clear Calc Estimated GFR POC Glucose 326 H 159 H 216 H Random Glucose Lactic Acid Lactic Acid F/U @ 2Hr Calcium Magnesium Total Bilirubin AST ALT Alkaline Phosphatase Troponin I High Sens B-Natriuretic Peptide Total Protein Albumin Beta-Hydroxybutyrate Urine Color Urine Appearance Urine pH Ur Specific [place] Urine Protein Urine Glucose (UA) Urine Ketones Urine Blood Urine Nitrite Ur Leukocyte Esterase Urine RBC Urine WBC Urine WBC Clumps Ur Squamous Epith Cells Urine Bacteria Hyaline Casts Random Vancomycin Influenza Type A (PCR) Influenza Type B (PCR) RSV RNA Qual (PCR) SARS-CoV-2 RNA (RT-PCR) 09/20/24 09/20/24 09/20/24 06:19 07:22 10:54 WBC RBC Hgb Hct MCV MCH MCHC RDW Plt Count MPV Immature Gran % (Auto) Neut % (Auto) Lymph % (Auto) [place] % (Auto) Eos % (Auto) Baso % (Auto) Lymph # (Auto) [place] # (Auto) Eos # (Auto) Baso # (Auto) Abs Immat Gran (auto) Absolute Neuts (auto) Absolute Nucleated RBC Nucleated RBC % (auto) Smear Tech's Comments Hold Purple Top PT INR VBG pH VBG pCO2 VBG pO2 VBG HCO3 VBG O2 Saturation VBG Base Excess Sodium 142 Potassium 3.8 Chloride 105 Carbon Dioxide 27 Anion Gap 14 BUN 11 Creatinine 0.80 Estim Creat Clear Calc 90.2 Estimated GFR > 60 POC Glucose 238 H 280 H Random Glucose 219 H Lactic Acid Lactic Acid F/U @ 2Hr Calcium 8.2 L Magnesium 1.4 L* Total Bilirubin AST ALT Alkaline Phosphatase Troponin I High Sens B-Natriuretic Peptide Total Protein Albumin Beta-Hydroxybutyrate Urine Color Urine Appearance Urine pH Ur Specific [place] Urine Protein Urine Glucose (UA) Urine Ketones Urine Blood Urine Nitrite Ur Leukocyte Esterase Urine RBC Urine WBC Urine WBC Clumps Ur Squamous Epith Cells Urine Bacteria Hyaline Casts Random Vancomycin Influenza Type A (PCR) Influenza Type B (PCR) RSV RNA Qual (PCR) SARS-CoV-2 RNA (RT-PCR) 09/20/24 09/20/24 09/20/24 13:49 16:07 20:03 WBC RBC Hgb Hct MCV MCH MCHC RDW Plt Count MPV Immature Gran % (Auto) Neut % (Auto) Lymph % (Auto) [place] % (Auto) Eos % (Auto) Baso % (Auto) Lymph # (Auto) [place] # (Auto) Eos # (Auto) Baso # (Auto) Abs Immat Gran (auto) Absolute Neuts (auto) Absolute Nucleated RBC Nucleated RBC % (auto) Smear Tech's Comments Hold Purple Top PT INR VBG pH VBG pCO2 VBG pO2 VBG HCO3 VBG O2 Saturation VBG Base Excess Sodium Potassium Chloride Carbon Dioxide Anion Gap BUN Creatinine Estim Creat Clear Calc Estimated GFR POC Glucose 271 H 178 H Random Glucose Lactic Acid Lactic Acid F/U @ 2Hr Calcium Magnesium Total Bilirubin AST ALT Alkaline Phosphatase Troponin I High Sens B-Natriuretic Peptide Total Protein Albumin Beta-Hydroxybutyrate Urine Color Urine Appearance Urine pH Ur Specific [place] Urine Protein Urine Glucose (UA) Urine Ketones Urine Blood Urine Nitrite Ur Leukocyte Esterase Urine RBC Urine WBC Urine WBC Clumps Ur Squamous Epith Cells Urine Bacteria Hyaline Casts Random Vancomycin 5.9 L Influenza Type A (PCR) Influenza Type B (PCR) RSV RNA Qual (PCR) SARS-CoV-2 RNA (RT-PCR) 09/21/24 09/21/24 09/21/24 07:26 07:41 12:00 WBC 7.7 RBC 3.99 L Hgb 13.2 L Hct 38.6 L MCV 96.7 MCH 33.1 H MCHC 34.2 RDW 12.0 Plt Count 166 MPV 12.0 Immature Gran % (Auto) Neut % (Auto) Lymph % (Auto) [place] % (Auto) Eos % (Auto) Baso % (Auto) Lymph # (Auto) [place] # (Auto) Eos # (Auto) Baso # (Auto) Abs Immat Gran (auto) Absolute Neuts (auto) Absolute Nucleated RBC 0.000 Nucleated RBC % (auto) 0.0 Smear Tech's Comments Hold Purple Top PT INR VBG pH VBG pCO2 VBG pO2 VBG HCO3 VBG O2 Saturation VBG Base Excess Sodium 139 Potassium 4.5 Chloride 104 Carbon Dioxide 28 Anion Gap 12 BUN 11 Creatinine 0.77 Estim Creat Clear Calc 93.7 Estimated GFR > 60 POC Glucose 276 H 337 H Random Glucose 336 H Lactic Acid Lactic Acid F/U @ 2Hr Calcium 8.3 L Magnesium 1.6 Total Bilirubin AST ALT Alkaline Phosphatase Troponin I High Sens B-Natriuretic Peptide Total Protein Albumin Beta-Hydroxybutyrate Urine Color Urine Appearance Urine pH Ur Specific [place] Urine Protein Urine Glucose (UA) Urine Ketones Urine Blood Urine Nitrite Ur Leukocyte Esterase Urine RBC Urine WBC Urine WBC Clumps Ur Squamous Epith Cells Urine Bacteria Hyaline Casts Random Vancomycin Influenza Type A (PCR) Influenza Type B (PCR) RSV RNA Qual (PCR) SARS-CoV-2 RNA (RT-PCR) 09/21/24 09/21/24 09/21/24 14:13 15:20 21:00 WBC RBC Hgb Hct MCV MCH MCHC RDW Plt Count MPV Immature Gran % (Auto) Neut % (Auto) Lymph % (Auto) [place] % (Auto) Eos % (Auto) Baso % (Auto) Lymph # (Auto) [place] # (Auto) Eos # (Auto) Baso # (Auto) Abs Immat Gran (auto) Absolute Neuts (auto) Absolute Nucleated RBC Nucleated RBC % (auto) Smear Tech's Comments Hold Purple Top PT INR VBG pH VBG pCO2 VBG pO2 VBG HCO3 VBG O2 Saturation VBG Base Excess Sodium Potassium Chloride Carbon Dioxide Anion Gap BUN Creatinine Estim Creat Clear Calc Estimated GFR POC Glucose 282 H 201 H Random Glucose Lactic Acid Lactic Acid F/U @ 2Hr Calcium Magnesium Total Bilirubin AST ALT Alkaline Phosphatase Troponin I High Sens B-Natriuretic Peptide Total Protein Albumin Beta-Hydroxybutyrate Urine Color Urine Appearance Urine pH Ur Specific [place] Urine Protein Urine Glucose (UA) Urine Ketones Urine Blood Urine Nitrite Ur Leukocyte Esterase Urine RBC Urine WBC Urine WBC Clumps Ur Squamous Epith Cells Urine Bacteria Hyaline Casts Random Vancomycin 13.5 L Influenza Type A (PCR) Influenza Type B (PCR) RSV RNA Qual (PCR) SARS-CoV-2 RNA (RT-PCR) 09/22/24 09/22/24 09/22/24 06:49 07:06 11:13 WBC RBC Hgb Hct MCV MCH MCHC RDW Plt Count MPV Immature Gran % (Auto) Neut % (Auto) Lymph % (Auto) [place] % (Auto) Eos % (Auto) Baso % (Auto) Lymph # (Auto) [place] # (Auto) Eos # (Auto) Baso # (Auto) Abs Immat Gran (auto) Absolute Neuts (auto) Absolute Nucleated RBC Nucleated RBC % (auto) Smear Tech's Comments Hold Purple Top SEE NOTE PT INR VBG pH VBG pCO2 VBG pO2 VBG HCO3 VBG O2 Saturation VBG Base Excess Sodium Potassium Chloride Carbon Dioxide Anion Gap BUN Creatinine 0.77 Estim Creat Clear Calc 93.7 Estimated GFR > 60 POC Glucose 307 H 370 H* Random Glucose Lactic Acid Lactic Acid F/U @ 2Hr Calcium Magnesium Total Bilirubin AST ALT Alkaline Phosphatase Troponin I High Sens B-Natriuretic Peptide Total Protein Albumin Beta-Hydroxybutyrate Urine Color Urine Appearance Urine pH Ur Specific [place] Urine Protein Urine Glucose (UA) Urine Ketones Urine Blood Urine Nitrite Ur Leukocyte Esterase Urine RBC Urine WBC Urine WBC Clumps Ur Squamous Epith Cells Urine Bacteria Hyaline Casts Random Vancomycin Influenza Type A (PCR) Influenza Type B (PCR) RSV RNA Qual (PCR) SARS-CoV-2 RNA (RT-PCR) 09/22/24 09/22/24 09/23/24 16:17 20:10 06:18 WBC RBC Hgb Hct MCV MCH MCHC RDW Plt Count MPV Immature Gran % (Auto) Neut % (Auto) Lymph % (Auto) [place] % (Auto) Eos % (Auto) Baso % (Auto) Lymph # (Auto) [place] # (Auto) Eos # (Auto) Baso # (Auto) Abs Immat Gran (auto) Absolute Neuts (auto) Absolute Nucleated RBC Nucleated RBC % (auto) Smear Tech's Comments Hold Purple Top PT INR VBG pH VBG pCO2 VBG pO2 VBG HCO3 VBG O2 Saturation VBG Base Excess Sodium Potassium Chloride Carbon Dioxide Anion Gap BUN Creatinine 0.83 Estim Creat Clear Calc 86.9 Estimated GFR > 60 POC Glucose 223 H 243 H Random Glucose Lactic Acid Lactic Acid F/U @ 2Hr Calcium Magnesium Total Bilirubin AST ALT Alkaline Phosphatase Troponin I High Sens B-Natriuretic Peptide Total Protein Albumin Beta-Hydroxybutyrate Urine Color Urine Appearance Urine pH Ur Specific [place] Urine Protein Urine Glucose (UA) Urine Ketones Urine Blood Urine Nitrite Ur Leukocyte Esterase Urine RBC Urine WBC Urine WBC Clumps Ur Squamous Epith Cells Urine Bacteria Hyaline Casts Random Vancomycin Influenza Type A (PCR) Influenza Type B (PCR) RSV RNA Qual (PCR) SARS-CoV-2 RNA (RT-PCR) 09/23/24 07:38 WBC RBC Hgb Hct MCV MCH MCHC RDW Plt Count MPV Immature Gran % (Auto) Neut % (Auto) Lymph % (Auto) [place] % (Auto) Eos % (Auto) Baso % (Auto) Lymph # (Auto) [place] # (Auto) Eos # (Auto) Baso # (Auto) Abs Immat Gran (auto) Absolute Neuts (auto) Absolute Nucleated RBC Nucleated RBC % (auto) Smear Tech's Comments Hold Purple Top PT INR VBG pH VBG pCO2 VBG pO2 VBG HCO3 VBG O2 Saturation VBG Base Excess Sodium Potassium Chloride Carbon Dioxide Anion Gap BUN Creatinine Estim Creat Clear Calc Estimated GFR POC Glucose 390 H* Random Glucose Lactic Acid Lactic Acid F/U @ 2Hr Calcium Magnesium Total Bilirubin AST ALT Alkaline Phosphatase Troponin I High Sens B-Natriuretic Peptide Total Protein Albumin Beta-Hydroxybutyrate Urine Color Urine Appearance Urine pH Ur Specific [place] Urine Protein Urine Glucose (UA) Urine Ketones Urine Blood Urine Nitrite Ur Leukocyte Esterase Urine RBC Urine WBC Urine WBC Clumps Ur Squamous Epith Cells Urine Bacteria Hyaline Casts Random Vancomycin Influenza Type A (PCR) Influenza Type B (PCR) RSV RNA Qual (PCR) SARS-CoV-2 RNA (RT-PCR) Assessment and Plan Final Anesthetic Review Family History of Problems with Anesthesia: Unobtainable History of Problems with Anesthesia: Unobtainable Documented by User: Conchita Faulkner MD 09/23/24 11:05 [facility] Past Medical History Medical History HIV (human immunodeficiency virus infection) Renal calculi Hypertension Diabetes mellitus Brain injury Hepatitis C Family History Family History Mother Diabetes mellitus Social History Social History Household Members: Family Household Members Other:: Mother and nephew Housing: Apartment Do you presently have visiting nurse or other home services: Yes ([employer]) Unable to assess alcohol history related to: Unable to respond Alcohol intake: never Patient Tobacco Use Status: Former Tobacco user Smoked in Last 30 Days: No Patient Interested in Nicotine Replacement: No Use of substances other than those prescribed or required for medical reasons: No Currently Displaying Signs/Symptoms of Drug Intoxication Withdrawal: No Are you DNR?: No Advance Directives: Yes Advance Directives on File: Yes Advance Directives Date on File: 01/03/21 Do you have a plan to hurt others: No Plan Recently lost weight without trying: No Eating poorly because of decreased appetite: No Nutrition Risks: No Nutritional Risk service: No Current occupational status: disabled Meds Allergies Allergy/AdvReac Type Severity Reaction Status Date / Time aspirin (Aspirin) Allergy Unknown HIVES, Verified 09/17/24 14:31 ITCHING ibuprofen (From Motrin) Allergy Unknown UNKNOWN Verified 09/17/24 14:31 Sulfa (Sulfonamide Allergy Unknown HIVES Verified 09/17/24 14:31 Antibiotics) (SULFA (SULFONAMIDE ANTIBIOTICS)) Aspirin Allergy Unknown Rash Uncoded 09/17/24 14:31 Seafood Allergy Unknown RASH, Uncoded 09/17/24 14:31 ITCHING, HIVES Sulfa Allergy Unknown Rash Uncoded 09/17/24 14:31 Home Medications ?Medication ?Instructions ?Recorded ?Confirmed ?Last Taken ?Type abacavir 600 mg-dolutegravir 50 1 tab PO DAILY 1 09/17/24 09/17/24 History mg-lamivudine 300 mg tablet (Triumeq) insulin degludec 100 unit/mL (3 22 unit subcut DAILY 1 09/17/24 09/17/24 History mL) subcutaneous pen (Tresiba FlexTouch U-100 insulin) insulin lispro 100 unit/mL 0 sliding scale dose subcut TID 12/11/20 09/17/24 09/17/24 History subcutaneous pen (Humalog KwikPen (U-100) Insulin) losartan 100 mg tablet 100 mg PO DAILY 12/11/2001/0209/17/24 History cholecalciferol (vitamin D3) 50 50 mcg PO DAILY 09/17/24 09/17/24 History mcg (2,000 unit) capsule loratadine 10 mg tablet 10 mg PO DAILY 09/12/2309/0809/17/24 History Exam Airway Mallampati Class: Patient Non-Cooperative Heart: rrr Lungs: cta Assessment and Plan Assessment Anesthesia Assessment: Anesthesia Plan Discussed and Chart Reviewed Final Anesthetic Review NPO: Yes ASA Class: III Final Preanesthetic Review: No Changes in Pt Med Stat, Meds/Allgs Chart Reviewed, Consent Obtained/Reviewed, Anes Risks/Benef Reviewed and DNR Form (If Appl.) (reversed till pacu recovery) Patient Risk: Intermediate Procedure Risk: Intermediate Anesthetic Plan Anesthetic Plan: GA and MAC: Disposition: Standard PACU
[2024-09-23 09:53] LABS: Glucose, Whole Blood 342 mg/dL (60-115)
--- NOTE | 2024-09-23 10:44 | PC.NURSE ---
All questions answered and documented from guardian, sister Selena Guerrero. PAT completed during this hospitalization five days ago with previous procedure.
--- NOTE | 2024-09-23 11:01 | MHC.SHP ---
Pre-Procedural Eval Section A - 24 Hr Update-Section A only Date of Service: 09/23/24 The patient is an INPATIENT: Yes Changes since office visit: No Cold of Flu in the past 2 weeks, No New Medical Problems, No Changes in Medication and No Patient answered all questions The patient has been examined within 24 hours of the surgical procedure. The History & Physical has been completed within 30 days and I have reviewed it.: Yes Section B - Complete if H&P > 30 days Chief Complaint: Nausea/Vomiting Details of Present Illness: bilateral ureteric and renal stones Relevant Family History (Specify if Yes): No Relevant Social History: None Present Medications: see Short Stay Collaborative assessment Medical History: Significant History History of Previous Operations: No relevant previous surgery Allergies: Allergies Allergy/AdvReac Type Severity Reaction Status Date / Time aspirin (Aspirin) Allergy Unknown HIVES, Verified 09/17/24 14:31 ITCHING ibuprofen (From Motrin) Allergy Unknown UNKNOWN Verified 09/17/24 14:31 Sulfa (Sulfonamide Allergy Unknown HIVES Verified 09/17/24 14:31 Antibiotics) (SULFA (SULFONAMIDE ANTIBIOTICS)) Aspirin Allergy Unknown Rash Uncoded 09/17/24 14:31 Seafood Allergy Unknown RASH, Uncoded 09/17/24 14:31 ITCHING, HIVES Sulfa Allergy Unknown Rash Uncoded 09/17/24 14:31 Review of Systems Sugical H&P ROS: Negative: Constitution, Cardiovascular, Respiratory, Neurological, Psychiatric, Hem-Onc, Allergic/Immunologic, Gastrointestinal, Genitourinary, Musculoskeletal, Integumentary, Endocrine and Eyes/Ears/Nose/Throat Exam Surgical H&P Exam: Normal: HEENT, Normal: Heart, Normal: Lungs, Normal: Extremities, Normal: Abdomen, Normal: Skin and Normal: Neurological Plan Diagnosis/Plan: Unchanged (bilateral ureteroscopy and laser lithotripsy) I have reviewed the history and physical and performed a pertinent physical examination on my patient. No changes have occurred unless specified. Time Spent With Patient Time: Total time managing care of this patient today ____ minutes.
[2024-09-23 11:09] LABS: Glucose, Whole Blood 282 mg/dL (60-115)
--- NOTE | 2024-09-23 12:58 | W.PM.OPN ---
Operative Note Operative Note Date of Service: 09/23/24 Narrative: PreOperative Diagnosis: bilateral ureteric stones, bilateral renal stones Post Operative Diagnosis: bilateral multiple renal stones - 3 stones on right, 2 stones on left Procedure: - cystoscopy, Bilateral retrogrades - bilateral stent removal - right ureteroscopy, laser lithotripsy, stone basketing - left ureteroscopy, laser lithotripsy, stone basketing Surgeon: Dr Tank Dave Anesthesia: General Indications for procedure: bilateral upper ureteric stones with bilateral renal stones. Stents placed at the weekend. Here for completion procedure. Procedure: After informed consent was verified patient was brought to the operating placed in supine position. Anesthesia was administered per protocol. Patient was placed in modified dorsal lithotomy position and prepped and draped in a sterile fashion. Safety pause time-out and side of surgery confirmed. Antibiotics confirmed. A 22 [place] cystoscope was inserted per urethra. The urethra and bladder were normal in their entirety. Both ureteric orifices were in normal position. Stents emerging from both ureteric orifices. The Right ureteric orifice was cannulated and a retrograde examination was performed. filling defects seen within the kidney. A Sensor guidewire was placed up to the level of the renal pelvis under fluoroscopy. The rigid cystoscope was removed and the inner cannula of ureteric access sheath was used under fluoroscopy to dilate the ureteric orifice. The steerable vacuum ureteric access sheath was placed and the inner cannula with access wire removed. The digital flexible ureteral scope was placed. 270 micron laser fiber with settings of 1.2 joules and 8 hertz was used. Stone had been encountered within the renal pelvis. This was broken into small pieces. Stone was a proximally 14 mm in size. Secondary stone found in lower pole and broken. Third stone found in mid pole and broken. This took 100% longer than typical. total time 40 minutes. ZeroTip basket used to remove stone fragments. Once Procedure had been performed on right-sided similar procedure was performed of the left side. That only involve 2 stones but largest was 12 mm. retrograde was performed. Stent was removed. Access sheath placed which was steerable vacuum sheath. At the completion of the stone procedure a Sensor wire was placed back into the renal pelvis. Sixteen [place] Ernandez catheter placed at completion of the procedure The bladder was emptied. The patient tolerated the procedure well and was extubated in the operating room, and transferred in stable condition to the recovery area. Pathology: Stones Drains: catheter [facility] code [id number] describes cystourethroscopy, with ureteroscopy and/or pyeloscopy, with lithotripsy, and ureteral catheterization for steerable vacuum aspiration of the kidney, collecting system, ureter, bladder, and urethra if applicable (must use a steerable ureteral catheter).
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
[2024-09-23 13:35] LABS: Glucose, Whole Blood 252 mg/dL (60-115)
--- NOTE | 2024-09-23 13:57 | MHC.SLORD ---
Speech Language Pathology Order Status: Pt at OR today, RN reported no concerns with pt PO tolerance. TOUR ACTOR to follow up with pt.
[2024-09-23 14:30] LABS: Glucose, Whole Blood 219 mg/dL (60-115)
--- NOTE | 2024-09-23 15:00 | MHC.SL.SWA ---
Speech Pathologist Impression: Mild oropharyngeal dysphagia at baseline. Risk of Aspiration Due to: Dysphasia Diet Status: NDD2 (ground) diet with THIN liquids, straws ok, pt benefits from container with lid to hold independently, setup and assistance through meal, meds crushed in puree Liquid Consistency and Strategies for Safe Swallow: Liquid Intake Recommendation: Thin Liquid Intake Strategies: Small Sips Solid Food Consistency: Dietary Recommendations: Grnd/Mech Altered (NDD2) Additional Modifications to Solid Foods: Patient requires 1-1 feeding, but with support at times appears able to do some independent eating. Provide small bites and sips, alternate liquids an solids. Straws are OK with liquids. Oral Medication Intake: Crushed with Puree Please contact the pharmacy regarding appropriate crushable or liquid drug formulations that are available whenever modified delivery is recommended. Compensatory Strategies and Precautions to be Taken for Safe Swallow: Sitting Upright (90 deg) Liquids from Straw Small Bites and Sips Alternate Liquids/Solids Rate of Ingestion Change Supervision While Eating and Drinking for Safe Swallow: Direct Supervision (1:1) Foods to Avoid: Patient with mild oropharyngeal dysphagia, note edentulous status and hx anoxic brain injury, R-hemiparesis, and HIV. Patient is nonverbal, communicates with gestures and head nod/shake, can follow commands and feed himself, though he will need assistance with tray set up, ensuring items are opened and within reach. Recommend GROUND/MECH ALTERED (NDD2) solids and THIN liquids, pills CRUSHED in PUREE. Swallowing Recommended Treatments: Compens. Strategy Educat. Recommendation for Speech: Inpatient Speech Therapy Comment: 09/23 seen for dysphagia treatment after returning from OR. Pt family at bedside, RNs consulted. No concerns reported with pt PO tolerance. Pt feeds himself with good pacing, needing assist with setup and container with straw for ease of fluid intake. Pt presents with mild oral phase dysphagia characterized by minimal anterior loss of thin liquids after consecutive straw sips, and mild pharyngeal dysphagia d/t delayed cough after several boluses of puree/ground solids. Pt cough present at baseline per family report. Pt has not had an MBSS in the past, family providing support in managing pt dysphagia. ENVIRONMENTAL LAWYER provided education on dysphagia management in setting of any further changes to pt PO tolerance of NDD2 with thins; family in agreement with current diet recc and inpatient POC. Frequency/Duration: M-F Date Range for Service Req: Timeline to reassess: Bow Maker Custom Clinican/Clinical Fellow: No Supervisory Statement: I have reviewed and agree with the student/clinical fellow's documentation: N/A Speech Language Pathologist: Machelle Caballero M.S., [facility]-ENVIR[employer]ER
--- NOTE | 2024-09-23 16:09 | MHC.CM.PN ---
per rounds, pt. is not ready to DC, his DCP will be to go home and resume home care services, CM to follow for DC needs.
[2024-09-23 16:22] LABS: Glucose, Whole Blood 253 mg/dL (60-115)
[2024-09-23 20:23] LABS: Glucose, Whole Blood 329 mg/dL (60-115)
[2024-09-24] VITALS: BP 161/81; PULSE 97; RESP 16; TEMP 36.9; O2SAT 96
[2024-09-24 03:30] VITALS: BP 152/72; PULSE 88; RESP 17; TEMP 36.6; O2SAT 96
[2024-09-24 06:00] VITALS: BMI 26.0
[2024-09-24 07:27] LABS: Creatinine Clr Calc Pharmacy 80.2; Estimated Glomerular Filt Rate > 60
[2024-09-24 08:00] VITALS: BP 165/73; PULSE 86; RESP 20; TEMP 36.6; O2SAT 96
--- NOTE | 2024-09-24 08:00 | HO.POSTANES ---
Post Anesthesia Evaluation Post Anesthesia Evaluation Date of Service: 09/24/24 Vital Signs: Vital Signs Temp Pulse Resp BP Pulse Ox O2 Del Method 09/24/24 03:30 97.8 F 88 17 152/72 H 96 Room Air 09/24/24 00:00 98.5 F 97 16 161/81 H 96 Room Air Anesthesia: General Mental Status: Awake Pain Control: Satisfactory Nausea/Vomiting: None Hydration: Adequate
[2024-09-24 08:09] LABS: Glucose, Whole Blood 417 mg/dL (60-115)
[2024-09-24] MEDS: Insulin Glargine,Hum.rec.anlog 100 UNIT/ML 10 ML VIAL 10 UNIT SUBCUT (09:09)
[2024-09-24] MEDS: Abacavir/lamiVUDine 600/300 TABLET 1 TAB PO (09:10)
[2024-09-24] MEDS: 0.9 % Sodium Chloride Flush 3 ML SYRINGE IVFLUSH (09:10)
[2024-09-24 11:56] LABS: Glucose, Whole Blood 452 mg/dL (60-115)
[2024-09-24 12:00] VITALS: BP 153/67; PULSE 98; RESP 17; TEMP 36.6; O2SAT 97
--- NOTE | 2024-09-24 12:28 | PC.NURSE ---
Addendum entered by Kim Guillen RN 09/24/24 15:14: patient able to void 150ml concentrated dark yellow urine Original Note: Telephone order from urology to remove izquierdo. Izquierdo removed, patient tolerated procedure well, patient due to void by 1830, urinal at bedside, patient to follow up with urology as outpatient.
--- NOTE | 2024-09-24 15:14 | P.F2F_ITS ---
Service Date Service Date: 09/24/24 Encounter Date of encounter: 09/24/24 Reasons for Services Signs and symptoms assessed: see PT evaluation 09/22/24 Reason for care home: medication management, medication treatment and teach disease management Reason for physical therapy: home safety and mobility, therapeutic exercises, gait/transfer training, assess need for DME, ADL training, energy conservation and other (family training) MD Overseeing Care: Erika Sabillon Homebound: Leaving the home is medically contraindicated at this time without the asist of a device and/or another person due th the listed conditions above and below. Reason homebound: unsteady gait / fall risk Certification: Based on the above findings, I certify that this patient is confined to the home and needs intermittent care home care, physical therapy and/or speech therapy, or continues to need occupational therapy. The patient is under my care, and I have initiated the establishment of the plan of care. The patient will be followed by a physician who will periodically review the plan of care. Time Spent With Patient Time: Total time managing care of this patient today ____ minutes.
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
--- NOTE | 2024-09-24 15:46 | MHC.CM.PN ---
Pt has been medically cleared for DC, he will go home via family transport and have home care services from [facility].
[2024-09-24 15:47] VITALS: BP 133/75; PULSE 85; RESP 18; TEMP 36.8; O2SAT 95
== END 2024-09-24 16:35 | disposition home health service (06) | DRG 710 ==
LOC: HO.ED 19:28 → HO.IMC 20:46 → HO.ED 20:48 → HO.IMC 20:48
PROVIDERS: Nurse Practitioner Acute Care; Nurse Practitioner Family; Physician Assistant Medical; Student in an Organized Health Care Education/Training Program; Admitting Provider Urology; Emergency Provider Emergency Medicine; PCP Internal Medicine; Visit Provider Family Medicine
PROC: 0T9 Urinary System, Drainage (ICD-10-PCS; principal; 2024-09-17 19:30)
PROC: BT14ZZZ Fluoroscopy of Kidneys, Ureters and Bladder (ICD-10-PCS; principal; 2024-09-23 11:50)
DX: A41.9 Sepsis, unspecified organism (principal); N17.0 Acute kidney failure with tubular necrosis; G81.91 Hemiplegia, unspecified affecting right dominant side; E10.649 Type 1 diabetes mellitus with hypoglycemia without coma; S06.9XAS Unspecified intracranial injury with loss of consciousness status unknown, sequela; D69.6 Thrombocytopenia, unspecified; E83.42 Hypomagnesemia; Z66 Do not resuscitate; N13.6 Pyonephrosis; R13.10 Dysphagia, unspecified; Y04.8XXS Assault by other bodily force, sequela; Z20.822 Contact with and (suspected) exposure to COVID-19; Z21 Asymptomatic human immunodeficiency virus [HIV] infection status; Z79.899 Other long term (current) drug therapy
CPT/HCPCS: 36415; 71045; 74176; 80048; 80053; 80202; 81001; 81003; 82010; 82365; 82565; 82803; 82947; 83605; 83735; 83880; 84484; 85025; 85027; 85610; 87040; 87070; 87077; 87086; 87186; 87205; 87637; 88300; 92526; 92610; 93005; 97161; 99285; C1758; C1769; C2617; J0131; J0696; J1644; J1956; J2003; J2704; J3010; J3360; J3374; J3475; J7120; Q9967

== ENCOUNTER → 2024-09-17 14:44 | Outpatient (BNV) | payer OTHER, SELFPAY | PROVIDERS: Admitting Provider Urology; Emergency Provider Emergency Medicine; PCP Internal Medicine; Visit Provider Internal Medicine Cardiovascular Disease | DX: R00.0 Tachycardia, unspecified (principal) | CPT/HCPCS: 93010 ==

== ENCOUNTER → 2024-09-17 15:18 | Outpatient (BNV) | payer OTHER, SELFPAY | PROVIDERS: Emergency Provider Emergency Medicine; Visit Provider Urology | DX: N13.2 Hydronephrosis with renal and ureteral calculous obstruction (principal); N17.9 Acute kidney failure, unspecified | CPT/HCPCS: 52332; 99222 ==

== ENCOUNTER → 2024-09-17 20:47 | Outpatient (BNV) | payer OTHER, SELFPAY | PROVIDERS: Admitting Provider Urology; Emergency Provider Emergency Medicine; PCP Internal Medicine; Visit Provider Internal Medicine | DX: A41.9 Sepsis, unspecified organism (principal); R65.20 Severe sepsis without septic shock; N17.9 Acute kidney failure, unspecified; N13.2 Hydronephrosis with renal and ureteral calculous obstruction | CPT/HCPCS: 99232 ==

== ENCOUNTER → 2024-09-17 20:47 | Outpatient (BNV) | payer OTHER, SELFPAY | PROVIDERS: Admitting Provider Urology; Emergency Provider Emergency Medicine; Visit Provider Nurse Practitioner Family | DX: N13.2 Hydronephrosis with renal and ureteral calculous obstruction (principal); A41.9 Sepsis, unspecified organism; R65.20 Severe sepsis without septic shock; N17.9 Acute kidney failure, unspecified; R78.81 Bacteremia | CPT/HCPCS: 99232; 99233 ==

== ENCOUNTER 2024-12-07 15:47 | Outpatient (REF) | payer OTHER, SELFPAY ==
--- NOTE | ~2024-12-07 | US_ITS ---
EXAMINATION: US RETROPERITONEAL LIMITED (RENAL ONLY) CLINICAL INFORMATION: Hydronephrosis with renal and ureteral calculous obstruction. COMPARISON: 12/11/2020. Correlation made with CT abdomen and pelvis 09/17/2024. TECHNIQUE: Real-time imaging of the kidneys. FINDINGS: RIGHT KIDNEY: 9.1 x 4.7 x 5.0 cm (SAG x AP x TRV). The kidney is normal in size, contour, and echogenicity. Renal cortical thickness is normal. No hydronephrosis. There are numerous calculi, the largest measuring 1.3 x 0.8 x 1.1 cm in the midpole. There is a lateral mid pole simple cyst measuring 0.8 cm. LEFT KIDNEY: 8.4 x 4.8 x 4.5 cm (SAG x AP x TRV). The kidney is normal in size, contour, and echogenicity. Renal cortical thickness is normal. No hydronephrosis. There is a mid pole calculus measuring 0.4 x 0.3 x 0.6 cm. There are clusters of calculi seen in the lower pole. No suspicious masses or cysts. US/US renal BI IMPRESSION: 1. Bilateral nonobstructing renal calculi. 2. No hydronephrosis of either kidney. 3. 0.8 cm simple cyst in the right kidney. Electronically signed by: Suleman Crowell MD 12/07/2024 04:48 PM EDT
--- OUTSIDE RECORDS SUMMARY | 2024-12-07 17:51 | XMS_ITS | Encounter Summary ---
Author Organization [facility] Address [address] [place] [address] Care Team Providers Care Preform Machine Operator Name Role Phone Erika Sabillon MD Primary Care Provider [phone] Reason for Visit * Reason Onset Date Comments faxed vna order 11/26/2024 [place] [facility] 60 D ay Summary Report Encounter Details Date Type Department Care Team ([facility] Contact Info) Description 11/26/2024 Telephone Adult Medicine [address] [phone] Erika Sabillon MD [address] [place] [address] Social History Tobacco Use Types Packs/Day Years Used Date Smoking Tobacco: Former Passive Smoke Exposure: Never Smokeless Tobacco: Never Alcohol Use Standard Drinks/Week Comments No 0 (1 standard drink = 0.6 oz pur e alcohol) Sex and Gender Information Value Date Recorded Sex Assigned at Not on file Legal Sex Male 6:14 AM EST Gender Identity Not on file Sexual Orientation Not on file documented as of this encounter Plan of Treatment Upcoming Encounters Date Type Department Care Team ([facility] Contact Info) Description 12/11/2024 9:45 AM EDT Office Visit [address] [phone] Arpita Strickland MD [address] [place] [id number] 04/22/2025 1:00 PM EST Office Visit [facility] [place] [address] [place] [address] Erika Sabillon MD [address] [place] [address] documented as of this encounter Visit Diagnoses Not on filedocumented in this encounter Care Teams Preform Machine Operator Relationship Specialty Start Date End Date Erika Sabillon MD [address] [place] [address] PCP - General Internal Medicine 10/16/21 documented as of this encounter
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
--- OUTSIDE RECORDS SUMMARY | 2024-12-07 17:51 | XMS_ITS ---
Author Name [facility] Organization Unknown Care Team Organization Name Specialty Phone Email Start Date End Da te [facility] Erika Sabillon Primary Care 06/12/2022 024 [facility] Masha Gilliam Primary Care 01/16/2022
--- OUTSIDE RECORDS SUMMARY | 2024-12-07 17:51 | XMS_ITS | Encounter Summary ---
Author Organization [facility] Address [address] [place] [address] Care Team Providers Care Aquatics Specialist Name Role Phone Erika Sabillon MD Primary Care Provider [phone] Encounter Details Date Type Department Care Team ([facility] Contact Info) Description 12/01/2024 Telephone Adult Medicine [address] [phone] Barbara Almodovar MA Social History Tobacco Use Types Packs/Day Years [...] on file documented as of this encounter Progress Notes * Barbara Almodovar MA - 12/07/2024 2:51 PM EDT [facility] Home Health Cert. 11/24/24-01/22/25 Signed, scanned and faxed via Right fax. [phone] * Barbara Almodovar MA - 12/01/2024 11:45 AM EDT Home Health Cert. Juanita EVANS 11/24/24-01/22/25 documented in this encounter Plan of Treatment Upcoming Encounters Date Type Department Care Team ([facility] Contact Info) Description 12/11/2024 9:45 AM EDT Office Visit Endocrinology [address] [phone] Arpita Strickland MD [address] [place] [address] 04/22/2025 1:00 PM EST Office Visit Adult Medicine [place] - [address] [phone] Erika Sabillon MD [address] [place] [address] documented as of this encounter Visit Diagnoses Not on filedocumented in this encounter Care Teams Aquatics Specialist Relationship Specialty Start Date End Date Erika Sabillon MD [address] [place] [address] PCP - General Internal Medicine 10/16/21 documented as of this encounter
== END 2024-12-07 15:48 | disposition home or self-care (01) ==
LOC: HO.US 15:47
PROVIDERS: PCP Internal Medicine; Visit Provider Urology
DX: N13.2 Hydronephrosis with renal and ureteral calculous obstruction (principal)
CPT/HCPCS: 76775

== ENCOUNTER → 2024-12-07 15:50 | Outpatient (BNV) | payer OTHER, SELFPAY | PROVIDERS: PCP Internal Medicine; Visit Provider Radiology Diagnostic Radiology | DX: N20.0 Calculus of kidney (principal); N28.1 Cyst of kidney, acquired | CPT/HCPCS: 76775 ==

== ENCOUNTER 2024-12-23 14:29 | Outpatient (AMB) | payer OTHER, SELFPAY ==
--- NOTE | 2024-12-23 14:30 | MHC.OFFVIS ---
Intake Visit Reasons: 3m/US Intake Note: Patient Presents for 3 mo follow up Urology meds : none Blood Thinner : none Imaging done : 12/07/24 ultrasound Computational Sciences Professor Required: No Accompanied by: Self / Same As Patient Allergies aspirin (Aspirin) Allergy (Unknown, Verified 03/03/25 11:32) HIVES, ITCHING ibuprofen (From Motrin) Allergy (Unknown, Verified 03/03/25 11:32) UNKNOWN Sulfa (Sulfonamide Antibiotics) (SULFA (SULFONAMIDE ANTIBIOTICS)) Allergy (Unknown, Verified 03/03/25 11:32) HIVES Seafood Allergy (Unknown, Uncoded 03/03/25 11:32) RASH, ITCHING, HIVES HPI Comments Details: Saulo is a male. He is a patient of Dr. Sabillon. He is seen for the following urologic conditions - bilateral nephrolithiasis Renal ultrasound Continue progression stones Prior high volume Initiate potassium citrate Repeat imaging Nephrolithiasis Seen in emergency room in September No prior therapy Background diabetes Imaging - bilateral renal pelvis stones Intervention - 10/02 bilateral ureteroscopy Composition - 10/02 calcium oxalate mixed Six-month follow-up imaging [facility] Medical History HIV (human immunodeficiency virus infection) Renal calculi Hypertension Diabetes mellitus Brain injury Hepatitis C Family History Mother Diabetes mellitus Social History Household Members: Family Household Members Other:: Mother and nephew Housing: Apartment Do you presently have visiting nurse or other home services: Yes (3 RN TEACHER's) Alcohol intake: never Patient Tobacco Use Status: Former Tobacco user Advance Directives Date on File: 01/03/21 service: No Current occupational status: disabled Assessment & Plan Assessment & Plan (1) Bilateral nephrolithiasis: Code(s): N20.0 - Calculus of kidney Category: Medical Plan Start potassium citrate Six-month follow-up KUB Orders: Orders XR KUB 6 Months N20.0 - Calculus of kidney Medications: New potassium citrate ER 20 mEq (2 x 10 mEq (1,080 mg)) PO BID 360 tabs 1RF 90 days Patient Instructions: This note is constructed using voice recognition software. While every effort has been made to ensure accuracy promotion officer errors may have been included. Imaging studies, laboratory and physical exam results were discussed and reviewed in detail. No major barriers to patient understanding were identified. An opportunity to ask questions regarding the treatment plan was provided. All questions were answered. The patient expressed understanding and agreement with the above treatment plan. The patient is aware they should contact our office by phone for worsening of their current condition or the appearance of new urologic symptoms. Compliance is encouraged with any medications and followup testing that is ordered. It is a privilege to participate in the urologic care of your patient. If you have any questions or concerns regarding treatment for the above conditions, or other urologic issues, please do not hesitate to contact me. The office telephone contact is [phone]. Sincerely, Dr Tank Dave MD, ERNA [facility] - Urology Compassionate Specialist Care for the Genitourinary System Coding Level of Care Code Est Pt Level 4 (42347) Diagnoses Bilateral nephrolithiasis N20.0
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
--- OUTSIDE RECORDS SUMMARY | 2024-12-23 18:12 | XMS_ITS | Encounter Summary ---
Author Organization [employer] Address [address] [place] [address] Care Team Providers Care Keyboard Action Assembler Name Role Phone Erika Sabillon MD Primary Care Provider [phone] Reason for Visit * Reason Onset Date Comments Care Plan 12/21/2024 Encounter Details Date Type Department Care Team (Late st Contact Info) Description 12/21/2024 Telephone Adult Medicine [address] [phone] Erika Sabillon MD [address] [place] [address] Social History Tobacco Use Types Packs/Day Years [...] as of this encounter Progress Notes * Denise Enriquez MA - 12/22/2024 5:17 PM EDT In inbox * Mary Dinh - 12/21/2024 2:35 PM EDT Please see the scanned Care Plan from [facility], scanned on 10/26. This needs to be completed and signed by PCP. Caller has been waiting since October for this. documented in this encounter Plan of Treatment Upcoming Encounters Date Type Department Care Team (Late st Contact Info) Description 03/15/2025 1:00 PM EST Office Visit Endocrinology [address] [phone] Madi Hanley MD [address] [place] [address] 04/22/2025 1:00 PM EST Office Visit Adult Medicine [place] - [address] [phone] Erika Sabillon MD [address] [place] [address] documented as of this encounter Visit Diagnoses Not on filedocumented in this encounter Care Teams Keyboard Action Assembler Relationship Specialty Start Date End Date Erika Sabillon MD [address] [place] [address] PCP - General Internal Medicine 10/16/21 documented as of this encounter
--- OUTSIDE RECORDS SUMMARY | 2024-12-23 18:12 | XMS_ITS | Encounter Summary ---
Author Organization [place] [address] Care Team Providers Care Looper Operator Name Role Phone Erika Sabillon MD Primary Care Provider [phone] Reason for Visit * Reason Onset Date Comments Medication Problem 10/21/2024 Encounter Details Date Type Department Care Team ([facility] st Contact Info) Description 10/21/[address] [phone] Arpita Strickland MD [address] [place] [address] Social History Tobacco Use Types Packs/Day Years [...] as of this encounter Progress Notes * Keily Alexandra MA - 12/21/2024 5:41 PM EDT Faxed * Mary Dinh - 12/21/2024 2:27 PM EDT Susie is calling from [facility] regarding this. Has this been resolved, caller feels this has not been addressed. She needs a call back [facility]. She also needs an updated glucose records. * Cristin Bashir RN - 10/21/2024 2:06 PM EDT Called and spoke with mark Bach patient brought in Novolog pen to adult daycare. [facility] Hum[facility] Pt has a current order for Humalog [facility] not [facility] Novolog, Humalog picked up 06/2024 * Josefina Lorenzo - 10/21/2024 11:51 AM EDT Medication Problem: What is the name of the medication patient is having a problem with?: Humalog (lispro) What is the problem?: Pt has been bringing in Novalog pen and not the Humalog wants to know which they should be providing to pt, blood sugars was 344 as of today. She would like a call back please. Who is calling about the problem? : Mikala from [facility] Is this a NEW medication?: no How long has the patient been taking this medication? N/a Who prescribed this medication for the patient? Dr Strickland Who is patients PCP?: Erika Sabillon MD Payor: [facility] [employer] PLAN / Plan: [facility] MEDICAID / Product Type: *No Product type* / documented in this encounter Plan of Treatment Upcoming Encounters Date Type Department Care Team (Late st Contact Info) Description 03/15/2025 1:00 PM EST Office Visit Endocrinology [address] [phone] Madi Hanley MD [address] [place] [address] 04/22/2025 1:00 PM EST Office Visit [facility] [place] - [address] [phone] Erika Sabillon MD [address] [place], [place] documented as of this encounter Visit Diagnoses Not on filedocumented in this encounter Care Teams Looper Operator Relationship Specialty Start Date End Date Erika Sabillon MD [address] [place] [address] PCP - General Internal Medicine 10/16/21 documented as of this encounter
== END 2024-12-23 15:58 | disposition home or self-care (01) ==
LOC: HO.HUSH 14:30
PROVIDERS: PCP Internal Medicine; Visit Provider Urology
DX: N20.0 Calculus of kidney (principal)
CPT/HCPCS: 99214

== ENCOUNTER → 2024-12-23 14:29 | Outpatient (BNVA) | payer OTHER, SELFPAY | PROVIDERS: PCP Internal Medicine; Visit Provider Urology | DX: N20.0 Calculus of kidney (principal) | CPT/HCPCS: 99212 ==

== ENCOUNTER 2025-03-03 11:01 | Outpatient (AMB) | payer OTHER, SELFPAY ==
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
[2025-03-03 11:31] VITALS: BP 118/72; PULSE 96; TEMP 36.8; O2SAT 97
--- NOTE | 2025-03-03 11:31 | MHC.OFFWIV ---
Intake Vital Signs 03/03/25 11:31 Height 5 ft 8 in BMI Reason not done Patient refused/unable BP 118/72 Blood Pressure Location Lt brachial Position Sitting Pulse 96 Pulse Source Pulse Oximeter Temp 98.2 F Temp Source Oral Pulse Oximetry (%) 97 Oxygen Delivery Method Room Air Intake Visit Reasons: EP Possible UTI Patient Tobacco Use Status: Former Tobacco user Allergies aspirin (Aspirin) Allergy (Unknown, Verified 03/03/25 11:32) HIVES, ITCHING ibuprofen (From Motrin) Allergy (Unknown, Verified 03/03/25 11:32) UNKNOWN Sulfa (Sulfonamide Antibiotics) (SULFA (SULFONAMIDE ANTIBIOTICS)) Allergy (Unknown, Verified 03/03/25 11:32) HIVES Seafood Allergy (Unknown, Uncoded 03/03/25 11:32) RASH, ITCHING, HIVES Do you need a note to return to daycare/school/sports/work: Yes HPI HPI Comments History of Present Illness Details History - The patient is a 64-year-old nonverbal male presenting with his caregiver for dysuria and behavioral changes. - He has been acting unusually for a couple of days and communicated to his mother that he experiences a burning sensation during urination. - He has a history of diabetes mellitus and had surgery for kidney stones in September. - He has a prior history of urinary tract infections. - He denies any fever or vomiting. - The patient has no known allergies to antibiotics. - Has no blood in the urine. Physical Exam General: Cooperative, healthy appearing, comfortable, no acute distress and well developed Cardiac: Normal S1 and S2. RRR, no M/R/G noted. Respiratory: Normal respiratory effort and able to speak in complete sentences. Clear to auscultation bilaterally. No w/r/r noted. Skin: No rashes or lesions noted. GI: Normal inspection. Normal BS noted. Soft, non-tender, non-distended. No TTP of all 4 quadrants. No guarding or rebound tenderness noted. Back: Negative CVA bilaterally Patient was informed and verbally consented to the use of an ambient scribe for clinic note documentation during this visit. 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) Alcohol intake: never Patient Tobacco Use Status: Former Tobacco user Advance Directives Date on File: 01/03/21 service: No Current occupational status: disabled Review of Systems Const All systems reviewed & are unremarkable except as noted in HPI and below Physical Exam Vital Signs: Last Vital Signs Temp 98.2 F 03/03/25 11:31 Pulse 96 03/03/25 11:31 BP 118/72 03/03/25 11:31 Pulse Ox 97 03/03/25 11:31 Oxygen Delivery Method Room Air 03/03/25 11:31 Results AMB Urinalysis, Automated UA Leukoctes 125 Leigh Ann/uL Last Edit by Cynthia Knight CMA on 03/03/25 11:46 2+ Cynthia Knight 03/03/25 11:46 UA Nitrite Negative Last Edit by Cynthia Knight CMA on 03/03/25 11:46 UA Urobilinogen 0.2 mg/dL Last Edit by Cynthia Knight CMA on 03/03/25 11:46 UA Protein 30 mg/dL Last Edit by Cynthia Knight CMA on 03/03/25 11:46 1+ Cynthia Knight 03/03/25 11:46 UA pH 6.0 Last Edit by Cynthia Knight CMA on 03/03/25 11:46 UA Blood 200 Martín/uL Last Edit by Cynthia Knight CMA on 03/03/25 11:46 3+ Cynthia Knight 03/03/25 11:46 UA Specific [place] 1.020 Last Edit by Cynthia Knight CMA on 03/03/25 11:46 UA Ketone Negative Last Edit by Cynthia Knight CMA on 03/03/25 11:46 UA Bilirubin 0 mg/dL Last Edit by Cynthia Knight CMA on 03/03/25 11:46 UA Glucose 0 mg/dL Last Edit by Cynthia Knight CMA on 03/03/25 11:46 Results Reviewed Results Reviewed: Laboratory Last Values Urine pH (Auto) 6.0 03/03/25 11:41 Specific [place] (Auto) 1.020 03/03/25 11:41 Urine Protein (Auto) 30 mg/dL H* 03/03/25 11:41 Glucose (UA)(Auto) 0 mg/dL 03/03/25 11:41 Urine Ketones (Auto) Negative 03/03/25 11:41 Urine Blood (Auto) 200 Martín/uL H* 03/03/25 11:41 Urine Nitrite (Auto) Negative 03/03/25 11:41 Urine Bilirubin (Auto) 0 mg/dL 03/03/25 11:41 Urine Urobilinogen (Auto) 0.2 mg/dL 03/03/25 11:41 Leukocyte Esterase (Auto) 125 Leigh Ann/uL H* 03/03/25 11:41 Assessment & Plan Assessment & Plan (1) Dysuria: Code(s): R30.0 - Dysuria Plan Most likely UTI UA 2+leuko 2+blood 1+protein Plan - The patient will be treated for a urinary tract infection based on symptoms and urinalysis findings of leukocytes and protein. - A urine sample will be sent for culture, with results expected on Saturday. - An initial antibiotic will be prescribed and sent to the pharmacy. - The antibiotic may be changed based on the results of the urine culture. - The patient is advised to increase fluid intake, particularly water. - A follow-up call will be made on Saturday to assess his condition and review the culture results. - The patient's family was advised to monitor for worsening symptoms, such as fever or increased behavioral changes, which could indicate a kidney infection. Orders: Orders AMB Urinalysis Automated Today Z13.9 - Encounter for screening, unspecified Urine Culture Today N39.0 - Urinary tract infection, site not specified Medications: New cefuroxime axetil 500 mg PO Q12H 10 tabs 0RF Coding Level of Care Code Est Pt Level 3 (89451) Diagnoses Dysuria R30.0
== END 2025-03-03 12:24 | disposition home or self-care (01) ==
PROVIDERS: PCP Internal Medicine; Visit Provider Physician Assistant Medical
DX: Z13.9 Encounter for screening, unspecified (principal); R30.0 Dysuria

== ENCOUNTER 2025-03-03 11:01 | Outpatient (REF) | payer OTHER, SELFPAY | END 2025-03-03 11:02 | disposition home or self-care (01) | LOC: HO.LAB 11:01 | PROVIDERS: PCP Internal Medicine | DX: R30.0 Dysuria (principal); Z87.440 Personal history of urinary (tract) infections | CPT/HCPCS: 81003; 87086; 99212 ==

== ENCOUNTER → 2025-03-10 11:13 | Outpatient (BNV) | payer OTHER, SELFPAY | PROVIDERS: Emergency Provider Emergency Medicine Emergency Medical Services; PCP Internal Medicine; Visit Provider Radiology Diagnostic Radiology | DX: J98.4 Other disorders of lung (principal) | CPT/HCPCS: 71046 ==

== ENCOUNTER → 2025-03-10 12:01 | Outpatient (BNV) | payer OTHER, SELFPAY | PROVIDERS: Emergency Provider Emergency Medicine Emergency Medical Services; PCP Internal Medicine; Visit Provider Internal Medicine | DX: J10.1 Influenza due to other identified influenza virus with other respiratory manifestations (principal) | CPT/HCPCS: 99233 ==